=== PATIENT | male | born 1950 | race Two or more races ===

== ENCOUNTER 2020-03-01 08:33 | Outpatient (REF) | payer MEDICARE, BC, SELFPAY ==
--- NOTE | 2020-03-01 08:38 | CT_ITS ---
EXAMINATION: CT SINUS WITHOUT CONTRAST CLINICAL INFORMATION: Sinonasal polyps and deviated septum. COMPARISON: None TECHNIQUE: 2 mm thin axial and reformatted 2 mm thin sagittal and coronal images of sinuses were obtained. This CT examination was performed using dose optimization techniques as appropriate, variously including the following: *Automated exposure control *Adjustment of mA and/or kV according to patient size (this includes techniques or standardized protocols for targeted exams where dose is matched to indication/reason for exam; i.e. extremities or head) *Use of iterative reconstruction technique DLP: 107 mGy-cm FINDINGS: There is normal aeration of bilateral frontal, ethmoid, sphenoid, and maxillary sinuses. The frontoethmoidal and ostiomeatal complex drainage pathways are widely patent. The lamina papyracea, the bony sinus solares and the cribriform plate appear intact. NASAL CAVITY/NASOPHARYNX: The nasal cavity is clear. There is no nasal septal deviation/spurring. The nasopharynx is symmetric. ADDITIONAL RELEVANT FINDINGS: No periapical disease is seen. There is loss of joint space in the right TM joint and irregular mandibular condylar contour consistent with moderate degenerative arthritis. The orbits and skull base soft tissues are unremarkable. The middle ear cavities and mastoid air cells are clear. Limited evaluation demonstrates no acute intracranial findings. CT/CT sinus wo con IMPRESSION: Unremarkable sinus exam.
== END 2020-03-01 08:34 | disposition home or self-care (01) ==
LOC: HO.CT 08:33
PROVIDERS: Visit Provider Otolaryngology
DX: J33.9 Nasal polyp, unspecified (principal); J34.2 Deviated nasal septum
CPT/HCPCS: 70486

== ENCOUNTER 2020-03-05 12:47 | Outpatient (REF) | payer MEDICARE, BC, SELFPAY | END 2020-03-05 12:48 | disposition home or self-care (01) | LOC: HO.LAB 12:47 | PROVIDERS: PCP Internal Medicine; Visit Provider Internal Medicine | DX: Z20.822 Contact with and (suspected) exposure to COVID-19 (principal) | CPT/HCPCS: 36415; C9803; U0003 ==

== ENCOUNTER 2020-03-15 11:43 | Outpatient (REF) | payer MEDICARE, BC, SELFPAY | END 2020-03-15 11:44 | disposition home or self-care (01) | LOC: HO.LAB 11:43 | PROVIDERS: Visit Provider Internal Medicine | DX: Z20.822 Contact with and (suspected) exposure to COVID-19 (principal) | CPT/HCPCS: 36415; C9803; U0003 ==

== ENCOUNTER → 2020-03-17 08:22 | Outpatient (BNVA) | payer MEDICARE, BC, SELFPAY | PROVIDERS: PCP Internal Medicine; Visit Provider Internal Medicine Endocrinology, Diabetes & Metabolism | DX: Z76.89 Persons encountering health services in other specified circumstances (principal) | CPT/HCPCS: 82947; 99212 ==

== ENCOUNTER 2020-03-17 09:03 | Outpatient (REF) | payer MEDICARE, BC, SELFPAY ==
[2020-03-17 10:05] LABS: Hematocrit 38.8 % (42-52); Hemoglobin 13.2 g/dl (14.0-18.0); Mean Corpuscular Hemoglobin 29.8 pg (27.0-33.0); Mean Corpuscular Volume 87.6 fL (80-98); Mean Platelet Volume 9.5 fL (9.4-12.4); Platelet Count 250 X10*3/uL (160-400); Red Blood Count 4.43 X10*6/uL (4.60-5.80); Red Cell Distribution Width 12.4 % (11.0-16.0); White Blood Count 9.2 X10*3/uL (4.8-10.8)
[2020-03-17 10:44] LABS: Creatinine Urine 150.43 mg/dL; Microalbum/Creatinine Ratio Ur 6.6 ug/mg cr
[2020-03-17 10:53] LABS: Alanine Aminotransferase 20 U/L (0-40); Albumin Level 4.3 g/dL (3.5-5.0); Alkaline Phosphatase 68 U/L (39-117); Anion Gap 12 (12-20); Aspartate Amino Transferase 20 U/L (5-37); Bilirubin Total 0.9 mg/dL (0.0-1.0); Blood Urea Nitrogen 19 mg/dL (9-16); Calcium 9.3 mg/dL (8.4-10.2); Carbon Dioxide 23 mmol/L (22-29); Chloride 110 mmol/L (96-108); Cholesterol 156 mg/dL; Estimated Glomerular Filt Rate > 60; Glucose Fasting 103 mg/dL (60-99); HDL Cholesterol 53 mg/dL; LDL Cholesterol Calculated 78 mg/dl; Potassium 4.2 mmol/l (3.3-5.1); Sodium 141 mmol/L (135-145); Total Protein 6.8 g/dL (6.5-8.0); Triglycerides 128 mg/dL
[2020-03-17 11:06] LABS: Free T4 (Free Thyroxine) 0.93 ng/dL (0.71-1.85); Thyroid Stimulating Hormone 2.67 uIU/mL (0.32-4.0)
[2020-03-17 11:34] LABS: Vitamin B12 459 pg/mL (200-900)
[2020-03-18 02:13] LABS: LDL Cholesterol Direct 97 mg/dL (<100)
== END 2020-03-17 09:04 | disposition home or self-care (01) ==
LOC: HO.10HDL 09:03
PROVIDERS: Visit Provider Internal Medicine Endocrinology, Diabetes & Metabolism
DX: E11.9 Type 2 diabetes mellitus without complications (principal)
CPT/HCPCS: 36415; 80053; 80061; 82043; 82607; 82947; 83721; 84439; 84443; 85027; 99212

== ENCOUNTER → 2020-03-30 09:16 | Outpatient (REF) | payer MEDICARE, BC, SELFPAY ==
--- NOTE | ~2020-03-30 | US_ITS ---
EXAMINATION: US THYROID CLINICAL INFORMATION: Nontoxic single thyroid nodule. COMPARISON: Thyroid ultrasound 03/18/2019 and 01/17/2018. TECHNIQUE: Linear transducer miller-scale and color Doppler examination with attention to the region of the thyroid. FINDINGS: SIZE: Measurements of the thyroid lobes and nodules are given in sagittal, anteroposterior and transverse dimensions respectively. The thyroid gland is upper normal in size. Right Thyroid Lobe: 4.6 x 2.1 x 1.9 cm, volume 9.6 mL. Previously 4.5 x 2.0 x 2.1 cm, volume 9.9 mL. Parenchyma: The gland echotexture is heterogeneous. Thyroid vascularity is increased. Left Thyroid Lobe: 4.1 x 1.9 x 2.1 cm, volume 8.6 mL. Previously 4.3 x 1.9 x 1.5 cm, volume 6.5 mL. Parenchyma: The gland echotexture is heterogeneous. Thyroid vascularity is increased. Isthmus: 0.6 cm in maximum AP dimension. Previously 0.5 cm. No focal thyroid nodule is seen. NODES: No lymphadenopathy is seen in the tissue surrounding the thyroid gland. US/US thyroid IMPRESSION: Heterogeneous hypervascular thyroid gland. No focal nodule seen.
== END ==
LOC: HO.SL 09:16
PROVIDERS: PCP Internal Medicine; Visit Provider Internal Medicine Endocrinology, Diabetes & Metabolism
DX: E04.1 Nontoxic single thyroid nodule (principal); G47.33 Obstructive sleep apnea (adult) (pediatric)
CPT/HCPCS: 76536; 95806

== ENCOUNTER → 2020-03-31 09:21 | Outpatient (BNVA) | payer MEDICARE, BC, SELFPAY | PROVIDERS: PCP Internal Medicine; Visit Provider Dietitian, Registered ==

== ENCOUNTER 2020-05-29 02:13 | Emergency (ER) | payer OTHER, MEDICARE, BC, SELFPAY ==
--- NOTE | ~2020-05-29 | XR_ITS ---
EXAMINATION: XR CHEST CLINICAL INFORMATION: Shortness of breath COMPARISON: 08/30/2015 TECHNIQUE: 2 views of the chest were obtained. FINDINGS: Normal symmetric lung volumes. No parenchymal consolidation. No pleural effusion. No pneumothorax. Cardiomediastinal silhouette and pulmonary vascularity are within normal limits. No acute osseous abnormalities. XR/XR chest 2V IMPRESSION: Unremarkable examination.
[2020-05-29 02:23] VITALS: BP 150/77; PULSE 90; RESP 18; TEMP 36.7; O2SAT 94; BMI 28.2
--- NOTE | 2020-05-29 04:51 | ED_ITS ---
HPI - General Adult General Chief complaint: Dyspnea Stated complaint: SOB Time Seen by Provider: 05/29/20 04:51 Source: patient Mode of arrival: ambulatory History of Present Illness HPI narrative: 70-year-old male with chronic nasal congestion, currently being followed by both his primary care provider as well as a sinus specialist and most recently an ENT. He clarifies that his ?difficulty breathing? is entirely isolated to his nasal passages and nothing within his chest. He denies any associated fevers, chills, sore throat, cough, or eye pain associated with this difficulty in breathing through his nose. He was started on ipratropium spray by the ENT specialist approximately 1 week ago which has not helped with his nasal congestion. He has a follow-up appointment on the of this month. Related Data Home Medications Medication Instructions Recorded Confirmed aspirin 81 mg tablet,delayed 81 mg PO DAILY 01/12/20 05/24/20 release atorvastatin 20 mg tablet 20 mg PO DAILY 01/12/20 05/24/20 cinnamon bark 500 mg capsule 1,000 mg PO DAILY 01/12/20 05/24/20 fexofenadine 180 mg tablet 180 mg PO DAILY 01/12/20 05/24/20 losartan 100 mg tablet 100 mg PO DAILY 01/12/20 05/24/20 omega-3 fatty acids 1,000 mg 1,000 mg PO DAILY 01/12/20 05/24/20 capsule omeprazole 20 mg capsule,delayed 20 mg PO DAILY 01/12/20 05/24/20 release polyethylene glycol 3350 17 17 g PO DAILY 01/12/20 05/24/20 gram/dose oral powder ipratropium bromide 21 mcg (0.03 2 spray INTRANASAL BID 05/24/20 05/24/20 %) nasal spray metformin 500 mg tablet See Rx Instructions PO .COMPLEX 05/24/20 tab Previous Rx's Medication Instructions Recorded sennosides 8.6 mg-docusate sodium 1 tab-cap PO BID PRN #60 cap 01/12/20 50 mg capsule gabapentin 300 mg capsule 300 mg PO BID #180 cap 03/17/20 ibuprofen 800 mg tablet 800 mg PO TID #270 tab 03/17/20 levothyroxine 75 mcg tablet 75 mcg PO DAILY 90 Days #90 tab 03/17/20 lidocaine 5 % topical patch 1 patch TOPICAL DAILY #90 patch 03/31/20 AUTO PAP 6-16 mm H20 humidified AIR #1 ea 05/24/20 propranolol 10 mg tablet 10 mg PO BID #60 tab 05/24/20 terazosin 2 mg capsule 2 mg PO BEDTIME #30 cap 05/24/20 Allergies Allergy/AdvReac Type Severity Reaction Status Date / Time No Known Allergies Allergy Verified 01/06/20 13:01 [No Known Allergies*] Review of Systems Review of Systems: Pertinent positives and negatives as stated in the HPI and 10 point review of systems is otherwise negative. [facility] Past Medical History Source: nursing notes reviewed Medical History Anxiety Diabetic neuropathy Erectile dysfunction GERD (gastroesophageal reflux disease) Hypercholesterolemia Hypertension Hypothyroid Obesity (BMI 30-39.9) Obstructive sleep apnea Osteoarthritis Overweight (BMI 25.0-29.9) Pulmonary nodule Thyroid nodule Type 2 diabetes mellitus with hyperglycemia Vertebral fracture Surgical History History of appendectomy History of arthroscopy of right knee History of tonsillectomy Family History Family History Father Medical history unknown Mother Diabetes Past heart attack Brother Prostate cancer Social History Social History Alcohol intake: current Alcohol intake frequency: holidays/special occasions only Smoking Status: Current some day smoker Tobacco Type: Cigarette Packs Per Day: 0.5 Smoked in Last 30 Days: No Advance Directives: No Advance Directives Information Provided: No Physical Exam Vital Signs: Vital Signs: Last Vital Signs Temp 98.1 F 05/29/20 02:23 Pulse 90 05/29/20 02:23 Resp 18 05/29/20 02:23 BP 150/77 H 05/29/20 02:23 Pulse Ox 94 05/29/20 02:23 Body Mass Index 28.2 VITAL SIGNS: Reviewed. GENERAL: Well developed, well nourished, in no acute distress. HEAD: Normocephalic/atraumatic EYES: PERRLA, EOMI EARS: Ext canals without abnormality, TMs non-bulging and non-erythematous NOSE: Nares semi-patent bilateral, no bogginess or erythema noted on direct visualization OROPHARYNX: no oral lesions noted, posterior pharynx clear NECK: Supple, no adenopathy LUNGS: Normal breath sounds. SpO2<94> CARDIOVASCULAR: Regular rate and rhythm without noted murmurs ABDOMEN: Soft, non-tender, non-distended with bowel sounds. NEUROLOGIC: Alert and oriented x 4. Course Course Course Narrative: 70-year-old male with chronic nasal congestion and no evidence of acute infection. There is no evidence of any respiratory compromise and patient's complaint is strictly related to nasal passages. However, review of the x-ray is negative for any acute findings and I discussed with the patient at length about remaining patient and continuing with follow-up with the ENT specialist additional recommendations for symptom relief wore the use of reos-fel-zdemwww intranasal saline spray as well as a cool mist humidifier at the bedside during the night. Patient acknowledged understanding and was discharged home in stable condition. Discharge Plan Discharge Clinical Impression: Chronic nasal congestion Patient Disposition: Home, Self-Care Instructions: Rhinosinusitis (ED) Additional Instructions: 1. Resume all home medications as prescribed. 2. Recommend placing a cool mist humidifier at your bedside while sleeping at night. In addition, recommend purchasing cyqq-exr-tkntarm saline spray for the nose which you can apply to each nostril as recommended on the outside packaging. 3. Continue with follow-up with ENT on 06/02 as scheduled. Do not hesitate to come back to the emergency room should you develop any acute worsening of your symptoms. Prescriptions: No Action ibuprofen 800 mg tablet 800 mg PO TID Qty: 270 RF: 1 gabapentin 300 mg capsule 300 mg PO BID Qty: 180 RF: 1 lidocaine 5 % adhesive patch,medicated 1 patch topical DAILY Qty: 90 RF: 2 omega-3 fatty acids [Fish Oil Concentrate] 1,000 mg capsule 1,000 mg PO DAILY RF: 0 cinnamon bark 500 mg capsule 1,000 mg PO DAILY RF: 0 polyethylene glycol 3350 [Miralax] 17 gram/dose powder 17 g PO DAILY RF: 0 aspirin [Adult Aspirin Regimen] 81 mg tablet,delayed release (DR/EC) 81 mg PO DAILY RF: 0 omeprazole 20 mg capsule,delayed release(DR/EC) 20 mg PO DAILY RF: 0 losartan 100 mg tablet 100 mg PO DAILY RF: 0 atorvastatin 20 mg tablet 20 mg PO DAILY RF: 0 fexofenadine [Allergy Relief (fexofenadine)] 180 mg tablet 180 mg PO DAILY RF: 0 Senna Plus 8.6-50 mg capsule 1 tab-cap PO BID PRN (Reason: constipation) Qty: 60 RF: 2 ipratropium bromide 21 mcg (0.03 %) spray,non-aerosol 2 spray intranasal BID RF: 0 metformin 500 mg tablet See Rx Instructions PO .COMPLEX RF: 0 terazosin 2 mg capsule 2 mg PO BEDTIME Qty: 30 RF: 3 (DME) AUTO PAP 6-16 mm H20 humidified AIR See Rx Instructions .Route .MEDSUPPLY Qty: 1 RF: 0 propranolol 10 mg tablet 10 mg PO BID Qty: 60 RF: 4 levothyroxine [Synthroid] 75 mcg tablet 75 mcg PO DAILY 90 Days Qty: 90 RF: 2 Referrals: Po,Dayana Bolton MD [Primary Care Provider] - 2 days Interventions: ED Discharge Assessment Last Done: 05/29/20 04:58 Discharge Date/Time: 05/29/20 05:41
== END 2020-05-29 05:41 | disposition home or self-care (01) ==
PROVIDERS: Emergency Provider Student in an Organized Health Care Education/Training Program; PCP Internal Medicine
DX: R09.81 Nasal congestion (principal); F17.210 Nicotine dependence, cigarettes, uncomplicated; I10 Essential (primary) hypertension; E11.9 Type 2 diabetes mellitus without complications; K21.9 Gastro-esophageal reflux disease without esophagitis
CPT/HCPCS: 71046; 99283; 99284

== ENCOUNTER 2020-08-19 11:11 | Outpatient (REF) | payer MEDICARE, BC, SELFPAY ==
[2020-08-19 12:18] LABS: MANUAL DIFF FLAG NO
[2020-08-19 12:23] LABS: Basophils Percent Auto 0.4 % (0-2); Eosinophils Absolute Auto 0.3 X10*3/uL (0.0-0.4); Eosinophils Percent Auto 3.3 % (0-4); Hematocrit 40.9 % (42-52); Hemoglobin 13.6 g/dl (14.0-18.0); Imm Gran Abs Auto 0.03 X10*3/uL (0.00-0.03); Imm Gran Pct Auto 0.3 % (0.0-0.4); Immature Retic Fraction 9.8 % (2.3-13.4); Lymphocytes Absolute Auto 1.9 X10*3/uL (1.2-4.9); Lymphocytes Percent Auto 20.8 % (20-40); Mean Corpuscular HGB Conc 33.3 g/dl (31.0-36.0); Mean Corpuscular Hemoglobin 29.4 pg (27.0-33.0); Mean Corpuscular Volume 88.5 fL (80-98); Mean Platelet Volume 9.2 fL (9.4-12.4); Monocytes Absolute Auto 0.8 X10*3/uL (0.1-1.2); Monocytes Percent Auto 8.3 % (2-11); Neutrophils Absolute Auto 6.2 X10*3/uL (2.0-8.3); Neutrophils Percent Auto 66.9 % (45-73); Platelet Count 236 X10*3/uL (160-400); Red Blood Count 4.62 X10*6/uL (4.60-5.80); Red Cell Distribution Width 12.5 % (11.0-16.0); Retic HGB Equivalent 35.2 pg (30.0-35.0); Reticulocyte Percent 1.5 % (0.5-1.8); Reticulocytes Absolute 0.069 X10*6/uL (0.026-0.095); White Blood Count 9.3 X10*3/uL (4.8-10.8)
[2020-08-19 13:19] LABS: Folate 18.6 ng/mL (> or = 4.0); Vitamin B12 457 pg/mL (200-900)
[2020-08-19 13:39] LABS: Iron 94 mcg/dL (45-160); Percent Iron Saturation 30 % (15-50); Total Iron Binding Capacity 318 mcg/dL (228-428); Unsaturated Iron Binding 224 ug/dL
[2020-08-19 14:06] LABS: Ferritin 120 ng/mL (20-250); Free T4 (Free Thyroxine) 0.78 ng/dL (0.71-1.85); Prostate Specific Antigen Scr 0.89 ng/mL (<0.05-4.0); Thyroid Stimulating Hormone 1.93 uIU/mL (0.32-4.0)
== END 2020-08-19 11:12 | disposition home or self-care (01) ==
LOC: HO.LAB 11:11
PROVIDERS: PCP Internal Medicine; Visit Provider Internal Medicine
DX: Z12.5 Encounter for screening for malignant neoplasm of prostate (principal); E03.9 Hypothyroidism, unspecified; R39.9 Unspecified symptoms and signs involving the genitourinary system
CPT/HCPCS: 36415; 82607; 82728; 82746; 83540; 84153; 84439; 84443; 85025; 85045

== ENCOUNTER → 2020-10-18 13:49 | Outpatient (BNVA) | payer MEDICARE, BC, SELFPAY | PROVIDERS: PCP Internal Medicine; Visit Provider Dietitian, Registered | DX: E11.65 Type 2 diabetes mellitus with hyperglycemia (principal); E11.40 Type 2 diabetes mellitus with diabetic neuropathy, unspecified; E78.00 Pure hypercholesterolemia, unspecified; I10 Essential (primary) hypertension; E66.9 Obesity, unspecified; F17.210 Nicotine dependence, cigarettes, uncomplicated; Z79.84 Long term (current) use of oral hypoglycemic drugs | CPT/HCPCS: 97803 ==

== ENCOUNTER 2020-11-03 14:32 | Outpatient (REF) | payer MEDICARE, BC, SELFPAY | END 2020-11-03 14:33 | disposition home or self-care (01) | LOC: HO.LAB 14:32 | PROVIDERS: PCP Internal Medicine; Visit Provider Internal Medicine | DX: Z20.822 Contact with and (suspected) exposure to COVID-19 (principal) | CPT/HCPCS: C9803; U0003; U0005 ==

== ENCOUNTER 2020-11-26 10:48 | Outpatient (REF) | payer MEDICARE, BC, SELFPAY ==
--- NOTE | ~2020-11-26 | XR_ITS ---
EXAMINATION: XR FOOT, LEFT CLINICAL INFORMATION: Pain. COMPARISON: None TECHNIQUE: AP, lateral, and oblique views of the left foot. FINDINGS: There is no visible fracture, dislocation or subluxation. There is a small retrocalcaneal and calcaneal heel enthesophyte. The ankle mortise and subtalar joints are normal. The soft tissues are normal. XR/XR foot LT 2V IMPRESSION: Small retrocalcaneal and calcaneal heel enthesophytes. No visible acute fracture, dislocation or subluxation seen.
== END 2020-11-26 10:49 | disposition home or self-care (01) ==
LOC: HO.XRAY 10:48
PROVIDERS: PCP Internal Medicine; Visit Provider Internal Medicine
DX: M79.672 Pain in left foot (principal)
CPT/HCPCS: 73620

== ENCOUNTER 2021-02-28 13:11 | Outpatient (REF) | payer MEDICARE, BC, SELFPAY ==
[2021-02-28 13:26] LABS: MANUAL DIFF FLAG NO
[2021-02-28 14:04] LABS: Basophils Percent Auto 0.4 % (0-2); Eosinophils Absolute Auto 0.4 X10*3/uL (0.0-0.4); Eosinophils Percent Auto 3.9 % (0-4); Hematocrit 38.4 % (42.0-52.0); Imm Gran Abs Auto 0.02 X10*3/uL (0.00-0.03); Imm Gran Pct Auto 0.2 % (0.0-0.4); Lymphocytes Percent Auto 21.8 % (20-40); Mean Corpuscular HGB Conc 33.9 g/dl (31.0-36.0); Mean Corpuscular Hemoglobin 29.7 pg (27.0-33.0); Mean Corpuscular Volume 87.9 fL (80.0-98.0); Mean Platelet Volume 9.7 fL (9.4-12.4); Monocytes Absolute Auto 0.8 X10*3/uL (0.1-1.2); Monocytes Percent Auto 9.1 % (2-11); Neutrophils Absolute Auto 5.9 x10*3/uL (2.0-8.3); Neutrophils Percent Auto 64.6 % (45-73); Platelet Count 220 X10*3/uL (160-400); Red Blood Count 4.37 X10*6/uL (4.60-5.80); Red Cell Distribution Width 12.7 % (11.0-16.0); White Blood Count 9.1 X10*3/uL (4.8-10.8)
[2021-02-28 14:16] LABS: Estimated Average Glucose 131 mg/dL; Hemoglobin A1c % 6.2 %
[2021-02-28 14:44] LABS: Alanine Aminotransferase 27 U/L (0-40); Alkaline Phosphatase 67 U/L (39-117); Anion Gap 11 (12-20); Aspartate Amino Transferase 20 U/L (5-37); Bilirubin Total 0.5 mg/dL (0.0-1.0); Blood Urea Nitrogen 15 mg/dL (9-16); Calcium 9.6 mg/dL (8.4-10.2); Carbon Dioxide 26 mmol/L (22-29); Chloride 108 mmol/L (96-108); Cholesterol 151 mg/dL; Estimated Glomerular Filt Rate > 60; Glucose Random 85 mg/dL (60-115); HDL Cholesterol 47 mg/dL; LDL Cholesterol Calculated 74 mg/dl; Potassium 4.5 mmol/L (3.3-5.1); Sodium 140 mmol/L (135-145); Total Protein 6.7 g/dL (6.5-8.0); Triglycerides 153 mg/dL
[2021-02-28 14:54] LABS: Free T4 (Free Thyroxine) 0.83 ng/dL (0.71-1.85); Prostate Specific Antigen Scr 0.85 ng/mL (<0.05-4.0); Thyroid Stimulating Hormone 3.85 uIU/mL (0.32-4.0)
[2021-02-28 15:02] LABS: Folate 19.2 ng/mL (> or = 4.0); Vitamin B12 526 pg/mL (200-900)
[2021-02-28 16:45] LABS: Creatinine Urine 127.89 mg/dL; Microalbum/Creatinine Ratio Ur 5.4 ug/mg cr
== END 2021-02-28 13:12 | disposition home or self-care (01) ==
LOC: HO.LAB 13:11
PROVIDERS: PCP Internal Medicine; Visit Provider Internal Medicine
DX: E11.65 Type 2 diabetes mellitus with hyperglycemia (principal); I10 Essential (primary) hypertension; E03.9 Hypothyroidism, unspecified; E78.00 Pure hypercholesterolemia, unspecified; Z12.5 Encounter for screening for malignant neoplasm of prostate
CPT/HCPCS: 36415; 80053; 80061; 82043; 82607; 82746; 83036; 84153; 84439; 84443; 85025

== ENCOUNTER → 2021-04-18 10:35 | Outpatient (BNVA) | payer MEDICARE, BC, SELFPAY | PROVIDERS: PCP Internal Medicine; Visit Provider Dietitian, Registered | DX: E11.65 Type 2 diabetes mellitus with hyperglycemia (principal) | CPT/HCPCS: 97803 ==

== ENCOUNTER 2021-06-13 11:51 | Outpatient (REF) | payer MEDICARE, BC, SELFPAY ==
[2021-06-15 12:07] LABS: Follicle Stimulating Hormone 3.3 mIU/mL (1.6-8.0); Lutenizing Hormone 1.4 mIU/mL (1.6-15.2); Prolactin 3.6 ng/mL (2.0-18.0)
[2021-06-18 11:06] LABS: Testosterone, Total 135 ng/dL (250-1100)
== END 2021-06-13 11:52 | disposition home or self-care (01) ==
LOC: HO.LAB 11:51
PROVIDERS: PCP Internal Medicine; Visit Provider Internal Medicine
DX: N52.9 Male erectile dysfunction, unspecified (principal)
CPT/HCPCS: 36415; 83001; 83002; 84146; 84403

== ENCOUNTER → 2021-06-23 10:57 | Outpatient (BNVA) | payer MEDICARE, BC, SELFPAY | PROVIDERS: PCP Internal Medicine; Visit Provider Internal Medicine Endocrinology, Diabetes & Metabolism | DX: E11.65 Type 2 diabetes mellitus with hyperglycemia (principal); E03.9 Hypothyroidism, unspecified | CPT/HCPCS: 82947; 99212 ==

== ENCOUNTER 2021-08-09 08:59 | Outpatient (REF) | payer MEDICARE, BC, SELFPAY ==
--- NOTE | ~2021-08-09 | XR_ITS ---
EXAMINATION: XR CHEST CLINICAL INFORMATION: Positive TB test COMPARISON: Previous chest x-ray most recent May 2020 TECHNIQUE: 2 views of the chest were obtained. FINDINGS: The cardiac and mediastinal contours are stable. The cardiac silhouette is slightly enlarged. The thoracic aorta is tortuous. The lungs are clear. There is no pleural effusion. There are degenerative changes of the spine. XR/XR chest 2V IMPRESSION: No evidence of TB in the chest.
== END 2021-08-09 09:00 | disposition home or self-care (01) ==
LOC: HO.XRAY 08:59
PROVIDERS: PCP Internal Medicine; Visit Provider Nurse Practitioner
DX: R76.11 Nonspecific reaction to tuberculin skin test without active tuberculosis (principal); K59.00 Constipation, unspecified; Z80.0 Family history of malignant neoplasm of digestive organs
CPT/HCPCS: 71046; 99202

== ENCOUNTER → 2021-10-17 10:21 | Outpatient (BNVA) | payer MEDICARE, BC, SELFPAY | PROVIDERS: PCP Internal Medicine; Visit Provider Dietitian, Registered | DX: E11.65 Type 2 diabetes mellitus with hyperglycemia (principal); Z71.3 Dietary counseling and surveillance | CPT/HCPCS: 97803 ==

== ENCOUNTER 2021-10-20 10:32 | Outpatient (REF) | payer MEDICARE, BC, SELFPAY ==
[2021-10-20 10:48] LABS: MANUAL DIFF FLAG NO
[2021-10-20 11:24] LABS: Basophils Percent Auto 0.3 % (0-2); Eosinophils Absolute Auto 0.3 X10*3/uL (0.0-0.4); Eosinophils Percent Auto 3.2 % (0-4); Hematocrit 37.6 % (42.0-52.0); Hemoglobin 12.5 g/dl (14.0-18.0); Imm Gran Abs Auto 0.03 X10*3/uL (0.00-0.03); Imm Gran Pct Auto 0.3 % (0.0-0.4); Lymphocytes Absolute Auto 1.6 X10*3/uL (1.2-4.9); Lymphocytes Percent Auto 18.6 % (20-40); Mean Corpuscular HGB Conc 33.2 g/dl (31.0-36.0); Mean Corpuscular Volume 87.2 fL (80.0-98.0); Mean Platelet Volume 9.3 fL (9.4-12.4); Monocytes Absolute Auto 0.9 X10*3/uL (0.1-1.2); Monocytes Percent Auto 10.5 % (2-11); Neutrophils Absolute Auto 5.9 x10*3/uL (2.0-8.3); Neutrophils Percent Auto 67.1 % (45-73); Platelet Count 283 X10*3/uL (160-400); Red Blood Count 4.31 X10*6/uL (4.60-5.80); Red Cell Distribution Width 12.8 % (11.0-16.0); White Blood Count 8.8 X10*3/uL (4.8-10.8)
[2021-10-20 11:54] LABS: Estimated Average Glucose 128 mg/dL; Hemoglobin A1c % 6.1 %
[2021-10-20 12:00] LABS: Bacteria Urine None Seen (None Seen); Hyaline Casts Urine 0-2 /LPF (0-2); RBC Urine 0-2 /HPF (0-2); Squamous Epithelial Cell Urine 0-2 /HPF (0-2); WBC Urine 0-5 /HPF (0-5)
[2021-10-20 12:05] LABS: Color Urine Yellow; Glucose Urine UA Negative (Negative); Leukocyte Esterase Urine Trace (Negative); Nitrite Urine Negative (Negative); PH 6.5 (5.0-9.0); Specific Gravity - Urine 1.025 (1.005-1.025); Urine Blood Negative (Negative); Urine Ketones Negative (Negative); Urine Protein Negative (Neg-Trace)
[2021-10-20 12:08] LABS: Appearance Urine Hazy
[2021-10-20 12:28] LABS: Alanine Aminotransferase 20 U/L (0-40); Alkaline Phosphatase 63 U/L (39-117); Anion Gap 15 (12-20); Aspartate Amino Transferase 21 U/L (5-37); Bilirubin Total 0.8 mg/dL (0.0-1.0); Blood Urea Nitrogen 18 mg/dL (9-16); Calcium 8.7 mg/dL (8.4-10.2); Carbon Dioxide 23 mmol/L (22-29); Chloride 110 mmol/L (96-108); Cholesterol 139 mg/dL; Estimated Glomerular Filt Rate > 60; Glucose Random 123 mg/dL (60-115); HDL Cholesterol 52 mg/dL; LDL Cholesterol Calculated 73 mg/dl; Potassium 4.6 mmol/L (3.3-5.1); Sodium 143 mmol/L (135-145); Total Protein 6.6 g/dL (6.5-8.0); Triglycerides 70 mg/dL
[2021-10-20 12:29] LABS: Creatinine Urine 172.78 mg/dL; Microalbumin Urine < 5.0 mg/L
[2021-10-20 12:38] LABS: Free T4 (Free Thyroxine) 0.93 ng/dL (0.71-1.85); Thyroid Stimulating Hormone 3.66 uIU/mL (0.32-4.0)
[2021-10-20 12:43] LABS: Folate 16.5 ng/mL (> or = 4.0); Vitamin B12 508 pg/mL (200-900)
== END 2021-10-20 10:33 | disposition home or self-care (01) ==
LOC: HO.LAB 10:32
PROVIDERS: PCP Internal Medicine; Visit Provider Internal Medicine
DX: E11.65 Type 2 diabetes mellitus with hyperglycemia (principal); E78.00 Pure hypercholesterolemia, unspecified
CPT/HCPCS: 36415; 80053; 80061; 81001; 82043; 82607; 82746; 83036; 84439; 84443; 85025

== ENCOUNTER 2021-10-28 11:50 | Day surgery (SDC) | payer MEDICARE, BC, SELFPAY ==
--- NOTE | 2021-10-27 14:57 | HO.ANESPROP2 ---
Documented by User: Krys Ramos NP 10/27/21 14:58 HPI - Anesthesia Eval Consult details Narrative: 71yo M for Colonoscopy PMFSH Active Problems Active Problems: All Active Problems (Updated 08/26/21 @ 10:28 by Dayana Mccurdy MD) Peripheral vascular disease (Acute) Hypogonadism in male (Acute) Family history of colon cancer (Acute) Adult general medical exam (Acute) Erectile dysfunction (Acute) Generalized anxiety disorder (Acute) Essential tremor (Acute) Mild obstructive sleep apnea (Acute) Vertebral fracture (Acute) Anemia (Acute) Lower urinary tract symptoms (LUTS) (Acute) Insomnia (Acute) Thyroid nodule (Acute) Constipation (Acute) Tobacco abuse (Acute) Type 2 diabetes mellitus with hyperglycemia (Acute) Osteoarthritis (Acute) GERD (gastroesophageal reflux disease) (Acute) Overweight (BMI 25.0-29.9) (Acute) Erectile dysfunction (Acute) Hypothyroid (Acute) Hypertension (Acute) Hypercholesterolemia (Acute) Past Medical History Medical History Diabetic neuropathy Erectile dysfunction Foot pain, left GERD (gastroesophageal reflux disease) Hypercholesterolemia Hypertension Hypothyroid Obesity (BMI 30-39.9) Obstructive sleep apnea Osteoarthritis Overweight (BMI 25.0-29.9) Overweight (BMI 25.0-29.9) Positive PPD Pulmonary nodule Screening for colon cancer Thyroid nodule Type 2 diabetes mellitus with hyperglycemia Vertebral fracture Family History Family History Father Medical history unknown Mother Diabetes Past heart attack Brother Prostate cancer Surgical History Surgical History History of appendectomy History of arthroscopy of right knee History of colonoscopy History of tonsillectomy Social History Social History Housing: House Alcohol intake: current Alcohol intake frequency: holidays/special occasions only Patient Tobacco Use Status: Current everyday Tobacco user Tobacco use type: Cigarette Cigarette Packs Per Day: 15 Cigarettes Per Day: 20 e-Cigarette/Vaping Use: Never Used Second Hand Smoke Exposure: No Use of substances other than those prescribed or required for medical reasons: No Are you DNR?: No Advance Directives: No Advance Directives Information Provided: Yes service: No Current occupational status: disabled Cognitive needs: No Hearing needs: No Vision needs: Yes Meds Allergies Allergy/AdvReac Type Severity Reaction Status Date / Time No Known Allergies Allergy Verified 10/28/21 13:21 [No Known Allergies*] Home Medications Medication Instructions Recorded Confirmed Last Taken Type aspirin 81 mg tablet,delayed 81 mg PO DAILY 01/12/20 10/28/21 Unknown History release (Adult Aspirin Regimen) cinnamon bark 500 mg capsule 1,000 mg PO DAILY 01/12/20 10/28/21 Unknown History omega-3 fatty acids 1,000 mg 1,000 mg PO DAILY 01/12/20 10/28/21 Unknown History capsule (Fish Oil Concentrate) metformin 500 mg tablet 500 mg PO BID 06/23/21 10/28/21 Unknown History alprazolam 0.25 mg tablet 0.25 mg PO DAILY 08/09/21 10/28/21 Unknown History fluticasone propionate 50 2 spray intranasal DAILY PRN Nasal 10/28/21 10/28/21 Unknown History mcg/actuation nasal Congestion spray,suspension (Flonase Allergy Relief) ibuprofen 800 mg tablet 800 mg PO BID 10/28/21 10/28/21 Unknown History auqnlrcmjiii-nvwkrlde-pajrck 1 tab PO DAILY 10/28/21 10/28/21 Unknown History tablet (Multivitamin 50 Plus tablet) Exam Exam Date and Time: October 27, 2021 145 Pertinent Lab Results Pertinent Lab Results: Laboratory Tests 10/20/21 10/20/21 10:46 10:46 WBC 8.8 Hgb 12.5 L Hct 37.6 L Plt Count 283 D Sodium 143 Potassium 4.6 Chloride 110 H Carbon Dioxide 23 BUN 18 H Creatinine 0.90 Assessment and Plan Assessment Anesthesia Assessment: Chart Reviewed Documented by User: Ruthy Hayes MD 10/28/21 14:25 [facility] Past Medical History Medical History Diabetic neuropathy Erectile dysfunction Foot pain, left GERD (gastroesophageal reflux disease) Hypercholesterolemia Hypertension Hypothyroid Obesity (BMI 30-39.9) Obstructive sleep apnea Osteoarthritis Overweight (BMI 25.0-29.9) Overweight (BMI 25.0-29.9) Positive PPD Pulmonary nodule Screening for colon cancer Thyroid nodule Type 2 diabetes mellitus with hyperglycemia Vertebral fracture Functional capacity: independent ambulation Family History Family History Father Medical history unknown Mother Diabetes Past heart attack Brother Prostate cancer Family history of problems with anesthesia: No Surgical History Surgical History History of appendectomy History of arthroscopy of right knee History of colonoscopy History of tonsillectomy History of Problems with Anesthesia: No Social History Social History Housing: House Alcohol intake: current Alcohol intake frequency: holidays/special occasions only Patient Tobacco Use Status: Current everyday Tobacco user Tobacco use type: Cigarette Cigarette Packs Per Day: 15 Cigarettes Per Day: 20 e-Cigarette/Vaping Use: Never Used Second Hand Smoke Exposure: No Use of substances other than those prescribed or required for medical reasons: No Are you DNR?: No Advance Directives: No Advance Directives Information Provided: Yes service: No Current occupational status: disabled Cognitive needs: No Hearing needs: No Vision needs: Yes Meds Allergies Allergy/AdvReac Type Severity Reaction Status Date / Time No Known Allergies Allergy Verified 10/28/21 13:21 [No Known Allergies*] Home Medications Medication Instructions Recorded Confirmed Last Taken Type aspirin 81 mg tablet,delayed 81 mg PO DAILY 01/12/20 10/28/21 Unknown History release (Adult Aspirin Regimen) cinnamon bark 500 mg capsule 1,000 mg PO DAILY 01/12/20 10/28/21 Unknown History omega-3 fatty acids 1,000 mg 1,000 mg PO DAILY 01/12/20 10/28/21 Unknown History capsule (Fish Oil Concentrate) metformin 500 mg tablet 500 mg PO BID 06/23/21 10/28/21 Unknown History alprazolam 0.25 mg tablet 0.25 mg PO DAILY 08/09/21 10/28/21 Unknown History fluticasone propionate 50 2 spray intranasal DAILY PRN Nasal 10/28/21 10/28/21 Unknown History mcg/actuation nasal Congestion spray,suspension (Flonase Allergy Relief) ibuprofen 800 mg tablet 800 mg PO BID 10/28/21 10/28/21 Unknown History uxlumiylcyva-ghnowmhi-abejhf 1 tab PO DAILY 10/28/21 10/28/21 Unknown History tablet (Multivitamin 50 Plus tablet) Exam Airway Mallampati Class: III TM Dist: >3cm Neck ROM: Full Heart: RRR Lungs: CTA Assessment and Plan Final Anesthetic Review Family History of Problems with Anesthesia: No History of Problems with Anesthesia: No ASA Class: III Final Preanesthetic Review: No Changes in Pt Med Stat, Meds/Allgs Chart Reviewed, Consent Obtained/Reviewed and Anes Risks/Benef Reviewed Patient Risk: Low (F) Procedure Risk: Low Anesthetic Plan Anesthetic Plan: MAC: Disposition: Standard PACU
[2021-10-28 12:33] VITALS: BMI 30.7
[2021-10-28 12:48] VITALS: BP 176/91; PULSE 57; RESP 16; TEMP 36.3; O2SAT 98
[2021-10-28] MEDS: Lactated Ringers 1,000 ML 100 ML IVCONT (13:09)
[2021-10-28 13:35] LABS: Glucose, Whole Blood 100 mg/dL (60-115)
--- NOTE | 2021-10-28 14:50 | MHC.SHP ---
Pre-Procedural Eval Section A Date of Service: 10/28/21 The patient is an INPATIENT: No The History & Physical has been completed within 30 days and I have reviewed it.: No Section B Chief Complaint: screening Details of Present Illness: Colon cancer screen, chronic constipation Relevant Family History (Specify if Yes): No Relevant Social History: Tobacco Use Present Medications: see Short Stay Collaborative assessment Medical History: Significant History (LUIS Smoker Diabetes Hypertension High cholesterol Hypothyroid History of vertebral fracture Osteoarthritis Erectile dysfunction Constipation) History of Previous Operations: Relevant previous surgery/procedure and date(s) (History of appendectomy History of arthroscopy of right knee History of colonoscopy History of tonsillectomy) Allergies: Allergies Allergy/AdvReac Type Severity Reaction Status Date / Time No Known Allergies Allergy Verified 10/28/21 13:21 [No Known Allergies*] Review of Systems Sugical H&P ROS: Negative: Constitution, Cardiovascular, Respiratory and Gastrointestinal Exam Surgical H&P Exam: Normal: Heart, Normal: Lungs, Normal: Extremities and Normal: Abdomen Plan Diagnosis/Plan: Unchanged I have reviewed the history and physical and performed a pertinent physical examination on my patient. No changes have occurred unless specified.
--- NOTE | 2021-10-28 14:56 | P.OP_ITS ---
Operative Note Operative Note Date of Service: 10/28/21 Narrative: Pre-op diagnosis: Colon cancer screening, chronic constipation Post-op diagnosis:?other (Colon polyps, diverticulosis, hemorrhoids) Procedure: COLONOSCOPY TILL CECUM WITH BIOPSIES AND SNARE POLYPECTOMY Consent: Indications for the procedure and potential complications of bleeding, perforation, reaction to medications and missed diagnosis were discussed with the patient and informed consent was obtained. Instrument: Olympus PCF H 190 L variable stiffness pediatric colonoscope Monitoring: Vital signs and clinical assessment, intermittent blood pressure monitoring, continuous EKG monitoring, Pulse oximetry and Carbon Dioxide monitoring were done throughout the procedure. Colon withdrawl time was 18 minutes. Procedure: The patient was placed in the left lateral decubitis position and pre-procedure medications were administered. After a digital rectal examination of the ano-rectum, the video colonoscope was inserted into the rectum and advanced through the colon to the cecum. The colonoscope was slowly withdrawn in a retrograde panoramic fashion and the colon mucosa was carefully examined including a retroflexed view of the rectum. Findings and interventions are described below. Procedure Difficulty: Colon was long and tortuous and there was some loop formation. Findings: Terminal Ileum: Not evaluated Cecum:? Normal Ascending Colon:? Normal Transverse Colon:? A 7 to 8 mm sessile (adenomatous appearing) polyp removed with a cold snare Descending Colon:? Moderate diverticulosis Sigmoid Colon:? Moderate diverticulosis Rectum:? A few 4-5 mm diminutive appearing polyps in the rectum - 3 were removed with a cold biopsy. Ano-rectum:? Moderate internal hemorrhoids Colon preparation:? Good after some irrigation Impression and Post Procedure Diagnosis: Colonoscopy Findings: Four small polyps removed Moderate diverticulosis seen in the left colon Moderate hemorrhoids on retroflexed exam. Plan: Await pathology results Patient has an appointment on 11/23/21 in the GI Clinic with? Shyla Elizabeth NP. Repeat Colonoscopy interval based on path results - in 3-5 years if polyps are adenomatous and 10 years if polyps are hyperplastic. (Adult colonoscope for future colonoscopies). Above findings were reviewed with the patient and colon polyps and diverticulosis handouts were given in the discharge area Surgeon: Jad Ricardo MD Anesthesia:?MAC Was an Big Data [employer] Lead used for this Procedure?:?Yes Big Data Analytics Lead:?Magdi Nuno Estimated blood loss (mL):?0 Pathology:?other (A: Transverse colon polyp.? B: Rectal polyp.) Condition:?stable Disposition:?PACU
[2021-10-28 15:48] VITALS: BP 133/70; PULSE 65; RESP 16; TEMP 36.7; O2SAT 96
--- NOTE | 2021-10-28 15:52 | HO.POSTANES ---
Post Anesthesia Evaluation Post Anesthesia Evaluation Vital Signs: Vital Signs Temp Pulse Resp BP Pulse Ox O2 Del Method O2 Flow Rate 10/28/21 15:48 98.1 F 65 16 133/70 96 Nasal Cannula 2 10/28/21 12:48 97.4 F 57 16 176/91 H 98 Room Air Anesthesia: Monitored Mental Status: Awake Pain Control: Satisfactory Nausea/Vomiting: None Hydration: Adequate Anesthesia-Related Issues: No Anes. Related Issues
[2021-10-28 16:02] VITALS: BP 133/70; PULSE 62; RESP 18; O2SAT 98
[2021-10-28 16:17] VITALS: BP 155/80; PULSE 56; RESP 18; TEMP 36.4; O2SAT 98
== END 2021-10-28 16:47 | disposition home or self-care (01) ==
PROVIDERS: PCP Internal Medicine; Visit Provider Internal Medicine Gastroenterology
PROC: 0DJD8ZZ Inspection of Lower Intestinal Tract, Via Natural or Artificial Opening Endoscopic (ICD-10-PCS; CPT 45378; principal; 2021-10-28 13:20)
DX: Z12.11 Encounter for screening for malignant neoplasm of colon (principal); Z80.0 Family history of malignant neoplasm of digestive organs; D12.3 Benign neoplasm of transverse colon; K62.1 Rectal polyp; K57.30 Diverticulosis of large intestine without perforation or abscess without bleeding; K64.8 Other hemorrhoids; K59.09 Other constipation; G47.33 Obstructive sleep apnea (adult) (pediatric); I10 Essential (primary) hypertension; E78.00 Pure hypercholesterolemia, unspecified; E03.9 Hypothyroidism, unspecified; R76.11 Nonspecific reaction to tuberculin skin test without active tuberculosis; R91.1 Solitary pulmonary nodule; N52.9 Male erectile dysfunction, unspecified; F17.210 Nicotine dependence, cigarettes, uncomplicated
CPT/HCPCS: 45385; 45380; 82947; 88305; J2250

== ENCOUNTER → 2021-11-23 07:52 | Outpatient (BNVA) | payer MEDICARE, BC, SELFPAY | PROVIDERS: PCP Internal Medicine; Referring Provider Internal Medicine; Visit Provider Nurse Practitioner | DX: D12.6 Benign neoplasm of colon, unspecified (principal); K59.00 Constipation, unspecified | CPT/HCPCS: 99212 ==

== ENCOUNTER → 2022-01-04 07:48 | Outpatient (BNVA) | payer MEDICARE, BC, SELFPAY | PROVIDERS: PCP Internal Medicine; Referring Provider Internal Medicine; Visit Provider Nurse Practitioner | DX: K59.00 Constipation, unspecified (principal); D12.6 Benign neoplasm of colon, unspecified | CPT/HCPCS: 99212 ==

== ENCOUNTER → 2022-01-06 10:38 | Outpatient (BNVA) | payer MEDICARE, BC, SELFPAY | PROVIDERS: PCP Internal Medicine; Visit Provider Urology | DX: E11.69 Type 2 diabetes mellitus with other specified complication (principal); N52.1 Erectile dysfunction due to diseases classified elsewhere | CPT/HCPCS: 99202 ==

== ENCOUNTER 2022-03-02 10:31 | Outpatient (REF) | payer MEDICARE, BC, SELFPAY ==
[2022-03-02 10:51] LABS: MANUAL DIFF FLAG NO
[2022-03-02 11:33] LABS: INTERNATIONAL NORM RATIO 0.9 (0.9-1.1); Prothrombin Time 10.3 SEC (10.0-13.1)
[2022-03-02 11:45] LABS: Basophils Absolute Auto 0.1 X10*3/uL (0.0-0.2); Basophils Percent Auto 0.8 % (0-2); Eosinophils Absolute Auto 0.3 X10*3/uL (0.0-0.4); Hematocrit 37.9 % (42.0-52.0); Imm Gran Abs Auto 0.02 X10*3/uL (0.00-0.03); Imm Gran Pct Auto 0.2 % (0.0-0.4); Lymphocytes Absolute Auto 2.2 X10*3/uL (1.2-4.9); Lymphocytes Percent Auto 25.9 % (20-40); Mean Corpuscular HGB Conc 34.3 g/dl (31.0-36.0); Mean Corpuscular Hemoglobin 29.8 pg (27.0-33.0); Mean Corpuscular Volume 86.9 fL (80.0-98.0); Mean Platelet Volume 9.7 fL (9.4-12.4); Monocytes Absolute Auto 0.8 X10*3/uL (0.1-1.2); Monocytes Percent Auto 9.7 % (2-11); Neutrophils Absolute Auto 5.1 x10*3/uL (2.0-8.3); Neutrophils Percent Auto 59.4 % (45-73); Platelet Count 204 X10*3/uL (160-400); Red Blood Count 4.36 X10*6/uL (4.60-5.80); Red Cell Distribution Width 12.7 % (11.0-16.0); White Blood Count 8.6 X10*3/uL (4.8-10.8)
[2022-03-02 12:41] LABS: Folate 16.4 ng/mL (> or = 4.0); Vitamin B12 505 pg/mL (200-900)
[2022-03-02 13:17] LABS: Creatinine Urine 146.97 mg/dL; Microalbum/Creatinine Ratio Ur 7.4 ug/mg cr
[2022-03-02 13:23] LABS: Alanine Aminotransferase 27 U/L (0-40); Alkaline Phosphatase 69 U/L (39-117); Anion Gap 9 (12-20); Aspartate Amino Transferase 18 U/L (5-37); Bilirubin Total 0.4 mg/dL (0.0-1.0); Blood Urea Nitrogen 17 mg/dL (9-16); Carbon Dioxide 24 mmol/L (22-29); Chloride 109 mmol/L (96-108); Cholesterol 154 mg/dL; Estimated Glomerular Filt Rate > 60; Glucose Random 134 mg/dL (60-115); HDL Cholesterol 52 mg/dL; Iron 75 mcg/dL (45-160); LDL Cholesterol Calculated 77 mg/dl; Percent Iron Saturation 26 % (15-50); Potassium 4.1 mmol/L (3.3-5.1); Sodium 138 mmol/L (135-145); Total Iron Binding Capacity 284 mcg/dL (228-428); Total Protein 6.4 g/dL (6.5-8.0); Triglycerides 126 mg/dL; Unsaturated Iron Binding 209 ug/dL
[2022-03-02 13:24] LABS: Ferritin 26 ng/mL (20-250); Free T4 (Free Thyroxine) 0.78 ng/dL (0.71-1.85); Prostate Specific Antigen Scr 0.98 ng/mL (<0.05-4.0); Thyroid Stimulating Hormone 5.97 uIU/mL (0.32-4.0)
== END 2022-03-02 10:32 | disposition home or self-care (01) ==
LOC: HO.LAB 10:31
PROVIDERS: PCP Internal Medicine; Visit Provider Internal Medicine
DX: E11.65 Type 2 diabetes mellitus with hyperglycemia (principal); E78.00 Pure hypercholesterolemia, unspecified; Z12.5 Encounter for screening for malignant neoplasm of prostate
CPT/HCPCS: 36415; 80053; 80061; 82043; 82607; 82728; 82746; 83540; 84153; 84439; 84443; 85025; 85610

== ENCOUNTER → 2022-03-14 09:39 | Outpatient (BNVA) | payer BC, MEDICARE, SELFPAY | PROVIDERS: PCP Internal Medicine; Referring Provider Internal Medicine; Visit Provider Nurse Practitioner | DX: Z13.89 Encounter for screening for other disorder (principal) ==

== ENCOUNTER → 2022-04-17 10:29 | Outpatient (BNVA) | payer MEDICARE, BC, SELFPAY | PROVIDERS: PCP Internal Medicine; Visit Provider Dietitian, Registered | DX: E11.65 Type 2 diabetes mellitus with hyperglycemia (principal); E11.40 Type 2 diabetes mellitus with diabetic neuropathy, unspecified; E03.9 Hypothyroidism, unspecified; Z83.3 Family history of diabetes mellitus; Z71.3 Dietary counseling and surveillance | CPT/HCPCS: 97803 ==

== ENCOUNTER 2022-05-08 15:38 | Outpatient (REF) | payer MEDICARE, BC, SELFPAY ==
[2022-05-08 15:56] LABS: MANUAL DIFF FLAG NO
--- NOTE | 2022-05-08 16:00 | ECG_ITS ---
Test Reason : preop Blood Pressure : / mmHG Vent. Rate : 059 BPM Atrial Rate : 059 BPM P-R Int : 150 ms QRS Dur : 088 ms QT Int : 416 ms P-R-T Axes : 024 -22 -33 degrees QTc Int : 411 ms Sinus bradycardia Otherwise normal ECG When compared with ECG of 19-FEB-2016 00:21, No significant change was found Referred By: Dayana Mccurdy Electronically Signed By:CORAL HYLTON MD
[2022-05-08 17:04] LABS: Basophils Percent Auto 0.3 % (0-2); Eosinophils Absolute Auto 0.2 X10*3/uL (0.0-0.4); Eosinophils Percent Auto 2.6 % (0-4); Hematocrit 39.1 % (42.0-52.0); Hemoglobin 13.1 g/dl (14.0-18.0); Imm Gran Abs Auto 0.03 X10*3/uL (0.00-0.03); Imm Gran Pct Auto 0.3 % (0.0-0.4); Lymphocytes Percent Auto 22.8 % (20-40); Mean Corpuscular HGB Conc 33.5 g/dl (31.0-36.0); Mean Corpuscular Volume 89.7 fL (80.0-98.0); Mean Platelet Volume 9.5 fL (9.4-12.4); Monocytes Absolute Auto 0.8 X10*3/uL (0.1-1.2); Monocytes Percent Auto 8.8 % (2-11); Neutrophils Absolute Auto 5.7 x10*3/uL (2.0-8.3); Neutrophils Percent Auto 65.2 % (45-73); Platelet Count 217 X10*3/uL (160-400); Red Blood Count 4.36 X10*6/uL (4.60-5.80); Red Cell Distribution Width 13.2 % (11.0-16.0); White Blood Count 8.7 X10*3/uL (4.8-10.8)
[2022-05-08 17:39] LABS: Alanine Aminotransferase 20 U/L (0-40); Alkaline Phosphatase 64 U/L (39-117); Anion Gap 15 (12-20); Aspartate Amino Transferase 19 U/L (5-37); Bilirubin Total 0.8 mg/dL (0.0-1.0); Blood Urea Nitrogen 13 mg/dL (9-16); Calcium 9.2 mg/dL (8.4-10.2); Carbon Dioxide 25 mmol/L (22-29); Chloride 108 mmol/L (96-108); Estimated Glomerular Filt Rate > 60; Glucose Random 82 mg/dL (60-115); Potassium 4.6 mmol/L (3.3-5.1); Sodium 143 mmol/L (135-145); Total Protein 6.4 g/dL (6.5-8.0)
[2022-05-08 17:56] LABS: Thyroid Stimulating Hormone 3.96 uIU/mL (0.32-4.0)
== END 2022-05-08 15:39 | disposition home or self-care (01) ==
LOC: HO.LAB 15:38
PROVIDERS: PCP Internal Medicine; Visit Provider Internal Medicine
DX: Z01.818 Encounter for other preprocedural examination (principal); E03.9 Hypothyroidism, unspecified
CPT/HCPCS: 36415; 80053; 84443; 85025; 93005

== ENCOUNTER → 2022-05-11 08:36 | Outpatient (BNVA) | payer MEDICARE, BC, SELFPAY | PROVIDERS: PCP Internal Medicine; Visit Provider Urology | DX: E29.1 Testicular hypofunction (principal); N40.1 Benign prostatic hyperplasia with lower urinary tract symptoms; N13.8 Other obstructive and reflux uropathy; E11.69 Type 2 diabetes mellitus with other specified complication; E11.65 Type 2 diabetes mellitus with hyperglycemia; N52.1 Erectile dysfunction due to diseases classified elsewhere; R39.9 Unspecified symptoms and signs involving the genitourinary system; Z79.899 Other long term (current) drug therapy | CPT/HCPCS: 51798; 99212 ==

== ENCOUNTER 2022-08-29 09:40 | Outpatient (REF) | payer OTHER, BC, SELFPAY ==
--- NOTE | ~2022-08-29 | XR_ITS ---
EXAMINATION: XR THORACOLUMBAR SPINE CLINICAL INFORMATION: Pain COMPARISON: 11/23/2017 TECHNIQUE: Frontal and 2 lateral views of the thoracic spine obtained FINDINGS: Bones are normal anatomic alignment with no acute fracture or spondylolisthesis. Vertebral body heights are preserved. Multilevel degenerative changes are seen with small anterior osteophyte formation at several levels. Paravertebral soft tissues and adjacent ribs grossly unremarkable XR/XR thoracic spine 2V IMPRESSION: Mild multilevel degenerative changes but no acute fracture or spondylolisthesis.
== END 2022-08-29 09:41 | disposition home or self-care (01) ==
LOC: HO.XRAY 09:40
PROVIDERS: PCP Internal Medicine; Visit Provider Nurse Practitioner
DX: M54.6 Pain in thoracic spine (principal); K21.9 Gastro-esophageal reflux disease without esophagitis; K59.00 Constipation, unspecified
CPT/HCPCS: 72070

== ENCOUNTER 2022-08-29 09:40 | Outpatient (AMB) | payer OTHER, BC, SELFPAY ==
--- NOTE | 2022-08-29 09:47 | MHC.OFFVIS ---
Intake Vital Signs 08/29/22 09:48 Height 5 ft 9 in Weight 200 lb 9.93 oz BMI 29.6 BP 151/81 H Blood Pressure Location Lt brachial Position Sitting Pulse 79 Intake Visit Reasons: 6 month follow up Intake Note: Noman presents in the office as a 6 month follow up. CC: He states that he is not having any GI concerns today. Every now and again he feels like he has a shock like feeling in his stomach. Asthma Educator Required: No Allergies No Known Allergies [No Known Allergies*] Allergy (Verified 06/30/22 09:23) HPI 6 month follow up HPI Details Assessment & Plan (1) Constipation: ?Code(s): K59.00 - Constipation, unspecified ?Plan: He is doing very well taking 2 bisacodyl qhs and 1 qam and is moving his bowels well.? With this he is satisfied with his GI regimen and has no further complaints..? He continues on omeprazole 20 mg once a day with good control of his heartburn. He is trying to exercise using a pedal bike at home for increased fitness. ROV 6 mos. (2) GERD (gastroesophageal reflux disease): ?Code(s): K21.9 - Gastro-esophageal reflux disease without esophagitis ?Qualifiers: ?Esophagitis presence:?without esophagitis? Qualified Code(s):?K21.9 - Gastro-esophageal reflux disease without esophagitis TODAY'S VISIT HE just had back surgery 2mos ago, it took him 6 days after the surgery to have his first BM. But now his stooling has normalized. He has been having a feeling of electric shocks that last 2-3 seconds over the past 2 weeks. This does not sound GI in nature, but rather neuropathic or delayed healing of back surgery. HE wondered about US, but this would not likely be fruitful. Will get XR thoracic spine to see if L-1/T-12 involvement He continues on his bisacodyl and is moving his bowels well along with his omeprazole with good control of his GERD. ROV 4 weeks. [facility] Medical History Diabetic neuropathy Erectile dysfunction Foot pain, left GERD (gastroesophageal reflux disease) Hypercholesterolemia Hypertension Hypothyroid Obesity (BMI 30-39.9) Obstructive sleep apnea Osteoarthritis Overweight (BMI 25.0-29.9) Positive PPD Pulmonary nodule Screening for colon cancer Thyroid nodule Type 2 diabetes mellitus with hyperglycemia Vertebral fracture Surgical History History of appendectomy History of arthroscopy of right knee History of back surgery History of colonoscopy History of tonsillectomy Family History Father Medical history unknown Mother Diabetes Past heart attack Brother Prostate cancer Social History Housing: House Alcohol intake: current Alcohol intake frequency: holidays/special occasions only Patient Tobacco Use Status: Current everyday Tobacco user Tobacco use type: Cigarette Cigarette Packs Per Day: 15 Cigarettes Per Day: 20 e-Cigarette/Vaping Use: Never Used Second Hand Smoke Exposure: No service: No Current occupational status: disabled Cognitive needs: No Hearing needs: No Vision needs: Yes Review of Systems Const Denies fatigue, Denies fever(s), Denies night sweats, Denies poor appetite and Denies weight loss ENT Reports Normal hearing present, Denies dental pain, Denies dysphagia, Denies hearing loss, Denies mouth pain, Denies odynophagia, Denies throat swelling, Denies tongue swelling and Reports other (Dentition adequate) Card Reports no additional complaints Resp Reports no additional complaints GI Reports abdominal pain, Denies melena, Denies bloating, Denies hematochezia, Reports constipation, Denies GI cramping, Denies dysphagia, Denies excessive flatus, Denies early satiety, Reports heartburn, Denies diarrhea, Denies nausea, Denies odynophagia, Denies vomiting and Denies hematemesis Musc Reports back pain and Reports radiating pain into limb Skin/Breast Denies pruritus, Denies lesions, Denies rash and Denies jaundice Neuro Reports Normal hearing present and Denies Abnormal speech present Endo Denies fatigue Aller/Immun Denies throat swelling and Denies tongue swelling Physical Exam Vital Signs: Last Vital Signs Pulse 79 08/29/22 09:48 BP 151/81 H 08/29/22 09:48 BMI result Body Mass Index 29.6 Const General: cooperative, no acute distress, well developed and well groomed Nutritional Appearance: well nourished and overweight Orientation/consciousness: oriented to person, oriented to place and oriented to time Limitations: No language barrier HEENT Head: Yes normocephalic and Yes atraumatic Eyes General: appearance normal, both eyes and all related structures Pupils: Equal, round and reactive pupils present Neck Neck: Yes normal visual inspection and Yes no lymphadenopathy Thyroid: Thyroid normal Resp Effort & Inspection: normal respiratory effort and able to speak in complete sentences Auscultation: clear to auscultation bilaterally Cardio Rate: regular rate Rhythm: regular rhythm Heart sounds: Normal, physiologic split S2 sound present Peripheral pulses: radial pulses present and posterior tibial pulses present GI Inspection: No distended and No Abdominal panniculus present Palpation (GI): Soft to palpation, nontender, no guarding, not rigid and No hepatosplenomegaly present Percussion: Yes normal to percussion Auscultation: normal bowel sounds Rectal Exam - Male: Yes deferred Back/Spine/Pelvis Back/spine/pelvis image: 1. well healing surgical scar Skin General skin exam: no rashes or lesions noted, turgor normal, skin not dry, no jaundice, No spider nevi and no striae Rashes: no rashes Nails: normal Neuro General: oriented to person, oriented to place and oriented to time Cranial nerves: Yes Equal, round and reactive pupils present and Yes Normal hearing present Speech: No Abnormal speech present Extrem General: Yes normal to inspection, No clubbing, No cyanosis and No edema Psych Appearance: grossly normal and well kempt Mental Status: mental status grossly normal Speech and movement: Normal speech and movement present Affect: normal affect Attitude: cooperative Thought process: Normal thought process present and not confabulating Thought content: Normal thought content present Insight: Limited insight present (Psych) Judgement: Limited judgement present (Psych) Assessment & Plan Assessment & Plan (1) GERD (gastroesophageal reflux disease): Code(s): K21.9 - Gastro-esophageal reflux disease without esophagitis Qualifiers: Esophagitis presence: without esophagitis Qualified Code(s): K21.9 - Gastro-esophageal reflux disease without esophagitis Plan: HE just had back surgery 2mos ago, it took him 6 days after the surgery to have his first BM. But now his stooling has normalized. He has been having a feeling of electric shocks that last 2-3 seconds over the past 2 weeks. This does not sound GI in nature, but rather neuropathic or delayed healing of back surgery. HE wondered about US, but this would not likely be fruitful. Will get XR thoracic spine to see if L-1/T-12 involvement He continues on his bisacodyl and is moving his bowels well along with his omeprazole with good control of his GERD. ROV 4 weeks. (2) Constipation: Code(s): K59.00 - Constipation, unspecified (3) Thoracic back pain: Code(s): M54.6 - Pain in thoracic spine Orders: Orders XR thoracic spine 2V 08/29/22 M54.6 - Pain in thoracic spine Medications: Refilled bisacodyl 15 mg (3 x 5 mg) PO BEDTIME 90 tabs 6RF 30 days K59.00 - Constipation, unspecified Coding Level of Care Code Est Pt Level 3 (29018) Diagnoses GERD (gastroesophageal reflux disease) K21.9 Esophagitis presence: without esophagitis Constipation K59.00 Thoracic back pain M54.6
[2022-08-29 09:48] VITALS: BP 151/81; PULSE 79; BMI 29.6
== END 2022-08-29 10:19 | disposition home or self-care (01) ==
PROVIDERS: PCP Internal Medicine; Visit Provider Nurse Practitioner
DX: K21.9 Gastro-esophageal reflux disease without esophagitis (principal); K59.00 Constipation, unspecified; M54.6 Pain in thoracic spine
CPT/HCPCS: 99213

== ENCOUNTER 2022-09-25 07:31 | Outpatient (REF) | payer MEDICARE, BC, SELFPAY ==
[2022-09-25 07:58] LABS: MANUAL DIFF FLAG NO
[2022-09-25 08:08] LABS: Basophils Absolute Auto 0.1 X10*3/uL (0.0-0.2); Basophils Percent Auto 0.6 % (0-2); Eosinophils Absolute Auto 0.6 X10*3/uL (0.0-0.4); Eosinophils Percent Auto 6.2 % (0-4); Hematocrit 38.2 % (42.0-52.0); Hemoglobin 12.7 g/dl (14.0-18.0); Imm Gran Abs Auto 0.04 X10*3/uL (0.00-0.03); Imm Gran Pct Auto 0.4 % (0.0-0.4); Lymphocytes Percent Auto 22.9 % (20-40); Mean Corpuscular HGB Conc 33.2 g/dl (31.0-36.0); Mean Corpuscular Hemoglobin 28.7 pg (27.0-33.0); Mean Corpuscular Volume 86.2 fL (80.0-98.0); Mean Platelet Volume 9.2 fL (9.4-12.4); Monocytes Absolute Auto 0.8 X10*3/uL (0.1-1.2); Monocytes Percent Auto 9.1 % (2-11); Neutrophils Absolute Auto 5.4 x10*3/uL (2.0-8.3); Neutrophils Percent Auto 60.8 % (45-73); Platelet Count 223 X10*3/uL (160-400); Red Blood Count 4.43 X10*6/uL (4.60-5.80); Red Cell Distribution Width 13.4 % (11.0-16.0); White Blood Count 8.9 X10*3/uL (4.8-10.8)
[2022-09-25 08:16] LABS: Estimated Average Glucose 123 mg/dL; Hemoglobin A1c % 5.9 %
[2022-09-25 08:35] LABS: Alanine Aminotransferase 24 U/L (0-40); Albumin Level 3.9 g/dL (3.5-5.0); Alkaline Phosphatase 79 U/L (39-117); Anion Gap 14 (12-20); Aspartate Amino Transferase 20 U/L (5-37); Bilirubin Total 0.6 mg/dL (0.0-1.0); Blood Urea Nitrogen 15 mg/dL (9-16); Calcium 8.7 mg/dL (8.4-10.2); Carbon Dioxide 20 mmol/L (22-29); Chloride 113 mmol/L (96-108); Cholesterol 135 mg/dL; Estimated Glomerular Filt Rate > 60; Glucose Random 117 mg/dL (60-115); HDL Cholesterol 51 mg/dL; LDL Cholesterol Calculated 69 mg/dl; Potassium 4.2 mmol/L (3.3-5.1); Sodium 143 mmol/L (135-145); Total Protein 6.7 g/dL (6.5-8.0); Triglycerides 75 mg/dL
[2022-09-25 09:07] LABS: Folate 14.4 ng/mL (> or = 4.0); Vitamin B12 610 pg/mL (200-900)
[2022-09-25 09:38] LABS: Creatinine Urine 271.83 mg/dL
== END 2022-09-25 07:32 | disposition home or self-care (01) ==
LOC: HO.LAB 07:31
PROVIDERS: PCP Internal Medicine; Visit Provider Internal Medicine
DX: E03.8 Other specified hypothyroidism (principal); E11.9 Type 2 diabetes mellitus without complications; E78.00 Pure hypercholesterolemia, unspecified; G25.0 Essential tremor; G47.33 Obstructive sleep apnea (adult) (pediatric); I10 Essential (primary) hypertension; N40.1 Benign prostatic hyperplasia with lower urinary tract symptoms; Z72.0 Tobacco use
CPT/HCPCS: 36415; 80053; 80061; 82043; 82607; 82746; 83036; 85025

== ENCOUNTER 2022-09-26 09:56 | Outpatient (AMB) | payer MEDICARE, BC, SELFPAY ==
[2022-09-26 10:00] VITALS: BP 163/78; PULSE 61
--- NOTE | 2022-09-26 10:00 | A.OFFVIS_ITS ---
Intake Vital Signs 09/26/22 10:00 Height 5 ft 9 in Weight 203 lb 4.259 oz BMI 30.0 BP 163/78 H Blood Pressure Location Lt brachial Position Sitting Pulse 61 Intake Visit Reasons: 4 week follow up Intake Note: Noman presents in the office today in 4 weeks follow up. CC: Patient reports doing well, denies having any GI symptoms today. Of note patient reports back pain s/p back surgery but he is taking PT. Fabrication Specialist Required: No Accompanied by: Self / Same As Patient Allergies No Known Allergies [No Known Allergies*] Allergy (Verified 06/30/22 09:23) HPI 4 week follow up HPI Details Assessment & Plan (1) GERD (gastroesophageal reflux disease): ?Code(s): K21.9 - Gastro-esophageal reflux disease without esophagitis ?Qualifiers: ?Esophagitis presence:?without esophagitis? Qualified Code(s):?K21.9 - Gastro-esophageal reflux disease without esophagitis ?Plan: HE just had back surgery 2mos ago, it took him 6 days after the surgery to have his first BM. But now his stooling has normalized. He has been having a feeling of electric shocks that last 2-3 seconds over the past 2 weeks. This does not sound GI in nature, but rather neuropathic or delayed healing of back surgery. HE wondered about US, but this would not likely be fruitful. Will get XR thoracic spine to see if L-1/T-12 involvement He continues on his bisacodyl and is moving his bowels well along with his omeprazole with good control of his GERD. ROV 4 weeks. (2) Constipation: ?Code(s): K59.00 - Constipation, unspecified (3) Thoracic back pain: ?Code(s): M54.6 - Pain in thoracic spine ? ? ? Orders: Orders XR thoracic spine 2V 08/29/22 M54.6 - Pain in th oracic spine ? Medications: Refilled bisacodyl 15 mg (3 x 5 mg) P O BEDTIME 90 tabs 6RF 30 days K59.00 - Constipat ion, unspecified X-RAY OF THORACIC SPINE 09/04/22 FINDINGS: Bones are normal anatomic alignment with no acute fracture or spondylolisthesis. Vertebral body heights are preserved. Multilevel degenerative changes are seen with small anterior osteophyte formation at several levels. Paravertebral soft tissues and adjacent ribs grossly unremarkable? XR/XR thoracic spine 2V IMPRESSION: Mild multilevel degenerative changes but no acute fracture or spondylolisthesis. ? TODAY'S VISIT He has not been feeling the shocks anymore, he has started PT for his back surgery. He will be having elective surgery for bunyons right side soon. We review his thoracic x-ray and it is possible that this could return because he may have intermittent pinched nerves and he is aware that he has significant arthritis in the mid spine as well as his lumbar spine. He continues to do well wit his GERD and his CIC. He continues on his omeprazole and his bisacodyl. He is not due for scope until 2026. ROV 6 mos. His works at [employer] in [employer] in [employer]! [facility] Medical History Diabetic neuropathy Erectile dysfunction Foot pain, left GERD (gastroesophageal reflux disease) Hypercholesterolemia Hypertension Hypothyroid Obesity (BMI 30-39.9) Obstructive sleep apnea Osteoarthritis Overweight (BMI 25.0-29.9) Positive PPD Pulmonary nodule Screening for colon cancer Thyroid nodule Type 2 diabetes mellitus with hyperglycemia Vertebral fracture Surgical History (Updated 09/26/22 @ 10:31 by JAMA Lopez) History of appendectomy History of arthroscopy of right knee History of back surgery History of colonoscopy History of tonsillectomy Family History Father Medical history unknown Mother Diabetes Past heart attack Brother Prostate cancer Social History Housing: House Alcohol intake: current Alcohol intake frequency: holidays/special occasions only Patient Tobacco Use Status: Current everyday Tobacco user Tobacco use type: Cigarette Cigarette Packs Per Day: 15 Cigarettes Per Day: 20 e-Cigarette/Vaping Use: Never Used Second Hand Smoke Exposure: No service: No Current occupational status: disabled Cognitive needs: No Hearing needs: No Vision needs: Yes Review of Systems Const Denies fatigue, Denies fever(s), Denies night sweats, Denies poor appetite and Denies weight loss Eyes Details: glasses Reports requires corrective lenses ENT Reports Normal hearing present, Denies dental pain, Denies dysphagia, Denies hearing loss, Denies mouth pain, Denies odynophagia, Denies throat swelling, Denies tongue swelling and Reports other (Dentition adequate) Card Reports no additional complaints Resp Reports no additional complaints GI Denies abdominal pain, Denies melena, Denies bloating, Denies hematochezia, Reports constipation, Denies GI cramping, Denies dysphagia, Denies excessive flatus, Denies early satiety, Reports heartburn, Denies diarrhea, Denies nausea, Denies odynophagia, Denies vomiting and Denies hematemesis Musc Reports back pain and Reports other (Foot pain from bunions) Skin/Breast Denies pruritus, Denies lesions, Denies rash and Denies jaundice Neuro Reports Normal hearing present and Denies Abnormal speech present Endo Denies fatigue Aller/Immun Denies throat swelling and Denies tongue swelling Physical Exam Vital Signs: Last Vital Signs Pulse 61 09/26/22 10:00 BP 163/78 H 09/26/22 10:00 BMI result Body Mass Index 30.0 Const General: cooperative, no acute distress, well developed and well groomed Nutritional Appearance: well nourished and obese Orientation/consciousness: oriented to person, oriented to place and oriented to time Limitations: No language barrier and ambulation with cane HEENT Head: Yes normocephalic and Yes atraumatic Eyes General: appearance normal, both eyes and all related structures Pupils: Equal, round and reactive pupils present Neck Neck: Yes normal visual inspection and Yes no lymphadenopathy Thyroid: Thyroid normal Resp Effort & Inspection: normal respiratory effort and able to speak in complete sentences Auscultation: clear to auscultation bilaterally Cardio Rate: regular rate Rhythm: regular rhythm Heart sounds: Normal, physiologic split S2 sound present Peripheral pulses: radial pulses present and posterior tibial pulses present GI Inspection: No distended, No Abdominal panniculus present and Yes obesity Palpation (GI): Soft to palpation, nontender, no guarding, not rigid and No hepatosplenomegaly present Percussion: Yes normal to percussion Auscultation: normal bowel sounds Rectal Exam - Male: Yes deferred Skin General skin exam: no rashes or lesions noted, turgor normal, skin not dry, no jaundice, No spider nevi and no striae Rashes: no rashes Nails: normal Neuro General: oriented to person, oriented to place and oriented to time Cranial nerves: Yes Equal, round and reactive pupils present and Yes Normal hearing present Speech: No Abnormal speech present Extrem General: Yes normal to inspection, No clubbing, No cyanosis and No edema Psych Appearance: grossly normal and well kempt Mental Status: mental status grossly normal Speech and movement: Normal speech and movement present Affect: normal affect Attitude: cooperative Thought process: Normal thought process present and not confabulating Thought content: Normal thought content present Insight: Fair insight present (Psych) Judgement: Fair judgement present (Psych) Assessment & Plan Assessment & Plan (1) Thoracic back pain: Code(s): M54.6 - Pain in thoracic spine Plan: He has not been feeling the shocks anymore, he has started PT for his back surgery. He will be having elective surgery for bunyons right side soon. We review his thoracic x-ray and it is possible that this could return because he may have intermittent pinched nerves and he is aware that he has significant arthritis in the mid spine as well as his lumbar spine. He continues to do well wit his GERD and his CIC. He continues on his omeprazole and his bisacodyl. He is not due for scope until 2026. ROV 6 mos. His works at [employer] in [employer] in [employer] (2) Constipation: Code(s): K59.00 - Constipation, unspecified (3) GERD (gastroesophageal reflux disease): Code(s): K21.9 - Gastro-esophageal reflux disease without esophagitis Qualifiers: Esophagitis presence: without esophagitis Qualified Code(s): K21.9 - Gastro-esophageal reflux disease without esophagitis Medications: Refilled sennosides-docusate sodium 8.6-50 mg (Senna Plus) 1 tab-cap PO BID 90 days PRN 180 caps 3RF constipation K59.00 - Constipation, unspecified omeprazole 20 mg PO DAILY 90 caps 3RF bisacodyl 15 mg (3 x 5 mg) PO BEDTIME 30 days 90 tabs 6RF K59.00 - Constipation, unspecified sennosides-docusate sodium 8.6-50 mg (Senna Plus) 1 tab-cap PO BID 90 days PRN 180 caps 3RF constipation K59.00 - Constipation, unspecified omeprazole 20 mg PO DAILY 90 caps 3RF bisacodyl 15 mg (3 x 5 mg) PO BEDTIME 30 days 90 tabs 6RF K59.00 - Constipation, unspecified Coding Level of Care Code Est Pt Level 3 (40523) Diagnoses Thoracic back pain M54.6 Constipation K59.00 GERD (gastroesophageal reflux disease) K21.9 Esophagitis presence: without esophagitis
== END 2022-09-26 10:36 | disposition home or self-care (01) ==
PROVIDERS: PCP Internal Medicine; Visit Provider Nurse Practitioner
DX: M54.6 Pain in thoracic spine (principal); K59.00 Constipation, unspecified; K21.9 Gastro-esophageal reflux disease without esophagitis
CPT/HCPCS: 99213

== ENCOUNTER → 2022-09-26 09:56 | Outpatient (BNVA) | payer BC, SELFPAY | PROVIDERS: PCP Internal Medicine; Visit Provider Nurse Practitioner ==

== ENCOUNTER 2022-10-16 08:22 | Outpatient (AMB) | payer OTHER, BC, SELFPAY ==
[2022-10-16 08:32] VITALS: BMI 30.2
--- NOTE | 2022-10-16 08:32 | A.OFFVIS_ITS ---
Intake VS Expanded 10/16/22 08:32 Height 5 ft 9 in Weight 204 lb 5.896 oz BMI 30.2 Intake Visit Reasons: DM Allergies No Known Allergies [No Known Allergies*] Allergy (Verified 06/30/22 09:23) HPI Nutrition Presentation Details Pt presents for MNT 6 month f/u for T2DM, Pt reports feeling well, continues on metformin 500 mg twice/day. Report eating 3 meals/day , following healthy plate method the majority of the t fabiana, choosing low sugar beverages Reports monitoring wt at home :wt at home 192.7 lbs typical food intake B: egg/ham/cheese sand on wheat bread or bagel with p.b, coffee with diet sugar, milk low fat L: fish sandwich and parfait (alternates between fries/diet beverages) or tuna sand if at home with lettuce/tomate D: healthy plate: mashed potato/chicken/corn/green beans or rice/beans/tilapia or root veg and fish, salad with olive oil vinegar snack:p.b crackers, milk, yogurt , fruit, cheese, sometimes chips using air fryer, reducing on deep fried foods physical activity: as able, daily life activities ETOH: 2-3 serving/weekends smoking --- Most Recent Diabetes Results: Microalb/Creat Ratio 4.0 ug/mg cr 09/25/22 Cholesterol 135 mg/dL 09/25/22 HDL Cholesterol 51 mg/dL 09/25/22 Triglycerides 75 mg/dL 09/25/22 Creatinine 0.87 mg/dL (0.5-1.4) 09/25/22 Blood Urea Nitrogen 15 mg/dL (9-16) 09/25/22 Sodium 143 mmol/L (135-145) 09/25/22 Potassium 4.2 mmol/L (3.3-5.1) 09/25/22 Chloride 113 mmol/L (96-108) H 09/25/22 Carbon Dioxide 20 mmol/L (22-29) L 09/25/22 Calcium 8.7 mg/dL (8.4-10.2) 09/25/22 AST 20 U/L (5-37) 09/25/22 ALT 24 U/L (0-40) 09/25/22 Total Protein 6.7 g/dL (6.5-8.0) 09/25/22 Albumin 3.9 g/dL (3.5-5.0) 09/25/22 [facility] Medical History Positive PPD Screening for colon cancer Obstructive sleep apnea Foot pain, left Overweight (BMI 25.0-29.9) Obesity (BMI 30-39.9) Thyroid nodule Vertebral fracture Pulmonary nodule Diabetic neuropathy Type 2 diabetes mellitus with hyperglycemia Osteoarthritis GERD (gastroesophageal reflux disease) Erectile dysfunction Hypothyroid Hypertension Hypercholesterolemia Surgical History (Updated 09/26/22 @ 10:31 by JAMA Lopez) History of back surgery History of colonoscopy History of arthroscopy of right knee History of appendectomy History of tonsillectomy Family History Father Medical history unknown Mother Diabetes Past heart attack Brother Prostate cancer Social History Housing: House Alcohol intake: current Alcohol intake frequency: holidays/special occasions only Patient Tobacco Use Status: Current everyday Tobacco user Tobacco use type: Cigarette Cigarette Packs Per Day: 15 Cigarettes Per Day: 20 e-Cigarette/Vaping Use: Never Used Second Hand Smoke Exposure: No service: No Current occupational status: disabled Cognitive needs: No Hearing needs: No Vision needs: Yes Assessment & Plan Assessment & Plan (1) Type 2 diabetes mellitus with hyperglycemia: Code(s): E11.65 - Type 2 diabetes mellitus with hyperglycemia Qualifiers: Diabetes mellitus penitentiary insulin use: without predatory animal exterminator use Qualified Code(s): E11.65 - Type 2 diabetes mellitus with hyperglycemia Plan: Discuss Fe rich foods and lean protein sources of foods smoking cessation est kcal as per MSJ: 3729 - 500 = 1858 (40% carb, 30% fat/prot) est fluid needs 25 ml/kg BW : 2375 ml/d fiber rec: 25-30 g as tolerated Na < 1500 mg/dl Recommend fiber intake : 8-10 g per day and gradually increase to 25-28 g per day for women and 35-38 g for men or as tolerated Educated patient on: ( R = reviewed V = verbalizes understanding N/R = needs review N/A = not applicable * Food sources of carbohydrate, adequate serving sizes and its role in various health conditions: V * Differences between complex carbohydrates a simple carbohydrates, role of fiber in diet: V * Differences between types of fats and role in diet (mono on saturated fat fatty acids, saturated fatty acids, trans fats): R V * Food sources of sodium in salt and healthy modifications for heart health in kidney health: R * Vitamins and minerals: R * Healthy plate method concept: R V * Physical activity: Benefits a precaution: R V * Hypoglycemia protocol (rule of 15): V * Dietary prevention of Hyperglycemia: V Patient Instructions: Include iron rich foods in your diet along with with vitamin C sources of foods ex egg and spinach in AM Add 2 serving of vegetable at lunch time see list of iron rich foods and vitamin c source of foods for combination Coding Level of Care Code Nutr Indiv Subseq (02245) Diagnoses Type 2 diabetes mellitus with hyperglycemia, without long-term current use of insulin E11.65 Diabetes mellitus predatory animal exterminator insulin use: without predatory animal exterminator use Time Spent (min) 30
== END 2022-10-16 09:07 | disposition home or self-care (01) ==
PROVIDERS: PCP Internal Medicine; Referring Provider Internal Medicine; Visit Provider Dietitian, Registered
DX: E11.65 Type 2 diabetes mellitus with hyperglycemia (principal)

== ENCOUNTER → 2022-10-16 08:22 | Outpatient (BNVA) | payer MEDICARE, BC, SELFPAY | PROVIDERS: Visit Provider Dietitian, Registered | DX: E11.65 Type 2 diabetes mellitus with hyperglycemia (principal); E11.40 Type 2 diabetes mellitus with diabetic neuropathy, unspecified; E11.69 Type 2 diabetes mellitus with other specified complication; E29.1 Testicular hypofunction; N52.1 Erectile dysfunction due to diseases classified elsewhere; Z79.84 Long term (current) use of oral hypoglycemic drugs; Z71.3 Dietary counseling and surveillance | CPT/HCPCS: 97803 ==

== ENCOUNTER 2022-11-01 10:30 | Outpatient (REF) | payer MEDICARE, BC, SELFPAY ==
[2022-11-01 11:53] LABS: Prostate Specific Antigen 0.96 ng/mL (<0.05-4.0)
[2022-11-03 04:33] LABS: Follicle Stimulating Hormone 4.3 mIU/mL (1.6-8.0); Lutenizing Hormone 4.8 mIU/mL (1.6-15.2)
[2022-11-06 16:04] LABS: Testosterone, Free 30.6 pg/mL (30.0-135.0); Testosterone, Total 196 ng/dL (250-1100)
== END 2022-11-01 10:31 | disposition home or self-care (01) ==
LOC: HO.LAB 10:30
PROVIDERS: PCP Internal Medicine; Visit Provider Urology
DX: E11.69 Type 2 diabetes mellitus with other specified complication (principal); E29.1 Testicular hypofunction; N52.1 Erectile dysfunction due to diseases classified elsewhere; Z12.5 Encounter for screening for malignant neoplasm of prostate
CPT/HCPCS: 36415; 83001; 83002; 84153; 84402; 84403

== ENCOUNTER 2022-11-14 08:36 | Outpatient (AMB) | payer MEDICARE, BC, SELFPAY ==
--- NOTE | 2022-11-14 08:40 | MHC.OFFVIS ---
Intake Intake Visit Reasons: 6m/labs(set) Intake Note: Patient is Present for Follow Up LABS/PVR Urology Medication: Tadalafil, Terazosin Antibiotic Allergies: None Blood Thinners: None Pharmacy: [facility] PVR: 0 Compliants: No complaints at this time Allergies No Known Allergies [No Known Allergies*] Allergy (Verified 11/14/22 08:41) Medication List - Last Reconciled 11/14/22 by Jaydon Smart MD atorvastatin 20 mg PO DAILY 90 days [AUTO PAP 6-16 mm H20 humidified AIR As directed] bisacodyl 15 mg (3 x 5 mg) PO BEDTIME 30 days blood sugar diagnostic (CareSens N Test Strips) As directed blood sugar diagnostic (FreeStyle Lite Strips) USE TO CHECK BLOOD SUGAR FOUR TIMES DAILY blood-glucose meter (FreeStyle Lite Meter kit) As directed tests 4 X/day cinnamon bark 1,000 mg PO DAILY fexofenadine 180 mg PO DAILY fluticasone propionate 50 mcg/actuation (Flonase Allergy Relief) 2 sprays intranasal DAILY PRN gabapentin 300 mg PO BID ibuprofen 800 mg PO BID lancets (FreeStyle Lancets) As directed tests 4X/day levothyroxine (Synthroid) 75 mcg PO DAILY 90 days lidocaine 5% 1 patch topical DAILY lidocaine HCl 4% (Aspercreme (lidocaine HCl)) 1 appl topical TID PRN losartan 50 mg PO DAILY metformin 500 mg PO BID 90 days folsncxlnmsa-uryuscng-vzcgya (Multivitamin 50 Plus tablet) 1 tab PO DAILY omega-3 fatty acids (Fish Oil Concentrate) 1,000 mg PO DAILY omeprazole 20 mg PO DAILY propranolol 10 mg PO BID sennosides-docusate sodium 8.6-50 mg (Senna Plus) 1 tab-cap PO BID PRN 90 days tadalafil 5 mg PO DAILY 90 days terazosin 2 mg PO BEDTIME 90 days varenicline 0.5 mg PO BID HPI HPI Comments History of Present Illness Details oNman a pleasant male. He is a patient of Dr. Mccurdy. Seen for the following urologic conditions - erectile dysfunction associated with diabetes - hypogonadism associated with diabetes Continue good response to daily tadalafil Lab work shows increase in testosterone from 135-200 Free testosterone now in normal range Lutenizing hormone elevated General Will being improved Increase tadalafil to 10 mg daily repeat labs in 6 month Erectile Dysfunction He presents today for - initial evaluation of erectile dysfunction associated hypo gonad hypogonadism Symptoms have been present for/since - progressive since 2019 Current treatment includes - none At initial presentation he experiences - are partial and insufficient for vaginal penetration . Nocturnal erections do not occur Associated Medical Conditions include hypertension, type 2 diabetes, tobacco use, Atherosclerosis Cardiovascular Disease Risk not completed Medications include(s) statin, benzodiazepine, beta-mansi, Recent labs include 05/10 T 135 low FSH/LH, 03/13 P 1.0, 11/11 T 196 F 31 L 4.8 HbA1c down 0.3 Therapeutic plan includes - maximum tolerated on medication daily tadalafil with repeat labs [facility] Medical History Positive PPD Screening for colon cancer Obstructive sleep apnea Foot pain, left Overweight (BMI 25.0-29.9) Obesity (BMI 30-39.9) Thyroid nodule Vertebral fracture Pulmonary nodule Diabetic neuropathy Type 2 diabetes mellitus with hyperglycemia Osteoarthritis GERD (gastroesophageal reflux disease) Erectile dysfunction Hypothyroid Hypertension Hypercholesterolemia Surgical History History of back surgery History of colonoscopy History of arthroscopy of right knee History of appendectomy History of tonsillectomy Family History Father Medical history unknown Mother Diabetes Past heart attack Brother Prostate cancer Social History Housing: House Alcohol intake: current Alcohol intake frequency: holidays/special occasions only Patient Tobacco Use Status: Current everyday Tobacco user Tobacco use type: Cigarette Cigarette Packs Per Day: 15 Cigarettes Per Day: 20 e-Cigarette/Vaping Use: Never Used Second Hand Smoke Exposure: No service: No Current occupational status: disabled Cognitive needs: No Hearing needs: No Vision needs: Yes Review of Systems Const Denies chills and Denies fever(s) Card Reports no additional complaints and Denies syncope Resp Denies cough GI Denies abdominal pain and Denies heartburn Reports as per HPI and Denies change in libido Neuro Denies syncope Psych Denies change in libido Endo Denies change in libido Physical Exam Const General: cooperative, healthy appearing, comfortable and no acute distress Orientation/consciousness: patient oriented x3 HEENT Face and sinus: Yes normal facial exam Mouth: moist mucous membranes Neck Neck: Yes normal visual inspection, Yes full ROM and Yes trachea midline Chest Chest palpation & inspection: normal inspection of the chest Resp Effort & Inspection: normal respiratory effort, able to speak in complete sentences and no respiratory distress GI Inspection: Yes normal to inspection Back/Spine/Pelvis Cervical Spine: normal cervical lordosis Thoracic/Lumbar Spine: thoracic and lumbar spine normal to inspection Skin General skin exam: no rashes or lesions noted Neuro General: patient oriented x3, gait normal, tone normal and moves all extremities Extrem General: Yes normal to inspection and Yes capillary refill normal Office Procedures Post Void Residual Post Residual Void Post Void Residual (PVR): 0 [id number] Void Residual by ultrasound Results AMB Urinalysis, Automated UA Leukoctes 0 Leann/uL Last Edit by Mila Pillai [facility] on 11/14/22 08:50 UA Nitrite Negative Last Edit by Mila Pillai [facility] on 11/14/22 08:50 UA Urobilinogen 0.2 mg/dL Last Edit by Mila Pillai [facility] on 11/14/22 08:50 UA Protein 30 mg/dL Last Edit by Mila Pillai [facility] on 11/14/22 08:50 UA pH 5.0 Last Edit by Mila Pillai [facility] on 11/14/22 08:50 UA Blood 0 Kan/uL Last Edit by Mila Pillai [facility] on 11/14/22 08:50 UA Specific Sayre 1.030 Last Edit by Mila Pillai [facility] on 11/14/22 08:50 UA Ketone Positive Last Edit by Mila Pillai [facility] on 11/14/22 08:50 UA Bilirubin 1 mg/dL Last Edit by Mila Pillai [facility] on 11/14/22 08:50 UA Glucose 0 mg/dL Last Edit by Mila Pillai [facility] on 11/14/22 08:50 Results Reviewed Results Reviewed: Laboratory Last Values Urine pH (Auto) 5.0 11/14/22 08:50 Specific Sayre (Auto) 1.030 11/14/22 08:50 Urine Protein (Auto) 30 mg/dL 11/14/22 08:50 Glucose (UA)(Auto) 0 mg/dL 11/14/22 08:50 Urine Ketones (Auto) Positive 11/14/22 08:50 Urine Blood (Auto) 0 Kan/uL 11/14/22 08:50 Urine Nitrite (Auto) Negative 11/14/22 08:50 Urine Bilirubin (Auto) 1 mg/dL 11/14/22 08:50 Urine Urobilinogen (Auto) 0.2 mg/dL 11/14/22 08:50 Leukocyte Esterase (Auto) 0 Leann/uL 11/14/22 08:50 Assessment & Plan Assessment & Plan (1) Erectile dysfunction associated with type 2 diabetes mellitus: Code(s): E11.69 - Type 2 diabetes mellitus with other specified complication; N52.1 - Erectile dysfunction due to diseases classified elsewhere (2) Hypogonadism in male: Code(s): E29.1 - Testicular hypofunction Plan Six month Orders: Orders AMB Post Void Residual by ultrasound Today R39.9 - Unspecified symptoms and signs involving the genitourinary system AMB Urinalysis Automated Today Z13.9 - Encounter for screening, unspecified Testosterone, Total 6 Months E11.69 - Type 2 diabetes mellitus with other specified complication, N52.1 - Erectile dysfunction due to diseases classified elsewhere Lutenizing Hormone 6 Months E11.69 - Type 2 diabetes mellitus with other specified complication, N52.1 - Erectile dysfunction due to diseases classified elsewhere Medications: Changed From tadalafil Daily medication 5 mg PO DAILY 90 days 90 tabs 1RF sexual activity E11.69 - Type 2 diabetes mellitus with other specified complication, N52.1 - Erectile dysfunction due to diseases classified elsewhere To tadalafil Daily medication 10 mg PO DAILY 90 days 90 tabs 1RF sexual activity E11.69 - Type 2 diabetes mellitus with other specified complication, N52.1 - Erectile dysfunction due to diseases classified elsewhere Refilled terazosin 2 mg PO BEDTIME 90 days 90 caps 2RF R39.9 - Unspecified symptoms and signs involving the genitourinary system Patient Instructions: Imaging studies, laboratory and physical exam results were discussed and reviewed in detail. No major barriers to patient understanding were identified. An opportunity to ask questions regarding the treatment plan was provided. All questions were answered. The patient expressed understanding and agreement with the above treatment plan. The patient is aware they should contact our office by phone for worsening of their current condition or the appearance of new urologic symptoms. Compliance is encouraged with any medications and followup testing that is ordered. It is a privilege to participate in the urologic care of your patient. If you have any questions or concerns regarding treatment for the above conditions, or other urologic issues, please do not hesitate to contact me. The office telephone contact is [phone]. This note is constructed using voice recognition software. While every effort has been made to ensure accuracy leasing manager errors may have been included. Yours sincerely, Dr Jaydon Smart MD, [facility] - Urology Providers of Expert, Compassionate Care for the Genitourinary System Coding Level of Care Code Est Pt Level 4 (90540) Diagnoses Erectile dysfunction associated with type 2 diabetes mellitus E11.69; N52.1 Hypogonadism in male E29.1 CPT Codes Post Residual Void - PVR CPT Code: 66055-Weyu Void Residual by ultrasound ([id number])
== END 2022-11-14 09:06 | disposition home or self-care (01) ==
PROVIDERS: PCP Internal Medicine; Visit Provider Urology
DX: E11.69 Type 2 diabetes mellitus with other specified complication (principal); N52.1 Erectile dysfunction due to diseases classified elsewhere; E29.1 Testicular hypofunction; Z13.9 Encounter for screening, unspecified
CPT/HCPCS: 99214

== ENCOUNTER → 2022-11-14 08:36 | Outpatient (BNVA) | payer MEDICARE, BC, SELFPAY | PROVIDERS: Visit Provider Urology | DX: R39.9 Unspecified symptoms and signs involving the genitourinary system (principal); E11.69 Type 2 diabetes mellitus with other specified complication; N52.1 Erectile dysfunction due to diseases classified elsewhere; E29.1 Testicular hypofunction | CPT/HCPCS: 51798; 81003 ==

== ENCOUNTER 2023-03-05 09:01 | Outpatient (REF) | payer MEDICARE, BC, SELFPAY ==
[2023-03-05 10:00] LABS: Estimated Average Glucose 126 mg/dL
[2023-03-05 10:35] LABS: Alanine Aminotransferase 27 U/L (0-40); Albumin Level 4.2 g/dL (3.5-5.0); Alkaline Phosphatase 66 U/L (39-117); Anion Gap 13 (12-20); Aspartate Amino Transferase 22 U/L (5-37); Bilirubin Total 0.7 mg/dL (0.0-1.0); Blood Urea Nitrogen 16 mg/dL (9-16); Calcium 9.3 mg/dL (8.4-10.2); Carbon Dioxide 23 mmol/L (22-29); Chloride 109 mmol/L (96-108); Estimated Glomerular Filt Rate > 60; Glucose Random 133 mg/dL (60-115); Potassium 4.4 mmol/L (3.3-5.1); Sodium 141 mmol/L (135-145); Total Protein 7.3 g/dL (6.5-8.0)
== END 2023-03-05 09:02 | disposition home or self-care (01) ==
LOC: HO.LAB 09:01
PROVIDERS: PCP Internal Medicine; Visit Provider Urology
DX: E11.9 Type 2 diabetes mellitus without complications (principal); E78.00 Pure hypercholesterolemia, unspecified; I10 Essential (primary) hypertension; Z72.0 Tobacco use; Z86.010 Personal history of colon polyps
CPT/HCPCS: 36415; 80053; 83036

== ENCOUNTER 2023-03-13 12:34 | Outpatient (REF) | payer MEDICARE, BC, SELFPAY ==
[2023-03-13 14:21] LABS: Estimated Average Glucose 126 mg/dL; Hemoglobin A1C 149.9958 umol/L
== END 2023-03-13 12:35 | disposition home or self-care (01) ==
LOC: HO.LAB 12:34
PROVIDERS: PCP Internal Medicine; Visit Provider Internal Medicine
DX: E11.9 Type 2 diabetes mellitus without complications (principal); E78.00 Pure hypercholesterolemia, unspecified; I10 Essential (primary) hypertension; N40.1 Benign prostatic hyperplasia with lower urinary tract symptoms; N13.8 Other obstructive and reflux uropathy; Z72.0 Tobacco use; Z12.5 Encounter for screening for malignant neoplasm of prostate
CPT/HCPCS: 36415; 83036; 84153

== ENCOUNTER 2023-03-20 08:57 | Outpatient (REF) | payer MEDICARE, BC, SELFPAY ==
[2023-03-20 10:05] LABS: Cholesterol 168 mg/dL (<200); HDL Cholesterol 56 mg/dL (>40); LDL Cholesterol Calculated 91 mg/dL (<100); Triglycerides 107 mg/dL (<150)
== END 2023-03-20 08:58 | disposition home or self-care (01) ==
LOC: HO.LAB 08:57
PROVIDERS: PCP Internal Medicine; Visit Provider Internal Medicine
DX: E11.9 Type 2 diabetes mellitus without complications (principal); E78.00 Pure hypercholesterolemia, unspecified; I10 Essential (primary) hypertension; N40.1 Benign prostatic hyperplasia with lower urinary tract symptoms; Z72.0 Tobacco use
CPT/HCPCS: 36415; 80061

== ENCOUNTER 2023-04-03 09:37 | Outpatient (AMB) | payer OTHER, BC, SELFPAY ==
--- NOTE | 2023-04-03 09:38 | A.OFFVIS_ITS ---
Intake Vital Signs 04/03/23 09:53 Height 5 ft 9 in Weight 212 lb 8.41 oz BMI 31.4 BP 161/77 H Blood Pressure Location Lt brachial Position Sitting Pulse 64 Intake Visit Reasons: 6 month follow up Intake Note: Noman presents in the office today in 6 months follow up. CC: Patient reports that the medication is helping him to have BMs but the stool is too hard and he has to strain. Heating Technician Required: No Accompanied by: Self / Same As Patient Allergies No Known Allergies [No Known Allergies*] Allergy (Verified 04/03/23 09:57) HPI 6 month follow up HPI Details Assessment & Plan (1) Thoracic back pain: Code(s): M54.6 - Pain in thoracic spine Plan: He has not been feeling the shocks anymore, he has started PT for his back surgery. He will be having elective surgery for bunyons right side soon. We review his thoracic x-ray and it is possible that this could return because he may have intermittent pinched nerves and he is aware that he has significant arthritis in the mid spine as well as his lumbar spine. He continues to do well wit his GERD and his CIC. He continues on his omeprazole and his bisacodyl. He is not due for scope until 2026. ROV 6 mos. His works at [email or web address] in [employer] in [employer]! (2) Constipation: Code(s): K59.00 - Constipation, unspecified (3) GERD (gastroesophageal reflux diseas e): Code(s): K21.9 - Gastro-esophageal reflux disease without esophagitis Qualifiers: Esophagitis presence: without esophagitis Qualified Code(s): K21.9 - Gastro-esophageal reflux disease without esophagitis Medications: Refilled sennosides-docusat e sodium 8.6-50 mg (Senna Plus) 1 tab-cap PO BID 90 days PRN 180 ca ps 3RF constipatio n K59.00 - Constipat ion, unspecified omeprazole 20 mg PO DAILY 90 caps 3RF bisacodyl 15 mg (3 x 5 mg) P O BEDTIME 30 days 90 tabs 6RF K59.00 - Constipat ion, unspecified sennosides-docusat e sodium 8.6-50 mg (Senna Plus) 1 tab-cap PO BID 90 days PRN 180 ca ps 3RF constipatio n K59.00 - Constipat ion, unspecified omeprazole 20 mg PO DAILY 90 caps 3RF bisacodyl 15 mg (3 x 5 mg) P O BEDTIME 30 days 90 tabs 6RF K59.00 - TODAY'S VISIT He has been having increasing trouble with constipation and straining with his stooling despite being at his hearing to mostly the bisacodyl regimen. At this point he has not had good luck with senna, bisacodyl, fiber therapy, MiraLax, and Colace. I am going to move along to Dmitriy and he prefers to start a 72 micro g dose. We will titrate to affect her side effect. We discussed diet and fluids and it does barrel turner that the only fluids he drinks her coffee and 3-4 Parker lytes today. I discussed how these drinks dehydrate you more than add fluid so he needs to either cut back on the beer or add some other kind of non caffeinated fluid to help with the constipation. He sometimes drinks repair which is certainly better than Colace any likes fruit juices but of course he would have to watch the sugar. We discussed various options that he is going to have to experiment to find a fluid he enjoys drinking. He continues to do well on his omeprazole with good control of his GERD. Return office visit in 3 weeks to evaluate and titrate his medications. [facility] Medical History Positive PPD Screening for colon cancer Obstructive sleep apnea Foot pain, left Overweight (BMI 25.0-29.9) Obesity (BMI 30-39.9) Thyroid nodule Vertebral fracture Pulmonary nodule Diabetic neuropathy Type 2 diabetes mellitus with hyperglycemia Osteoarthritis GERD (gastroesophageal reflux disease) Erectile dysfunction Hypothyroid Hypertension Hypercholesterolemia Surgical History History of back surgery History of colonoscopy History of arthroscopy of right knee History of appendectomy History of tonsillectomy Family History Father Medical history unknown Mother Diabetes Past heart attack Brother Prostate cancer Social History Housing: House Alcohol intake: current Alcohol intake frequency: holidays/special occasions only Patient Tobacco Use Status: Current everyday Tobacco user Tobacco use type: Cigarette Cigarette Packs Per Day: 15 Cigarettes Per Day: 20 e-Cigarette/Vaping Use: Never Used Second Hand Smoke Exposure: No service: No Current occupational status: disabled Cognitive needs: No Hearing needs: No Vision needs: Yes Review of Systems Const Denies fatigue, Denies fever(s), Denies night sweats, Denies poor appetite and Denies weight loss Eyes Details: glasses Reports requires corrective lenses ENT Reports Normal hearing present, Denies dental pain, Denies dysphagia, Denies h earing loss, Denies mouth pain, Denies odynophagia, Denies throat swelling, Denies tongue swelling and Reports other (Dentition adequate) GI Details: Denies abdominal pain, Denies melena, Denies bloating, Denies hematochezia, Denies constipation, Denies GI cramping, Denies dysphagia, Denies excessive flatus, Denies early satiety, Denies heartburn, Denies diarrhea, Denies nausea, Denies odynophagia, Denies vomiting and Denies hematemesis Skin/Breast Denies pruritus, Denies lesions, Denies rash and Denies jaundice Neuro Reports Normal hearing present and Denies Abnormal speech present Endo Denies fatigue Aller/Immun Denies throat swelling and Denies tongue swelling Physical Exam Vital Signs: Last Vital Signs Pulse 64 04/03/23 09:53 BP 161/77 H 04/03/23 09:53 BMI result Body Mass Index 31.4 Const General: cooperative, no acute distress, well developed and well groomed Nutritional Appearance: well nourished and obese Orientation/consciousness: oriented to person, oriented to place and oriented to time Limitations: No language barrier and ambulation with cane HEENT Head: Yes normocephalic and Yes atraumatic Eyes General: appearance normal, both eyes and all related structures Pupils: Equal, round and reactive pupils present Neck Neck: Yes normal visual inspection and Yes no lymphadenopathy Thyroid: Thyroid normal Resp Effort & Inspection: normal respiratory effort and able to speak in complete sentences Auscultation: clear to auscultation bilaterally Cardio Rate: regular rate Rhythm: regular rhythm Heart sounds: Normal, physiologic split S2 sound present Peripheral pulses: radial pulses present and posterior tibial pulses present GI Inspection: No distended, No Abdominal panniculus present and Yes obesity Palpation (GI): Soft to palpation, nontender, no guarding, not rigid and No hepatosplenomegaly present Percussion: Yes normal to percussion Auscultation: normal bowel sounds Rectal Exam - Male: Yes deferred Skin General skin exam: no rashes or lesions noted, turgor normal, skin not dry, no jaundice, No spider nevi and no striae Rashes: no rashes Nails: normal Neuro General: oriented to person, oriented to place and oriented to time Cranial nerves: Yes Equal, round and reactive pupils present and Yes Normal hearing present Speech: No Abnormal speech present Extrem General: Yes normal to inspection, No clubbing, No cyanosis and No edema Psych Appearance: grossly normal and well kempt Mental Status: mental status grossly normal Speech and movement: Normal speech and movement present Affect: normal affect Attitude: cooperative Thought process: Normal thought process present and not confabulating Thought content: Normal thought content present Insight: Limited insight present (Psych) Judgement: Limited judgement present (Psych) Assessment & Plan Assessment & Plan (1) Constipation: Code(s): K59.00 - Constipation, unspecified (2) GERD (gastroesophageal reflux disease): Code(s): K21.9 - Gastro-esophageal reflux disease without esophagitis Qualifiers: Esophagitis presence: without esophagitis Qualified Code(s): K21.9 - Gastro-esophageal reflux disease without esophagitis Plan He has been having increasing trouble with constipation and straining with his stooling despite being at his hearing to mostly the bisacodyl regimen. At this point he has not had good luck with senna, bisacodyl, fiber therapy, MiraLax, and Colace. I am going to move along to Dmitriy and he prefers to start a 72 micro g dose. We will titrate to affect her side effect. We discussed diet and fluids and it does barrel turner that the only fluids he drinks her coffee and 3-4 Parker lytes today. I discussed how these drinks dehydrate you more than add fluid so he needs to either cut back on the beer or add some other kind of non caffeinated fluid to help with the constipation. He sometimes drinks repair which is certainly better than Colace any likes fruit juices but of course he would have to watch the sugar. We discussed various options that he is going to have to experiment to find a fluid he enjoys drinking. He continues to do well on his omeprazole with good control of his GERD. Return office visit in 3 weeks to evaluate and titrate his medications. Medications: New linaclotide (Linzess) 72 mcg PO QAM 30 caps 3RF K59.00 - Constipation, unspecified Refilled omeprazole 20 mg PO DAILY 90 caps 3RF On Hold sennosides-docusate sodium 8.6-50 mg (Senna Plus) Hold Comment: Doctor's Order 1 tab-cap PO BID 90 days PRN 180 caps 3RF constipation K59.00 - Constipation, unspecified bisacodyl Hold Comment: Doctor's Order 15 mg (3 x 5 mg) PO BEDTIME 30 days 90 tabs 6RF K59.00 - Constipation, unspecified Coding Level of Care Code Est Pt Level 3 (36672) Diagnoses Constipation K59.00 Gastroesophageal reflux disease without esophagitis K21.9 Esophagitis presence: without esophagitis
[2023-04-03 09:53] VITALS: BP 161/77; PULSE 64; BMI 31.4
== END 2023-04-03 10:26 | disposition home or self-care (01) ==
PROVIDERS: PCP Internal Medicine; Visit Provider Nurse Practitioner
DX: K59.00 Constipation, unspecified (principal); K21.9 Gastro-esophageal reflux disease without esophagitis
CPT/HCPCS: 99213

== ENCOUNTER → 2023-04-03 09:37 | Outpatient (BNVA) | payer OTHER, BC, SELFPAY | PROVIDERS: PCP Internal Medicine; Visit Provider Nurse Practitioner | DX: K59.00 Constipation, unspecified (principal); K21.9 Gastro-esophageal reflux disease without esophagitis | CPT/HCPCS: 99212 ==

== ENCOUNTER 2023-04-18 08:18 | Outpatient (AMB) | payer OTHER, BC, SELFPAY ==
--- NOTE | 2023-04-18 08:31 | A.OFFVIS_ITS ---
Intake VS Expanded 04/18/23 08:34 Height 5 ft 9 in Weight 211 lb 10.3 oz BMI 31.3 Intake Visit Reasons: T2DM/CONFIRMED Allergies No Known Allergies [No Known Allergies*] Allergy (Verified 04/24/23 11:26) HPI Nutrition Presentation Details Pt presents for MNT 6 months follow-up for T2DM Ptr brought blood glucose record and blood glucose is ranging from 100-136 mg/dl in the fasting state and at random Patient reports feeling well reports having 3 meals a day following healthy plate method, typically has a bedtime snack and consist of Glucerna or half a sandwich sometimes cereal choosing high-fiber foods Physical activity: Reports walking as able related to chronic back pain Alcohol: Occasional 1-2 servings a month Most Recent Diabetes Results: Cholesterol 168 mg/dL (<200) 03/20/23 HDL Cholesterol 56 mg/dL (>40) 03/20/23 Triglycerides 107 mg/dL (<150) 03/20/23 Creatinine 0.95 mg/dL (0.5-1.4) 03/05/23 Blood Urea Nitrogen 16 mg/dL (9-16) 03/05/23 Sodium 141 mmol/L (135-145) 03/05/23 Potassium 4.4 mmol/L (3.3-5.1) 03/05/23 Chloride 109 mmol/L (96-108) H 03/05/23 Carbon Dioxide 23 mmol/L (22-29) 03/05/23 Calcium 9.3 mg/dL (8.4-10.2) 03/05/23 AST 22 U/L (5-37) 03/05/23 ALT 27 U/L (0-40) 03/05/23 Total Protein 7.3 g/dL (6.5-8.0) 03/05/23 Albumin 4.2 g/dL (3.5-5.0) 03/05/23 [facility] Medical History Positive PPD Screening for colon cancer Obstructive sleep apnea Foot pain, left Overweight (BMI 25.0-29.9) Obesity (BMI 30-39.9) Thyroid nodule Vertebral fracture Pulmonary nodule Diabetic neuropathy Type 2 diabetes mellitus with hyperglycemia Osteoarthritis GERD (gastroesophageal reflux disease) Erectile dysfunction Hypothyroid Hypertension Hypercholesterolemia Surgical History History of back surgery History of colonoscopy History of arthroscopy of right knee History of appendectomy History of tonsillectomy Family History Father Medical history unknown Mother Diabetes Past heart attack Brother Prostate cancer Social History Housing: House Alcohol intake: current Alcohol intake frequency: holidays/special occasions only Patient Tobacco Use Status: Current everyday Tobacco user Tobacco use type: Cigarette Cigarette Packs Per Day: 15 Cigarettes Per Day: 20 e-Cigarette/Vaping Use: Never Used Second Hand Smoke Exposure: No service: No Current occupational status: disabled Cognitive needs: No Hearing needs: No Vision needs: Yes Assessment & Plan Assessment & Plan (1) Type 2 diabetes mellitus with hyperglycemia: Code(s): E11.65 - Type 2 diabetes mellitus with hyperglycemia Qualifiers: Diabetes mellitus ad terminal makeup operator insulin use: without ad terminal makeup operator use Quali fied Code(s): E11.65 - Type 2 diabetes mellitus with hyperglycemia Plan: est kcal as per MSJ: 2358 - 500 = 1858 (40% carb, 30% fat/prot) est fluid needs 25 ml/kg BW : 2375 ml/d fiber rec: 25-30 g as tolerated Na < 1500 mg/dl Recommend fiber intake : 8-10 g per day and gradually increase to 25-28 g per day for women and 35-38 g for men or as tolerated Educated patient on: ( R = reviewed V = verbalizes understanding N/R = needs review N/A = not applicable * Food sources of carbohydrate, adequate serving sizes and its role in various health conditions: V * Differences between complex carbohydrates a simple carbohydrates, role of fiber in diet: V * Differences between types of fats and role in diet (mono on saturated fat fatty acids, saturated fatty acids, trans fats): R V * Food sources of sodium in salt and healthy modifications for heart health in kidney health: R v, * Vitamins and minerals: R , v * Healthy plate method concept: R V * Physical activity: Benefits a precaution: R V * Hypoglycemia protocol (rule of 15): V * Dietary prevention of Hyperglycemia: V Patient Instructions: Continue working on following healthy plate method and choosing lean protein sources of foods Have yogurt at least 3 times a week and choose foods with probiotics and prebiotics throughout the day Keep hydrated by drinking water with meals and increasing food intake as you increase fiber intake to prevent constipation Coding Level of Care Code Nutr Indiv Subseq (02721) Diagnoses Type 2 diabetes mellitus with hyperglycemia, without long-term current use of insulin E11.65 Diabetes mellitus jail insulin use: without jail use Time Spent (min) 30
[2023-04-18 08:34] VITALS: BMI 31.3
== END 2023-04-18 08:57 | disposition home or self-care (01) ==
PROVIDERS: PCP Internal Medicine; Visit Provider Dietitian, Registered
DX: E11.65 Type 2 diabetes mellitus with hyperglycemia (principal)

== ENCOUNTER → 2023-04-18 08:18 | Outpatient (BNVA) | payer OTHER, BC, SELFPAY | PROVIDERS: PCP Internal Medicine; Visit Provider Dietitian, Registered | DX: E11.65 Type 2 diabetes mellitus with hyperglycemia (principal) | CPT/HCPCS: 97803 ==

== ENCOUNTER 2023-04-24 11:03 | Outpatient (AMB) | payer OTHER, BC, SELFPAY ==
[2023-04-24 11:19] VITALS: BP 124/60; PULSE 67; BMI 30.9
--- NOTE | 2023-04-24 11:19 | A.OFFVIS_ITS ---
Intake Vital Signs 04/24/23 11:19 Height 5 ft 9 in Weight 209 lb 7.026 oz BMI 30.9 BP 124/60 Blood Pressure Location Rt brachial Position Sitting Pulse 67 Intake Visit Reasons: 3 week follow up Intake Note: Patient returns in follow up of constipation. CC: Patient states that he did not get the Linzess because the copay was $100. Per patient he has been eating an apple daily and it has been helping him to have a BM. Accompanied by: Self / Same As Patient Allergies No Known Allergies [No Known Allergies*] Allergy (Verified 04/24/23 11:26) HPI 3 week follow up HPI Details Assessment & Plan (1) Constipation: Code(s): K59.00 - Constipation, unspecified (2) GERD (gastroesophageal reflux diseas e): Code(s): K21.9 - Gastro-esophageal reflux disease without esophagitis Qualifiers: Esophagitis presence: without esophagitis Qualified Code(s): K21.9 - Gastro-esophageal reflux disease without esophagitis Plan He has been having increasing trouble with constipation and straining with his stooling despite being at his hearing to mostly the bisacodyl regimen. At this point he has not had good luck with senna, bisacodyl, fiber therapy, MiraLax, and Colace. I am going to move along to Linzess and he prefers to start a 72 micro g dose. We will titrate to affect her side effect. We discussed diet and fluids and it does air turning machine feeder that the only fluids he drinks her coffee and 3-4 Parker lytes today. I discussed how these drinks dehydrate you more than add fluid so he needs to either cut back on the beer or add some other kind of non caffeinated fluid to help with the constipation. He sometimes drinks repair which is certainly better than Colace any likes fruit juices but of course he would have to watch the sugar. We discussed various options that he is going to have to experiment to find a fluid he enjoys drinking. He continues to do well on his omeprazole with good control of his GERD. Return office visit in 3 weeks to evaluate and titrate his medications. Medications: New linaclotide (Linze ss) 72 mcg PO QAM 30 caps 3RF K59.00 - Constipat ion, unspecified Refilled omeprazole 20 mg PO DAILY 90 caps 3RF On Hold sennosides-docusat e sodium 8.6-50 mg (Senna Plus) H old Comment: Doct or's Order 1 tab-cap PO BID 90 days PRN 180 ca ps 3RF constipatio n K59.00 - Constipat ion, unspecified bisacodyl Hold Comment: Doctor's Order 15 mg (3 x 5 mg) P O BEDTIME 30 days 90 tabs 6RF K59.00 - Constipat ion, unspecified TODAY'S VISIT He could not afford the LInzess and requests a generic but I explain that there is no mfg for a generic yet r/t patent requirements. BUT he has changed his diet to include more fiber via oatmeal, apples and Sd Ervin meals with fiber and now he is not straining. This is a good/better solution, so we will continue with this. He is also using plums/peaches. He is seeing a public address system mechanic who helped him. He continues on omeprazole with good control of his GERD. ROV 6 mos. PFS Medical History Positive PPD Screening for colon cancer Obstructive sleep apnea Foot pain, left Overweight (BMI 25.0-29.9) Obesity (BMI 30-39.9) Thyroid nodule Vertebral fracture Pulmonary nodule Diabetic neuropathy Type 2 diabetes mellitus with hyperglycemia Osteoarthritis GERD (gastroesophageal reflux disease) Erectile dysfunction Hypothyroid Hypertension Hypercholesterolemia Surgical History History of back surgery History of colonoscopy History of arthroscopy of right knee History of appendectomy History of tonsillectomy Family History Father Medical history unknown Mother Diabetes Past heart attack Brother Prostate cancer Social History Housing: House Alcohol intake: current Alcohol intake frequency: holidays/special occasions only Patient Tobacco Use Status: Current everyday Tobacco user Tobacco use type: Cigarette Cigarette Packs Per Day: 15 Cigarettes Per Day: 20 e-Cigarette/Vaping Use: Never Used Second Hand Smoke Exposure: No service: No Current occupational status: disabled Cognitive needs: No Hearing needs: No Vision needs: Yes Review of Systems Const Denies fatigue, Denies fever(s), Denies night sweats, Denies poor appetite and Denies weight loss Eyes Details: glasses Reports requires corrective lenses ENT Reports Normal hearing present, Denies dental pain, Denies dysphagia, Denies hearing loss, Denies mouth pain, Denies odynophagia, Denies throat swelling, Denies tongue swelling and Reports other (Dentition adequate) Card Reports no additional complaints Resp Reports no additional complaints GI Details: Denies abdominal pain, Denies melena, Denies bloating, Denies hematochezia, Reports constipation, Denies GI cramping, Denies dysphagia, Denies excessive flatus, Denies early satiety, Reports heartburn, Denies diarrhea, Denies nausea, Denies odynophagia, Denies vomiting and Denies hematemesis Musc Reports abnormal gait Skin/Breast Denies pruritus, Denies lesions, Denies rash and Denies jaundice Neuro Reports Normal hearing present, Denies Abnormal speech present and Reports abnormal gait Endo Denies fatigue Aller/Immun Denies throat swelling and Denies tongue swelling Physical Exam Vital Signs: Last Vital Signs Pulse 67 04/24/23 11:19 BP 124/60 04/24/23 11:19 BMI result Body Mass Index 30.9 Const General: cooperative, no acute distress, well developed and well groomed Nutritional Appearance: well nourished and overweight Orientation/consciousness: oriented to person, oriented to place and oriented to time Limitations: No language barrier and ambulation with cane HEENT Head: Yes normocephalic and Yes atraumatic Eyes General: appearance normal, both eyes and all related structures Pupils: Equal, round and reactive pupils present Neck Neck: Yes normal visual inspection and Yes no lymphadenopathy Thyroid: Thyroid normal Resp Effort & Inspection: normal respiratory effort and able to speak in complete sentences Auscultation: clear to auscultation bilaterally Cardio Rate: regular rate Rhythm: regular rhythm Heart sounds: Normal, physiologic split S2 sound present Peripheral pulses: radial pulses present and posterior tibial pulses present GI Inspection: No distended, No Abdominal panniculus present and Yes obesity Palpation (GI): Soft to palpation, nontender, no guarding, not rigid and No hepatosplenomegaly present Percussion: Yes normal to percussion Auscultation: normal bowel sounds Rectal Exam - Male: Yes deferred Skin General skin exam: no rashes or lesions noted, turgor normal, skin not dry, no jaundice, No spider nevi and no striae Rashes: no rashes Nails: normal Neuro General: oriented to person, oriented to place and oriented to time Cranial nerves: Yes Equal, round and reactive pupils present and Yes Normal hearing present Speech: No Abnormal speech present Extrem General: Yes normal to inspection, No clubbing, No cyanosis and No edema Psych Appearance: grossly normal and well kempt Mental Status: mental status grossly normal Speech and movement: Normal speech and movement present Affect: normal affect Attitude: cooperative Thought process: Normal thought process present and not confabulating Thought content: Normal thought content present Insight: Limited insight present (Psych) Judgement: Limited judgement present (Psych) Assessment & Plan Assessment & Plan (1) Constipation: Code(s): K59.00 - Constipation, unspecified (2) GERD (gastroesophageal reflux disease): Code(s): K21.9 - Gastro-esophageal reflux disease without esophagitis Qualifiers: Esophagitis presence: without esophagitis Qualified Code(s): K21.9 - Gastro-esophageal reflux disease without esophagitis Plan He could not afford the LInzess and requests a generic but I explain that there is no g for a generic yet r/t patent requirements. BUT he has changed his diet to include more fiber via oatmeal, apples and Sd Ervin meals with fiber and now he is not straining. This is a good/better solution, so we will continue with this. He is also using plums/peaches. He is seeing a public address system mechanic who helped him. He continues on omeprazole with good control of his GERD. ROV 6 mos. Coding Level of Care Code Est Pt Level 3 (14275) Diagnoses Constipation K59.00 Gastroesophageal reflux disease without esophagitis K21.9 Esophagitis presence: without esophagitis
== END 2023-04-24 11:48 | disposition home or self-care (01) ==
PROVIDERS: PCP Internal Medicine; Visit Provider Nurse Practitioner
DX: K59.00 Constipation, unspecified (principal); K21.9 Gastro-esophageal reflux disease without esophagitis
CPT/HCPCS: 99213

== ENCOUNTER → 2023-04-24 11:03 | Outpatient (BNVA) | payer OTHER, BC, SELFPAY | PROVIDERS: PCP Internal Medicine; Visit Provider Nurse Practitioner | DX: K59.00 Constipation, unspecified (principal); K21.9 Gastro-esophageal reflux disease without esophagitis | CPT/HCPCS: 99212 ==

== ENCOUNTER 2023-05-09 08:54 | Outpatient (REF) | payer OTHER, BC, SELFPAY ==
[2023-05-15 02:43] LABS: Testosterone, Total 320 ng/dL (250-1100)
== END 2023-05-09 08:55 | disposition home or self-care (01) ==
LOC: HO.LAB 08:54
PROVIDERS: PCP Internal Medicine; Visit Provider Urology
DX: E11.69 Type 2 diabetes mellitus with other specified complication (principal); N52.1 Erectile dysfunction due to diseases classified elsewhere
CPT/HCPCS: 36415; 83002; 84403

== ENCOUNTER 2023-05-15 08:37 | Outpatient (AMB) | payer OTHER, BC, SELFPAY ==
--- NOTE | 2023-05-15 08:39 | A.OFFVIS_ITS ---
Intake Intake Visit Reasons: 6M Labs(Pending)Portal confirm Intake Note: Patient is Present for Follow Up labs Urology Medication: Tadalafil, Terazosin, Antibiotic Allergies: None Blood Thinners:None PVR: 0 Allergies No Known Allergies [No Known Allergies*] Allergy (Verified 05/15/23 08:40) HPI HPI Comments History of Present Illness Details Noman sarabia male. He is a patient of Dr. Mccurdy. Seen for the following urologic conditions - erectile dysfunction associated with d iabetes - hypogonadism associated with diabetes Tadalafil continues to increase to testosterone Lab work shows increase in testosterone from 135-200 to T320 Lutenizing hormone elevated General Will being improved Continue with tadalafil 10 mg Add tadalafil 20 mg on demand for ED Erectile Dysfunction He presents today for - further evaluation of erectile dysfunc tion associated hypo gonad hypogonadism Symptoms have been present for/since - progressive since 2019 Current treatment includes - none At initial presentation he experiences - are partial and insufficient for vaginal penetration Nocturnal erections do not occur Associated Medical Conditions include hypertension, type 2 diabetes, tobacco use, Atherosclerosis Cardiovascular Disease Risk not completed Medications include(s) statin, benzodiazepine, beta-mansi, Recent labs include 05/10 T 135 low FSH/LH, 03/13 P 1.0, 11/11 T 196 F 31 L 4.8, 05/12 T 320 PSA 1.1 HbA1c down 0.3 Therapeutic plan includes - maximum tolerated on medication daily tadalafil with repeat labs [facility] Medical History Positive PPD Screening for colon cancer Obstructive sleep apnea Foot pain, left Overweight (BMI 25.0-29.9) Obesity (BMI 30-39.9) Thyroid nodule Vertebral fracture Pulmonary nodule Diabetic neuropathy Type 2 diabetes mellitus with hyperglycemia Osteoarthritis GERD (gastroesophageal reflux disease) Erectile dysfunction Hypothyroid Hypertension Hypercholesterolemia Surgical History History of back surgery History of colonoscopy History of arthroscopy of right knee History of appendectomy History of tonsillectomy Family History Father Medical history unknown Mother Diabetes Past heart attack Brother Prostate cancer Social History (Reviewed 04/24/23 @ 11:22 by OBIE Loza Housing: House Alcohol intake: current Alcohol intake frequency: holidays/special occasions only Patient Tobacco Use Status: Current everyday Tobacco user Tobacco use type: Cigarette Cigarette Packs Per Day: 15 Cigarettes Per Day: 20 e-Cigarette/Vaping Use: Never Used Second Hand Smoke Exposure: No service: No Current occupational status: disabled Cognitive needs: No Hearing needs: No Vision needs: Yes Review of Systems Const Denies chills and Denies fever(s) Card Reports no additional complaints and Denies syncope Resp Denies cough GI Denies abdominal pain and Denies heartburn Reports as per HPI and Denies change in libido Neuro Denies syncope Psych Denies change in libido Endo Denies change in libido Physical Exam Const General: cooperative, healthy appearing, comfortable and no acute distress Orientation/consciousness: patient oriented x3 HEENT Face and sinus: Yes normal facial exam Mouth: moist mucous membranes Neck Neck: Yes normal visual inspection, Yes full ROM and Yes trachea midline Chest Chest palpation & inspection: normal inspection of the chest Resp Effort & Inspection: normal respiratory effort, able to speak in complete sentences and no respiratory distress GI Inspection: Yes normal to inspection Back/Spine/Pelvis Cervical Spine: normal cervical lordosis Thoracic/Lumbar Spine: thoracic and lumbar spine normal to inspection Skin General skin exam: no rashes or lesions noted Neuro General: patient oriented x3, gait normal, tone normal and moves all extremities Extrem General: Yes normal to inspection and Yes capillary refill normal Office Procedures Post Void Residual Post Residual Void Post Void Residual (PVR): 0 [id number]-[id number] Void Residual by ultrasound Assessment & Plan Assessment & Plan (1) Erectile dysfunction associated with type 2 diabetes mellitus: Code(s): E11.69 - Type 2 diabetes mellitus with other specified complication; N52.1 - Erectile dysfunction due to diseases classified elsewhere (2) Hypogonadism in male: Code(s): E29.1 - Testicular hypofunction Plan daily 10mg on demand 20mg Orders: Orders AMB Post Void Residual by ultrasound Today R39.9 - Unspecified symptoms and signs involving the genitourinary system Testosterone, Free/Total 6 Months E29.1 - Testicular hypofunction, R68.82 - Decreased libido Medications: New tadalafil On demand medication take 60 minutes before intended activity 20 mg PO ONCE PRN 30 tabs 0RF sexual activity 30 days N52.9 - Male erectile dysfunction, unspecified Refilled tadalafil Daily medication 10 mg PO DAILY 90 tabs 1RF sexual activity 90 days E11.69 - Type 2 diabetes mellitus with other specified complication, N52.1 - Erectile dysfunction due to diseases classified elsewhere Patient Instructions: Imaging studies, laboratory and physical exam results were discussed and reviewed in detail. No major barriers to patient understanding were identified. An opportunity to ask questions regarding the treatment plan was provided. All questions were answered. The patient expressed understanding and agreement with the above treatment plan. The patient is aware they should contact our office by phone for worsening of their current condition or the appearance of new urologic symptoms. Compliance is encouraged with any medications and followup testing that is ordered. It is a privilege to participate in the urologic care of your patient. If you have any questions or concerns regarding treatment for the above conditions, or other urologic issues, please do not hesitate to contact me. The office telephone contact is [phone]. This note is constructed using voice recognition software. While every effort has been made to ensure accuracy cancer genetics assistant errors may have been included. Yours sincerely, Dr Jaydon Smart MD, [facility] - Urology Providers of Expert, Compassionate Care for the Genitourinary System Coding Level of Care Code Est Pt Level 4 (74059) Diagnoses Erectile dysfunction associated with type 2 diabetes mellitus E11.69; N52.1 Hypogonadism in male E29.1 CPT Codes Post Residual Void - PVR CPT Code: 89577-Qcfv Void Residual by ultrasound ([id number])
== END 2023-05-15 09:00 | disposition home or self-care (01) ==
LOC: HO.HUSH 08:37
PROVIDERS: PCP Internal Medicine; Visit Provider Urology
DX: E11.69 Type 2 diabetes mellitus with other specified complication (principal); N52.1 Erectile dysfunction due to diseases classified elsewhere; E29.1 Testicular hypofunction
CPT/HCPCS: 99214

== ENCOUNTER → 2023-05-15 08:37 | Outpatient (BNVA) | payer OTHER, BC, SELFPAY | PROVIDERS: PCP Internal Medicine; Visit Provider Urology | DX: E11.69 Type 2 diabetes mellitus with other specified complication (principal); N52.1 Erectile dysfunction due to diseases classified elsewhere; E29.1 Testicular hypofunction; R39.9 Unspecified symptoms and signs involving the genitourinary system; R68.82 Decreased libido | CPT/HCPCS: 51798; 99212 ==

== ENCOUNTER 2023-07-05 08:46 | Outpatient (AMB) | payer MEDICARE, BC, SELFPAY ==
[2023-07-05 09:11] VITALS: BP 138/76; PULSE 72; O2SAT 98; BMI 30.9
--- NOTE | 2023-07-05 09:11 | A.OFFVIS_ITS ---
Intake Vital Signs 07/05/23 09:11 Height 5 ft 9 in Weight 209 lb BMI 30.9 BP 138/76 Blood Pressure Location Lt brachial Position Sitting Pulse 72 Pulse Source Pulse Oximeter Pulse Oximetry (%) 98 Oxygen Delivery Method Room Air Intake Visit Reasons: [facility] G0439 Allergies No Known Allergies [No Known Allergies*] Allergy (Verified 07/05/23 09:11) Medication List - Last Reconciled 07/05/23 by Dayana Mccurdy MD atorvastatin 20 mg PO DAILY 90 days [AUTO PAP 6-16 mm H20 humidified AIR As directed] blood sugar diagnostic (CareSens N Test Strips) As directed blood sugar diagnostic (FreeStyle Lite Strips) USE TO CHECK BLOOD SUGAR FOUR TIMES DAILY blood-glucose meter (FreeStyle Lite Meter kit) As directed tests 4 X/day cinnamon bark 1,000 mg PO DAILY fexofenadine 180 mg PO DAILY fluticasone propionate 50 mcg/actuation (Flonase Allergy Relief) 2 sprays intranasal DAILY PRN gabapentin 300 mg PO BID ibuprofen 800 mg PO BID lancets (FreeStyle Lancets) As directed tests 4X/day levothyroxine (Synthroid) 75 mcg PO DAILY 90 days lidocaine 5% 1 patch topical DAILY losartan 100 mg PO DAILY metformin 500 mg PO BID 90 days akfckecifsxc-bopsnraz-csqejy (Multivitamin 50 Plus tablet) 1 tab PO DAILY omega-3 acid ethyl esters PO DAILY omega-3 fatty acids 1,000 mg PO DAILY omeprazole 20 mg PO DAILY propranolol 10 mg PO BID sennosides-docusate sodium 8.6-50 mg (Senna Plus) 1 tab-cap PO BID PRN 90 days tadalafil 10 mg PO DAILY 90 days tadalafil 20 mg PO ONCE PRN 30 days terazosin 2 mg PO BEDTIME 90 days HPI [facility] G0439 HPI Details 73-year-old obese male smoker with hyper tension diabetes mellitus controlled with a history of vertebral fracture last seen in May 2022 for preoperative evaluation for procedure review of the notes . Patient had posterior decompression instrumented fusion L4-S1 under . in 06/02/2022 was seen by Urology in April 2023 for hypogonadism and erectile dysfunction on tadalafil. Patient also has followed up with Gastroenterology in April 2023 placed on Linzess but the co-pay was high continues on omeprazole for GERD patient is here for an annual well visit. Low back pain better but has sciatic problem and taking aspercream and gabapentin 2x a day still smoking 3/4 of a pcak a day [facility] Medical History (Updated 07/05/23 @ 18:47 by Dayana Mccurdy MD) Positive PPD Screening for colon cancer Obstructive sleep apnea Foot pain, left Overweight (BMI 25.0-29.9) Obesity (BMI 30-39.9) Thyroid nodule Vertebral fracture Pulmonary nodule Diabetic neuropathy Type 2 diabetes mellitus with hyperglycemia Osteoarthritis GERD (gastroesophageal reflux disease) Erectile dysfunction Hypothyroid Hypertension Hypercholesterolemia Surgical History History of back surgery History of colonoscopy History of arthroscopy of right knee History of appendectomy History of tonsillectomy Family History Father Medical history unknown Mother Diabetes Past heart attack Brother Prostate cancer Social History (Updated 07/05/23 @ 09:50 by Dayana Mccurdy MD) Housing: House Alcohol intake: current Alcohol intake frequency: holidays/special occasions only Comment: QD 2 drinks Patient Tobacco Use Status: Current everyday Tobacco user Tobacco use type: Cigarette Cigarette Packs Per Day: 15 Cigarettes Per Day: 20 e-Cigarette/Vaping Use: Never Used Second Hand Smoke Exposure: No service: No Current occupational status: disabled Cognitive needs: No Hearing needs: No Vision needs: Yes Questionnaire Medicare Wellness Checkup [age] What gender do you identify with?: male During the past 4 weeks, how much have you been bothered by emotional problems such as feeling anxious, depressed, irritable, sad or downhearted, and blue?: not at all During the past 4 weeks, has your physical & emotional health limited your social activities with family, friends, neighbors, or groups?: not at all During the past 4 weeks, how much bodily pain have you generally had?: mild pain During the past 4 weeks, was someone available to help you if you needed & want ed help?: no, not at all During the past 4 weeks, what was the hardest physical activity you could do for at least 2 minutes?: very light Can you get to places out of walking distance without help? (For eg., can you travel alone on buses, taxis or drive your car?): Yes Can you go shopping for groceries or clothes without someone's help?: Yes Can you prepare your own meals?: Yes Can you do your housework without help?: Yes Because of any health problems, do you need the help of another person with your personal care needs such as eating, bathing, dressing or getting around the house?: No Can you handle your own money without help?: Yes During the past 4 weeks, how would you rate your health in general?: excellent During the past 4 weeks how have things been going for you?: pretty well Are you having difficulties driving your car?: no Do you always fasten your seat belt when you are in a car?: yes, usually During past 4 weeks, have you been bothered by the following: never: Falling or dizzy when standing up, Sexual problems?, Trouble eating well?, Teeth or denture problems?, Problems using the telephone? and Tiredness or fatigue? Have you fallen 2 or more times in the past year?: No Are you afraid of falling?: No Are you a smoker?: yes, and I might quit During the past 4 weeks, how many drinks of wine, beer, or other alcoholic beverages did you have?: 2-5 drinks per week Do you exercise for about 20 minutes 3 or more times a week?: yes, some of the time Have you been given information to help with the following?: no: Hazards in your house that might hurt you? and no: Keeping track of your medications? How often do you have trouble taking medicines the way you have been told to take them?: I always take medicine as prescribed How confident are you that you can control & manage most of your health problems?: very confident What is your race?: or origin or descent PHQ-9 Over the last 2 weeks, how often have you been bothered by any of the following problems? 1. Little interest or pleasure in doing things: not at all 2. Feeling down, depressed, or hopeless: not at all 3. Trouble falling or staying asleep, or sleeping too much: not at all 4. Feeling tired or having little energy: not at all 5. Poor appetite or overeating: not at all 6. Feeling bad about yourself - or that you are a failure or have let yourself or your family down: not at all 7. Trouble concentrating on things, such as reading the newspaper or watching television: not at all 8. Moving or speaking so slowly that other people could have noticed. Or the opposite - being so fidgety or restless that you have been moving around a lot more than usual: not at all 9. Thoughts that you would be better off or of hurting yourself in some way: not at all Total score: 0 Depression Screening Interpretation: Negative Depression Screening Done: Yes Source: Developed by Drs. Remy Jacobsen, Lucita Morrissey, Jaskaran Mitchell and colleagues, with an educational maurilio from [employer]. Thrive Questionnaire Date Thrive assessed: 07/05/23 I am a: Patient What is your living situation today?: I have a steady place to live Within the past 12 months, did the food you bought not last and you didn't have the money to get more?: Never true Within the past 12 months, did you worry whether your food would run out before you got money to buy more?: Never true Do you have trouble paying for medicines?: No Do you have trouble getting transportation to medical appointments?: No Do you have trouble paying your heating and electricity bill?: No Do you have trouble taking care of your child, family member or friend?: No Do you have trouble with day-to-day activities such as bathing, preparing meals, shopping, managing finances, etc.?: No Are you currently unemployed and looking for a job?: No Are you interested in more education?: No Currently or been in a relationship where the following occur: no concerns reported THRIVE Score: 0 JI-7 AMB Questionnaire JI-7 Date JI - 7 assessed: 07/05/23 Feeling nervous, anxious, or on edge: 0 = Not at all Not being able to stop or control worryin = Not at all Worrying too much about different things: 0 = Not at all Trouble relaxin = Not at all Being so restless that it is hard to sit still: 0 = Not at all Becoming easily annoyed or irritable: 0 = Not at all Feeling afraid as if something awful might happen: 0 = Not at all Total JI-7 score (0-4 normal; 5-9 mild; 10-14 moderate; 15-21 severe): 0 Source: Developed by Drs. Remy Jacobsen, Lucita Morrissey, Jaskaran Mitchell and colleagues, with an educational maurilio from [employer]. Review of Systems Const Denies poor appetite and Denies weakness Eyes Denies no additional complaints ENT Reports Normal hearing present, Denies dizziness, Denies nasal congestion, Denies tinnitus and Denies sore throat Card Denies chest pain, Denies syncope, Denies rapid heart rate and Denies dyspnea Resp Denies cough and Denies dyspnea GI Denies change in stool character, Reports constipation, Denies diarrhea, Denies nausea and Denies vomiting Denies dysuria and Denies urinary frequency Neuro Reports Normal hearing present, Denies confusion, Denies dizziness, Denies syncope and Denies weakness Psych Denies confusion Physical Exam Vital Signs: Last Vital Signs Pulse 72 07/05/23 09:11 BP 138/76 07/05/23 09:11 Pulse Ox 98 07/05/23 09:11 Oxygen Delivery Method Room Air 07/05/23 09:11 BMI result Body Mass Index 30.9 Const General: No confusion Orientation/consciousness: No confusion HEENT Head: Yes normocephalic Ears: external ears normal and TM's normal bilaterally Face and sinus: Yes normal facial exam Mouth: moist mucous membranes Throat: Yes tonsils normal Eyes Conjunctivae: conjunctivae normal Pupils: Equal, round and reactive pupils present and Pupil accommodation reflex normal Direct Ophthalmoscopy: normal light reflex Neck Neck: No lymphadenopathy Thyroid: Thyroid normal Chest Chest palpation & inspection: normal inspection of the chest Resp Effort & Inspection: normal respiratory effort and no audible wheezes Auscultation: clear to auscultation bilaterally, no crackles, no wheezes and lung sounds not diminished Cardio Rate: regular rate Rhythm: regular rhythm Peripheral pulses: radial pulses present and dorsalis pedis present GI Other: guaiac negative, prostate N Palpation (GI): no masses Auscultation: normal bowel sounds and normoactive bowel sounds Other: pedal pulses weak but normal, pin prick normal Male General Exam: Yes normal external exam Skin General skin exam: no rashes or lesions noted Rashes: no rashes Neuro General: No confusion Cranial nerves: Yes Equal, round and reactive pupils present and Yes Normal hearing present Cognition (Neuro): normal cognition Gait exam (Neuro): Normal gait present Motor exam (neuro): 5/5 motor strength present throughout Deep tendon reflexes (DTR's): Right brachioradialis reflex intensity grade: 2+, Left brachioradialis reflex intensity grade: 2+, Right patellar reflex intensity grade: 2+ and Left patellar reflex intensity grade: 2+ Extrem General: No edema Results AMB Hemoglobin A1c AMB Hemoglobin A1c 6.3 % Last Edit by Shraddha Jenkins CMA on 07/05/23 09 :44 Results Reviewed Results Reviewed: Laboratory Last Values Hgb A1c (Clinic) 6.3 % (4.0-6.0) H 07/05/23 09:13 Assessment & Plan Assessment & Plan (1) Medicare annual wellness visit, subsequent: Code(s): Z00.00 - Encounter for general adult medical examination without abnormal findings Plan: Patient is advised to eat healthy, keep well hydrated, keep active and have adequate sleep. (2) Type 2 diabetes mellitus with hyperglycemia: Code(s): E11.65 - Type 2 diabetes mellitus with hyperglycemia Qualifiers: Diabetes mellitus alf insulin use: without joint terminal attack controller use Qualified Code(s): E11.65 - Type 2 diabetes mellitus with hyperglycemia Plan: Decrease the amount of carbohydrate intake, pasta, bread, rice and potatoes are all sugar and that is aside from all the sweet stuff, remember that fruits are good but they are Sweet also. Hemoglobin A1c goal of less than 7.0 presently on metformin 500 mg twice a day (3) Hypercholesterolemia: Code(s): E78.00 - Pure hypercholesterolemia, unspecified Plan: Avoid fried foods, chicken skin, eggs, butter margarine, pastries and meat. Be it pork or beef they have a lot of cholesterol February 2023 last blood work LDL goal of less than 100 and triglyceride of less than 150 on atorvastatin 20 mg once a day (4) Hypertension: Code(s): I10 - Essential (primary) hypertension Qualifiers: Hypertension type: essential hypertension Qualified Code(s): I10 - Essential (primary) hypertension Plan: Continue with blood pressure medication. Decrease salt intake and exercise losartan 100 mg once a day propranolol 10 mg twice a day (5) Hypothyroid: Code(s): E03.9 - Hypothyroidism, unspecified Qualifiers: Hypothyroidism type: acquired Qualified Code(s): E03.9 - Hypothyroidism, unspecified Plan: Seen continue with levothyroxine blood work will be requested (6) Erectile dysfunction: Code(s): N52.9 - Male erectile dysfunction, unspecified Qualifiers: Erectile dysfunction type: due to other secondary cause Qualified Code(s): N52.1 - Erectile dysfunction due to diseases classified elsewhere Plan: Patient follows up with urology placed on tadalafil and terazosin (7) Vertebral fracture: Comment: February 2019 L5 pars fracture anterolisthesis, L2-3 disc protrusion with effacing L3 nerve root neural foraminal narrowing Status post posterior decompression May 2022 Qualifiers: Encounter type: subsequent encounter Fracture healing: with routine healing Fracture morphology: burst- stable Fracture of vertebra location: lumbar Fracture type: closed Lumbar vertebra fracture level: L5 Qualified Code(s): S32.051D - Stable burst fracture of fifth lumbar vertebra, subsequent encounter for fracture with routine healing Plan: Status post surgery 2022 (8) Hypogonadism in male: Code(s): E29.1 - Testicular hypofunction Plan: Patient follows up with urology (9) Generalized anxiety disorder: Comment: Declined any referral for counseling 08/2021 Code(s): F41.1 - Generalized anxiety disorder Plan: Stable (10) Anemia: Code(s): D64.9 - Anemia, unspecified Qualifiers: Anemia type: other cause Other causes of anemia: chronic disease, other Qualified Code(s): D63.8 - Anemia in other chronic diseases classified elsewhere Plan: Continue to monitor (11) Tobacco abuse: Code(s): Z72.0 - Tobacco use Plan: Patient is strongly advised to stop smoking! (12) Mild obstructive sleep apnea: Code(s): G47.33 - Obstructive sleep apnea (adult) (pediatric) Plan: Patient uses the CPAP more than 4 hours a night and benefits from this (13) Hearing difficulty: Code(s): H91.90 - Unspecified hearing loss, unspecified ear Qualifiers: Laterality: bilateral Qualified Code(s): H91.93 - Unspecified hearing loss, bilateral Plan: Advised to get hearing test Orders: Orders AMB Hemoglobin A1c Today Z13.9 - Encounter for screening, unspecified Comprehensive Met. Panel Today E11.65 - Type 2 diabetes mellitus with hyperglycemia Ferritin Today E11.65 - Type 2 diabetes mellitus with hyperglycemia IRON PROFILE Today E11.65 - Type 2 diabetes mellitus with hyperglycemia Lipid Panel Today E11.65 - Type 2 diabetes mellitus with hyperglycemia, E78.00 - Pure hypercholesterolemia, unspecified Vitamin B12 and Folate Today E11.65 - Type 2 diabetes mellitus with hyperglycemia Creatinine Urine Today E11.65 - Type 2 diabetes mellitus with hyperglycemia US abdomen complete Today R79.89 - Other specified abnormal findings of blood chemistry, Z72.0 - Tobacco use XR chest 2V Today Z72.0 - Tobacco use Complete Blood Count Auto Diff Today E11.65 - Type 2 diabetes mellitus with hyperglycemia Reticulocyte Count Today E11.65 - Type 2 diabetes mellitus with hyperglycemia Free T4 (Free Thyroxine) Today E11.65 - Type 2 diabetes mellitus with hyperglycemia Microalbumin, Random (w Creat) Today E11.65 - Type 2 diabetes mellitus with hyperglycemia XR DEXA axial skeleton Today E29.1 - Testicular hypofunction, M81.0 - Age- related osteoporosis without current pathological fracture Referrals Thoracic/General Surgery Referral Z72.0 - Tobacco use Speech and Hearing Referral H91.90 - Unspecified hearing loss, unspecified ear Medications: Changed From fluticasone propionate 50 mcg/actuation (Flonase Allergy Relief) administer into each nostril 2 sprays intranasal DAILY PRN 16 grams 0RF Nasal Congestion E11.65 - Type 2 diabetes mellitus with hyperglycemia To fluticasone propionate 50 mcg/actuation (Flonase Allergy Relief) administer into each nostril 2 sprays intranasal DAILY PRN 3 ea 3RF Nasal Congestion 90 days E11.65 - Type 2 diabetes mellitus with hyperglycemia Quality Reporting (2019) Depression/Bipolar (159/160/161/177) PHQ-9: Total score: 0 Coding Level of Care Code Medicare Subsequent (G0439) Diagnoses Medicare annual wellness visit, subsequent Z00.00 Type 2 diabetes mellitus with hyperglycemia, without long-term current use of insulin E11.65 Diabetes mellitus joint terminal attack controller insulin use: without joint terminal attack controller use Hypercholesterolemia E78.00 Essential hypertension I10 Hypertension type: essential hypertension Acquired hypothyroidism E03.9 Hypothyroidism type: acquired Erectile dysfunction due to diseases classified elsewhere N52.1 Erectile dysfunction type: due to other secondary cause Closed stable burst fracture of fifth lumbar vertebra with routine healing, subsequent encounter S32.571Q Encounter type: subsequent encounter Fracture healing: with routine healing Fracture morphology: burst- stable Fracture of vertebra location: lumbar Fracture type: closed Lumbar vertebra fracture level: L5 Hypogonadism in male E29.1 Generalized anxiety disorder F41.1 Anemia in other chronic diseases classified elsewhere D63.8 Anemia type: other cause Other causes of anemia: chronic disease, other Tobacco abuse Z72.0 Mild obstructive sleep apnea G47.33 Hearing difficulty of both ears H91.93 Laterality: bilateral Additional Codes PHQ-9 - 08061 - PHQ-9 Billing: ([id number])
== END 2023-07-05 10:17 | disposition home or self-care (01) ==
PROVIDERS: Visit Provider Internal Medicine
DX: E11.65 Type 2 diabetes mellitus with hyperglycemia (principal)
CPT/HCPCS: 83036; 99214

== ENCOUNTER 2023-07-05 10:34 | Outpatient (REF) | payer MEDICARE, BC, SELFPAY ==
--- NOTE | ~2023-07-05 | XR_ITS ---
EXAMINATION: XR CHEST CLINICAL INFORMATION: Tobacco use COMPARISON: Chest 08/09/2021 TECHNIQUE: 2 views of the chest were obtained. FINDINGS: The lungs are well expanded and clear. No focal consolidation, interstitial pulmonary edema or pneumothorax. The cardiomediastinal silhouette is within normal limits. The thoracic aorta is tortuous. No pleural effusion. There are degenerative changes of the thoracic spine. All XR/XR chest 2V IMPRESSION: No acute abnormality.
== END 2023-07-05 10:35 | disposition home or self-care (01) ==
LOC: HO.XRAY 10:34
PROVIDERS: PCP Internal Medicine; Visit Provider Internal Medicine
DX: Z72.0 Tobacco use (principal)
CPT/HCPCS: 71046

== ENCOUNTER 2023-07-18 08:17 | Outpatient (REF) | payer MEDICARE, BC, SELFPAY ==
--- NOTE | ~2023-07-18 | US_ITS ---
EXAMINATION: US ABDOMEN COMPLETE CLINICAL INFORMATION: Elevated liver function tests, tobacco use. COMPARISON: 05/14/2015 limited ultrasound abdomen. TECHNIQUE: Real-time imaging of the abdominal viscera. Limited visualization due to bowel gas. FINDINGS: PANCREAS: Limited visualization of pancreatic tail and head. Imaged portion of pancreatic body is unremarkable. ABDOMINAL AORTA: Limited visualization. Imaged portion of the abdominal aorta is unremarkable. INFERIOR VENA CAVA: Visualized portions are normal. LIVER: Increased hepatic parenchymal heterogeneity and echogenicity could be associated with hepatocellular disease/hepatic steatosis and substantially limits visualization. Correlation with liver function tests and clinical exam recommended to determine further management. GALLBLADDER: No gallstones. COMMON BILE DUCT: Normal in caliber measuring 0.3 cm in diameter. RIGHT KIDNEY: No hydronephrosis. No renal calculi. Limited visualization. 3.1 cm midpole cyst with benign features. There is no indication for follow up imaging. 0.7 cm upper pole cyst. The kidney measures 11.8 cm in maximum dimension. LEFT KIDNEY: No hydronephrosis. No renal calculi. Limited visualization. 0.9 cm upper pole cyst with benign features. There is no indication for follow up imaging. The kidney measures 11.2 cm in maximum dimension. SPLEEN: Limited visualization. The spleen measures 8.8 cm in maximum dimension. FREE FLUID: None. US/US abdomen complete IMPRESSION: Increased hepatic parenchymal heterogeneity and echogenicity could be associated with hepatocellular disease/hepatic steatosis and substantially limits visualization. Correlation with liver function tests and clinical exam recommended to determine further management.
[2023-07-18 09:33] LABS: MANUAL DIFF FLAG NO
[2023-07-18 10:49] LABS: Basophils Percent Auto 0.5 % (0-2); Eosinophils Absolute Auto 0.3 X10*3/uL (0.0-0.4); Eosinophils Percent Auto 3.2 % (0-4); Hematocrit 38.5 % (42.0-52.0); Hemoglobin 13.2 g/dl (14.0-18.0); Imm Gran Abs Auto 0.02 X10*3/uL (0.00-0.03); Imm Gran Pct Auto 0.2 % (0.0-0.4); Lymphocytes Absolute Auto 2.3 X10*3/uL (1.2-4.9); Lymphocytes Percent Auto 26.8 % (20-40); Mean Corpuscular HGB Conc 34.3 g/dl (31.0-36.0); Mean Corpuscular Hemoglobin 30.6 pg (27.0-33.0); Mean Corpuscular Volume 89.1 fL (80.0-98.0); Mean Platelet Volume 9.5 fL (9.4-12.4); Monocytes Absolute Auto 0.8 X10*3/uL (0.1-1.2); Monocytes Percent Auto 9.8 % (2-11); Neutrophils Percent Auto 59.5 % (45-73); Platelet Count 186 X10*3/uL (160-400); Red Blood Count 4.32 X10*6/uL (4.60-5.80); Red Cell Distribution Width 12.8 % (11.0-16.0); Retic HGB Equivalent 35.2 pg (30.0-35.0); Reticulocyte Percent 1.5 % (0.5-1.8); Reticulocytes Absolute 0.063 X10*6/uL (0.026-0.095); White Blood Count 8.4 X10*3/uL (4.8-10.8)
[2023-07-18 11:25] LABS: Microalbum/Creatinine Ratio Ur 6.7 ug/mg cr (<30)
[2023-07-18 11:45] LABS: Alanine Aminotransferase 21 U/L (0-40); Alkaline Phosphatase 72 U/L (39-117); Anion Gap 14 (12-20); Aspartate Amino Transferase 19 U/L (5-37); Bilirubin Total 0.4 mg/dL (0.0-1.0); Blood Urea Nitrogen 14 mg/dL (9-16); Calcium 9.1 mg/dL (8.4-10.2); Carbon Dioxide 22 mmol/L (22-29); Chloride 111 mmol/L (96-108); Cholesterol 157 mg/dL (<200); Estimated Glomerular Filt Rate > 60; Glucose Random 109 mg/dL (60-115); HDL Cholesterol 60 mg/dL (>40); Iron 78 mcg/dL (45-160); LDL Cholesterol Calculated 83 mg/dL (<100); Percent Iron Saturation 28 % (15-50); Potassium 4.6 mmol/L (3.3-5.1); Sodium 142 mmol/L (135-145); Total Iron Binding Capacity 281 mcg/dL (228-428); Total Protein 6.7 g/dL (6.5-8.0); Triglycerides 71 mg/dL (<150); Unsaturated Iron Binding 203 ug/dL
[2023-07-18 11:52] LABS: Ferritin 28 ng/mL (20-250); Free T4 (Free Thyroxine) 0.75 ng/dL (0.71-1.85)
[2023-07-18 12:01] LABS: Folate 12.4 ng/mL (> or = 4.0); Vitamin B12 645 pg/mL (200-900)
== END 2023-07-18 08:18 | disposition home or self-care (01) ==
LOC: HO.US 08:17
PROVIDERS: PCP Internal Medicine; Visit Provider Internal Medicine
DX: E11.65 Type 2 diabetes mellitus with hyperglycemia (principal); E78.00 Pure hypercholesterolemia, unspecified; R79.89 Other specified abnormal findings of blood chemistry; Z72.0 Tobacco use
CPT/HCPCS: 36415; 76700; 80053; 80061; 82043; 82570; 82607; 82728; 82746; 83540; 84439; 85025; 85045

== ENCOUNTER 2023-08-07 08:28 | Outpatient (REF) | payer MEDICARE, BC, SELFPAY ==
--- NOTE | ~2023-08-07 | MM_ITS ---
EXAMINATION: BONE DENSITOMETRY CLINICAL INDICATION: Age-related osteoporosis without current pathological fracture. COMPARISON: This is the patient's baseline examination. TECHNIQUE: Using a [employer] DXA System (software version: 13.1) manufactured by [employer], dual-energy x-ray absorptiometry was performed of the lumbar spine and left hip. The images are of good technical quality. Summary results are attached. FINDINGS: LEFT FEMUR, NECK: BMD 1.318 g/cm2, Z-score 2.9, T-score 1.9, normal. LEFT FEMUR, TOTAL: BMD 1.464 g/cm2, Z-score 3.0, T-score 2.5, normal. AP SPINE L1-L2 (excluding L3 and L4): The data of L1-L4 has been changed to exclude the L3 and L4 vertebral bodies, because metallic hardware at these levels may cause overestimation of lumbar spine density. BMD 1.561 g/cm2, Z-score 3.2, T-score 3.0, normal. IDENTIFIED RISK FACTORS: Low calcium intake, current smoker, history of fracture (adult), alcohol use, anticonvulsant. HISTORY OF FRACTURE: Other. MEDICATIONS: Calcium supplements or multivitamin, vitamin D. MM/XR DEXA axial skeleton IMPRESSION: 1. DIAGNOSIS: Normal bone density based on the lowest T-score value of 1.9 in the femoral neck applying World Health Organization criteria. 2. 10-YEAR FRACTURE RISK PREDICTION, FRAX: According to the guidelines, FRAX calculation should only be performed on patients in the osteopenia bone density category. Therefore, FRAX was not performed on this patient. 3. Treatment Recommendations: NOF guidelines recommend consideration for treatment in postmenopausal women and men age 50 and older presenting with the following: -A hip or vertebral (clinical or morphometric) fracture. -T-score less than or equal to -2.5 at the femoral neck or spine after appropriate evaluation to exclude secondary causes. -Low bone mass at the hip or spine and a 10-year fracture probability by FRAX of greater than or equal to 3% for hip fracture or greater than or equal to 20% for major osteoporotic fracture based on the [place] adapted WHO algorithm. 4. Other Recommendations: All treatment decisions require clinical judgment and consideration of individual patient factors, including patient preferences, comorbidities, previous drug use, risk factors not captured in the FRAX model (e.g. frailty, falls, vitamin D deficiency, increased bone turnover, interval significant decline in bone density) and possible under or overestimation of fracture risk by FRAX. FUTURE SCAN RECOMMENDATION: People with diagnosed cases of osteoporosis or at high risk for fracture should have regular bone mineral density tests. For patients eligible for Medicare, routine testing is allowed once every 2 years. The testing frequency can be increased to one year for patients who have rapidly progressing disease, those who are receiving or discontinuing medical therapy to restore bone mass, or have additional risk factors.
== END 2023-08-07 08:29 | disposition home or self-care (01) ==
LOC: HO.MAMMO 08:28
PROVIDERS: PCP Internal Medicine; Visit Provider Internal Medicine
DX: Z13.820 Encounter for screening for osteoporosis (principal); M81.0 Age-related osteoporosis without current pathological fracture; E29.1 Testicular hypofunction
CPT/HCPCS: 77080

== ENCOUNTER 2023-08-10 10:00 | Outpatient (AMB) | payer MEDICARE, BC, SELFPAY ==
--- NOTE | 2023-08-10 07:45 | A.OFFVIS_ITS ---
Intake Visit Reasons: Current Smoker Allergies No Known Allergies [No Known Allergies*] Allergy (Verified 07/05/23 09:11) HPI HPI Current Smoker: Details: Initial visit for this 73yo smoker with a 40PYH. Patient has been smoking since age 17 for 56 years at 3/4ppd. . Denies marijuana use. Denies second hand smoke exposure. Denies exposure to chemicals or substances like asbestos. . Denies known family history of lung cancer. Denies personal history of cancers. . Denies chest CT in last year. Had a LDCT 11/23/2017 - was a lung RADS 2. . Denies recent travel outside the [place]. Denies recent respiratory illness or recent hospitalization for respiratory issues. Reports testing positive for COVID. Admits receiving COVID Vaccine. x 4. . Denies fever, chills, new/worsening cough, hemoptysis, hoarseness or dysphagia. Denies significant chest pain, significant dyspnea or unintentional weight loss. Patient Lung Cancer Screening Questionnaire reviewed with patient by provider. . Shared Decision Making Completed. Patient meets criteria. Discussed in detail with patient, the risk vs benefit of LDCT screening. Patient consents to proceed with scan. Discussed smoking cessation. [facility] Medical History (Updated 08/10/23 @ 10:15 by Rose Mary Smith PA-C) Type 2 diabetes mellitus with hyperglycemia Diabetic neuropathy Tubular adenoma of colon Nicotine dependence, cigarettes, uncomplicated Positive PPD Obstructive sleep apnea Foot pain, left Overweight (BMI 25.0-29.9) Obesity (BMI 30-39.9) Thyroid nodule Vertebral fracture Pulmonary nodule Osteoarthritis GERD (gastroesophageal reflux disease) Erectile dysfunction Hypothyroid Hypertension Hypercholesterolemia Surgical History History of back surgery History of colonoscopy History of arthroscopy of right knee History of appendectomy History of tonsillectomy Family History Father Medical history unknown Mother Diabetes Past heart attack Brother Prostate cancer Social History (Updated 08/10/23 @ 10:16 by Rose Mary Smith PA-C) Housing: House Alcohol intake: current Alcohol intake frequency: holidays/special occasions only Comment: QD 2 drinks Patient Tobacco Use Status: Current everyday Tobacco user Tobacco use type: Cigarette Cigarettes Per Day: 15 Years Smoked: (onset 17yo, 3/4ppd x 56yrs, 40pyh) e-Cigarette/Vaping Use: Never Used Second Hand Smoke Exposure: No service: No Current occupational status: disabled Cognitive needs: No Hearing needs: No Vision needs: Yes Assessment & Plan Assessment & Plan (1) Nicotine dependence, cigarettes, uncomplicated: Comment: (current smoker - onset 17yo, 3/4ppd x 56yrs, 40pyh) Code(s): F17.210 - Nicotine dependence, cigarettes, uncomplicated Category: Medical Plan: - SDM visit completed today in office. - Patient meets criteria for LDCT for lung cancer screening purposes and is asymptomatic. - Smoking cessation counseling offered. Patients can always call [phone]. - Will arrange for a LDCT scan of the chest for screening purposes at [facility]. - Risks, benefits, and alternatives were discussed in detail and the patient agr ees to proceed. - Risks discussed include but are not limited to: radiation exposure, anxiety during testing and while awaiting results, false negatives, false positives and possibility of additional intervention such as further imaging or surgical procedures for benign disease. - Benefits are obviously detection of lung cancer at an early stage which can lead to improved outcomes. - Discussed the importance of screening program compliance with adherence to yearly LDCT scan as scheduled - or sooner interval scans for personalized screening regimen. - Discussed follow up plan. Our office will send a letter discussing results and if needed set up phone call and office visit based on CT findings. - Patient educated on results categorization and the management decisions for suspicious findings potentially found on the screening LDCT scan. Any patient with a Lung RADS score of 3 or 4 will be reviewed by a multidisciplinary team at [facility] to form a plan of action in regards to scan findings. - If further work up is warranted for a suspicious lung finding this will be followed by the Lung Cancer Screening program in conjunction with the Thoracic Surgery Department at [facility]. - A copy of the office note and LDCT will be sent to the patient's PCP - as well as documentation on any associated further plans of care. - Incidental findings on LDCT are the PCP's responsibility. These findings are indicated with an S finding on the LDCT Assessment. A note discussing the findings will be sent to the PCP who is then responsible for further management. - All questions answered.? Coding Level of Care Code Lung Cancer Screening G0296 Diagnoses Nicotine dependence, cigarettes, uncomplicated F17.210
== END 2023-08-10 10:39 | disposition home or self-care (01) ==
PROVIDERS: PCP Internal Medicine; Referring Provider Internal Medicine; Visit Provider Physician Assistant Medical
DX: F17.210 Nicotine dependence, cigarettes, uncomplicated (principal)
CPT/HCPCS: G0296

== ENCOUNTER 2023-08-10 10:19 | Outpatient (REF) | payer MEDICARE, BC, SELFPAY ==
--- NOTE | ~2023-08-10 | CT_ITS ---
EXAMINATION: CT LOW-DOSE SCREENING CHEST WITHOUT CONTRAST CLINICAL INFORMATION: Nicotine dependence, cigarettes, uncomplicated. The patient is a current smoker with a 58 pack-year history of smoking. COMPARISON: Chest x-ray 07/05/2023. CT chest 11/23/2017. TECHNIQUE: Multidetector volumetric CT imaging of the chest is performed on a Siemens SOMATOM Definition scanner without contrast using low dose technique. Additional 2D coronal and sagittal reformatted images and axial 3D maximum intensity projection (MIP) images are generated on the CT workstation. This CT examination was performed using dose optimization techniques as appropriate, variously including the following: *Automated exposure control *Adjustment of mA and/or kV according to patient size (this includes techniques or standardized protocols for targeted exams where dose is matched to indication/reason for exam; i.e. extremities or head) *Use of iterative reconstruction technique TOTAL EXAM DLP: 59 mGy-cm. CTDIvol: 1.69 mGy. FINDINGS: PULMONARY NODULES: Again seen are scattered punctate densities the largest only 2 mm. Some are calcified. No suspicious or new pulmonary nodule is seen. See saved plata images. LUNGS: Lungs bilaterally symmetrically expanded. There is mild emphysema. No effusion or pneumothorax. Central airways patent. MEDIASTINUM: No mediastinal, hilar or axillary adenopathy or free fluid collection. CORONARY ARTERY CALCIFICATION: Minimal. THYROID GLAND: Unremarkable to the extent seen. CARDIOVASCULAR STRUCTURES: Aortic and heart size normal. No pericardial effusion. CHEST WALL/AXILLA: Unremarkable. UPPER ABDOMEN: Included portions of the solid organs in the upper abdomen unremarkable on noncontrast imaging with the exception of mild hepatic steatosis. OSSEOUS STRUCTURES: No suspicious focal findings. CT/CT lung screening IMPRESSION: 1. No evidence of pulmonary malignancy. 2. Mild emphysema. 3. Mild hepatic steatosis. 4. Incidental findings (s category): No significant new incidental findings. ASSESSMENT: Lung-RADS Category 2: Benign appearance or behavior of nodules. N/A RECOMMENDATION: Continued routine annual low-dose CT lung screening in 1 year is recommended. An order for CT CHEST LOW DOSE CANCER SCREENING ([id number]) can be placed.
== END 2023-08-10 10:20 | disposition home or self-care (01) ==
LOC: HO.CT 10:19
PROVIDERS: PCP Internal Medicine; Visit Provider Physician Assistant Medical
DX: Z12.2 Encounter for screening for malignant neoplasm of respiratory organs (principal); F17.210 Nicotine dependence, cigarettes, uncomplicated
CPT/HCPCS: 71271; G0296

== ENCOUNTER 2023-10-17 08:19 | Outpatient (AMB) | payer OTHER, BC, SELFPAY ==
--- NOTE | 2023-10-17 08:34 | A.OFFVIS_ITS ---
VS Expanded 10/17/23 08:37 Height 5 ft 9 in Weight 199 lb 2.1 oz BMI 29.4 Intake Visit Reasons: T2DM/CONFIRMED Allergies No Known Allergies [No Known Allergies*] Allergy (Verified 07/05/23 09:11) Nutrition Presentation Details: Pt presents for 6 m MNT f/u for T2DM Pt brings BG record , for the past 7 days 80% in range ,with highest bg at 142 and lowest bg at 101 mg/dl Pt report having 3 meals/day B: Breakfast sand with eggs/sausage or breakfast biscuit, coffee no sugar L: fish sand or steak with vegetables , strawberry smoothie D: rice/beans chicken broccoli, water snack : yogurt and fruit or nuts physical activity: as able ,uses cane for support fish: 1-2 x/wk veg: daily 1-2 servings dairy: at least 3 serving/d fruits: 2-3 serving/d caffeine: 1-2 c/day (coffee mainly or tea) fried foods 1-2 x/wk BS Monitoring Most Recent Diabetes Results: Microalb/Creat Ratio 6.7 ug/mg cr (<30) 07/18/23 Cholesterol 157 mg/dL (<200) 07/18/23 HDL Cholesterol 60 mg/dL (>40) 07/18/23 Triglycerides 71 mg/dL (<150) 07/18/23 Creatinine 0.92 mg/dL (0.5-1.4) 07/18/23 Blood Urea Nitrogen 14 mg/dL (9-16) 07/18/23 Sodium 142 mmol/L (135-145) 07/18/23 Potassium 4.6 mmol/L (3.3-5.1) 07/18/23 Chloride 111 mmol/L (96-108) H 07/18/23 Carbon Dioxide 22 mmol/L (22-29) 07/18/23 Calcium 9.1 mg/dL (8.4-10.2) 07/18/23 AST 19 U/L (5-37) 07/18/23 ALT 21 U/L (0-40) 07/18/23 Total Protein 6.7 g/dL (6.5-8.0) 07/18/23 Albumin 4.0 g/dL (3.5-5.0) 07/18/23 PFSH Medical History (Updated 08/10/23 @ 10:15 by Rose Mary Smith PA-C) Type 2 diabetes mellitus with hyperglycemia Diabetic neuropathy Tubular adenoma of colon Nicotine dependence, cigarettes, uncomplicated Positive PPD Obstructive sleep apnea Foot pain, left Overweight (BMI 25.0-29.9) Obesity (BMI 30-39.9) Thyroid nodule Vertebral fracture Pulmonary nodule Osteoarthritis GERD (gastroesophageal reflux disease) Erectile dysfunction Hypothyroid Hypertension Hypercholesterolemia Surgical History History of back surgery History of colonoscopy History of arthroscopy of right knee History of appendectomy History of tonsillectomy Family History Father Medical history unknown Mother Diabetes Past heart attack Brother Prostate cancer Social History (Updated 08/10/23 @ 10:16 by Rose Mary Smith PA-C) Housing: House Alcohol intake: current Alcohol intake frequency: holidays/special occasions only Comment: QD 2 drinks Patient Tobacco Use Status: Current everyday Tobacco user Tobacco use type: Cigarette Cigarettes Per Day: 15 Years Smoked: (onset 17yo, 3/4ppd x 56yrs, 40pyh) e-Cigarette/Vaping Use: Never Used Second Hand Smoke Exposure: No service: No Current occupational status: disabled Cognitive needs: No Hearing needs: No Vision needs: Yes Assessment & Plan Assessment & Plan (1) Type 2 diabetes mellitus with hyperglycemia: Code(s): E11.65 - Type 2 diabetes mellitus with hyperglycemia Category: Medical Qualifiers: Diabetes mellitus fci insulin use: without fci use Qualified Code(s): E11.65 - Type 2 diabetes mellitus with hyperglycemia Plan: est kcal as per MSJ: 9093 - 500 = 1858 (40% carb, 30% fat/prot) est fluid needs 25 ml/kg BW : 2375 ml/d fiber rec: 25-30 g as tolerated Na < 1500 mg/dl Recommend fiber intake : 8-10 g per day and gradually increase to 25-28 g per day for women and 35-38 g for men or as tolerated Educated patient on: ( R = reviewed V = verbalizes understanding N/R = needs review N/A = not applicable * Food sources of carbohydrate, adequate serving sizes and its role in various health conditions: V * Differences between complex carbohydrates a simple carbohydrates, role of fiber in diet: V * Differences between types of fats and role in diet (mono on saturated fat fatty acids, saturated fatty acids, trans fats): R V * Food sources of sodium in salt and healthy modifications for heart health in kidney health: R v, * Vitamins and minerals: R , v * Healthy plate method concept: R V * Physical activity: Benefits a precaution: R V * Hypoglycemia protocol (rule of 15): V * Dietary prevention of Hyperglycemia: V Patient Instructions: Continue working on following healthy plate method Keep hydrated by having water with meals/snacks Include at least one serving of omega 3 fatty food sources in your diet (nuts, seeds, fish as ex) Coding Level of Care Code Nutr Indiv Subseq (30217) Diagnoses Type 2 diabetes mellitus with hyperglycemia, without long-term current use of insulin E11.65 Diabetes mellitus fci insulin use: without fci use Time Spent (min) 20
[2023-10-17 08:37] VITALS: BMI 29.4
== END 2023-10-17 08:55 | disposition home or self-care (01) ==
PROVIDERS: PCP Internal Medicine; Visit Provider Dietitian, Registered
DX: E11.65 Type 2 diabetes mellitus with hyperglycemia (principal)

== ENCOUNTER → 2023-10-17 08:19 | Outpatient (BNVA) | payer OTHER, BC, SELFPAY | PROVIDERS: PCP Internal Medicine; Visit Provider Dietitian, Registered | DX: E11.65 Type 2 diabetes mellitus with hyperglycemia (principal); Z71.3 Dietary counseling and surveillance | CPT/HCPCS: 97803 ==

== ENCOUNTER 2023-10-26 09:03 | Outpatient (AMB) | payer MEDICARE, BC, SELFPAY ==
[2023-10-26 09:06] VITALS: BP 144/76; PULSE 60; BMI 29.4
--- NOTE | 2023-10-26 09:06 | A.OFFVIS_ITS ---
Vital Signs 10/26/23 09:06 Height 5 ft 9 in Weight 199 lb BMI 29.4 BP 144/76 H Blood Pressure Location Rt brachial Position Sitting Pulse 60 Intake Visit Reasons: 6 months follow up CIC GERD Intake Note: Patient in office today in follow up of CIC GERD. CC: Patient reports doing well and denies having any GI concerns or symptoms today. 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: No Accompanied by: Self / Same As Patient Allergies No Known Allergies [No Known Allergies*] Allergy (Verified 10/26/23 09:27) HPI HPI 6 months follow up CIC GERD: Details: Assessment & Plan (1) Constipation: Code(s): K59.00 - Constipation, unspecified (2) GERD (gastroesophageal reflux disease): Code(s): K21.9 - Gastro-esophageal reflux disease without esophagitis Qualifiers: Esophagitis presence: without esophagitis Qualified Code(s): K21.9 - Gastro-esophageal reflux disease without esophagitis Plan He could not afford the LInzess and requests a generic but I explain that there is no g for a generic yet r/t patent requirements. BUT he has changed his diet to include more fiber via oatmeal, apples and [place]vin meals with fiber and now he is not straining. This is a good/better solution, so we will continue with this. He is also using plums/peaches. He is seeing a electric motor assembler who helped him. He continues on omeprazole with good control of his GERD. ROV 6 mos. TODAY'S VISIT He continues to do well on him omeprazole. He also continues to control his constipation with dietary interventions. Return office visit in 6 months [facility] Medical History (Reviewed 10/26/23 @ :27 by Dora Garcia [facility]) Type 2 diabetes mellitus with hyperglycemia Diabetic neuropathy Tubular adenoma of colon Nicotine dependence, cigarettes, uncomplicated Positive PPD Obstructive sleep apnea Foot pain, left Overweight (BMI 25.0-29.9) Obesity (BMI 30-39.9) Thyroid nodule Vertebral fracture Pulmonary nodule Osteoarthritis GERD (gastroesophageal reflux disease) Erectile dysfunction Hypothyroid Hypertension Hypercholesterolemia Surgical History History of back surgery History of colonoscopy History of arthroscopy of right knee History of appendectomy History of tonsillectomy Family History Father Medical history unknown Mother Diabetes Past heart attack Brother Prostate cancer Social History Housing: House Alcohol intake: current Alcohol intake frequency: holidays/special occasions only Comment: QD 2 drinks Patient Tobacco Use Status: Current everyday Tobacco user Tobacco use type: Cigarette Cigarettes Per Day: 15 Years Smoked: (onset 17yo, 3/4ppd x 56yrs, 40pyh) e-Cigarette/Vaping Use: Never Used Second Hand Smoke Exposure: No service: No Current occupational status: disabled Cognitive needs: No Hearing needs: No Vision needs: Yes Review of Systems Const Denies fatigue, Denies fever(s), Denies night sweats, Denies poor appetite and Denies weight loss Eyes Details: Glasses Reports requires corrective lenses ENT Reports Normal hearing present, Denies dental pain, Denies dysphagia, Denies hearing loss, Denies mouth pain, Denies odynophagia, Denies throat swelling, Denies tongue swelling and Reports other (Dentition adequate) Card Reports no additional complaints Resp Reports no additional complaints GI Details: Denies abdominal pain, Denies melena, Denies bloating, Denies hematochezia, Reports constipation, Denies GI cramping, Denies dysphagia, Denies excessive flatus, Denies early satiety, Reports heartburn, Denies diarrhea, Denies nausea, Denies odynophagia, Denies vomiting and Denies hematemesis Musc Reports myalgias and Reports arthralgias Skin/Breast Denies pruritus, Denies lesions, Denies rash and Denies jaundice Neuro Reports Normal hearing present and Denies Abnormal speech present Endo Denies fatigue Aller/Immun Denies throat swelling and Denies tongue swelling Physical Exam Vital Signs: Last Vital Signs Pulse 60 10/26/23 09:06 BP 144/76 H 10/26/23 09:06 BMI result Body Mass Index 29.4 Const General: cooperative, no acute distress, well developed and well groomed Nutritional Appearance: well nourished and overweight Orientation/consciousness: oriented to person, oriented to place and oriented to time Limitations: No language barrier and ambulation with cane HEENT Head: Yes normocephalic and Yes atraumatic Eyes General: appearance normal, both eyes and all related structures Pupils: Equal, round and reactive pupils present Neck Neck: Yes normal visual inspection and Yes no lymphadenopathy Thyroid: Thyroid normal Resp Effort & Inspection: normal respiratory effort and able to speak in complete sentences Auscultation: clear to auscultation bilaterally Cardio Rate: regular rate Rhythm: regular rhythm Heart sounds: Normal, physiologic split S2 sound present Peripheral pulses: radial pulses present and posterior tibial pulses present GI Inspection: No distended and No Abdominal panniculus present Palpation (GI): Soft to palpation, nontender, no guarding, not rigid and No hepatosplenomegaly present Percussion: Yes normal to percussion Auscultation: normal bowel sounds Rectal Exam - Male: Yes deferred Skin General skin exam: no rashes or lesions noted, turgor normal, skin not dry, no jaundice, No spider nevi and no striae Rashes: no rashes Nails: normal Neuro General: oriented to person, oriented to place and oriented to time Cranial nerves: Yes Equal, round and reactive pupils present and Yes Normal h earing present Speech: No Abnormal speech present Extrem General: Yes normal to inspection, No clubbing, No cyanosis and No edema Psych Appearance: grossly normal and well kempt Mental Status: mental status grossly normal Speech and movement: Normal speech and movement present Affect: normal affect Attitude: cooperative Thought process: Normal thought process present and not confabulating Thought content: Normal thought content present Insight: Fair insight present (Psych) Judgement: Fair judgement present (Psych) Assessment & Plan Assessment & Plan (1) GERD (gastroesophageal reflux disease): Code(s): K21.9 - Gastro-esophageal reflux disease without esophagitis Category: Medical Qualifiers: Esophagitis presence: without esophagitis Qualified Code(s): K21.9 - Gastro-esophageal reflux disease without esophagitis Plan He continues to do well on him omeprazole. He also continues to control his constipation with dietary interventions. Return office visit in 6 months Coding Level of Care Code Est Pt Level 3 (31666) Diagnoses Gastroesophageal reflux disease without esophagitis K21.9 Esophagitis presence: without esophagitis
== END 2023-10-26 09:52 | disposition home or self-care (01) ==
PROVIDERS: PCP Internal Medicine; Visit Provider Nurse Practitioner
DX: K21.9 Gastro-esophageal reflux disease without esophagitis (principal)
CPT/HCPCS: 99213

== ENCOUNTER → 2023-10-26 09:03 | Outpatient (BNVA) | payer MEDICARE, BC, SELFPAY | PROVIDERS: PCP Internal Medicine; Visit Provider Nurse Practitioner | DX: K21.9 Gastro-esophageal reflux disease without esophagitis (principal); K59.04 Chronic idiopathic constipation | CPT/HCPCS: 99212 ==

== ENCOUNTER 2023-11-06 13:42 | Outpatient (REF) | payer MEDICARE, BC, SELFPAY ==
[2023-11-12 12:48] LABS: Testosterone, Free 58.8 pg/mL (30.0-135.0); Testosterone, Total 372 ng/dL (250-1100)
== END 2023-11-06 13:43 | disposition home or self-care (01) ==
LOC: HO.LAB 13:42
PROVIDERS: PCP Internal Medicine; Visit Provider Urology
DX: R68.82 Decreased libido (principal); E29.1 Testicular hypofunction
CPT/HCPCS: 36415; 84402; 84403

== ENCOUNTER 2023-11-14 08:33 | Outpatient (AMB) | payer OTHER, SELFPAY ==
--- NOTE | 2023-11-14 08:38 | A.OFFVIS_ITS ---
Intake Visit Reasons: 6M Follow Up- Testosterone(set) Intake Note: Patient is Present for Follow Up Testosterone Results Urology Medication:Tadalafil,Terazosin Antibiotic Allergies: None Blood Thinners:None Recent PSA:02/2023- 1.10 Testosterone: 11/06/23-372 Free Testo: 58.8 Recent Hemoglobin A1C: 06/2023- 6.3 Automatic Equipment Technician Required: No Accompanied by: Self / Same As Patient Allergies No Known Allergies [No Known Allergies*] Allergy (Verified 11/14/23 08:48) HPI Comments Details: Noman a pleasant male. He is a patient of Dr. Mccurdy. Seen for the following urologic conditions - erectile dysfunction associated with diabetes - hypogonadism associated with diabetes Tadalafil continues to increase to testosterone Testosterone up to close to 400 Would continue with current dosing Continue with tadalafil 10 mg Add tadalafil 20 mg on demand for ED Erectile Dysfunction He presents today for - further evaluation of erectile dysfunction associated hypo gonad hypogonadism Symptoms have been present for/since - progressive since 2019 Current treatment includes - none At initial presentation he experiences - are partial and insufficient for vaginal penetration Nocturnal erections do not occur Associated Medical Conditions include hypertension, type 2 diabetes, tobacco use, Atherosclerosis Cardiovascular Disease Risk not completed Medications include(s) statin, benzodiazepine, beta-mansi, Recent labs include 05/10 T 135 low FSH/LH, 03/13 P 1.0, 11/11 T 196 F 31 L 4.8, 05/12 T 320 PSA 1.1, 11/12 T 372 HbA1c down 0.3 Therapeutic plan includes - maximum tolerated on medication daily tadalafil with repeat labs [facility] Medical History Type 2 diabetes mellitus with hyperglycemia Diabetic neuropathy Tubular adenoma of colon Nicotine dependence, cigarettes, uncomplicated Positive PPD Obstructive sleep apnea Foot pain, left Overweight (BMI 25.0-29.9) Obesity (BMI 30-39.9) Thyroid nodule Vertebral fracture Pulmonary nodule Osteoarthritis GERD (gastroesophageal reflux disease) Erectile dysfunction Hypothyroid Hypertension Hypercholesterolemia Surgical History History of back surgery History of colonoscopy History of arthroscopy of right knee History of appendectomy History of tonsillectomy Family History Father Medical history unknown Mother Diabetes Past heart attack Brother Prostate cancer Social History Housing: House Alcohol intake: current Alcohol intake frequency: holidays/special occasions only Comment: QD 2 drinks Patient Tobacco Use Status: Current everyday Tobacco user Tobacco use type: Cigarette Cigarettes Per Day: 15 Years Smoked: (onset 17yo, 3/4ppd x 56yrs, 40pyh) e-Cigarette/Vaping Use: Never Used Second Hand Smoke Exposure: No service: No Current occupational status: disabled Cognitive needs: No Hearing needs: No Vision needs: Yes Review of Systems Const Denies chills and Denies fever(s) Card Reports no additional complaints and Denies syncope Resp Denies cough GI Denies abdominal pain and Denies heartburn Reports as per HPI and Denies change in libido Neuro Denies syncope Psych Denies change in libido Endo Denies change in libido Physical Exam Const General: cooperative, healthy appearing, comfortable and no acute distress Orientation/consciousness: patient oriented x3 HEENT Face and sinus: Yes normal facial exam Mouth: moist mucous membranes Neck Neck: Yes normal visual inspection, Yes full ROM and Yes trachea midline Chest Chest palpation & inspection: normal inspection of the chest Resp Effort & Inspection: normal respiratory effort, able to speak in complete sentences and no respiratory distress GI Inspection: Yes normal to inspection Back/Spine/Pelvis Cervical Spine: normal cervical lordosis Thoracic/Lumbar Spine: thoracic and lumbar spine normal to inspection Skin General skin exam: no rashes or lesions noted Neuro General: patient oriented x3, gait normal, tone normal and moves all extremities Extrem General: Yes normal to inspection and Yes capillary refill normal Assessment & Plan Assessment & Plan (1) Erectile dysfunction associated with type 2 diabetes mellitus: Code(s): E11.69 - Type 2 diabetes mellitus with other specified complication; N52.1 - Erectile dysfunction due to diseases classified elsewhere Category: Medical Plan Twelve month follow-up Patient Instructions: Imaging studies, laboratory and physical exam results were discussed and reviewed in detail. No major barriers to patient understanding were identified. An opportunity to ask questions regarding the treatment plan was provided. All questions were answered. The patient expressed understanding and agreement with the above treatment plan. The patient is aware they should contact our office by phone for worsening of their current condition or the appearance of new urologic symptoms. Compliance is encouraged with any medications and followup testing that is ordered. It is a privilege to participate in the urologic care of your patient. If you have any questions or concerns regarding treatment for the above conditions, or other urologic issues, please do not hesitate to contact me. The office telephone contact is [phone]. This note is constructed using voice recognition software. While every effort has been made to ensure accuracy agricultural produce packer errors may have been included. Yours sincerely, Dr Jaydon Smart MD, [facility] - Urology Providers of Expert, Compassionate Care for the Genitourinary System Coding Level of Care Code Est Pt Level 3 (88317) Diagnoses Erectile dysfunction associated with type 2 diabetes mellitus E11.69; N52.1
== END 2023-11-14 09:09 | disposition home or self-care (01) ==
PROVIDERS: PCP Internal Medicine; Visit Provider Urology
DX: E11.69 Type 2 diabetes mellitus with other specified complication (principal); N52.1 Erectile dysfunction due to diseases classified elsewhere
CPT/HCPCS: 99213

== ENCOUNTER → 2023-11-14 08:33 | Outpatient (BNVA) | payer OTHER, BC, SELFPAY | PROVIDERS: PCP Internal Medicine; Visit Provider Urology | DX: E11.69 Type 2 diabetes mellitus with other specified complication (principal); N52.1 Erectile dysfunction due to diseases classified elsewhere | CPT/HCPCS: 99212 ==

== ENCOUNTER 2023-11-20 08:30 | Outpatient (AMB) | payer MEDICARE, BC, SELFPAY ==
[2023-11-20 08:31] VITALS: BP 134/72; PULSE 70; O2SAT 95; BMI 29.7
--- NOTE | 2023-11-20 08:31 | MHC.PC.OV ---
Vital Signs 11/20/23 08:31 Height 5 ft 9 in Weight 201 lb BMI 29.7 BP 134/72 Blood Pressure Location Rt brachial Position Sitting Pulse 70 Pulse Source Pulse Oximeter Pulse Oximetry (%) 95 Oxygen Delivery Method Room Air Intake Visit Reasons: DM Freelance Makeup Artist Required: No Allergies No Known Allergies [No Known Allergies*] Allergy (Verified 11/20/23 08:31) Tobacco use date assessed: 11/20/23 Fall risk assessment: No Falls in past year Last assessed Fall Risk: 11/20/23 Dental Screening Dental Screen Date: 11/20/23 HPI DM HPI Details 73-year-old overweight male smoker with diabetes mellitus hypercholesterolemia hypothyroid hypertension hypogonadism and generalized anxiety disorder coming in for follow-up. Last seen in 07/05/2023 for annual wellness. Patient is up-to-date with colonoscopy 11/08/2021. Review of the notes has been follow-up with urology for the hypogonadism on tadalafil and terazosin. Patient has followed up with Gastroenterology also in October 25 for the chronic idiopathic constipation and GERD with the change diet better control. With the smoking patient is enrolled in the lung cancer screening program and CT scan done in 08/10/2023 shows mild emphysema mild hepatic steatosis benign appearance of nodules no new once. With hypogonadism a bone density was done in [id number] showing normal bone density. Patient also had an ultrasound of the abdomen due to the elevated liver function test showing hepatocellular disease/hepatic steatosis. PAtient is going to see a psychologist Benjie Marmolejo PhD for smoking cessation [address] [place] [phone] dep of vet affairs. [facility] Medical History (Updated 11/20/23 @ 08:44 by Dayana Mccurdy MD) Type 2 diabetes mellitus with hyperglycemia Diabetic neuropathy Tubular adenoma of colon Nicotine dependence, cigarettes, uncomplicated Positive PPD Obstructive sleep apnea Foot pain, left Overweight (BMI 25.0-29.9) Obesity (BMI 30-39.9) Thyroid nodule Vertebral fracture Pulmonary nodule Osteoarthritis GERD (gastroesophageal reflux disease) Erectile dysfunction Hypothyroid Hypertension Hypercholesterolemia Surgical History History of back surgery History of colonoscopy History of arthroscopy of right knee History of appendectomy History of tonsillectomy Family History Father Medical history unknown Mother Diabetes Past heart attack Brother Prostate cancer Social History Housing: House Alcohol intake: current Alcohol intake frequency: holidays/special occasions only Comment: QD 2 drinks Patient Tobacco Use Status: Current everyday Tobacco user Tobacco use type: Cigarette Cigarettes Per Day: 15 Years Smoked: (onset 17yo, 3/4ppd x 56yrs, 40pyh) e-Cigarette/Vaping Use: Never Used Second Hand Smoke Exposure: No service: No Current occupational status: disabled Cognitive needs: No Hearing needs: No Vision needs: Yes Questionnaire Thrive Questionnaire Date Thrive assessed: 07/05/23 I am a: Patient What is your living situation today?: I have a steady place to live Within the past 12 months, did the food you bought not last and you didn't have the money to get more?: Never true Within the past 12 months, did you worry whether your food would run out before you got money to buy more?: Never true Do you have trouble paying for medicines?: No Do you have trouble getting transportation to medical appointments?: No Do you have trouble paying your heating and electricity bill?: No Do you have trouble taking care of your child, family member or friend?: No Do you have trouble with day-to-day activities such as bathing, preparing meals, shopping, managing finances, etc.?: No Are you currently unemployed and looking for a job?: No Are you interested in more education?: No THRIVE Score: 0 AUDIT C Alcohol Use Questionnaire (AUDIT-C) 2. How many drinks containing alcohol do you have on a typical day when you are drinking?: 1 or 2 3. How often do you have six or more drinks on one occasion?: Daily or almost daily Total Score: 4 JI-7 AMB Questionnaire JI-7 Date JI - 7 assessed: 07/05/23 Source: Developed by Drs. Remy Jacobsen, Lucita Morrissey, Jaskaran Mitchell and colleagues, with an educational maurilio from [employer]. Physical exam (Primary Care) Vital Signs: Last Vital Signs Pulse 70 11/20/23 08:31 BP 134/72 11/20/23 08:31 Pulse Ox 95 11/20/23 08:31 Oxygen Delivery Method Room Air 11/20/23 08:31 BMI result Body Mass Index 29.7 Tobacco/Smoking Status: Tobacco use Status Tobacco use date assessed 11/20/23 11/20/23 08:37 Patient Tobacco Use Status Current everyday Tobacco 11/20/23 08:37 Tobacco use type Cigarette 11/20/23 08:37 e-Cigarette/Vaping Use Never Used 11/20/23 08:37 Thrive Assessment: Date of Thrive Assessment Date Thrive assessed 07/05/23 11/20/23 08:37 Const General: alert; No acute distress Eyes Conjunctivae: conjunctivae normal Resp Auscultation: clear to auscultation bilaterally Cardio Rate: regular rate Rhythm: regular rhythm GI Inspection: Yes normal to inspection Extrem General: Yes normal to inspection and No edema Results AMB Hemoglobin A1c AMB Hemoglobin A1c 6.5 % Last Edit by RICKY Miller on 11/20/23 08:42 Results Reviewed Results Reviewed: Laboratory Last Values Hgb A1c (Clinic) 6.5 % (4.0-6.0) H 11/20/23 08:28 Assessment and Plan Assessment & Plan (1) Type 2 diabetes mellitus with hyperglycemia: Code(s): E11.65 - Type 2 diabetes mellitus with hyperglycemia Qualifiers: Diabetes mellitus mcfp insulin use: without rodent exterminator use Qualified Code(s): E11.65 - Type 2 diabetes mellitus with hyperglycemia Plan: Decrease the amount of carbohydrate intake, pasta, bread, rice and potatoes are all sugar and that is aside from all the sweet stuff, remember that fruits are good but they are Sweet also. Hemoglobin A1c goal of less than 7.0 patient on metformin 500 mg twice a day (2) Hypercholesterolemia: Code(s): E78.00 - Pure hypercholesterolemia, unspecified Plan: Avoid fried foods, chicken skin, eggs, butter margarine, pastries and meat. Be it pork or beef they have a lot of cholesterol LDL goal of less than 100 and triglyceride of less than 150 on atorvastatin 20 mg once a day (3) Hypertension: Code(s): I10 - Essential (primary) hypertension Qualifiers: Hypertension type: essential hypertension Qualified Code(s): I10 - Essential (primary) hypertension Plan: Continue with blood pressure medication. Decrease salt intake and exercise losartan 100 mg once a day (4) Hypothyroid: Code(s): E03.9 - Hypothyroidism, unspecified Qualifiers: Hypothyroidism type: acquired Qualified Code(s): E03.9 - Hypothyroidism, unspecified Plan: Continue with thyroid medication (5) GERD (gastroesophageal reflux disease): Code(s): K21.9 - Gastro-esophageal reflux disease without esophagitis Qualifiers: Esophagitis presence: without esophagitis Qualified Code(s): K21.9 - Gastro-esophageal reflux disease without esophagitis Plan: Avoid the foods that causes that usually spicy foods, tomato products, juices, coffee, soda and foods that your sensitive to. After eating do not lie down, allow 3-4 hours before in lie down. And keep the head of bed above 30 degrees to avoid the acid from going up. (6) Nicotine dependence, cigarettes, uncomplicated: Comment: (current smoker - onset 17yo, 3/4ppd x 56yrs, 40pyh) CT scan July 2023 Code(s): F17.210 - Nicotine dependence, cigarettes, uncomplicated Plan: Patient is strongly advised to stop smoking. Enrolled in the lung cancer screening program 08/09/2023 (7) Hepatic steatosis: Code(s): K76.0 - Fatty (change of) liver, not elsewhere classified Plan: Low-fat diet and exercise (8) Constipation: Code(s): K59.00 - Constipation, unspecified Plan: Three rules for constipation 1. Diet need to have a high fiber diet less of meat 2. Increase oral fluids 3. Exercise patient follows up with Gastroenterology (9) Hypogonadism in male: Code(s): E29.1 - Testicular hypofunction Plan: Patient is being followed up by Urology and the last test for testosterone level is good with normal bone density Orders: Orders Comprehensive Met. Panel 3 Months E11.65 - Type 2 diabetes mellitus with hyperglycemia Vitamin B12 and Folate 3 Months E11.65 - Type 2 diabetes mellitus with hyperglycemia Ferritin 3 Months E11.65 - Type 2 diabetes mellitus with hyperglycemia IRON PROFILE 3 Months E11.65 - Type 2 diabetes mellitus with hyperglycemia AMB Hemoglobin A1c Today E11.65 - Type 2 diabetes mellitus with hyperglycemia Complete Blood Count Auto Diff 3 Months E11.65 - Type 2 diabetes mellitus with hyperglycemia Free T4 (Free Thyroxine) 3 Months E11.65 - Type 2 diabetes mellitus with hyperglycemia Lipid Panel 3 Months E11.65 - Type 2 diabetes mellitus with hyperglycemia, E78.00 - Pure hypercholesterolemia, unspecified Thyroid Stimulating Hormone 3 Months E11.65 - Type 2 diabetes mellitus with hyperglycemia Reticulocyte Count 3 Months E11.65 - Type 2 diabetes mellitus with hyperglycemia Hemoglobin A1c 3 Months E11.65 - Type 2 diabetes mellitus with hyperglycemia Medications: Refilled terazosin 2 mg PO BEDTIME 90 days 90 caps 2RF R39.9 - Unspecified symptoms and signs involving the genitourinary system fexofenadine 180 mg PO DAILY 90 tabs 3RF Coding Level of Care Code Est Pt Level 4 (26053) Complex EM visit Add On G2211 Diagnoses Type 2 diabetes mellitus with hyperglycemia, without long-term current use of insulin E11.65 Diabetes mellitus rodent exterminator insulin use: without mcfp use Hypercholesterolemia E78.00 Essential hypertension I10 Hypertension type: essential hypertension Acquired hypothyroidism E03.9 Hypothyroidism type: acquired Gastroesophageal reflux disease without esophagitis K21.9 Esophagitis presence: without esophagitis Nicotine dependence, cigarettes, uncomplicated F17.210 Hepatic steatosis K76.0 Constipation K59.00 Hypogonadism in male E29.1
== END 2023-11-20 09:03 | disposition home or self-care (01) ==
PROVIDERS: PCP Internal Medicine; Visit Provider Internal Medicine
DX: E11.65 Type 2 diabetes mellitus with hyperglycemia (principal); E78.00 Pure hypercholesterolemia, unspecified; I10 Essential (primary) hypertension; E03.9 Hypothyroidism, unspecified; K21.9 Gastro-esophageal reflux disease without esophagitis; F17.210 Nicotine dependence, cigarettes, uncomplicated; K76.0 Fatty (change of) liver, not elsewhere classified; K59.00 Constipation, unspecified; E29.1 Testicular hypofunction

== ENCOUNTER → 2023-11-20 08:30 | Outpatient (BNVA) | payer MEDICARE, BC, SELFPAY | PROVIDERS: PCP Internal Medicine; Visit Provider Internal Medicine | DX: E11.65 Type 2 diabetes mellitus with hyperglycemia (principal); E78.00 Pure hypercholesterolemia, unspecified; I10 Essential (primary) hypertension; E03.9 Hypothyroidism, unspecified; K21.9 Gastro-esophageal reflux disease without esophagitis; K76.0 Fatty (change of) liver, not elsewhere classified; K59.00 Constipation, unspecified; F17.210 Nicotine dependence, cigarettes, uncomplicated; Z71.6 Tobacco abuse counseling | CPT/HCPCS: 83036; 99212 ==

== ENCOUNTER 2024-02-05 15:23 | Emergency (ER) | payer MEDICARE, BC, SELFPAY | END 2024-02-05 16:04 | disposition left against medical advice (07) | PROVIDERS: Emergency Provider Emergency Medicine Emergency Medical Services; PCP Internal Medicine | DX: R06.02 Shortness of breath (principal) ==

== ENCOUNTER 2024-02-06 14:11 | Outpatient (REF) | payer MEDICARE, BC, SELFPAY ==
--- NOTE | ~2024-02-06 | XR_ITS ---
EXAMINATION: XR RIBS, RIGHT CLINICAL INFORMATION: Pleurodynia. COMPARISON: CT chest dated 08/10/2023. TECHNIQUE: PA view the chest as well as 4 views of the right ribs. FINDINGS: Lungs are clear. No consolidation, pneumothorax, or pleural effusion. The cardiomediastinal silhouette and pulmonary vasculature are normal. Osseous structures are unremarkable. Ribs are intact. No fractures are identified. XR/XR ribs RT min 3V w CXR1V IMPRESSION: No displaced fracture. Electronically signed by: Augustine Paz MD 02/08/2024 10:44 PM [facility]
== END 2024-02-06 14:12 | disposition home or self-care (01) ==
LOC: HO.XRAY 14:11
PROVIDERS: PCP Internal Medicine; Visit Provider Internal Medicine
DX: R07.81 Pleurodynia (principal); J01.00 Acute maxillary sinusitis, unspecified
CPT/HCPCS: 71101; 99212

== ENCOUNTER 2024-02-06 14:11 | Outpatient (AMB) | payer MEDICARE, BC, SELFPAY ==
--- NOTE | 2024-02-06 14:34 | A.OFFPC_ITS ---
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: No Accompanied by: Self / Same As Patient Allergies No Known Allergies [No Known Allergies*] Allergy (Verified 02/06/24 14:41) Tobacco use date assessed: 11/20/23 Fall risk assessment: No Falls in past year Last assessed Fall Risk: 02/06/24 Dental Screening Dental Screen Date: 02/06/24 Did you have a dental visit in the last 12 months?: Yes Did you have a dental problem in the last 6 months where you did not have access to dental care?: No Was dental information given to patient?: Patient has dentist HPI right rib pain level 8 out of 10 HPI Details The patient is a 74-year-old male presenting with nasal congestion and rib pain. The nasal congestion has persisted for approximately three weeks wi thout fever. Recently, the patient has experienced a sharp pain underneath the ribs, associated with sneezing and blowing his nose. The pain commenced this past Sunday and feels specifically underneath the ribs rather than within them. Previous treatments include the use of Flonase, an antibiotic, and a steroid as recently prescribed by Dr. Aguirre. The medication seems to aggravate congestion at night, and the patient has been advised to perform sinus rinses. The rib pain is notably sharp and occurs during sneezing and straining, such as when using the restroom. The concern for a rib fracture was discussed, emphasizing the importance of deep breathing to prevent secondary complications such as pneumonia. In addition, the patient reported a history of an essential tremor affecting handwriting. He describes a prior prescription that he cannot recall but mentions improvement in tremors. The patient's past medical history includes tobacco use, and he is currently enrolled in smoking cessation classes utilizing patches. He is also managing a tremor, and recent prescriptions for his symptoms include a nasal spray and steroids. [facility] Medical History (Updated 02/06/24 @ 15:18 by Dayana Mccurdy MD) Type 2 diabetes mellitus with hyperglycemia Diabetic neuropathy Tubular adenoma of colon Nicotine dependence, cigarettes, uncomplicated Positive PPD Obstructive sleep apnea Foot pain, left Overweight (BMI 25.0-29.9) Obesity (BMI 30-39.9) Thyroid nodule Vertebral fracture Pulmonary nodule Osteoarthritis GERD (gastroesophageal reflux disease) Erectile dysfunction Hypothyroid Hypertension Hypercholesterolemia Surgical History History of back surgery History of colonoscopy History of arthroscopy of right knee History of appendectomy History of tonsillectomy Family History Father Medical history unknown Mother Diabetes Past heart attack Brother Prostate cancer Social History Housing: House Alcohol intake: current Alcohol intake frequency: holidays/special occasions only Comment: QD 2 drinks Patient Tobacco Use Status: Current everyday Tobacco user Tobacco use type: Cigarette Cigarettes Per Day: 15 Years Smoked: (onset 17yo, 3/4ppd x 56yrs, 40pyh) e-Cigarette/Vaping Use: Never Used Second Hand Smoke Exposure: No service: No Current occupational status: disabled Cognitive needs: No Hearing needs: No Vision needs: Yes Questionnaire Thrive Questionnaire Date Thrive assessed: 07/05/23 Are you currently unemployed and looking for a job?: No JI-7 AMB Questionnaire JI-7 Date JI - 7 assessed: 07/05/23 Source: Developed by Drs. Remy Jacobsen, Lucita Morrissey, Jaskaran Mitchell and colleagues, with an educational maurilio from [employer] (Former[employer]). Physical exam (Primary Care) Vital Signs: Last Vital Signs Pulse 65 02/06/24 14:36 BP 140/80 H 02/06/24 14:36 Pulse Ox 99 02/06/24 14:36 Oxygen Delivery Method Room Air 02/06/24 14:36 BMI result Body Mass Index 30.9 Tobacco/Smoking Status: Tobacco use Status Tobacco use date assessed 11/20/23 02/06/24 14:49 Patient Tobacco Use Status Current everyday Tobacco 02/06/24 14:49 Tobacco use type Cigarette 02/06/24 14:49 e-Cigarette/Vaping Use Never Used 02/06/24 14:49 Thrive Assessment: Date of Thrive Assessment Date Thrive assessed 07/05/23 02/06/24 14:49 Const General: alert; No acute distress Eyes Conjunctivae: conjunctivae normal Chest Other: R subcostal margin pain, tender , no redness, no swelling, no murphys sign Resp Auscultation: clear to auscultation bilaterally Cardio Rate: regular rate Rhythm: regular rhythm GI Inspection: Yes normal to inspection Extrem General: Yes normal to inspection and No edema Coding Level of Care Code Est Pt Level 4 (14854) Diagnoses Rib pain on right side R07.81 Acute non-recurrent maxillary sinusitis J01.00 Sinusitis location: maxillary Chronicity: acute Recurrence: non-recurrent Coarse tremors G25.2 Assessment & Plan Assessment & Plan (1) Rib pain on right side: Code(s): R07.81 - Pleurodynia Category: Medical (2) Sinusitis: Code(s): J32.9 - Chronic sinusitis, unspecified Category: Medical Qualifiers: Sinusitis location: maxillary Chronicity: acute Recurrence: non- recurrent Qualified Code(s): J01.00 - Acute maxillary sinusitis, unspecified Plan: patient is given sinus rinses to help together with the steroid and z aureliano prescibed by ENT (3) Coarse tremors: Code(s): G25.2 - Other specified forms of tremor Category: Medical Plan - For nasal congestion: Continue with prescribed nasal spray and steroids. Use saline sinus rinses as instructed to alleviate symptoms. Monitor response over 24 hours before adjustments, and discontinue the problematic nasal spray if necessary. - For rib pain: An X-ray of the right rib area is planned to rule out fracture. Advise the patient to continue deep breathing exercises to avoid pneumonia. Croy-ajc-mqqhslf analgesics or topical medications such as aspirin cream may be used for pain relief. - For essential tremor: Review prior prescription efficacy; confirm usage of prescribed propranolol for tremor management. Further evaluation will follow if needed. - For tobacco cessation: Continue participation in [place] smoking cessation classes and utilize nicotine patches as discussed. - General wellness: Encourage maintaining appointments for scheduled interventions, monitor for any symptom progression, and ensure appropriate follow-up for ongoing issues. Orders: Orders XR ribs RT min 3V w CXR1V Today R07.81 - Pleurodynia
[2024-02-06 14:36] VITALS: BP 140/80; PULSE 65; O2SAT 99; BMI 30.9
== END 2024-02-06 15:20 | disposition home or self-care (01) ==
PROVIDERS: PCP Internal Medicine; Visit Provider Internal Medicine
DX: R07.81 Pleurodynia (principal); J01.00 Acute maxillary sinusitis, unspecified; G25.2 Other specified forms of tremor

== ENCOUNTER 2024-03-25 08:18 | Outpatient (AMB) | payer MEDICARE, BC, SELFPAY ==
[2024-03-25 08:23] VITALS: BP 122/70; PULSE 78; O2SAT 98; BMI 29.2
--- NOTE | 2024-03-25 08:23 | A.OFFPC_ITS ---
Vital Signs 03/25/24 08:23 Height 5 ft 9 in Weight 198 lb BMI 29.2 BP 122/70 Blood Pressure Location Lt brachial Position Sitting Pulse 78 Pulse Source Pulse Oximeter Pulse Oximetry (%) 98 Oxygen Delivery Method Room Air Intake Visit Reasons: PREop appointment Allergies No Known Allergies [No Known Allergies*] Allergy (Verified 03/25/24 08:24) Medication List - Last Reconciled 03/25/24 by Dayana Mccurdy MD atorvastatin 20 mg PO DAILY 90 days [AUTO PAP 6-16 mm H20 humidified AIR As directed] blood sugar diagnostic (CareSens N Test Strips) As directed blood sugar diagnostic (FreeStyle Lite Strips) USE TO CHECK BLOOD SUGAR FOUR TIMES DAILY blood-glucose meter (FreeStyle Lite Meter kit) As directed tests 4 X/day cinnamon bark 1,000 mg PO DAILY fexofenadine 180 mg PO DAILY fluticasone propionate 50 mcg/actuation (Flonase Allergy Relief) 2 sprays intranasal DAILY PRN 90 days gabapentin 300 mg PO BID ibuprofen 800 mg PO BID lancets (FreeStyle Lancets) As directed tests 4X/day levothyroxine (Synthroid) 75 mcg PO DAILY 90 days losartan 100 mg PO DAILY lubiprostone (Amitiza) 8 mcg PO BID metformin 500 mg PO BID 90 days uozplgordeln-xqnqhmml-xnoucx (Multivitamin 50 Plus tablet) 1 tab PO DAILY omega-3 acid ethyl esters PO DAILY omeprazole 20 mg PO DAILY oxymetazoline 0.05% (Afrin (oxymetazoline)) 2 sprays intranasal Q12H PRN propranolol 10 mg PO BID sennosides-docusate sodium 8.6-50 mg (Senna Plus) 1 tab-cap PO BID PRN 90 days tadalafil 10 mg PO DAILY 90 days tadalafil 20 mg PO ONCE PRN 30 days terazosin 2 mg PO BEDTIME 90 days trolamine salicylate 10% (Aspercreme) 1 appl topical BEDTIME PRN Tobacco use date assessed: 03/25/24 Fall risk assessment: No Falls in past year Last assessed Fall Risk: 03/25/24 Dental Screening Dental Screen Date: 03/25/24 Did you have a dental visit in the last 12 months?: Yes Did you have a dental problem in the last 6 months where you did not have access to dental care?: No Was dental information given to patient?: Patient has dentist HPI PREop appointment HPI Details Cataract Surgery Dr. Jane Leiva eye 04/11/2024 and the Left April 25, 2024, walks treadmill Q days. The patient is a 74-year-old male presenting for a preoperative evaluation for cataract surgery. He has a history of several chronic conditions, including Type 2 Diabetes Mellitus, which is currently managed with medication. The patient's blood glucose levels have been slightly elevated, with the most recent HbA1c at 7.2, higher than the previous reading of 6.5 in November, but it has been deemed stable enough not to impede surgery. He also has a history of vertebral fracture and generalized anxiety disorder, both of which are stable with current treatment. The patient reports a notable weight loss of approximately 11 pounds and attributes it to his diabetes management efforts. He suffers from hypogonadism, GERD, hypothyroidism, and essential hypertension, all managed with various m edications. His essential hypertension and hypercholesterolemia are controlled; he takes losartan and atorvastatin, respectively. The patient reports chronic nasal congestion, exacerbated since December. He has been using Afrin nasal spray daily, contributing to his congestion per persistence; recommendations were made to discontinue its use and switch to fluticasone nasal spray. He attends CPAP therapy nightly for sleep apnea. The patient is scheduled for cataract surgery with Dr. Larose and acknowledges understanding potential preoperative requirements, including EKG and blood work, contingent upon whether requested by the operating surgeon. - Smoking cessation: Scheduled for an ap pointment regarding smoking cessation, has received smoking cessation patches. - Exercise: Currently walks one to two m jenelle daily on a treadmill. - Weight management: Attempting to maint ain healthy weight; recent weight reduction noted. - Dietary management: Follows a diabetes -appropriate diet. - Allergy management: Advised on the dis continuation of Afrin nasal spray and continued use of fluticasone. - Current smoker, planning to quit; has smoking cessation aids. - Exercises regularly using a treadmill at home. - Lives in a multilevel house; handles s tairs without difficulty. - Recently consumed alcohol after a hiat us; four beers the previous night. - Engaged in weight management efforts. - Constitutional: Reports weight loss. - Respiratory: Denies chest pain, shortn ess of breath. - Gastrointestinal: Reports issues with bowel movements. - Neurological: Denies tremors indicativ e of Parkinson's disease. - Labs: HbA1c 7.2% (latest measurement, November previous was 6.5%). [facility] Medical History (Updated 03/25/24 @ 09:01 by Dayana Mccurdy MD) Type 2 diabetes mellitus with hyperglycemia Diabetic neuropathy Tubular adenoma of colon Nicotine dependence, cigarettes, uncomplicated Positive PPD Obstructive sleep apnea Foot pain, left Overweight (BMI 25.0-29.9) Obesity (BMI 30-39.9) Thyroid nodule Vertebral fracture Pulmonary nodule Osteoarthritis GERD (gastroesophageal reflux disease) Erectile dysfunction Hypothyroid Hypertension Hypercholesterolemia Surgical History History of back surgery History of colonoscopy History of arthroscopy of right knee History of appendectomy History of tonsillectomy Family History Father Medical history unknown Mother Diabetes Past heart attack Brother Prostate cancer Social History (Updated 03/25/24 @ 09:02 by Dayana Mccurdy MD) Housing: House Alcohol intake: current Alcohol intake frequency: holidays/special occasions only Comment: QD 2 drinksstopped 12/2023 but last night ( 03/2024) 4 beers, Patient Tobacco Use Status: Current everyday Tobacco user Tobacco use type: Cigarette Cigarettes Per Day: 15 Years Smoked: (onset 17yo, 3/4ppd x 56yrs, 40pyh) Packs per year/per ci.00 e-Cigarette/Vaping Use: Never Used Second Hand Smoke Exposure: No service: No Current occupational status: disabled Cognitive needs: No Hearing needs: No Vision needs: Yes Questionnaire PHQ-9 Over the last 2 weeks, how often have you been bothered by any of the following problems? 1. Little interest or pleasure in doing things: not at all 2. Feeling down, depressed, or hopeless: not at all 3. Trouble falling or staying asleep, or sleeping too much: not at all 4. Feeling tired or having little energy: not at all 5. Poor appetite or overeating: not at all 6. Feeling bad about yourself - or that you are a failure or have let yourself or your family down: not at all 7. Trouble concentrating on things, such as reading the newspaper or watching television: not at all 8. Moving or speaking so slowly that other people could have noticed. Or the opposite - being so fidgety or restless that you have been moving around a lot more than usual: not at all 9. Thoughts that you would be better off or of hurting yourself in some way: not at all Total score: 0 Depression Screening Interpretation: Negative Depression Screening Done: Yes Source: Developed by Drs. Remy Jacobsen, Lucita Morrissey, Jaskaran Mitchell and colleagues, with an educational maurilio from [employer]. Thrive Questionnaire Date Thrive assessed: 03/25/24 I am a: Patient What is your living situation today?: I have a steady place to live Within the past 12 months, did the food you bought not last and you didn't have the money to get more?: Never true Within the past 12 months, did you worry whether your food would run out before you got money to buy more?: Never true Do you have trouble paying for medicines?: No Do you have trouble getting transportation to medical appointments?: No Do you have trouble paying your heating and electricity bill?: No Do you have trouble taking care of your child, family member or friend?: No Do you have trouble with day-to-day activities such as bathing, preparing meals, shopping, managing finances, etc.?: No Are you currently unemployed and looking for a job?: No Are you interested in more education?: No Currently or been in a relationship where the following occur: No concerns reported THRIVE Score: 0 AUDIT C Alcohol Use Questionnaire (AUDIT-C) 3. How often do you have six or more drinks on one occasion?: Never Total Score: 0 JI-7 AMB Questionnaire JI-7 Date JI - 7 assessed: 03/25/24 Feeling nervous, anxious, or on edge: 0 = Not at all Not being able to stop or control worryin = Not at all Worrying too much about different things: 0 = Not at all Trouble relaxin = Not at all Being so restless that it is hard to sit still: 0 = Not at all Becoming easily annoyed or irritable: 0 = Not at all Feeling afraid as if something awful might happen: 0 = Not at all Total JI-7 score (0-4 normal; 5-9 mild; 10-14 moderate; 15-21 severe): 0 Source: Developed by Drs. Remy Jacobsen, Lucita Morrissey, Jaskaran Mitchell and colleagues, with an educational maurilio from [employer]. Review of Systems Const Denies poor appetite and Denies weakness Eyes Denies no additional complaints ENT Reports Normal hearing present, Denies dizziness, Denies nasal congestion, Denies tinnitus and Denies sore throat Card Denies chest pain, Denies syncope, Denies rapid heart rate and Denies dyspnea Resp Denies cough and Denies dyspnea GI Denies change in stool character, Reports constipation, Denies diarrhea, Denies nausea and Denies vomiting Denies dysuria and Denies urinary frequency Neuro Reports Normal hearing present, Denies confusion, Denies dizziness, Denies syncope and Denies weakness Psych Denies confusion Physical exam (Primary Care) Vital Signs: Last Vital Signs Pulse 78 03/25/24 08:23 BP 122/70 03/25/24 08:23 Pulse Ox 98 03/25/24 08:23 Oxygen Delivery Method Room Air 03/25/24 08:23 BMI result Body Mass Index 29.2 Tobacco/Smoking Status: Tobacco use Status Tobacco use date assessed 03/25/24 03/25/24 08:29 Patient Tobacco Use Status Current everyday Tobacco 03/25/24 09:02 Tobacco use type Cigarette 03/25/24 09:02 e-Cigarette/Vaping Use Never Used 03/25/24 09:02 PHQ-9: PHQ-9 Score PHQ-9: Total score 0 03/25/24 09:06 Depression Screening Interpretation: Negative Thrive Assessment: Date of Thrive Assessment Date Thrive assessed 03/25/24 03/25/24 08:29 Currently or been in a relationship where the following occur: No concerns reported Const General: No confusion Orientation/consciousness: No confusion Eyes Conjunctivae: conjunctivae normal Resp Auscultation: clear to auscultation bilaterally Cardio Rate: regular rate Rhythm: regular rhythm GI Inspection: Yes normal to inspection Neuro General: No confusion Cranial nerves: Yes Normal hearing present Extrem General: Yes normal to inspection and No edema Results AMB Hemoglobin A1c AMB Hemoglobin A1c 7.2 % Last Edit by Shraddha Jenkins CMA on 03/25/24 08 :48 Results Reviewed Results Reviewed: Laboratory Last Values Hgb A1c (Clinic) 7.2 % (4.0-6.0) H 03/25/24 08:29 Coding Level of Care Code Est Pt Level 4 (82078) Diagnoses Preop exam for internal medicine Z01.818 Type 2 diabetes mellitus with hyperglycemia, without long-term current use of insulin E11.65 Diabetes mellitus longterm insulin use: without longterm use Essential hypertension I10 Hypertension type: essential hypertension Hypercholesterolemia E78.00 Nicotine dependence, cigarettes, uncomplicated F17.210 Generalized anxiety disorder F41.1 Acquired hypothyroidism E03.9 Hypothyroidism type: acquired Cataract H26.9 Mild obstructive sleep apnea G47.33 Assessment & Plan Assessment & Plan (1) Preop exam for internal medicine: Code(s): Z01.818 - Encounter for other preprocedural examination Category: Medical Plan: EKG and blood work requested. But discussed with the patient that presently diabetes as the under control no other workup needed. With the surgical procedure of low risk. May proceed with the contemplated procedure. Thank you very much for letting me participate in the care of this patient. Discussed with the patient that the more important medications take prior to surgery is the blood pressure medication losartan and the omeprazole for the stomach. 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 Hemoglobin A1c goal of less than 7. Patient on metformin 500 mg twice a day (3) Hypertension: Code(s): I10 - Essential (primary) hypertension Category: Medical Qualifiers: Hypertension type: essential hypertension Qualified Code(s): I10 - Essential (primary) hypertension Plan: Continue with blood pressure medication. Decrease salt intake and exercise on losartan 100 mg once a day (4) Hypercholesterolemia: Code(s): E78.00 - Pure hypercholesterolemia, unspecified Category: Medical Plan: Avoid fried foods, chicken skin, eggs, butter margarine, pastries and meat. Be it pork or beef they have a lot of cholesterol LDL goal of less than 100 and triglyceride of less than 150 on atorvastatin 20 mg once a day (5) Nicotine dependence, cigarettes, uncomplicated: Comment: (current smoker - onset 17yo, 3/4ppd x 56yrs, 40pyh) CT scan July 2023 Code(s): F17.210 - Nicotine dependence, cigarettes, uncomplicated Category: Medical Plan: Discussed about stopping and patient has enrolled for stopping smoking. (6) Generalized anxiety disorder: Comment: Declined any referral for counseling 08/2021 Code(s): F41.1 - Generalized anxiety disorder Category: Medical Plan: Stable (7) Hypothyroid: Code(s): E03.9 - Hypothyroidism, unspecified Category: Medical Qualifiers: Hypothyroidism type: acquired Qualified Code(s): E03.9 - Hypothyroidism, unspecified Plan: Continue with thyroid medication. (8) Cataract: Code(s): H26.9 - Unspecified cataract Category: Medical (9) Mild obstructive sleep apnea: Code(s): G47.33 - Obstructive sleep apnea (adult) (pediatric) Category: Medical Plan - Schedule EKG and blood work before cataract surgery, if required. - Continue current diabetes management with emphasis on lowering HbA1c below 7%. - Review and possibly adjust medications for hypertension and hy percholesterolemia. - Discontinue Afrin nasal spray and switch to fluticasone to manage nasal congestion. - Encourage continuation of CPAP therapy. - Explore additional support for essential tremor if symptoms persist or worsen. During the visit, we discussed the patient's upcoming cataract surgery, including the likelihood of requiring preoperative tests such as EKG and blood work. The potential impact of his current list of medications, particularly ibuprofen, on the surgical procedure was reviewed. I have instructed him to verify ibuprofen use restrictions with Dr. Larose?s office. We reviewed his HbA1c; while slightly elevated, it does not necessitate postponement of surgery. The potential need to adjust his diabetes medications if glucose control does not improve was highlighted. We discussed the risks associated with Afrin nasal spray, and alternative management with fluticasone was advised. The importance of smoking cessation was iterated, with a scheduled appointment for smoking c essation support. Follow-up plans for postoperative evaluation and routine diabetes monitoring were outlined. - Confirm preoperative requirements with Dr. Larose's office. - Discontinue use of Afrin nasal spray, commence using fluticasone as directed. - Utilize CPAP nightly to manage sleep apnea. - Continue treadmill exercises and monitor weight. - Attend scheduled smoking cessation appointment and use provided smoking cessation patches. - Monitor blood glucose levels and follow dietary recommendations closely. Orders: Orders AMB Hemoglobin A1c Today Z13.9 - Encounter for screening, unspecified Basic Metabolic Panel Today H26.9 - Unspecified cataract ECG 12 lead EKG Today H26.9 - Unspecified cataract Patient Instructions: Continue to use the CPAP more than 4 hours a night and benefits from this.
--- OUTSIDE RECORDS SUMMARY | 2024-03-25 08:23 | XMS_ITS | Clinical Summary ---
Author Organization [email or web address] Address [address] [place] [address] Care Team Providers Care Clerical Methods Analyst Name Role Phone Unavailable Primary Care Provider Unavailabl e Allergies No known active allergies Medications atorvastatin (Lipitor) 20 MG tablet Take 20 mg by mouth in the morning. 3 Active Bisacodyl EC 5 MG EC tablet Take 10 mg by mouth at bedtime. 3 Active gabapentin (Neurontin) 300 MG capsule Take 300 mg by mouth 2 times daily. 3 Active ibuprofen 800 MG tablet Take 800 mg by mouth 2 times daily. 3 Active levothyroxine (Synthroid, Levoxyl) 75 MCG tablet Take 75 mcg by mouth in the morning. 3 Active lidocaine (Lidoderm) 5 % patch APPLY 1 PATCH TOPICALLY TO THE SKIN DAILY 3 Active losartan (Cozaar) 50 MG tablet Take 50 mg by mouth in the morning. 3 Active metFORMIN (Glucophage) 500 MG tablet Take 500 mg by mouth 2 times daily. 3 Active omeprazole (PriLOSEC) [address] capsule Take 20 mg by mouth in the morning. 3 Active oxyCODONE (Roxicodone) 5 MG immediate release tablet TAKE 1 TABLET BY MOUTH TWICE DAILY NEEDED. DO NOT DRIVE WHILE TAKING THIS MEDICATION 3 Active propranolol (Inderal) 10 MG tablet Take 10 mg by mouth 2 times daily. 3 Active predniSONE (Deltasone) 5 MG tablet TAKE 2 TABLETS BY MOUTH TWICE DAILY FOR 7 DAYS THEN 1 TABLET TWICE DAILY FOR 2 DAYS THEN 1 TABLET EVERY DAY FOR 2 DAYS 3 Active tadalafil (Cialis) 20 MG tablet TAKE ONE TABLET BY MOUTH ONCE NEEDED FOR SEXUAL ACTIVITY. TAKE 60 MINUTES BEFORE INTENDED ACTIVITY 3 Active tadalafil (Cialis) 5 MG tablet TAKE ONE TABLET BY MOUTH DAILY FOR SEXUAL ACTIVITY 3 Active terazosin (Hytrin) 2 MG capsule Take 2 mg by mouth at bedtime. 3 Active amoxicillin (Amoxil) 500 MG capsule Please take four CAPS of 500 MG, one hour before your Root canal appointment with Dr. Rivero. 4 capsule 3 Active Social History Tobacco Use Types Packs/Day Years Used Date Smoking Tobacco: Every Day Cigarettes Tobacco Cessation:Ready to Q uit: No; Counseling Given: Not Answered Alcohol Use Standard Drinks/Week Comments Defer 0 (1 standard drink = 0.6 oz pur e alcohol) Sex and Gender Information Value Date Recorded Sex Assigned at Male 07/20/2022 2:06 PM EDT Legal Sex Male 2:03 PM EDT Gender Identity Male 07/20/2022 2:06 PM EDT Sexual Orientation Choose not to disclose 2022 2:06 PM EDT Last Filed Vital Signs Vital Sign Reading Time Taken Comments Blood Pressure 140/90 08/03/2022 9:05 AM EDT Pulse 90 08/03/2022 9:05 AM EDT Temperature - - Respiratory Rate - - Oxygen Saturation - - Inhaled Oxygen Concentration - - Weight - - Height - - Body Mass Index - - Plan of Treatment Health Maintenance Due Date Last Done Comments CT Colonography 1952 Colonoscopy 1952 Colorectal Cancer Screening 1952 Dental Prophylaxis 1952 Dental X-Ray: Bitewings 1952 Depression Screening 1952 FIT DNA/Cologuard 1952 FIT 1952 FOBT 1952 Lipid Panel 1952 SDOH Screening 1952 Sigmoidoscopy 1952 Alcohol/Substance Use Screening 1964 Hepatitis C Screening 01/10/1970 DTaP/Tdap/Td Vaccines (1 - Tdap) 01/10/1971 Pneumococcal Vaccine: 50+ Ye ars (1 of 2 - PCV) 01/10/1971 Zoster Vaccines (1 of 2) 01/10/2002 Dental Oral Exam 02/03/2023 08/03/2022 Tobacco Screening 09/29/2023 09/28/2022 COVID-19 Vaccine (1 - 2023-2 5 season) 2023 Influenza Vaccine (#1) 2023 Dental X-Ray: Full Mouth 08/04/2025 08/03/2022 RSV Patients and Pa tients Aged 60 years or older (1 - 1-dose 75+ series) 01/10/2027 HIB Vaccines Aged Out No longer eligi ble based on patient's age to complete this topic HPV Vaccines Aged Out No longer eligi ble based on patient's age to complete this topic Hepatitis A Vaccines Aged Out No long er eligible based on patient's age to complete this topic Hepatitis B Vaccines Aged Out No long er eligible based on patient's age to complete this topic IPV Vaccines Aged Out No longer eligi ble based on patient's age to complete this topic Meningococcal Vaccine Aged Out No thomas hever eligible based on patient's age to complete this topic RSV under 20 months Aged Out No longe r eligible based on patient's age to complete this topic Rotavirus Vaccines Aged Out No longer eligible based on patient's age to complete this topic Procedures Procedure Name Priority Date/Time Associated Diagnosis Comments PANORAMIC RADIOGRAPHIC IMAGE Routine 08/03/2022 8:00 AM EDT COMPREHENSIVE ORAL EVALUATION - NEW OR ESTABLISHED PATIENT Routine 08/03/2022 8:00 AM EDT from Last 3 Months or Most Recently Relevant to Health Maintenance Insurance DENTAL - [facility] D[facility] DENTAL - [facility]
--- OUTSIDE RECORDS SUMMARY | 2024-03-25 08:23 | XMS_ITS | Clinical Summary ---
Author Organization [facility] Address [address] [place] [address] Care Team Providers Care Piping Drafter Name Role Phone Unavailable Primary Care Provider Unavailabl e Allergies No known active allergies Medications * This document contains information received from the source organization and may not represent a complete record from that organization. No known medications Social History Tobacco Use Types Packs/Day Years Used Date Smoking Tobacco: Former Cigarettes Alcohol Use Standard Drinks/Week Comments Not Asked 0 (1 standard drink = 0.6 oz pur e alcohol) Sex and Gender Information Value Date Recorded Sex Assigned at Not on file Legal Sex Male 11:05 PM EDT Gender Identity Not on file Sexual Orientation Not on file Last Filed Vital Signs Vital Sign Reading Time Taken Comments Blood Pressure 130/82 08/18/2015 2:15 PM EDT Pulse 80 08/18/2015 2:15 PM EDT Temperature - - Respiratory Rate - - Oxygen Saturation - - Inhaled Oxygen Concentration - - Weight 99.3 kg (219 lb) 08/18/2015 2:15 PM EDT Height 172.7 cm (5' 8 ) 08/18/2015 2:15 PM EDT Body Mass Index 33.3 08/18/2015 2:15 PM EDT Plan of Treatment Health Maintenance Due Date Last Done Comments Hepatitis C Screening 1952 DTaP/Tdap/Td (1 - Tdap) 01/10/1970 Pneumococcal 50+ years (1 of 1 - PCV) 01/10/2002 Zoster (Shingrix) (1 of 2) 01/10/2002 Abdominal Aorta Imaging 01/10/2017 COVID-19 Vaccine ( - 2023-2 5 season) 2023 Influenza (#1) 2023 RSV (1 - 1-dose 75+ series) 01/10/2027 HPV Vaccine Aged Out No longer eligi ble based on patient's age to complete this topic Hep A Aged Out No longer eligi ble based on patient's age to complete this topic Hep B Aged Out No longer eligi ble based on patient's age to complete this topic Hib Aged Out No longer eligi ble based on patient's age to complete this topic Meningococcal ACWY Aged Out No longer eligible based on patient's age to complete this topic Zoster (Zostavax) Discontinued
== END 2024-03-25 09:23 | disposition home or self-care (01) ==
PROVIDERS: PCP Internal Medicine; Visit Provider Internal Medicine
DX: Z01.818 Encounter for other preprocedural examination (principal); E11.65 Type 2 diabetes mellitus with hyperglycemia; I10 Essential (primary) hypertension; E78.00 Pure hypercholesterolemia, unspecified; F17.210 Nicotine dependence, cigarettes, uncomplicated; F41.1 Generalized anxiety disorder; E03.9 Hypothyroidism, unspecified; H26.9 Unspecified cataract; G47.33 Obstructive sleep apnea (adult) (pediatric); Z13.9 Encounter for screening, unspecified

== ENCOUNTER 2024-03-25 08:18 | Outpatient (REF) | payer MEDICARE, BC, SELFPAY ==
--- OUTSIDE RECORDS SUMMARY | 2024-03-25 10:10 | XMS_ITS | Clinical Summary ---
Author Organization [facility] Address [address] [place] [address] Care Team Providers Care Croze Machine Operator Name Role Phone Unavailable Primary Care Provider [...]
--- OUTSIDE RECORDS SUMMARY | 2024-03-25 10:10 | XMS_ITS | Clinical Summary ---
Author Organization [facility] Address [address] [facility] [address] [place] [address] Care Team Providers Care Textbook Associate Name Role Phone Unavailable Primary Care Provider [...] Relevant to Health Maintenance Insurance DENTAL - [facility] DENTAL - [facility]
[2024-03-25 10:34] LABS: Anion Gap 14 (12-20); Blood Urea Nitrogen 18 mg/dL (9-16); Calcium 9.8 mg/dL (8.4-10.2); Carbon Dioxide 22 mmol/L (22-29); Chloride 110 mmol/L (96-108); Estimated Glomerular Filt Rate > 60; Glucose Random 97 mg/dL (60-115); Potassium 4.4 mmol/L (3.3-5.1); Sodium 142 mmol/L (135-145)
== END 2024-03-25 08:19 | disposition home or self-care (01) ==
LOC: HO.LAB 08:18
PROVIDERS: PCP Internal Medicine; Visit Provider Internal Medicine
DX: Z01.818 Encounter for other preprocedural examination (principal); H26.9 Unspecified cataract; E11.65 Type 2 diabetes mellitus with hyperglycemia; I10 Essential (primary) hypertension; E78.00 Pure hypercholesterolemia, unspecified; F41.1 Generalized anxiety disorder; E03.9 Hypothyroidism, unspecified; G47.33 Obstructive sleep apnea (adult) (pediatric); F17.210 Nicotine dependence, cigarettes, uncomplicated; Z79.84 Long term (current) use of oral hypoglycemic drugs; Z79.899 Other long term (current) drug therapy; Z99.89 Dependence on other enabling machines and devices
CPT/HCPCS: 36415; 80048; 83036; 99212

== ENCOUNTER → 2024-03-28 09:51 | Outpatient (REF) | LOC: HO.CARD 09:51 | DX: Z01.818 Encounter for other preprocedural examination (principal); H26.9 Unspecified cataract ==

== ENCOUNTER → 2024-03-28 09:55 | Outpatient (BNV) | payer MEDICARE, BC, SELFPAY | PROVIDERS: PCP Internal Medicine; Visit Provider Internal Medicine Cardiovascular Disease | DX: R00.1 Bradycardia, unspecified (principal) | CPT/HCPCS: 93010 ==

== ENCOUNTER 2024-04-15 05:01 | Emergency (ER) | payer MEDICARE, BC, SELFPAY ==
[2024-04-15 05:06] VITALS: BP 149/87; PULSE 70; RESP 20; TEMP 36.1; O2SAT 98; BMI 29.5
--- OUTSIDE RECORDS SUMMARY | 2024-04-15 05:25 | XMS_ITS ---
Author Organization [facility] Address [address] [place] [id number] Care Team Providers Care Poultry Processor Name Role Phone Dayana Mccurdy Primary Care Provider Unavailabl e Shanelle Garcia Unavailable [phone] REASON FOR VISIT rs appt 11/25 Encounters Encounter Location Date Provider Diagnosis [address] [id number] 11/22/2023 Shanelle Garcia Plan Of Treatment Next Appt Details Provider Name:Shanelle Garcia , 06/12/2024 11:30:00 AM, [address] [place], [address], Progress Notes * Nancy LAZOoDOB:[birth year] (73 yo M)Acc No.[id number]:11/22/2023 Patient:?Noman Lazo :1950???Age:73 Y???Sex:Male Address: [place], [address] * true * Date:? Generated for Cristopheri ivonne/Safia/eTransmitting on:?04/15/2024 05:25 AM EST
--- OUTSIDE RECORDS SUMMARY | 2024-04-15 05:26 | XMS_ITS ---
Author Organization [facility] Address [address] [facility] [place] [address] Care Team Providers Care Quality Process Engineer Name Role Phone Dayana Mccurdy Primary Care Provider Unavailabl e Black, Shanelle Unavailable [phone] Allergies No Known Allergies REASON FOR VISIT Painful thick toenails which are aggrevated by shoes and causes difficulty standing/walking, At Risk Footcare Medications Medication SIG (Take, Route, Frequency, Duration) Notes Start Date End Date Status Ipratropium [place] 0.03 % 2 sprays in each nostril Nasally Twice a day for 30 day(s) Active Ibuprofen 800 MG 1 tablet with food o r milk as needed Orally every 8 hrs Active Levothyroxine Sodium 75 MCG 1 tablet in the morning on an empty stomach Orally Once a day for 30 day(s) Active Gabapentin 300 MG 1 capsule Orally Onc e a day for 30 day(s) Active Fexofenadine HCl 180 MG 1 tablet Swallow whole with water; do not take with fruit juices. Orally Once a day for 30 day(s) Active Extra Depth Orthopedic Shoes (1 Pair) with Customized Heat Molded Multidensity Innersoles (3 Pair) as directed Dx: NIDDM/Polyneuropathy (E11.42), Hammertoe Foot Deformity (M20.41,M20.42), Preulcerative Skin Lesion(s) (L85.1 03/02/2022 Active Aspirin 81 MG 1 tablet Orally Once a day for 30 day(s) Not-Taking Ciclopirox Olamine 0.77 % 1 application Externally Once a day for 30 days Active Cinnamon 500 MG as directed Orally Active Atorvastatin Calcium 20 MG 1 tablet Orally Once a day for 30 day(s) Active Terazosin HCl 2 MG 1 capsule at bedtime Orally Once a day for 30 day(s) Active zzzCompression Stockings 20-30mm Hg . . . for . Active Polyethylene Glycol 3350 17 GM/SCOOP as directed Orally Active Sennosides 8.6 MG 2 tablets at bedtime as needed Orally Once a day for 30 day(s) Active Propranolol HCl 10 MG 1 tablet Orally On ce a day for 30 day(s) Active Losartan Potassium 100 MG 1 tablet Orall y Once a day for 30 day(s) Active Lidocaine 5 % as directed Externally Active [place]-3 Fatty Acids 1000 MG 1 capsule Orally Once a day for 30 day(s) Active metFORMIN HCl 500 MG 1 tablet with a vanessa l Orally Once a day for 30 day(s) Active Omeprazole 20 MG 1 capsule 30 minutes before morning meal Orally Once a day for 30 day(s) Active Social History Tobacco Use: Social History Observation Description Date Details (start date - stop date) Current Smoker NA - NA Tobacco Use/Smoking Question Answer Notes Are you a: current smoker How often do you smoke cigarettes? every day How many cigarettes a day do you smoke? 11-20 How soon after you wake up d o you smoke your first cigarette? 31-60 minutes Are you interested in quitting? Thinking about q uitting Tobacco use other than smoking: Question Answer Notes Are you an other tobacco user? No Vital Signs Height 5ft9in in 12/13/2023 Weight 198 lbs 12/13/2023 BMI 29.24 kg/m2 12/13/2023 Procedures Procedure Date Ordered Date Performed Result Body Sit e 15262-BCEQTLW NAIL, 1-5 12/13/2023 N/A 75061-DSOJ SKIN LESIONS, 2 TO 4 12/13/2023 N/A E5133-ARQRQMIZ DYSTROPHIC NAILS ANY # 12/13/2023 N/A Encounters Encounter Location Date Provider Diagnosis [facility] [address] [place] [address] 12/13/2023 Shanelle Black Tinea unguium B35.1 ; Type 2 diabetes mellitus with diabetic polyneuropathy E11.42 and Smoker F17.200 Assessments Encounter Date Diagnosis (ICD Code) Assessment Notes Treatment Notes Treatment Clinical Notes Section Notes 12/13/2023 Tinea unguium (ICD-10 - B35.1) 12/13/2023 Type 2 diabetes mellitus with diabetic polyneuropathy (ICD-10 - E11.42) 12/13/2023 Smoker (ICD-10 - F17.200) Plan Of Treatment Pending Test Test Name Order Date 93868-NQJNHPD NAIL, 1-5 12/13/2023 79245-CBSF SKIN LESIONS, 2 TO 4 12/13/19 X8804-TSJIZKXZ DYSTROPHIC NAILS ANY # Next Appt Details Follow Up: 4 Months, Reason: Provider Name:Shanelle Garcia , 06/12/2024 11:30:00 AM, [address] [place] [address], [id number], Procedure Notes * Category Sub-Category Detail Notes Keratoma Treatment Parring or Cutting o f Benign Hyperkeratotic Lesion(s) 80575 (2-4 Lesions) - The Benign hyperkeratotic lesions, as described above were pared, and/or cut utilizing a sterile #15 blade, tissue nippers, and/or dremel Debride Nails 1-5 Procedure: Performance of this nail treatment by a nonprofessional would put this patients foot and overall health at risk. Therefore, nail debridement was performed extensively to reduce/remove overall nail length, girth, thickness, subungual debris, and necrotic tissue, by manual and/or electrical means through the use of a nail nipper and/or dremel-type grinder needle tip, to a more viable healthy nail plate or bed tissue 1-5. Silver nitrate used for any petechial bleeding as necessary. Definitive antifungal treatment options have been reviewed and discussed with the patient. The patient chooses, no pharmaceutical tx - [address] Nail Reduction Nail Reduction Trimming of dyst rophic nails performed to reduce/remove overall nail length and girth, by manual and electrical means with use of a nail nipper and/or dremel, to more viable healthy nail plate or bed tissue 6-10 (G0127) Progress Notes * Aurora LAZOOB:01[birth year]10 (73 yo M)Acc No.[id number]:12/13/2023 Progress Note Patient:?Noman Lazo Provider:?Shanelle Garcia DPM :1950???Age:73 Y???Sex:Male Lakhwinder e:12/13/2023 Address:[address] [facility] Pcp:Dayana Mccurdy Subjective: * Chief Complaints: * ???Painful thick toenails wh ich are aggrevated by shoes and causes difficulty standing/walkingAt Risk Footcare * HPI: ???Painful Nails:?Pt States Last PCP Visit:?Date:?10/17/2023 ???At Risk footcare:?Pt States Last PCP Visit:?Date?10/17/2023 * Medical History:? * Surgical History:?knee surge ry, right- scoped it knee surgery, left - torn meniscus tonsillectomy appendectomy back surgery 06/01/22 * Hospitalization/Major Diagno stic Procedure:?Denies Past Hospitalization * Family History:?Mother: dece ased, heart attack, diagnosed with Diabetic - NIDDM.?Father: .?Siblings: prostate cancer.? * Social History:?Tobacco Use:?Tobacco Use/Smoking?Are you a:?current smoker ?How often do you smoke cigarettes??every day ?How many cigarettes a day do you smoke??11-20 ?How soon after you wake up do you smoke your first cigarette??31-60 minutes ?Are you interested in quitting??Thinking about quitting ?Tobacco use other than smoking?Are you an other tobacco user??No ???Miscellaneous:?Caffeine: yes, frequency: , 1-2 cups per day. ?Children: yes. ?Exercise: yes, walking. ?Living with: Fiance. ?Occupation: Retired from [employer]. * Medications:?TakingAtorvasta tin Calcium 20 MG Tablet 1 tablet Orally Once a dayCinnamon 500 MG Capsule as directed Orally Fexofenadine HCl 180 MG Tablet 1 tablet Swallow whole with water; do not take with fruit juices. Orally Once a dayGabapentin 300 MG Capsule 1 capsule Orally Once a dayIbuprofen 800 MG Tablet 1 tablet with food or milk as needed Orally every 8 hrsIpratropium [place] 0.03 % Solution 2 sprays in each nostril Nasally Twice a dayLevothyroxine Sodium 75 MCG Tablet 1 tablet in the morning on an empty stomach Orally Once a dayLidocaine 5 % Patch as directed Externally Losartan Potassium 100 MG Tablet 1 tablet Orally Once a daymetFORMIN HCl 500 MG Tablet 1 tablet with a meal Orally Once a dayOmega-3 Fatty Acids 1000 MG Capsule 1 capsule Orally Once a dayOmeprazole 20 MG Capsule Delayed Release 1 capsule 30 minutes before morning meal Orally Once a dayPolyethylene Glycol 3350 17 GM/SCOOP Powder as directed Orally Propranolol HCl 10 MG Tablet 1 tablet Orally Once a daySennosides 8.6 MG Tablet 2 tablets at bedtime as needed Orally Once a dayTerazosin HCl 2 MG Capsule 1 capsule at bedtime Orally Once a dayzzzCompression Stockings 20-30mm Hg 1 pair closed toe- knee high . . .Extra Depth Orthopedic Shoes (1 Pair) with Customized Heat Molded Multidensity Innersoles (3 Pair) as directed Dx: NIDDM/Polyneuropathy (E11.42), Hammertoe Foot Deformity (M20.41,M20.42), Preulcerative Skin Lesion(s) (L85.1Ciclopirox Olamine 0.77 % Cream 1 application Externally Once a dayTaking Atorvastatin Calcium 20 MG Tablet 1 tablet Orally Once a dayTaking Cinnamon 500 MG Capsule as directed Orally Taking Fexofenadine HCl 180 MG Tablet 1 tablet Swallow whole with water; do not take with fruit juices. Orally Once a dayTaking Gabapentin 300 MG Capsule 1 capsule Orally Once a dayTaking Ibuprofen 800 MG Tablet 1 tablet with food or milk as needed Orally every 8 hrsTaking Ipratropium [place] 0.03 % Solution 2 sprays in each nostril Nasally Twice a dayTaking Levothyroxine Sodium 75 MCG Tablet 1 tablet in the morning on an empty stomach Orally Once a dayTaking Lidocaine 5 % Patch as directed Externally Taking Losartan Potassium 100 MG Tablet 1 tablet Orally Once a dayTaking metFORMIN HCl 500 MG Tablet 1 tablet with a meal Orally Once a dayTaking [place]-3 Fatty Acids 1000 MG Capsule 1 capsule Orally Once a dayTaking Omeprazole 20 MG Capsule Delayed Release 1 capsule 30 minutes before morning meal Orally Once a dayTaking Polyethylene Glycol 3350 17 GM/SCOOP Powder as directed Orally Taking Propranolol HCl 10 MG Tablet 1 tablet Orally Once a dayTaking Sennosides 8.6 MG Tablet 2 tablets at bedtime as needed Orally Once a dayTaking Terazosin HCl 2 MG Capsule 1 capsule at bedtime Orally Once a dayTaking zzzCompression Stockings 20-30mm Hg 1 pair closed toe- knee high . . .Taking Extra Depth Orthopedic Shoes (1 Pair) with Customized Heat Molded Multidensity Innersoles (3 Pair) as directed Dx: NIDDM/Polyneuropathy (E11.42), Hammertoe Foot Deformity (M20.41,M20.42), Preulcerative Skin Lesion(s) (L85.1Taking Ciclopirox Olamine 0.77 % Cream 1 application Externally Once a dayNot-Taking/PRNAspirin 81 MG Tablet Chewable 1 tablet Orally Once a dayNot-Taking/PRN Aspirin 81 MG Tablet Chewable 1 tablet Orally Once a day * Allergies:?N.K.D.A.yes[Aller gies Verified] Objective: * Vitals:?Ht: 5ft9in, Wt:198, BMI:29.24, Shoe size: 10, BS: not taken, Ht-cm: 175.26 cm, Wt-k.81 kg. * ???Past Orders: ???Lab:HEMOGLOBIN A1C (GLYCO HEMOGLOBIN) (Order Date - 11/05/2023) (Collection Date - 11/05/2023) ? Value Reference Range ?TOTAL HEMOGLOBIN (HGBA1C) 6.3 * Examination: ???Ophthalmology Referral: ?DIABETES EYE EXAM?Nails: ?NAILS are:?Elongated, overgrown, dystrophic, lytic, greater than 3mm thick, discolored and friable with crumbly malodorous subungual debris, with dull to no pain on palpation due to neuropathy, TA, T5 green discoloration to TA remaining nails are elongated, overgrown, dystrophic.?Vascular: ?DP PULSES(B):?2/4, B/L.?PT PULSES(B):?1/4, B/L.?CAPILLARY FILL TIME:?immediate, all digits, B/L.?TROPHIC CONDITION-TEXTURE/ELASTICITY/TURGOR/HAIR GROWTH(B):?normal, B/L.?TEMPERTURE GRADIENT(C):?normal, warm to cool, proximal to distal, B/L, B/L.?PIGMENTATION:?normal, B/L.?EDEMA(C):? 1/, Leg(s), Ankle(s).?JENNIFER'S SIGN:?absent, B/L.?PALPABLE CORDS:?absent, B/L.?Neurological: ?SENSORY:?Neurological exam demonstrates reduced light touch sensation reduced sharp/dull pin prick discrimination reduced vibration sensation reduced proprioception sensation 5.07 monofilament test performed at plantar aspects of 5 varied sites per foot shows sensation reduced at Forefoot B/L Pt relates pins and needles sensation tingling especially in the evening.?Dermatologic: ?SKIN FINDINGS:?Skin exam reveals keratotic lesion(s) located at, Medial plantar, IPJ, TA, T5, Heel(s), B/L.? Assessment: * Assessment: 1.?Tinea unguium - B35.1?2.? Type 2 diabetes mellitus with diabetic polyneuropathy - E11.42 (Primary)?3.?Smoker - F17.200? Plan: * Treatment: 2.?Tinea unguium?Procedure: 47719-EMHLJMA NAIL, 1-5 * Procedures:?Debride Nails 1-5:?Procedure:?Performance of this nail treatment by a nonprofessional would put this patients foot and overall health at risk. Therefore, nail debridement was performed extensively to reduce/remove overall nail length, girth, thickness, subungual debris, and necrotic tissue, by manual and/or electrical means through the use of a nail nipper and/or dremel-type grinder needle tip, to a more viable healthy nail plate or bed tissue 1-5. Silver nitrate used for any petechial bleeding as necessary. Definitive antifungal treatment options have been reviewed and discussed with the patient. The patient chooses, no pharmaceutical tx - 45823.?Keratoma Treatment:?Parring or Cutting of Benign Hyperkeratotic Lesion(s)?09126 (2-4 Lesions) - The Benign hyperkeratotic lesions, as described above were pared, and/or cut utilizing a sterile #15 blade, tissue nippers, and/or dremel.?Nail Reduction:?Nail Reduction?Trimming of dystrophic nails performed to reduce/remove overall nail length and girth, by manual and electrical means with use of a nail nipper and/or dremel, to more viable healthy nail plate or bed tissue 6-10 (G0127).? * Procedure Codes:?49148 DEBRI DE NAIL, 1-5, Modifiers: XS G0127 TRIMMING DYSTROPHIC NAILS ANY #, Modifiers: XS 84811 TRIM SKIN LESIONS, 2 TO 4, Modifiers: XS * Preventive Medicine:? ??Counseling:?Tobacco use:?Type of Tobacco Use Cessation Counseling provided?Smoking cessation education ?Patient counseled on the dangers of smoking and urged to quit:?12/13/2023 * Follow Up:?4 Months * Images: * Sign off status: Completed true * Provider:?Shanelle Garcia DPM Date:?2023 Generated for Jesusita coronado/Safia/Mimi on:?04/15/2024 05:25 AM EST History and Physical Notes * HPI (History of Present Illness) Category Sub-Category Detail Notes Category Not es Painful Nails Pt States Last PCP Visit: Date:: 10/17/2023 At Risk footcare Pt States Last PCP Visit: Date: 4 Examination Category Sub-Category Detail Notes Category Not es Neurological SENSORY: Neurological exa m demonstrates reduced light touch sensation reduced sharp/dull pin prick discrimination reduced vibration sensation reduced proprioception sensation 5.07 monofilament test performed at plantar aspects of 5 varied sites per foot shows sensation reduced at Forefoot B/L Pt relates pins and needles sensation tingling especially in the evening Dermatologic SKIN FINDINGS: Skin exam reveal s keratotic lesion(s) located at, Medial plantar, IPJ, TA, T5, Heel(s), B/L Ophthalmology Referral DIABETES EYE EXAM Procedu re Performed:: Yes Diabetic Retinopathy Screening:: No Findings of Diabetic Eye Exam:: no retin opathy Vascular DP PULSES (B): 2/4, B/L PT PULSES (B): 1/4, B/L CAPILLARY FILL TIME: immediate, all digi ts, B/L TEMPERTURE GRADIENT (C): normal, warm to cool, proximal to distal, B/L, B/L TROPHIC CONDITION-TEXTURE/ELASTICITY/TURGOR/HAIR GROWTH (B): normal, B/L EDEMA (C): 1/4, Leg(s), Ankle(s ) JENNIFER'S SIGN: absent, B/L PALPABLE CORDS: absent, B/L PIGMENTATION: normal, B/L Nails NAILS are: Elongated, overg rown, dystrophic, lytic, greater than 3mm thick, discolored and friable with crumbly malodorous subungual debris, with dull to no pain on palpation due to neuropathy, TA, T5 green discoloration to TA remaining nails are elongated, overgrown, dystrophic
--- OUTSIDE RECORDS SUMMARY | 2024-04-15 05:26 | XMS_ITS | Patient Health Record ---
Author Organization [facility] [place] Address [address] [facility] [place] [address] Care Team Providers Care Hoop Machine Operator Name Role Phone Dayana Mccurdy Primary Care Provider Unavailabl e Black, Shanelle Unavailable [phone] Allergies No Known Allergies Results Component Value Reference Range Notes HEMOGLOBIN A1C (GLYCOHEMOGLO BIN) Reviewed date:12/13/2023 11:28:27 AM Interpretation: Performing Lab: Notes/Report: TOTAL HEMOGLOBIN (HGBA1C) 6.3 Reason For Referral No Information Medications Medication SIG (Take, Route, Frequency, Duration) Notes Start Date End Date Status Ipratropium [place] 0.03 % 2 sprays in each nostril Nasally Twice a day for 30 day(s) Active Ibuprofen 800 MG 1 tablet with food o r milk as needed Orally every 8 hrs Active Terazosin HCl 2 MG 1 capsule at bedtime Orally Once a day for 30 day(s) Active Levothyroxine Sodium 75 MCG 1 tablet in the morning on an empty stomach Orally Once a day for 30 day(s) Active Extra Depth Orthopedic Shoes (1 Pair) with Customized Heat Molded Multidensity Innersoles (3 Pair) as directed Dx: NIDDM/Polyneuropathy (E11.42), Hammertoe Foot Deformity (M20.41,M20.42), Preulcerative Skin Lesion(s) (L85.1 03/02/2022 Active zzzCompression Stockings 20-30mm Hg . . . for . Active Losartan Potassium 100 MG 1 tablet Orall y Once a day for 30 day(s) Active Aspirin 81 MG 1 tablet Orally Once a day for 30 day(s) Not-Taking Lidocaine 5 % as directed Externally Active Ciclopirox Olamine 0.77 % 1 application Externally Once a day for 30 days Active [place]-3 Fatty Acids 1000 MG 1 capsule Orally Once a day for 30 day(s) Active metFORMIN HCl 500 MG 1 tablet with a vanessa l Orally Once a day for 30 day(s) Active Cinnamon 500 MG as directed Orally Active Polyethylene Glycol 3350 17 GM/SCOOP as directed Orally Active Atorvastatin Calcium 20 MG 1 tablet Orally Once a day for 30 day(s) Active Omeprazole 20 MG 1 capsule 30 minutes before morning meal Orally Once a day for 30 day(s) Active Gabapentin 300 MG 1 capsule Orally Onc e a day for 30 day(s) Active Sennosides 8.6 MG 2 tablets at bedtime as needed Orally Once a day for 30 day(s) Active Fexofenadine HCl 180 MG 1 tablet Swallow whole with water; do not take with fruit juices. Orally Once a day for 30 day(s) Active Propranolol HCl 10 MG 1 tablet Orally On ce a day for 30 day(s) Active Immunizations Vaccine Route Administration Date Status Comme nts Influenza Unknown 05/10/2023 Refused Social History Tobacco Use: Social History Observation [...] interested in quitting? Thinking about q uitting Alcohol Screen Question Answer Notes Did you have a drink contain ing alcohol in the past year? Yes How often did you have a dri nk containing alcohol in the past year? 4 or more times a week (4 points) How often did you have 6 or more drinks on one occasion in the past year? Daily or almost daily (4 points) Points 8 Interpretation Positive Tobacco use other than smoking: Question Answer Notes Are you an other tobacco user? No Problems Problem Type SNOMED Code ICD Code Onset Dates Problem Status W/U Status Risk Notes Problem Localized, primary osteoarthritis of the ankle and/or foot (626383305) Primary osteoarthritis, left ankle and foot (M19.072) Active confirmed Problem Acquired hallux valgus (53452198) Hallux valgus (acquired), right foot (M20.11) Active confirmed Problem Acquired hammer toe of right foot (3793187883111440 ) Other hammer toe(s) (acquired), right foot (M20.41) Active confirmed Problem Acquired hammer toe of left foot (5388400409912651 ) Other hammer toe(s) (acquired), left foot (M20.42) Active confirmed Problem Polyneuropathy due to type 2 diabetes mellitus (283825444) Type 2 diabetes mellitus with diabetic polyneuropathy (E11.42) Active confirmed Problem 06249460 Smoker (F17.200) Active confirmed Problem Neuropathic ulce r of right foot with fat layer exposed (L97.512) Active confirmed Problem Neuropathic ulcer of right foot (disorder) (9115065271198357 2) Neuropathic ulcer of right foot, limited to breakdown of skin (L97.511) Active confirmed Vital Signs Height 5ft9in in 12/13/2023 Weight 198 lbs 12/13/2023 BMI 29.24 kg/m2 12/13/2023 Procedures Procedure Date Ordered Date Performed Result Body Sit e 03681-WARSUQS NAIL, 1-5 05/10/2023 N/A 08518-SFRI SKIN LESIONS, 2 TO 4 05/10/2023 N/A W3778-RQIXKERD DYSTROPHIC NAILS ANY # 05/10/2023 N/A 87434-LNJAPUD NAIL, 1-5 12/13/2023 N/A 52118-XECH SKIN LESIONS, 2 TO 4 12/13/2023 N/A H6126-XUKHSPMJ DYSTROPHIC NAILS ANY # 12/13/2023 N/A Encounters Encounter Location Date Provider Diagnosis [facility] [address] [address] 05/10/2023 Shanelle Black Type 2 diabetes mellitus with diabetic polyneuropathy E11.42 ; Hallux valgus (acquired), right foot M20.11 ; Tinea unguium B35.1 ; Bursitis of right foot M77.51 and [facility] F17.[facility] [address] [address] 12/13/2023 Shanelle Black Tinea unguium B35.1 ; Type 2 diabetes mellitus with diabetic polyneuropathy E11.42 and Smoker F17.[address] [facility] [address] 05/02/2023 Shanelleifrah Garcia [facility] [address] 05/10/2023 Shanelleifrah Garcia [facility] [address] 09/04/2023 Shanelleifrah Garcia [facility] [address] [address] 11/22/2023 Shanelle Garcia [facility] Encounter Date Diagnosis (ICD Code) Assessment Notes Treatment Notes Treatment Clinical Notes Section Notes 05/10/2023 Hallux valgus (acquired), right foot (ICD-10 - M20.11) 05/10/2023 Type 2 diabetes mellitus with diabetic polyneuropathy (ICD-10 - E11.42) 12/13/2023 Tinea unguium (ICD-10 - B35.1) 12/13/2023 Type 2 diabetes mellitus with diabetic polyneuropathy (ICD-10 - E11.42) 05/10/2023 Tinea unguium (ICD-10 - B35.1) 05/10/2023 Bursitis of right foot (ICD-10 - M77.51) 12/13/2023 Smoker (ICD-10 - F17.200) 05/10/2023 Smoker (ICD-10 - F17.200) 05/10/2023 Other Patient Educated with: WOUND CARE INSTRUCTIONS. pdf (WOUND CARE INSTRUCTIONS. pdf) Plan Of Treatment Pending Test Test Name Order Date X ray : Foot, left 3V 03/02/2022 15528-PTCUCCI NAIL, 1-5 11/14/2021 65623-VHLBJKR NAIL, 1-5 03/02/2022 10791-JNRXYQT NAIL, 1-5 09/25/2022 88319-EGNWCTT NAIL, 1-5 05/10/2023 30876-TYGCWLC NAIL, 1-5 12/13/2023 97661- Debride <25 sq cm 09/25/2022 15406-KKKP SKIN LESIONS, 2 TO 4 09/26/19 35524-KGAJ SKIN LESIONS, 2 TO 4 03/02/19 23 58435-RMIC SKIN LESIONS, 2 TO 4 12/13/19 66713-ZPWR SKIN LESIONS, 2 TO 4 05/10/19 50817-FSCQ SKIN LESIONS, 2 TO 4 11/15/19 T0886-RSALQONX DYSTROPHIC NAILS ANY # F5808-HSFUAXVP DYSTROPHIC NAILS ANY # Next Appt Details Provider Name:Shanelle Garcia , 06/12/2024 11:30:00 AM, [address] [place], [address], Insurance Providers Payer Name Payer Address Payer Phone Subscriber Number Group Number Insured Name Patient Relationship to Insured Coverage Start Date Coverage End Date [facility] Claims [address] [place] [id number] Noman Pope ra Self - patient is the insured [facility] [address] [place] [address] [id number] Noman Pope ra Self - patient is the insured [employer] [address] [place] [address] [id number] Noman Pope ra Self - patient is the insured Medical (General) History Medical History History ICD Code Back,Hip,and Knee pain High blood pressure Tuberculosis Reflux ( GERD) Obesity osteoarthritis Pulmonary Nodules thyroid nodule Diabetic nephropathy type II diabetes vertebral fracture Erectile dysfunction Hypothyroidism Hypercholesterolemia CPAT Machine - Every Night Surgical History Surgery Date(Month/Year) knee surgery, right- scoped it knee surgery, left - torn meniscus tonsillectomy appendectomy back surgery 06/01/22
--- OUTSIDE RECORDS SUMMARY | 2024-04-15 05:26 | XMS_ITS ---
Author Organization [facility] Address [address] [place] [address] Care Team Providers Care Electro Optics Engineer Name Role Phone Dayana Mccurdy Primary Care Provider Shanelle Camp [phone] Encounters Encounter Location Date Provider Diagnosis [address] [address] 11/26/2023 Shanelle Garcia Plan Of Treatment Next Appt Details Provider Name:Shanelle Garcia , 06/12/2024 11:30:00 AM, [address] [place] [address], [address], Progress Notes * Nancy LAZOoDOB:[birth year] (74 yo M)Acc No.[id number]:11/26/2023 Progress Note Patient:?Noman LAZO Provider:?Shanelle Garcia DPM :1950???Age:73 Y???Sex:Male Lakhwinder e:11/26/2023 Address:[address] [place] Pcp:Dayana Mccurdy Subjective: * Chief Complaints: * ??? * Medical History:? Objective: * Vitals:? Assessment: Plan: * Treatment: * Images: * The named appointment provid er may or may not be the originator of this progress note, and it is not deemed complete until electronically signed by the appointment provider. Sign off status: Pending * Provider:Pam Garcia DPM Date:?2023 Generated for Jesusita coronado/Safia/Mimi on:?04/15/2024 05:26 AM EST
--- OUTSIDE RECORDS SUMMARY | 2024-04-15 05:26 | XMS_ITS | Clinical Summary ---
Author Organization [facility] Address [address] [place] [address] Care Team Providers Care Mill Laborer Name Role Phone Unavailable Primary Care Provider [...]
[2024-04-15 05:35] VITALS: BP 137/78; PULSE 63; RESP 22; TEMP 36; O2SAT 95
[2024-04-15 05:35] LABS: IDNOW Serial# 55D5AD1C
[2024-04-15 05:36] LABS: COVID-19 Test Negative (Negative); IDNOW Serial# 58CA691E; Influenza A Negative (Negative); Influenza B2 Negative (Negative)
--- NOTE | 2024-04-15 06:54 | ED_ITS ---
HPI - URI/Sore Throat General Chief Complaint: Upper Respiratory Symptoms Stated Complaint: flu like? stuffy nose x3 months Time Seen by Provider: 04/15/24 06:34 Source: patient, RN notes reviewed and old records reviewed Mode of arrival: ambulatory History of Present Illness ED Provider: Tammy Du PA-C HPI Narrative: 74-year-old male with a past medical history of diabetes, LUIS, obesity, GERD, hypothyroid, HTN, HLD, presenting to the ED complaining of chronic nasal congestion x3 months. States congestion is causing difficulty sleeping and breathing. Has been using Afrin daily without affect. [facility] saw PCP who switched him to Flonase which has also not been working. Denies fever, chills, sore throat, ear pain, cough. [facility] has follow up with ENT in May Related Data Home Medications ?Medication ?Instructions ?Recorded ?Confirmed cinnamon bark 500 mg capsule 1,000 mg PO DAILY 09/26/22 03/25/24 omega-3 acid ethyl esters 1 gram PO DAILY 05/15/23 03/25/24 capsule oxymetazoline 0.05 % nasal mist 2 spray intranasal Q12H PRN 03/25/24 03/25/24 (Afrin (oxymetazoline)) trolamine salicylate 10 % topical 1 appl topical BEDTIME PRN 03/25/24 03/25/24 cream (Aspercreme) Previous Rx's ?Medication ?Instructions ?Recorded AUTO PAP 6-16 mm H20 humidified AIR #1 ea 05/24/20 blood sugar diagnostic (CareSens N #50 ea 05/24/21 Test Strips) blood-glucose meter (FreeStyle #1 ea 06/02/21 Lite Meter kit) lancets 28 gauge (FreeStyle #100 ea 06/02/21 Lancets) blood sugar diagnostic (FreeStyle #100 strips 08/09/21 Lite Strips) sennosides 8.6 mg-docusate sodium 1 tab-cap PO BID PRN constipation 09/26/22 50 mg capsule (Senna Plus) 90 days #180 caps tchbmkswybqa-bfgmduas-bkmrrb 1 tab PO DAILY #90 tabs 04/12/23 tablet (Multivitamin 50 Plus tablet) gabapentin 300 mg capsule 300 mg PO BID #180 caps 04/18/23 levothyroxine 75 mcg tablet 75 mcg PO DAILY 90 days #90 tabs 04/18/23 (Synthroid) losartan 100 mg tablet 100 mg PO DAILY #90 tabs 04/18/23 metformin 500 mg tablet 500 mg PO BID 90 days #180 tabs 04/18/23 omeprazole 20 mg capsule,delayed 20 mg PO DAILY #90 caps 04/18/23 release ibuprofen 800 mg tablet 800 mg PO BID #270 tabs 10/23/23 tadalafil 10 mg tablet 10 mg PO DAILY sexual activity 90 11/14/23 days #90 tabs tadalafil 20 mg tablet 20 mg PO ONCE PRN sexual activity 11/14/23 30 days #30 tabs fexofenadine 180 mg tablet 180 mg PO DAILY #90 tabs 11/20/23 propranolol 10 mg tablet 10 mg PO BID #180 tabs 02/06/24 lubiprostone 8 mcg capsule 8 mcg PO BID #60 caps 02/21/24 (Amitiza) atorvastatin 20 mg tablet 20 mg PO DAILY 90 days #90 tabs 02/29/24 fluticasone propionate 50 2 spray intranasal DAILY PRN Nasal 03/04/24 mcg/actuation nasal Congestion 90 days #3 ea spray,suspension (Flonase Allergy Relief) terazosin 2 mg capsule 2 mg PO BEDTIME 90 days #90 caps 03/04/24 amoxicillin 875 mg tablet 875 mg PO BID 5 days #10 tabs 04/15/24 Allergies Allergy/AdvReac Type Severity Reaction Status Date / Time No Known Allergies Allergy Verified 04/15/24 05:10 [No Known Allergies*] Review of Systems Review of Systems: Yes all other systems are reviewed and are negative Constitutional: Constitutional: Reports as per [facility] Past Medical History Attestation statement: The following information was validated with the patient. Source: old records reviewed Medical History Type 2 diabetes mellitus with hyperglycemia Diabetic neuropathy Tubular adenoma of colon Nicotine dependence, cigarettes, uncomplicated Positive PPD Obstructive sleep apnea Foot pain, left Overweight (BMI 25.0-29.9) Obesity (BMI 30-39.9) Thyroid nodule Vertebral fracture Pulmonary nodule Osteoarthritis GERD (gastroesophageal reflux disease) Erectile dysfunction Hypothyroid Hypertension Hypercholesterolemia Surgical History History of back surgery History of colonoscopy History of arthroscopy of right knee History of appendectomy History of tonsillectomy Family History Family History Father Medical history unknown Mother Diabetes Past heart attack Brother Prostate cancer Social History Social History Housing: House Alcohol intake: current Alcohol intake frequency: holidays/special occasions only Comment: QD 2 drinksstopped 12/2023 but last night ( 03/2024) 4 beers, Patient Tobacco Use Status: Current everyday Tobacco user Tobacco use type: Cigarette Cigarettes Per Day: 15 Years Smoked: (onset 17yo, 3/4ppd x 56yrs, 40pyh) Smoked in Last 30 Days: Yes e-Cigarette/Vaping Use: Never Used Second Hand Smoke Exposure: No Use of substances other than those prescribed or required for medical reasons: No Advance Directives: No Advance Directives Information Provided: Yes Do you have a plan to hurt others: No Plan service: No Current occupational status: disabled Cognitive needs: No Hearing needs: No Vision needs: Yes Physical Exam Vital Signs: Vital Signs: Last Vital Signs Temp 96.8 F 04/15/24 07:45 Pulse 63 04/15/24 07:45 Resp 22 H 04/15/24 07:45 BP 137/78 04/15/24 07:45 Pulse Ox 95 04/15/24 07:45 O2 Del Method Room Air 04/15/24 07:45 BMI result Body Mass Index 29.5 Const: General: cooperative, healthy appearing and no acute distress Orientation/consciousness: patient oriented x3 Limitations: no limitations HEENT: Head: Yes normal to inspection and Yes atraumatic Ears: hearing grossly normal bilaterally, external ears normal, TM's normal bilaterally and mastoids normal General nose exam: Normal external nose present, no epistaxis and Other nasal findings present (+ congestion) Face and sinus: Yes normal facial exam Mouth: Normal oral and palatal mucosa present and no drooling Throat: Yes posterior oropharynx normal, Yes tonsils normal, Yes uvula midline, No peritonsillar mass, No uvula laterally displaced and No uvular edema Eyes: General: appearance normal, both eyes and all related structures EOM: EOMs intact bilaterally Neck: Neck: Yes normal visual inspection and Yes no meningeal signs Resp: Effort & Inspection: normal respiratory effort, no respiratory distress and no stridor Auscultation: clear to auscultation bilaterally, no crackles and no wheezes Cardio: Rate: regular rate Heart sounds: S1 normal heart sound present and S2 normal heart sound present Skin: Rashes: no rashes Wounds: no wounds Neuro: General: patient oriented x3, tone normal and no meningeal signs Cranial nerves: Yes CN's II-XII intact bilaterally Gait exam (Neuro): Normal gait present Extrem: General: Yes normal to inspection Course Course Course Narrative: --COVID and flu negative Results discussed with patient including worrisome signs and symptoms and strict return precautions, and when to return to the emergency department. They verbalized understanding and feel safe for discharge at this time. Medical Decision Making Medical Decision Making MDM Narrative: 74-year-old male with a past medical history of diabetes, LUIS, obesity, GERD, hypothyroid, HTN, HLD, presenting to the ED complaining of chronic nasal congestion x3 months. On exam mildly tachypneic, NAD, nontoxic appearing, + congestion appreciated, lungs CTA. Concern for rebound rhinorrhea secondary to Afrin use and chronic rhinitis. Discussed with patient at length recommendation of cessation of Afrin. Also discussed stopping Flonase and only using saline nasal rinses. Will prescribe patient course of amoxicillin and ENT referral Plan: Viral testing Please refer to course for remaining clinical decision making, interpretation of labs/imaging results, and discussions with consultants and/or family members. Differential Diagnosis Differential Diagnoses: The differential diagnosis associated with the presentation includes As above Lab Data [facility] Lab Attestation statement: I reviewed the patient's lab results. Labs: Lab Results 04/15/24 Range/Units 05:15 COVID-19 (SELAM) Negative (Negative) COVID-19 Clin Com See Note Influenza Type A (ADILSON) Negative (Negative) Influenza Type B (ADILSON) Negative (Negative) Influenza A & B Note See Note External Record Review External record reviewed: Inpatient record, Office record, Outpatient record, Prior outpatient labs, Prior outpatient radiology, Primary care record and Outside ED record Tests considered The following testing was considered but not selected: As above Prescription Management I considered prescription management with: Pain Medication and Antibiotic Chronic Conditions Patient?s care impacted by: Other Social Determinants Patient?s care significantly limited by Social Determinants of Health including: Other Social Determinant of Health Discharge Plan Discharge Clinical Impression: Chronic rhinitis Patient Disposition: Home, Self-Care Instructions: Nasal Rinse (ED) Additional Instructions: STOP USING AFRIN AND FLONASE. Please only use saline nasal rinses at home In addition take amoxicillin as prescribed for the next 5 days You need to follow-up with an ENT specialist If her symptoms persist or worsen or you have difficulty or inability to breathe return to the emergency department Prescriptions: New amoxicillin 875 mg tablet 875 mg PO BID 5 Days Qty: 10 0RF No Action (DME) CareSens N Test Strips Strip See Rx Instructions .Route Qty: 50 6RF Rx Instructions: As directed (DME) blood-glucose meter [FreeStyle Lite Meter] Kit See Rx Instructions .Route Qty: 1 0RF Rx Instructions: As directed tests 4 X/day (DME) lancets [FreeStyle Lancets] 28 gauge misc See Rx Instructions .Route Qty: 100 5RF Rx Instructions: As directed tests 4X/day (DME) FreeStyle Lite Strips Strip See Rx Instructions .ROUTE .COMPLEX Qty: 100 0RF Dose Instruction: USE TO CHECK BLOOD SUGAR FOUR TIMES DAILY Rx Instructions: USE TO CHECK BLOOD SUGAR FOUR TIMES DAILY Multivitamin 50 Plus Tablet 1 tab PO DAILY Qty: 90 3RF gabapentin 300 mg capsule 300 mg PO BID Qty: 180 3RF levothyroxine [Synthroid] 75 mcg tablet 75 mcg PO DAILY 90 Days Qty: 90 2RF losartan 100 mg tablet 100 mg PO DAILY Qty: 90 0RF metformin 500 mg tablet 500 mg PO BID 90 Days Qty: 180 2RF omeprazole 20 mg capsule,delayed release(DR/EC) 20 mg PO DAILY Qty: 90 3RF ibuprofen 800 mg tablet 800 mg PO BID Qty: 270 1RF tadalafil 10 mg tablet 10 mg PO DAILY 90 Days Qty: 90 3RF Rx Instructions: Daily medication tadalafil 20 mg tablet 20 mg PO ONCE PRN (Reason: sexual activity) 30 Days Qty: 30 3RF Rx Instructions: On demand medication take 60 minutes before intended activity propranolol 10 mg tablet 10 mg PO BID Qty: 180 2RF lubiprostone [Amitiza] 8 mcg capsule 8 mcg PO BID Qty: 60 3RF atorvastatin 20 mg tablet 20 mg PO DAILY 90 Days Qty: 90 2RF fluticasone propionate [Flonase Allergy Relief] 50 mcg/actuation spray,suspension 2 spray intranasal DAILY PRN (Reason: Nasal Congestion) 90 Days Qty: 3 3RF Rx Instructions: administer into each nostril terazosin 2 mg capsule 2 mg PO BEDTIME 90 Days Qty: 90 2RF cinnamon bark 500 mg capsule 1,000 mg PO DAILY (DME) AUTO PAP 6-16 mm H20 humidified AIR See Rx Instructions .Route .MEDSUPPLY Qty: 1 0RF Rx Instructions: As directed omega-3 acid ethyl esters 1 gram capsule PO DAILY fexofenadine 180 mg tablet 180 mg PO DAILY Qty: 90 3RF Senna Plus 8.6-50 mg capsule 1 tab-cap PO BID PRN (Reason: constipation) 90 Days Qty: 180 3RF Afrin (oxymetazoline) 0.05 % mist 2 spray intranasal Q12H PRN trolamine salicylate [Aspercreme] 10 % cream 1 appl topical BEDTIME PRN Referrals: Po,Dayana Bolton MD [Primary Care Provider] - 5 days Interventions: ED Discharge Assessment Last Done: 04/15/24 07:45 Discharge Date/Time: 04/15/24 07:46 Print Language: Georgian
[2024-04-15 07:45] VITALS: BP 137/78; PULSE 63; RESP 22; TEMP 36; O2SAT 95
== END 2024-04-15 07:46 | disposition home or self-care (01) ==
PROVIDERS: Emergency Provider Emergency Medicine; PCP Internal Medicine
DX: R09.81 Nasal congestion (principal); J31.0 Chronic rhinitis; I10 Essential (primary) hypertension; Z11.52 Encounter for screening for COVID-19; Z79.899 Other long term (current) drug therapy
CPT/HCPCS: 87502; 87635; 99283; 99284

== ENCOUNTER 2024-04-16 08:22 | Outpatient (AMB) | payer OTHER, BC, SELFPAY ==
--- NOTE | 2024-04-16 08:30 | A.OFFVIS_ITS ---
VS Expanded 04/16/24 08:33 Height 5 ft 9 in Weight 199 lb 2.1 oz BMI 29.4 Intake Visit Reasons: T2DM Allergies No Known Allergies [No Known Allergies*] Allergy (Verified 04/15/24 05:10) Nutrition Presentation Details: Pt presents for MNt f/u for T2DM Pt reports he has nasal rhinitis and is currently on amoxicillin Not monitoring BG - Reports eating 3 meals/day , choosing soft foods and increasing fluids (water, low sugar juices, jello) yogurt- not consuming fish: 2x/wk dairy: almond milk once /d and cheese in chen ve servving/d fruits: 0-1/d starches: reports choosing whole grain BS Monitoring Most Recent Diabetes Results: Creatinine 0.92 mg/dL (0.5-1.4) 03/25/24 Blood Urea Nitrogen 18 mg/dL (9-16) H 03/25/24 Sodium 142 mmol/L (135-145) 03/25/24 Potassium 4.4 mmol/L (3.3-5.1) 03/25/24 Chloride 110 mmol/L (96-108) H 03/25/24 Carbon Dioxide 22 mmol/L (22-29) 03/25/24 Calcium 9.8 mg/dL (8.4-10.2) 03/25/24 OTW-Ggjejql-Gs.Jeor Equation Height: 5 ft 9 in Weight: 199 lb Resting Metabolic Rate: 1647.88 Calculated Activity Level: Mild Activity Calories Needed to Maintain Weight: 2265.84 [facility] Medical History Type 2 diabetes mellitus with hyperglycemia Diabetic neuropathy Tubular adenoma of colon Nicotine dependence, cigarettes, uncomplicated Positive PPD Obstructive sleep apnea Foot pain, left Overweight (BMI 25.0-29.9) Obesity (BMI 30-39.9) Thyroid nodule Vertebral fracture Pulmonary nodule Osteoarthritis GERD (gastroesophageal reflux disease) Erectile dysfunction Hypothyroid Hypertension Hypercholesterolemia Surgical History History of back surgery History of colonoscopy History of arthroscopy of right knee History of appendectomy History of tonsillectomy Family History Father Medical history unknown Mother Diabetes Past heart attack Brother Prostate cancer Social History Housing: House Alcohol intake: current Alcohol intake frequency: holidays/special occasions only Comment: QD 2 drinksstopped 12/2023 but last night ( 03/2024) 4 beers, Patient Tobacco Use Status: Current everyday Tobacco user Tobacco use type: Cigarette Cigarettes Per Day: 15 Years Smoked: (onset 17yo, 3/4ppd x 56yrs, 40pyh) e-Cigarette/Vaping Use: Never Used Second Hand Smoke Exposure: No service: No Current occupational status: disabled Cognitive needs: No Hearing needs: No Vision needs: Yes Assessment & Plan Assessment & Plan (1) Type 2 diabetes mellitus with hyperglycemia: Code(s): E11.65 - Type 2 diabetes mellitus with hyperglycemia Category: Medical Qualifiers: Diabetes mellitus long-term insulin use: without 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 Qualified Code(s): E11.65 - Type 2 diabetes mellitus with hyperglycemia Plan: wt: 90 kg est kcal as per MSJ: 2300 (40% carb, 30% fat/prot) est fluid needs 30 ml/kg BW : 2700 ml/d fiber rec: > 18 g /day up to 25-30 g as tolerated Na < 1500 mg/dl Recommend fiber intake : 8-10 g per day and gradually increase to 25-28 g per day for women and 35-38 g for men or as tolerated Educated patient on: ( R = reviewed V = verbalizes understanding N/R = needs review N/A = not applicable * Food sources of carbohydrate, adequate serving sizes and its role in various health conditions: V * Differences between complex carbohydrates a simple carbohydrates, role of fiber in diet: V * Differences between types of fats and role in diet (mono on saturated fat fatty acids, saturated fatty acids, trans fats): R V * Food sources of sodium in salt and healthy modifications for heart health in kidney health: R v, * Vitamins and minerals: R , v * Healthy plate method concept: R V * Physical activity: Benefits a precaution: R V * Hypoglycemia protocol (rule of 15): V * Dietary prevention of Hyperglycemia: V Patient Instructions: Keep hydrated by drinking water, lemon n water, tea, broth include yogurt in your diet at least once a day Continue working on following healthy plate method monitor blood sugar - communicate with your doctor if having consistent elevated blood sugar (higher than 130 fasting and higher than 180 when monitoring 2 hours after a meal) Coding Level of Care Code Nutr Indiv Subseq (86072) Diagnoses Type 2 diabetes mellitus with hyperglycemia, without long-term current use of insulin E11.65 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
[2024-04-16 08:33] VITALS: BMI 29.4
--- OUTSIDE RECORDS SUMMARY | 2024-04-16 08:52 | XMS_ITS ---
Author Organization [facility] Address [address] [place] [phone] Care Team Providers Care Fans Clerk Name Role Phone Dayana Mccurdy Primary Care Provider Unavailabl e Shanelle Garcia Unavailable [phone] REASON FOR VISIT rs appt 11/25 Encounters Encounter Location Date Provider Diagnosis [address] [address] 11/22/2023 Shanelle Garcia Plan Of Treatment Next Appt Details Provider Name:Shanelle Garcia , 06/12/2024 11:30:00 AM, [address] [place], [address], Progress Notes * Nancy LAZOoDOB:[birth year] (73 yo M)Acc No.[id number]:11/22/2023 Patient:?Noman Lazo :1950???Age:73 Y???Sex:Male Address: [place], [address] * true * Date:? Generated for Cristopheri ivonne/Safia/eTransmitting on:?04/16/2024 08:52 AM EST
--- OUTSIDE RECORDS SUMMARY | 2024-04-16 08:52 | XMS_ITS | Patient Health Record ---
Author Organization [facility] [place] Address [address] [facility] [place] [address] Care Team Providers Care Pony Worker Name Role Phone Dayana Mccurdy Primary Care Provider Unavailabl e Black, Shanelle Unavailable [phone] Allergies No Known Allergies Results Component Value Reference Range Notes HEMOGLOBIN A1C (GLYCOHEMOGLO BIN) Reviewed date:12/13/2023 11:28:27 AM Interpretation: Performing Lab: Notes/Report: TOTAL HEMOGLOBIN (HGBA1C) 6.3 Reason For Referral No Information Medications Medication SIG (Take, Route, Frequency, Duration) Notes Start Date End Date Status Ipratropium [place] 0.03 % 2 sprays in each nostril [...] Once a day for 30 days Active [place]-3 Fatty Acids 1000 MG 1 capsule Orally [...] primary osteoarthritis of the ankle and/or foot (558414714) Primary osteoarthritis, left ankle and foot (M19.072) Active confirmed Problem Acquired hallux valgus (02844947) Hallux valgus (acquired), right foot (M20.11) Active confirmed Problem Acquired hammer toe of right foot (3921294642636999 ) Other hammer toe(s) (acquired), right foot (M20.41) Active confirmed Problem Acquired hammer toe of left foot (5752580707858478 ) Other hammer toe(s) (acquired), left foot (M20.42) Active confirmed Problem Polyneuropathy due to type 2 diabetes mellitus (558527391) Type 2 diabetes mellitus with diabetic polyneuropathy (E11.42) Active confirmed Problem 62380228 Smoker (F17.200) Active confirmed Problem Neuropathic ulce r of right foot with fat layer exposed (L97.512) Active confirmed Problem Neuropathic ulcer of right foot (disorder) (3215264029238043 2) Neuropathic ulcer of right foot, limited to breakdown of skin (L97.511) Active confirmed Vital Signs Height 5ft9in in 12/13/2023 Weight 198 lbs 12/13/2023 BMI 29.24 kg/m2 12/13/2023 Procedures Procedure Date Ordered Date Performed Result Body Sit e 60555-MXXAUJK NAIL, 1-5 05/10/2023 N/A 40551-UAWO SKIN LESIONS, 2 TO 4 05/10/2023 N/A Q3247-LBTPZPWN DYSTROPHIC NAILS ANY # 05/10/2023 N/A 05499-VEMLQYA NAIL, 1-5 12/13/2023 N/A 01359-LZDC SKIN LESIONS, 2 TO 4 12/13/2023 N/A P0427-YYFCZMWG DYSTROPHIC NAILS ANY # 12/13/2023 N/A Encounters Encounter Location Date Provider Diagnosis [facility] [address] [address] 05/10/2023 Shanelle Black Type 2 diabetes mellitus with diabetic polyneuropathy E11.42 ; Hallux valgus (acquired), right foot M20.11 ; Tinea unguium B35.1 ; Bursitis of right foot M77.51 and Smoker F17.[address] [facility] [address] [address] 12/13/2023 Shanelle Black Tinea unguium B35.1 ; Type 2 diabetes mellitus with diabetic polyneuropathy E11.42 and Smoker F17.[address] [facility] [address] 05/02/2023 Shanelleifrah Garcia [facility] [address] 05/10/2023 Shanelleifrah Garcia [facility] [address] 09/04/2023 Shanelleifrah Garcia [facility] [address] [address] 11/22/2023 Shanelle Garcia [facility] Encounter Date Diagnosis (ICD Code) Assessment Notes [...] X ray : Foot, left 3V 03/02/2022 50779-KNEYVPK NAIL, 1-5 11/14/2021 00077-CFSMUEQ NAIL, 1-5 03/02/2022 28822-CPNNJOQ NAIL, 1-5 09/25/2022 89899-IMTMQEZ NAIL, 1-5 05/10/2023 23118-HRUPFSW NAIL, 1-5 12/13/2023 76828- Debride <25 sq cm 09/25/2022 84176-DPSR SKIN LESIONS, 2 TO 4 09/26/19 06749-MQUR SKIN LESIONS, 2 TO 4 03/02/19 23 28011-MEUE SKIN LESIONS, 2 TO 4 12/13/19 30215-BQMP SKIN LESIONS, 2 TO 4 05/10/19 57351-OBHV SKIN LESIONS, 2 TO 4 11/15/19 T1569-RRSJYFER DYSTROPHIC NAILS ANY # G3383-UWGTAXNX DYSTROPHIC NAILS ANY # Next Appt Details Provider Name:Shanelle Garcia , 06/12/2024 11:30:00 AM, [address] [place], [address], Insurance Providers Payer Name Payer Address Payer Phone Subscriber Number Group Number Insured Name Patient Relationship to Insured Coverage Start Date Coverage End Date [facility] [employer] Claims [address] [place] [id number] Noman Pope ra Self - patient is the insured [facility] [address] [place] [address] [id number] Noman Pope ra Self - patient is the insured [employer] [address] [place] [address] [id number] Noman Pope ra Self - patient [...]
--- OUTSIDE RECORDS SUMMARY | 2024-04-16 08:52 | XMS_ITS | Clinical Summary ---
Author Organization [employer] Address [address] [facility] [address] [place] [address] Care Team Providers Care Patient Accounts Clerk Name Role Phone Unavailable Primary Care Provider [...] Relevant to Health Maintenance Insurance DENTAL - [facility] DENTAL DENTAL - [facility]
--- OUTSIDE RECORDS SUMMARY | 2024-04-16 08:53 | XMS_ITS ---
Author Organization [facility] Address [address] [place] [address] Care Team Providers Care Marketing Operations Consultant Name Role Phone Dayana Mccurdy Primary Care Provider Unavailabl e Black, Shanelle Unavailable [phone] Allergies No Known Allergies REASON FOR VISIT Painful thick toenails which are aggrevated by shoes and causes difficulty standing/walking, At Risk Footcare Medications Medication SIG (Take, Route, Frequency, Duration) Notes Start Date End Date Status Ipratropium [place] 0.03 % 2 sprays in each nostril [...] Lidocaine 5 % as directed Externally Active [place]-3 Fatty Acids 1000 MG 1 capsule Orally [...] Ordered Date Performed Result Body Sit e 24720-UGHNAJC NAIL, 1-5 12/13/2023 N/A 20460-KYBO SKIN LESIONS, 2 TO 4 12/13/2023 N/A [id number]-[id number] DYSTROPHIC NAILS ANY # 12/13/2023 N/A Encounters Encounter Location Date Provider Diagnosis [facility] [address] [place] [address] 12/13/2023 Shanelle Black Tinea unguium B35.1 ; [...] Treatment Pending Test Test Name Order Date 29654-VHZTTLY NAIL, 1-5 12/13/2023 62674-OZTC SKIN LESIONS, 2 TO 4 12/13/19 Z8072-SXLMGXCS DYSTROPHIC NAILS ANY # Next Appt Details Follow Up: 4 Months, Reason: Provider Name:Shanelle Garcia , 06/12/2024 11:30:00 AM, [address] [place] [address], [phone], Procedure Notes * Category Sub-Category Detail Notes Keratoma Treatment Parring or Cutting o f Benign Hyperkeratotic Lesion(s) 01814 (2-4 Lesions) - The Benign hyperkeratotic lesions, [...] use of a nail nipper and/or dremel-type rail grinder, to a more viable healthy nail plate or bed tissue 1-5. Silver nitrate used for any petechial bleeding as necessary. Definitive antifungal treatment options have been reviewed and discussed with the patient. The patient chooses, no pharmaceutical tx - 54597 Nail Reduction Nail Reduction Trimming of dyst rophic nails performed to reduce/remove overall nail length and girth, by manual and electrical means with use of a nail nipper and/or dremel, to more viable healthy nail plate or bed tissue 6-10 (G0127) Progress Notes * Aurora LAZOOB:[birth year] (73 yo M)Acc No.[id number]:12/13/2023 Progress Note Patient:?Noman Lazo Provider:?Shanelle Garcia DPM :1950???Age:73 Y???Sex:Male Lakhwinder e:12/13/2023 [address] [facility] Pcp:Dayana Mccurdy Subjective: * Chief Complaints: * [...] walking. ?Living with: Fiance. ?Occupation: Retired from [employer]. * Medications:?TakingAtorvasta tin Calcium 20 MG Tablet [...] milk as needed Orally every 8 hrsIpratropium [place] 0.03 % Solution 2 sprays in each [...] as needed Orally every 8 hrsTaking Ipratropium [place] 0.03 % Solution 2 sprays in each nostril Nasally Twice a dayTaking Levothyroxine Sodium 75 MCG Tablet 1 tablet in the morning on an empty stomach Orally Once a dayTaking Lidocaine 5 % Patch as directed Externally Taking Losartan Potassium 100 MG Tablet 1 tablet Orally Once a dayTaking metFORMIN HCl 500 MG Tablet 1 tablet with a meal Orally Once a dayTaking [place]-3 Fatty Acids 1000 MG Capsule 1 capsule [...] 6.3 * Examination: ???Ophthalmology Referral: ?DIABETES EYE EXAM?Procedure Performed:?Yes ?Diabetic Retinopathy Screening:?No ?Findings of Diabetic Eye Exam:?no retinopathy?Nails: ?NAILS are:?Elongated, overgrown, dystrophic, lytic, greater than 3mm thick, discolored and friable with crumbly malodorous subungual debris, with dull to no pain on palpation due to neuropathy, TA, T5 green discoloration to TA remaining nails are elongated, overgrown, dystrophic.?Vascular: ?DP PULSES(B):?2/4, B/L.?PT PULSES(B):?02/22, B/L.?CAPILLARY FILL TIME:?immediate, all digits, B/L.?TROPHIC CONDITION-TEXTURE/ELASTICITY/TURGOR/HAIR [...] - F17.200? Plan: * Treatment: 2.?Tinea unguium?Procedure: 99295-OEBHHNZ NAIL, 1-5 * Procedures:?Debride Nails 1-5:?Procedure:?Performance of this nail treatment by a nonprofessional would put this patients foot and overall health at risk. Therefore, nail debridement was performed extensively to reduce/remove overall nail length, girth, thickness, subungual debris, and necrotic tissue, by manual and/or electrical means through the use of a nail nipper and/or dremel-type rail grinder, to a more viable healthy nail plate or bed tissue 1-5. Silver nitrate used for any petechial bleeding as necessary. Definitive antifungal treatment options have been reviewed and discussed with the patient. The patient chooses, no pharmaceutical tx - 42194.?Keratoma Treatment:?Parring or Cutting of Benign Hyperkeratotic Lesion(s)?88045 (2-4 Lesions) - The Benign hyperkeratotic lesions, as described above were pared, and/or cut utilizing a sterile #15 blade, tissue nippers, and/or dremel.?Nail Reduction:?Nail Reduction?Trimming of dystrophic nails performed to reduce/remove overall nail length and girth, by manual and electrical means with use of a nail nipper and/or dremel, to more viable healthy nail plate or bed tissue 6-10 (G0127).? * Procedure Codes:?00277 DEBRI DE NAIL, 1-5, Modifiers: XS G0127 TRIMMING DYSTROPHIC NAILS ANY #, Modifiers: XS 54935 TRIM SKIN LESIONS, 2 TO 4, Modifiers: XS * Preventive Medicine:? ??Counseling:?Tobacco use:?Type of Tobacco Use Cessation Counseling provided?Smoking cessation education ?Patient counseled on the dangers of smoking and urged to quit:?12/13/2023 * Follow Up:?4 Months * Images: * Sign off status: Completed true * Provider:?ACE MorenoM Date:?2023 Generated for Jesusita coronado/Safia/eTransmitting on:?04/16/2024 08:52 AM EST History and Physical Notes * [...]
--- OUTSIDE RECORDS SUMMARY | 2024-04-16 08:53 | XMS_ITS | Clinical Summary ---
Author Organization [facility] Address [address] [place] [address] Care Team Providers Care Ultrasound Tech Name Role Phone Unavailable Primary Care Provider [...]
--- OUTSIDE RECORDS SUMMARY | 2024-04-16 08:53 | XMS_ITS ---
Author Organization [facility] Address [address] [place] [phone] Care Team Providers Care Online Advertising Manager Name Role Phone Dayana Mccurdy Primary Care Provider Shanelle Camp [phone] Encounters Encounter Location Date Provider Diagnosis [address] [address] 11/26/2023 Shanelle Garcia Plan Of Treatment Next Appt Details Provider Name:Shanelle Garcia , 06/12/2024 11:30:00 AM, [address] [place] [address], [phone], Progress Notes * Nancy LAZOoDOB:[birth year] (74 yo M)Acc No.[id number]:11/26/2023 Progress Note Patient:?Noman LAZO Provider:?Shanelle Garcia DPM :1950???Age:73 Y???Sex:Male Lakhwinder e:11/26/2023 Address[address] [id number] Pcp:Dayana Mccurdy Subjective: * Chief Complaints: * ??? * Medical History:? Objective: * Vitals:? Assessment: Plan: * Treatment: * Images: * The named appointment provid er may or may not be the originator of this progress note, and it is not deemed complete until electronically signed by the appointment provider. Sign off status: Pending * Provider:?Shanelle Garcia DPM Date:?2023 Generated for Jesusita coronado/Safia/Mimi on:?04/16/2024 08:52 AM EST
[2024-04-16 13:17] VITALS: BMI 29.4
== END 2024-04-16 08:50 | disposition home or self-care (01) ==
PROVIDERS: PCP Internal Medicine; Visit Provider Dietitian, Registered
DX: E11.65 Type 2 diabetes mellitus with hyperglycemia (principal)

== ENCOUNTER → 2024-04-16 08:22 | Outpatient (BNVA) | payer BC, SELFPAY | PROVIDERS: PCP Internal Medicine; Visit Provider Dietitian, Registered | DX: E11.65 Type 2 diabetes mellitus with hyperglycemia (principal); Z71.3 Dietary counseling and surveillance | CPT/HCPCS: 97803 ==

== ENCOUNTER 2024-04-24 10:20 | Outpatient (AMB) | payer BC, SELFPAY ==
[2024-04-24 10:26] VITALS: BP 122/70; PULSE 62; TEMP 36.2; O2SAT 95; BMI 29.2
--- NOTE | 2024-04-24 10:26 | A.OFFPC_ITS ---
Vital Signs 04/24/24 10:26 Height 5 ft 9 in Weight 198 lb BMI 29.2 BP 122/70 Pulse 62 Pulse Source Pulse Oximeter Temp 97.1 F Pulse Oximetry (%) 95 Oxygen Delivery Method Room Air Intake Visit Reasons: 04/15 [facility] Chronic rh[facility] Procurement Professional Logistics Required: No Accompanied by: Self / Same As Patient Allergies No Known Allergies [No Known Allergies*] Allergy (Verified 04/24/24 10:52) Medication List - Last Reconciled 04/24/24 by Silvia Tai PA-C atorvastatin 20 mg PO DAILY 90 days [AUTO PAP 6-16 mm H20 humidified AIR As directed] blood sugar diagnostic (CareSens N Test Strips) As directed blood sugar diagnostic (FreeStyle Lite Strips) USE TO CHECK BLOOD SUGAR FOUR TIMES DAILY blood-glucose meter (FreeStyle Lite Meter kit) As directed tests 4 X/day cinnamon bark 1,000 mg PO DAILY fexofenadine 180 mg PO DAILY fluticasone propionate 50 mcg/actuation (Flonase Allergy Relief) 2 sprays intranasal DAILY PRN 90 days gabapentin 300 mg PO BID ibuprofen 800 mg PO BID lancets (FreeStyle Lancets) As directed tests 4X/day levothyroxine (Synthroid) 75 mcg PO DAILY 90 days losartan 100 mg PO DAILY lubiprostone (Amitiza) 8 mcg PO BID metformin 500 mg PO BID 90 days ltnbfzrsethu-ynewyhil-zfhbtm (Multivitamin 50 Plus tablet) 1 tab PO DAILY omega-3 acid ethyl esters PO DAILY omeprazole 20 mg PO DAILY oxymetazoline 0.05% (Afrin (oxymetazoline)) 2 sprays intranasal Q12H PRN propranolol 10 mg PO BID sennosides-docusate sodium 8.6-50 mg (Senna Plus) 1 tab-cap PO BID PRN 90 days tadalafil 10 mg PO DAILY 90 days tadalafil 20 mg PO ONCE PRN 30 days terazosin 2 mg PO BEDTIME 90 days trolamine salicylate 10% (Aspercreme) 1 appl topical BEDTIME PRN Tobacco use date assessed: 04/24/24 Fall risk assessment: No Falls in past year Dental Screening Dental Screen Date: 04/24/24 Did you have a dental visit in the last 12 months?: Yes Did you have a dental problem in the last 6 months where you did not have access to dental care?: No HPI 04/15 [facility] Chronic rhinitis HPI Details 74-year-old male with past medical histo ry of diabetes mellitus, hypercholesterolemia, hypothyroid, hypertension, hypogonadism and generalized anxiety disorder last seen 03/[address] Mccurdy coming in for hospital discharge follow up.? In review of the notes, patient was seen in [facility] ED 04/15/2024 for nasal congestion x3 months patient was given amoxicillin and advised to follow up with PCP to consider possible ENT referral. Presenting with ongoing sinus issues. A CT scan in February identified a deviated nasal septum and sinus mucosal thickening. Initial amoxicillin treatment ameliorated symptoms but congestion persists, which is sometimes manageable with saline spray and Flonase. Using Afrin led to rebound congestion, hence limited to short-term use. Denies fever, cough, or chest pain, confirming some difficulty with CPAP usage due to persistent nasal congestion. [facility] Medical History Type 2 diabetes mellitus with hyperglycemia Diabetic neuropathy Tubular adenoma of colon Nicotine dependence, cigarettes, uncomplicated Positive PPD Obstructive sleep apnea Foot pain, left Overweight (BMI 25.0-29.9) Obesity (BMI 30-39.9) Thyroid nodule Vertebral fracture Pulmonary nodule Osteoarthritis GERD (gastroesophageal reflux disease) Erectile dysfunction Hypothyroid Hypertension Hypercholesterolemia Surgical History History of back surgery History of colonoscopy History of arthroscopy of right knee History of appendectomy History of tonsillectomy Family History Father Medical history unknown Mother Diabetes Past heart attack Brother Prostate cancer Social History Housing: House Alcohol intake: current Alcohol intake frequency: holidays/special occasions only Comment: QD 2 drinksstopped 12/2023 but last night ( 03/2024) 4 beers, Patient Tobacco Use Status: Current everyday Tobacco user Tobacco use type: Cigarette Cigarettes Per Day: 15 Years Smoked: (onset 17yo, 3/4ppd x 56yrs, 40pyh) Packs per year/per ci.00 e-Cigarette/Vaping Use: Never Used Second Hand Smoke Exposure: No service: No Current occupational status: disabled Cognitive needs: No Hearing needs: No Vision needs: Yes Questionnaire PHQ-9 Over the last 2 weeks, how often have you been bothered by any of the following problems? 1. Little interest or pleasure in doing things: not at all 2. Feeling down, depressed, or hopeless: not at all 3. Trouble falling or staying asleep, or sleeping too much: not at all 4. Feeling tired or having little energy: not at all 5. Poor appetite or overeating: not at all 6. Feeling bad about yourself - or that you are a failure or have let yourself or your family down: not at all 7. Trouble concentrating on things, such as reading the newspaper or watching television: not at all 8. Moving or speaking so slowly that other people could have noticed. Or the opposite - being so fidgety or restless that you have been moving around a lot more than usual: not at all 9. Thoughts that you would be better off or of hurting yourself in some way: not at all Total score: 0 Source: Developed by Drs. Remy Jacobsen, Lucita Morrissey, Jaskaran Mitchell and colleagues, with an educational maurilio from [employer]. Thrive Questionnaire Date Thrive assessed: 04/24/24 I am a: Patient What is your living situation today?: I have a steady place to live Within the past 12 months, did the food you bought not last and you didn't have the money to get more?: Never true Within the past 12 months, did you worry whether your food would run out before you got money to buy more?: Never true Do you have trouble paying for medicines?: No Do you have trouble getting transportation to medical appointments?: No Do you have trouble paying your heating and electricity bill?: No Do you have trouble taking care of your child, family member or friend?: No Do you have trouble with day-to-day activities such as bathing, preparing meals, shopping, managing finances, etc.?: No Are you currently unemployed and looking for a job?: No Are you interested in more education?: No THRIVE Score: 0 AUDIT C Alcohol Use Questionnaire (AUDIT-C) 1. How often do you have a drink containing alcohol?: 4 or more times a week 2. How many drinks containing alcohol do you have on a typical day when you are drinking?: 1 or 2 3. How often do you have six or more drinks on one occasion?: Daily or almost daily Total Score: 8 JI-7 AMB Questionnaire JI-7 Date JI - 7 assessed: 04/24/24 Feeling nervous, anxious, or on edge: 0 = Not at all Not being able to stop or control worryin = Not at all Worrying too much about different things: 0 = Not at all Trouble relaxin = Not at all Being so restless that it is hard to sit still: 0 = Not at all Becoming easily annoyed or irritable: 0 = Not at all Feeling afraid as if something awful might happen: 0 = Not at all Total JI-7 score (0-4 normal; 5-9 mild; 10-14 moderate; 15-21 severe): 0 Source: Developed by Drs. Remy Jacobsen, Lucita Morrissey, Jaskaran Mitchell and colleagues, with an educational maurilio from [employer]. Review of Systems Const Denies body aches, Denies chills, Denies fever(s), Denies headache(s) and Denies poor appetite Eyes Reports no additional complaints ENT Denies dysphagia, Denies dizziness, Denies headache(s) and Denies odynophagia Card Denies chest pain, Denies syncope, Denies edema, Denies irregular heart rhythm, Denies lightheadedness and Denies dyspnea Resp Denies cough and Denies dyspnea GI Denies abdominal pain, Denies constipation, Denies dysphagia, Denies diarrhea, Denies nausea, Denies odynophagia and Denies vomiting Reports no additional complaints Musc Reports no additional complaints and Denies abnormal gait Skin/Breast Reports system reviewed and no additional complaints, except as documented Neuro Denies abnormal gait, Denies dizziness, Denies syncope and Denies headache(s) Psych Reports no additional complaints Physical exam (Primary Care) Vital Signs: Last Vital Signs Temp 97.1 F 04/24/24 10:26 Pulse 62 04/24/24 10:26 BP 122/70 04/24/24 10:26 Pulse Ox 95 04/24/24 10:26 Oxygen Delivery Method Room Air 04/24/24 10:26 BMI result Body Mass Index 29.2 Tobacco/Smoking Status: Tobacco use Status Tobacco use date assessed 04/24/24 04/24/24 10:36 Patient Tobacco Use Status Current everyday Tobacco 04/24/24 10:36 Tobacco use type Cigarette 04/24/24 10:36 e-Cigarette/Vaping Use Never Used 04/24/24 10:36 PHQ-9: PHQ-9 Score PHQ-9: Total score 0 04/24/24 10:50 Thrive Assessment: Date of Thrive Assessment Date Thrive assessed 04/24/24 04/24/24 10:36 Const General: cooperative, healthy appearing, comfortable and no acute distress Orientation/consciousness: patient oriented x3 HENMT Head: Yes normocephalic Ears: hearing grossly normal bilaterally General nose exam: Normal external nose present Eyes General: appearance normal, both eyes and all related structures Conjunctivae: conjunctivae normal Neck Neck: Yes full ROM and Yes no lymphadenopathy Resp Effort & Inspection: normal respiratory effort Auscultation: clear to auscultation bilaterally, no crackles, no rales, no rhonchi and no wheezes Cardio Rate: regular rate Rhythm: regular rhythm Skin General skin exam: no rashes or lesions noted Neuro General: patient oriented x3 Gait exam (Neuro): Normal gait present Extrem General: Yes normal to inspection, Yes full ROM and No edema Psych Affect: normal affect Attitude: cooperative Insight: Good insight present (Psych) Judgement: Good judgement present (Psych) Coding Level of Care Code Est Pt Level 3 (50886) Diagnoses Acute non-recurrent maxillary sinusitis J01.00 Chronicity: acute Recurrence: non-recurrent Sinusitis location: maxillary Essential hypertension I10 Hypertension type: essential hypertension Type 2 diabetes mellitus with hyperglycemia, without long-term current use of insulin E11.65 Diabetes mellitus rat exterminator insulin use: without rat exterminator use Gastroesophageal reflux disease without esophagitis K21.9 Esophagitis presence: without esophagitis Assessment & Plan Assessment & Plan (1) Sinusitis: Code(s): J32.9 - Chronic sinusitis, unspecified Category: Medical Qualifiers: Chronicity: acute Recurrence: non-recurrent Sinusitis location: maxillary Qualified Code(s): J01.00 - Acute maxillary sinusitis, unspecified Plan: For the patient?s ongoing management of sinusitis and nasal congestion, I recommend continued use of Flonase nasal spray and reduced reliance on Afrin. Plan to facilitate coordination with an ENT specialist to evaluate potential surgical correction of the deviated septum. I plan to initiate an antihistamine such as Zyrtec to alleviate possible allergic symptoms contributing to sinus issues. (2) Hypertension: Code(s): I10 - Essential (primary) hypertension Category: Medical Qualifiers: Hypertension type: essential hypertension Qualified Code(s): I10 - Essential (primary) hypertension Plan: Continue on current blood pressure medication. Avoid salt intake and encourage healthy diet and regular exercise. (3) Type 2 diabetes mellitus with hyperglycemia: Code(s): E11.65 - Type 2 diabetes mellitus with hyperglycemia Category: Medical Qualifiers: Diabetes mellitus shelter insulin use: without shelter use Qualified Code(s): E11.65 - Type 2 diabetes mellitus with hyperglycemia Plan: Decrease the amount of carbohydrates such as pasta, bread, rice, and potatoes and limit the amount of sweets. Although fruits are generally healthy they should be eaten in moderation as they are still high in sugar. Hemoglobin A1c goal of less than 7% (4) GERD (gastroesophageal reflux disease): Code(s): K21.9 - Gastro-esophageal reflux disease without esophagitis Category: Medical Qualifiers: Esophagitis presence: without esophagitis Qualified Code(s): K21.9 - Gastro-esophageal reflux disease without esophagitis Plan: Avoid trigger foods such as citrus, tomato products, soda, caffeine, spicy foods and other foods that may be irritating to your stomach. Avoid laying flat 3-4 hours after eating and elevate the head of the bed 30 degrees to prevent acid from moving into the esophagus. Plan This note was constructed using voice recognition software. While every effort has been made to ensure accuracy and flight follower, still areas may have been included sometimes these areas may affect the content or meeting of the given symptoms. Total time spent caring for the patient today was 20 minutes. This includes time spent before the visit reviewing the chart, time spent during the visit, and time spent after the visit and documentation. Patient was informed and verbally consented to the use of an ambient scribe for clinic note documentation during this visit. Medications: New cetirizine (Allergy Relief (cetirizine)) 10 mg PO DAILY 90 tabs 1RF Discontinued fexofenadine Discontinued Reason: Patient no longer taking 180 mg PO DAILY 90 tabs 3RF
--- OUTSIDE RECORDS SUMMARY | 2024-04-24 12:12 | XMS_ITS ---
Author Organization [facility] Address [address] [facility] [place] [address] Care Team Providers Care Customer Service Consultant Name Role Phone Dayana Mccurdy Primary Care Provider Unavailabl e Black, Shanelle Unavailable [phone] Allergies No Known Allergies REASON FOR VISIT Painful thick toenails which are aggrevated by shoes and causes difficulty standing/walking, At Risk Footcare Medications Medication SIG (Take, Route, Frequency, Duration) Notes Start Date End Date Status Ipratropium [place] 0.03 % 2 sprays in each nostril [...] Lidocaine 5 % as directed Externally Active [place]-3 Fatty Acids 1000 MG 1 capsule Orally [...] Ordered Date Performed Result Body Sit e 21543-UVZCOFV NAIL, 1-5 12/13/2023 N/A 98352-TKQS SKIN LESIONS, 2 TO 4 12/13/2023 N/A M0384-YZCBGJEG DYSTROPHIC NAILS ANY # 12/13/2023 N/A Encounters Encounter Location Date Provider Diagnosis [facility] [place] [address] [place] [address] 12/13/2023 Shanelle Black Tinea unguium B35.1 ; [...] Treatment Pending Test Test Name Order Date 48377-PGRWBYA NAIL, 1-5 12/13/2023 26529-UFHO SKIN LESIONS, 2 TO 4 12/13/19 Q0439-DFBGTYYD DYSTROPHIC NAILS ANY # Next Appt Details Follow Up: 4 Months, Reason: Provider Name:Shanelle Garcia , 06/12/2024 11:30:00 AM, [address] [place] [address], [phone], Procedure Notes * Category Sub-Category Detail Notes Keratoma Treatment Parring or Cutting o f Benign Hyperkeratotic Lesion(s) 56091 (2-4 Lesions) - The Benign hyperkeratotic lesions, [...] use of a nail nipper and/or dremel-type sapphire stylus grinder, to a more viable healthy nail plate or bed tissue 1-5. Silver nitrate used for any petechial bleeding as necessary. Definitive antifungal treatment options have been reviewed and discussed with the patient. The patient chooses, no pharmaceutical tx - 8[address]56 Nail Reduction Nail Reduction Trimming of dyst rophic nails performed to reduce/remove overall nail length and girth, by manual and electrical means with use of a nail nipper and/or dremel, to more viable healthy nail plate or bed tissue 6-10 (G0127) Progress Notes * Aurora LAZOOB:[birth year] (73 yo M)Acc No.[id number]:12/13/2023 Progress Note Patient:?Noman Lazo Provider:?Shanelle Garcia DPM :1950???Age:73 Y???Sex:Male Lakhwinder e:12/13/2023 Address:[address] [facility] Pcp:Dayana Mccurdy Subjective: * Chief Complaints: * [...] walking. ?Living with: Fiance. ?Occupation: Retired from [employer]. * Medications:?TakingAtorvasta tin Calcium 20 MG Tablet [...] milk as needed Orally every 8 hrsIpratropium [place] 0.03 % Solution 2 sprays in each [...] as needed Orally every 8 hrsTaking Ipratropium [place] 0.03 % Solution 2 sprays in each nostril Nasally Twice a dayTaking Levothyroxine Sodium 75 MCG Tablet 1 tablet in the morning on an empty stomach Orally Once a dayTaking Lidocaine 5 % Patch as directed Externally Taking Losartan Potassium 100 MG Tablet 1 tablet Orally Once a dayTaking metFORMIN HCl 500 MG Tablet 1 tablet with a meal Orally Once a dayTaking [place]-3 Fatty Acids 1000 MG Capsule 1 capsule [...] - F17.200? Plan: * Treatment: 2.?Tinea unguium?Procedure: 74425-XRFOBYH NAIL, 1-5 * Procedures:?Debride Nails 1-5:?Procedure:?Performance of this nail treatment by a nonprofessional would put this patients foot and overall health at risk. Therefore, nail debridement was performed extensively to reduce/remove overall nail length, girth, thickness, subungual debris, and necrotic tissue, by manual and/or electrical means through the use of a nail nipper and/or dremel-type sapphire stylus grinder, to a more viable healthy nail plate or bed tissue 1-5. Silver nitrate used for any petechial bleeding as necessary. Definitive antifungal treatment options have been reviewed and discussed with the patient. The patient chooses, no pharmaceutical tx - 86351.?Keratoma Treatment:?Parring or Cutting of Benign Hyperkeratotic Lesion(s)?39221 (2-4 Lesions) - The Benign hyperkeratotic lesions, as described above were pared, and/or cut utilizing a sterile #15 blade, tissue nippers, and/or dremel.?Nail Reduction:?Nail Reduction?Trimming of dystrophic nails performed to reduce/remove overall nail length and girth, by manual and electrical means with use of a nail nipper and/or dremel, to more viable healthy nail plate or bed tissue 6-10 (G0127).? * Procedure Codes:?36062 DEBRI DE NAIL, 1-5, Modifiers: XS G0127 TRIMMING DYSTROPHIC NAILS ANY #, Modifiers: XS 94709 TRIM SKIN LESIONS, 2 TO 4, Modifiers: XS * Preventive Medicine:? ??Counseling:?Tobacco use:?Type of Tobacco Use Cessation Counseling provided?Smoking cessation education ?Patient counseled on the dangers of smoking and urged to quit:?12/13/2023 * Follow Up:?4 Months * Images: * Sign off status: Completed true * Provider:?ACE MorenoM Date:?2023 Generated for Jesusita coronado/Safia/eTransmitting on:?04/24/2024 12:12 PM EST History and Physical Notes * HPI [...]
--- OUTSIDE RECORDS SUMMARY | 2024-04-24 12:12 | XMS_ITS | Patient Health Record ---
Author Organization [facility] [place] Address [address] [facility] [place] [address] Care Team Providers Care Rehab Director Occupational Therapist Name Role Phone Dayana Mccurdy Primary Care Provider Unavailabl e Black, Shanelle Unavailable [phone] Allergies No Known Allergies Results Component Value Reference Range Notes HEMOGLOBIN A1C (GLYCOHEMOGLO BIN) Reviewed date:12/13/2023 11:28:27 AM Interpretation: Performing Lab: Notes/Report: TOTAL HEMOGLOBIN (HGBA1C) 6.3 Reason For Referral No Information Medications Medication SIG (Take, Route, Frequency, Duration) Notes Start Date End Date Status Ipratropium [place] 0.03 % 2 sprays in each nostril [...] Once a day for 30 days Active [place]-3 Fatty Acids 1000 MG 1 capsule Orally [...] primary osteoarthritis of the ankle and/or foot (308695753) Primary osteoarthritis, left ankle and foot (M19.072) Active confirmed Problem Acquired hallux valgus (03310049) Hallux valgus (acquired), right foot (M20.11) Active confirmed Problem Acquired hammer toe of right foot (0449121196184771 ) Other hammer toe(s) (acquired), right foot (M20.41) Active confirmed Problem Acquired hammer toe of left foot (5060170791976173 ) Other hammer toe(s) (acquired), left foot (M20.42) Active confirmed Problem Polyneuropathy due to type 2 diabetes mellitus (311932648) Type 2 diabetes mellitus with diabetic polyneuropathy (E11.42) Active confirmed Problem 23546296 Smoker (F17.200) Active confirmed Problem Neuropathic ulce r of right foot with fat layer exposed (L97.512) Active confirmed Problem Neuropathic ulcer of right foot (disorder) (9113343644066940 2) Neuropathic ulcer of right foot, limited to breakdown of skin (L97.511) Active confirmed Vital Signs Height 5ft9in in 12/13/2023 Weight 198 lbs 12/13/2023 BMI 29.24 kg/m2 12/13/2023 Procedures Procedure Date Ordered Date Performed Result Body Sit e 66792-RRZANOO NAIL, 1-5 05/10/2023 N/A 93757-WUMT SKIN LESIONS, 2 TO 4 05/10/2023 N/A P1268-OIXDEKKP DYSTROPHIC NAILS ANY # 05/10/2023 N/A 59133-RTGQIJY NAIL, 1-5 12/13/2023 N/A 84262-TOJO SKIN LESIONS, 2 TO 4 12/13/2023 N/A H9607-ANJAJIEW DYSTROPHIC NAILS ANY # 12/13/2023 N/A Encounters Encounter Location Date Provider Diagnosis [facility] [address] [address] 05/10/2023 Shanelle Black Type 2 diabetes mellitus with diabetic polyneuropathy E11.42 ; Hallux valgus (acquired), right foot M20.11 ; Tinea unguium B35.1 ; Bursitis of right foot M77.51 and [facility] F17.200 [facility] [address] [address] 12/13/2023 Shanelle Black Tinea unguium B35.1 ; Type 2 diabetes mellitus with diabetic polyneuropathy E11.42 and Smoker F17.[address] [facility] [address] 05/02/2023 Shanelleifrah Garcia [facility] [address] 05/10/2023 Shanelleifrah Garcia [facility] [address] 09/04/2023 Shanelleifrah Garcia [facility] [address] [address] 11/22/2023 Shanelle Garcia [facility] Encounter Date Diagnosis (ICD Code) [...] X ray : Foot, left 3V 03/02/2022 82624-XMPLZMV NAIL, 1-5 11/14/2021 02340-UESIVLM NAIL, 1-5 03/02/2022 13506-MCPVDMS NAIL, 1-5 09/25/2022 56616-MCZPVWY NAIL, 1-5 05/10/2023 95240-ULEYDSS NAIL, 1-5 12/13/2023 04869- Debride <25 sq cm 09/25/2022 46918-JNVX SKIN LESIONS, 2 TO 4 09/26/19 13329-IVQR SKIN LESIONS, 2 TO 4 03/02/19 23 47187-PVWE SKIN LESIONS, 2 TO 4 12/13/19 37073-ISJM SKIN LESIONS, 2 TO 4 05/10/19 25178-JDYQ SKIN LESIONS, 2 TO 4 11/15/19 X0913-ICZFCUDP DYSTROPHIC NAILS ANY # M5891-AYNDCIFA DYSTROPHIC NAILS ANY # Next Appt Details Provider Name:Shanelle Garcia , 06/12/2024 11:30:00 AM, [address] [place], [address], Insurance Providers Payer Name Payer Address Payer Phone Subscriber Number Group Number Insured Name Patient Relationship to Insured Coverage Start Date Coverage End Date [facility] [employer] Claims [address] [place] [id number] Noman Pope ra Self - patient is the insured [facility] [address] [place] [address] [id number] Noman Pope ra Self - patient is the insured Aet [address] [place] [address] [id number] Noman Pope ra Self - patient [...]
--- OUTSIDE RECORDS SUMMARY | 2024-04-24 12:12 | XMS_ITS | Clinical Summary ---
Author Organization [employer] Address [address] [facility] [address] [place] [address] Care Team Providers Care Metal Bonder Name Role Phone Unavailable Primary Care Provider [...] Relevant to Health Maintenance Insurance DENTAL - [facility] D[facility] DENTAL - [facility] [place]
--- OUTSIDE RECORDS SUMMARY | 2024-04-24 12:12 | XMS_ITS ---
Author Organization [facility] Address [address] [place] [address] Care Team Providers Care Poultry Trimmer Name Role Phone Dayana Mccurdy Primary Care Provider Unavailabl e Shanelle Garcia Unavailable [phone] REASON FOR VISIT rs appt 11/25 Encounters Encounter Location Date Provider Diagnosis [address] [address] 11/22/2023 Shanelle Garcia Plan Of Treatment Next Appt Details Provider Name:Shanelle Garcia , 06/12/2024 11:30:00 AM, [address] [place], [address], Progress Notes * Nancy LAZOoDOB:[birth year] (73 yo M)Acc No.[id number]:11/22/2023 Patient:?Noman Lazo :1950???Age:73 Y???Sex:Male Address: [place], [address] * true * Date:? Generated for Cristopheri ivonne/Safia/eTransmitting on:?04/24/2024 12:12 PM EST
--- OUTSIDE RECORDS SUMMARY | 2024-04-24 12:12 | XMS_ITS | Clinical Summary ---
Author Organization [facility] Address [address] [place] [address] Care Team Providers Care Manufacturing Production Manager Name Role Phone Unavailable Primary Care Provider [...]
--- OUTSIDE RECORDS SUMMARY | 2024-04-24 12:13 | XMS_ITS ---
[facility] Address [address] [place] [address] Care Team Providers Care Blowing Weasand Name Role Phone Dayana Mccurdy Primary Care Provider Shanelle Camp [phone] Encounters Encounter Location Date Provider Diagnosis [address] [address] 11/26/2023 Shanelle Garcia Plan Of Treatment Next Appt Details Provider Name:Shanelle Garcia , 06/12/2024 11:30:00 AM, [address] [place] [address], [address], Progress Notes * Nancy LAZOoDOB:[birth year] (74 yo M)Acc No.[id number]:11/26/2023 Progress Note Patient:?Noman LAZO Provider:?Shanelle Garcia DPM :1950???Age:73 Y???Sex:Male Lakhwinder e:11/26/2023 Address:[address] [place] Pcp:Dayana Mccurdy Subjective: * Chief Complaints: * ??? * Medical History:? Objective: * Vitals:? Assessment: Plan: * Treatment: * Images: * The named appointment provid er may or may not be the originator of this progress note, and it is not deemed complete until electronically signed by the appointment provider. Sign off status: Pending * Provider:Pam Garcia DPM Date:?2023 Generated for Jesusita coronado/Safia/Mimi on:?04/24/2024 12:12 PM EST
== END 2024-04-24 11:09 | disposition home or self-care (01) ==
PROVIDERS: PCP Internal Medicine
DX: J01.00 Acute maxillary sinusitis, unspecified (principal); I10 Essential (primary) hypertension; E11.65 Type 2 diabetes mellitus with hyperglycemia; K21.9 Gastro-esophageal reflux disease without esophagitis

== ENCOUNTER 2024-05-07 08:10 | Emergency (ER) | payer MEDICARE, BC, SELFPAY ==
--- NOTE | ~2024-05-07 | CT_ITS ---
EXAMINATION: CT ABDOMEN AND PELVIS WITH CONTRAST CLINICAL INFORMATION: Abdominal pain. COMPARISON: None available. TECHNIQUE: Multidetector volumetric images were obtained from the superior aspect of the liver through the pubic symphysis following administration 85 mL of Omnipaque 350 intravenous contrast. Sagittal and coronal reformatted images were obtained on the technologist's workstation. Oral contrast: No This CT examination was performed using dose optimization techniques as appropriate, variously including the following: *Automated exposure control *Adjustment of mA and/or kV according to patient size (this includes techniques or standardized protocols for targeted exams where dose is matched to indication/reason for exam; i.e. extremities or head) *Use of iterative reconstruction technique. DLP: 619 mGy centimeter. FINDINGS: Limited by patient's motion and breathing artifact. LUNG BASES: No acute airspace disease. LIVER, GALLBLADDER, AND BILIARY TREE: Liver measures 16 cm. No focal mass. Decreased enhancement pattern. Portal veins, hepatic veins and intrahepatic portion of the IVC are patent. No intrahepatic biliary ductal dilatation. No pericholecystic fluid collection or gallbladder wall thickening. The common bile duct measures 3 mm. PANCREAS: No focal lesion. No peripancreatic fluid collection. No main pancreatic ductal dilatation. SPLEEN: 7 cm. No focal lesion. ADRENAL GLANDS: No nodular lesions. KIDNEYS AND URETERS: Cystic lesions bilaterally the largest in the right kidney measures 3 cm at the corticomedullary junction. No gross renal mass. No hydronephrosis. BLADDER: Fluid-filled. GASTROINTESTINAL TRACT: Abundant stool throughout the large intestine. Scattered diverticula left hemicolon. Gas and fluid-filled mildly prominent small bowel loops. No intestinal obstruction pattern. No pneumatosis intestinalis. Terminal ileum appears normal. I do not see the appendix, no masses a: Edema pattern. ABDOMINAL WALL: Fat-containing umbilical hernia, small to moderate size. LYMPH NODES: There is a 4 cm in maximum dimension soft tissue attenuation beneath the right diaphragmatic crura and abutting the gastroesophageal junction and extending in the right anterior prevertebral compartment L1-2 levels. VASCULAR: Mixed plaques throughout the abdominal aorta wall and iliac arteries without aneurysm or dissection. PELVIC VISCERA: Punctate calcifications in the a normal-sized prostate gland. There is moderate amount of fluid in the left scrotal sac. OSSEOUS STRUCTURES: Status post posterior fusion L4 S1 with the transpedicular screws demonstrated lucency at the S1 level. 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 Multilevel marginal osteophyte formation and endplate sclerosis decreased intervertebral disc height and vacuum phenomenon, L1-L2 3 and L5-S1 levels. 1 cm blastic lesion right hemisacrum. Degenerative changes in the sacroiliac joints, symphysis pubis and both hips. CT/CT abdomen pelvis w IV con IMPRESSION: Fat-containing umbilical hernia. Diverticular disease, left hemicolon. Bilateral renal cysts Small hiatal hernia. 4 cm lymphadenopathy versus soft tissue mass in the right diaphragmatic retrocrural region. Loosening at the S1 screws related to the posterior L4 S1 lumbar fusion. Probable left hydrocele.. Fleischner guidelines were followed. Electronically signed by: Joseph Gamez MD 05/07/2024 11:58 AM EDT
--- NOTE | ~2024-05-07 | XR_ITS ---
EXAMINATION: XR CHEST 2 VIEWS HISTORY: cough COMPARISON: Comparison is made with the prior examination dated 02/06/2024. FINDINGS: PA and lateral views of the chest are submitted. The lungs are expanded and clear. There is no pleural effusion, pneumothorax, or pulmonary vascular congestion. The heart is normal in size. The aorta is tortuous and calcified. There is degenerative disc disease of the spine. XR/XR chest 2V IMPRESSION: No acute cardiopulmonary abnormality. Electronically signed by: Remy Lanza MD 05/07/2024 09:40 AM EDT
[2024-05-07 08:18] VITALS: BP 127/79; PULSE 66; RESP 18; TEMP 36.4; O2SAT 97; BMI 30.5
--- NOTE | 2024-05-07 09:01 | ED.URI ---
HPI - URI/Sore Throat General Chief Complaint: Upper Respiratory Symptoms Stated Complaint: Cough, wheezing, abd pain Time Seen by Provider: 05/07/24 09:01 Source: patient and RN notes reviewed Mode of arrival: ambulatory Limitations: no limitations History of Present Illness ED Provider: Anu Barrientos PA-C HPI Narrative: This is a 74-year-old male, with a past medical history of diabetes, LUIS, obesity, GERD, hypothyroidism, hypertension, hyperlipidemia, who presents emergency department with concerns for productive cough with yellow phlegm since Sunday. He also endorses abdominal pain with cough. Wheezing at night. He denies any known sick contacts. He has had ongoing sinus issues that of which she was seen on April 15, 2024 for, and has follow-up with ENT in May. Patient reports that he has also had abdominal pain, states that this pain is constant however worsens with coughing. He denies any chest pain or shortness of breath. Denies known history of asthma or COPD however states that he was a pack year smoker times 50 years, states that he quit 4 days ago. No known fevers, chills, nausea, vomiting or diarrhea. No urinary symptoms. He was seen by Dr. Munoz several days ago and was started on Augmentin on May 01 which he has been taking twice a day. No known sick contacts. MD elicited complaint: cough and nasal congestion Onset (ago): day(s) Consistency: constant Severity: moderate Able to tolerate fluids by mouth: No Exacerbating factors: nothing Relieving factors: nothing Associated symptoms: denies other symptoms Treatments prior to arrival: none Related Data Home Medications ?Medication ?Instructions ?Recorded ?Confirmed cinnamon bark 500 mg capsule 1,000 mg PO DAILY 09/26/22 04/24/24 omega-3 acid ethyl esters 1 gram PO DAILY 05/15/23 04/24/24 capsule oxymetazoline 0.05 % nasal mist 2 spray intranasal Q12H PRN 03/25/24 04/24/24 (Afrin (oxymetazoline)) trolamine salicylate 10 % topical 1 appl topical BEDTIME PRN 03/25/24 04/24/24 cream (Aspercreme) Previous Rx's ?Medication ?Instructions ?Recorded AUTO PAP 6-16 mm H20 humidified AIR #1 ea 05/24/20 blood sugar diagnostic (CareSens N #50 ea 05/24/21 Test Strips) blood-glucose meter (FreeStyle #1 ea 06/02/21 Lite Meter kit) lancets 28 gauge (FreeStyle #100 ea 06/02/21 Lancets) blood sugar diagnostic (FreeStyle #100 strips 08/09/21 Lite Strips) sennosides 8.6 mg-docusate sodium 1 tab-cap PO BID PRN constipation 09/26/22 50 mg capsule (Senna Plus) 90 days #180 caps aupucxrzaajv-qxptvpjw-zsthjx 1 tab PO DAILY #90 tabs 04/12/23 tablet (Multivitamin 50 Plus tablet) gabapentin 300 mg capsule 300 mg PO BID #180 caps 04/18/23 levothyroxine 75 mcg tablet 75 mcg PO DAILY 90 days #90 tabs 04/18/23 (Synthroid) losartan 100 mg tablet 100 mg PO DAILY #90 tabs 04/18/23 metformin 500 mg tablet 500 mg PO BID 90 days #180 tabs 04/18/23 omeprazole 20 mg capsule,delayed 20 mg PO DAILY #90 caps 04/18/23 release tadalafil 10 mg tablet 10 mg PO DAILY sexual activity 90 11/14/23 days #90 tabs tadalafil 20 mg tablet 20 mg PO ONCE PRN sexual activity 11/14/23 30 days #30 tabs propranolol 10 mg tablet 10 mg PO BID #180 tabs 02/06/24 lubiprostone 8 mcg capsule 8 mcg PO BID #60 caps 02/21/24 (Amitiza) atorvastatin 20 mg tablet 20 mg PO DAILY 90 days #90 tabs 02/29/24 fluticasone propionate 50 2 spray intranasal DAILY PRN Nasal 03/04/24 mcg/actuation nasal Congestion 90 days #3 ea spray,suspension (Flonase Allergy Relief) terazosin 2 mg capsule 2 mg PO BEDTIME 90 days #90 caps 03/04/24 ibuprofen 800 mg tablet 800 mg PO BID #270 tabs 04/23/24 cetirizine 10 mg tablet (Allergy 10 mg PO DAILY #90 tabs 04/24/24 Relief (cetirizine)) albuterol sulfate 90 mcg/actuation 2 inh inhalation Q6H #6.7 grams 05/07/24 aerosol inhaler benzonatate 100 mg capsule 100 mg PO TID PRN cough 7 days #21 05/07/24 caps doxycycline hyclate 100 mg capsule 100 mg PO BID 5 days #10 caps 05/07/24 Allergies Allergy/AdvReac Type Severity Reaction Status Date / Time No Known Allergies Allergy Verified 05/07/24 08:21 [No Known Allergies*] Review of Systems Review of Systems: Yes all other systems are reviewed and are negative Constitutional: Constitutional: Reports as per [facility] Past Medical History Medical History Type 2 diabetes mellitus with hyperglycemia Diabetic neuropathy Tubular adenoma of colon Nicotine dependence, cigarettes, uncomplicated Positive PPD Obstructive sleep apnea Foot pain, left Overweight (BMI 25.0-29.9) Obesity (BMI 30-39.9) Thyroid nodule Vertebral fracture Pulmonary nodule Osteoarthritis GERD (gastroesophageal reflux disease) Erectile dysfunction Hypothyroid Hypertension Hypercholesterolemia Surgical History History of back surgery History of colonoscopy History of arthroscopy of right knee History of appendectomy History of tonsillectomy Family History Family History Father Medical history unknown Mother Diabetes Past heart attack Brother Prostate cancer Social History Social History Housing: House Unable to assess alcohol history related to: Unknown Alcohol intake: current Alcohol intake frequency: 0-2 drinks per day Comment: QD 2 drinksstopped 12/2023 but last night ( 03/2024) 4 beers, Patient Tobacco Use Status: Current everyday Tobacco user Tobacco use type: Cigarette Cigarettes Per Day: 15 Years Smoked: (onset 17yo, 3/4ppd x 56yrs, 40pyh) Smoked in Last 30 Days: Yes e-Cigarette/Vaping Use: Never Used Second Hand Smoke Exposure: No Use of substances other than those prescribed or required for medical reasons: No Advance Directives: No Advance Directives Information Provided: Yes service: No Current occupational status: disabled Cognitive needs: No Hearing needs: No Vision needs: Yes Physical Exam Vital Signs: Vital Signs: Last Vital Signs Temp 97.6 F 05/07/24 08:18 Pulse 66 05/07/24 09:35 Resp 16 03/19/25 09:35 BP 127/79 05/07/24 08:18 Pulse Ox 97 05/07/24 08:18 O2 Del Method Room Air 05/07/24 08:18 BMI result Body Mass Index 30.5 Const: General: cooperative, comfortable and no acute distress Orientation/consciousness: patient oriented x3 Limitations: no limitations HEENT: Head: Yes normal to inspection, Yes normocephalic and Yes atraumatic Ears: hearing grossly normal bilaterally General nose exam: Normal external nose present Face and sinus: Yes normal facial exam Mouth: Normal oral and palatal mucosa present, oropharynx normal and moist mucous membranes Throat: Yes posterior oropharynx normal Eyes: General: appearance normal, both eyes and all related structures Eyelids: Yes eyelids normal Conjunctivae: conjunctivae normal Sclerae: sclerae normal Pupils: Equal, round and reactive pupils present EOM: EOMs intact bilaterally Neck: Neck: Yes normal visual inspection, Yes full ROM and Yes no lymphadenopathy Lymphatic: no lymphadenopathy noted Chest: Chest palpation & inspection: normal inspection of the chest Resp: Other: Diminished in the lower lung wilkes Effort & Inspection: normal respiratory effort and able to speak in complete sentences Auscultation: clear to auscultation bilaterally, no crackles, no rales, no rhonchi and no wheezes Cardio: Rate: regular rate Rhythm: regular rhythm Heart sounds: S1 normal heart sound present and S2 normal heart sound present GI: Other: Abdomen is soft with tenderness palpation in the epigastrium and right upper quadrant. No rebound or guarding Inspection: Yes normal to inspection Skin: General skin exam: no rashes or lesions noted Trauma: no lacerations or abrasions Wounds: no wounds Neuro: General: patient oriented x3 and moves all extremities Cranial nerves: Yes Equal, round and reactive pupils present Extrem: General: Yes normal to inspection Right upper extremity: normal to inspection Left upper extremity: normal to inspection Right lower extremity: normal to inspection Left lower extremity: normal to inspection Course Reevaluation(s) Reevaluation #1: CT abdomen and pelvis revealing fat containing umbilical hernia, diverticular disease, bilateral renal cyst, small hiatal hernia, and a 4 cm lymphadenopathy versus soft tissue mass in the right diaphragmatic retrocrural region, there is also loosening of the S1 screws related to the posterior L4-S1 lumbar fusion. Probable left hydrocele. I discussed all these findings with patient. No acute findings. Abdominal pain is likely secondary to muscle aches due to excessive coughing. Patient is already on Augmentin. Will add doxycycline to treat for acute bronchitis. He was out of the window for Tamiflu as symptoms have been ongoing since Sunday. Discussed strict return precautions. He understands and agrees with plan. Patient stable for discharge. Time: 12:07 Reevaluation #2: Patient does report that his symptoms improved after receiving the updraft. Will provide him with an inhaler and spacer. His lungs have been clear however slightly diminished. He has a history of diabetes therefore hold off on prednisone dosing. Time: 12:19 Medications Administered Discontinued Medications Generic Name Dose Route Start Last Admin Trade Name Freq PRN Reason Stop Dose Admin Albuterol Sulfate 2.5 mg/ 0 mg 05/07/24 09:30 05/07/24 09:35 Albuterol/Ipratropium 3 ml INHALE 05/07/24 09:31 5 dose ONCE ONE Administration Iohexol 100 ml 05/07/24 11:29 05/07/24 11:29 Iohexol 350 Mg/Ml 100 Ml Infus..Btl IV 05/07/24 11:30 85 ml ONCE ONE Administration Medical Decision Making Medical Decision Making [facility] Narrative: This is a 74-year-old male, with a past medical history of diabetes, LUIS, obesity, GERD, hypothyroidism, hypertension, hyperlipidemia, who presents emergency department with complaints of productive cough with yellow-colored sputum since Sunday with associated abdominal pain. On arrival, vital signs within normal limits. He is speaking in full sentences under no acute distress. Abdomen is soft with tenderness palpation in the epigastrium and right upper quadrant as well as in the periumbilical region. Differential diagnoses include viral URI, COVID, flu, pneumonia, COPD exacerbation, acute bronchitis, SBO, gastritis, gastroenteritis, cholecystitis, cholelithiasis. Plan: Labs, EKG, chest x-ray, abdominal imaging Differential Diagnosis Differential Diagnoses: The differential diagnosis associated with the presentation includes See above Admission/Observation Consideration of admission/observation: Escalation of care including admission/observation considered Lab Data [facility] Lab Attestation statement: I reviewed the patient's lab results. No leukocytosis, H&H revealing a microcytic anemia 13.2/37.4, chemistry with no significant electrolyte derangement. AST slightly elevated at 45. Troponin 3.3, no need for repeat. Patient tested positive for influenza A. 03/19/25 09:39 05/07/24 09:39 Labs: Lab Results 05/07/24 05/07/24 05/07/24 Range/Units 08:30 09:39 11:47 WBC 7.1 (4.8-10.8) X10*3/uL RBC 4.41 L (4.60-5.80) X10*6/uL Hgb 13.2 L (14.0-18.0) g/dl Hct 37.4 L (42.0-52.0) % MCV 84.8 (80.0-98.0) fL MCH 29.9 (27.0-33.0) pg MCHC 35.3 (31.0-36.0) g/dl RDW 12.8 (11.0-16.0) % Plt Count 149 L (160-400) X10*3/uL MPV 8.6 L (9.4-12.4) fL Immature Gran % (Auto) 0.1 (0.0-0.4) % Neut % (Auto) 66.7 (45-73) % Lymph % (Auto) 15.0 L (20-40) % Tift % (Auto) 15.0 H (2-11) % Eos % (Auto) 2.8 (0-4) % Baso % (Auto) 0.4 (0-2) % Lymph # (Auto) 1.1 L (1.2-4.9) X10*3/uL Tift # (Auto) 1.1 (0.1-1.2) X10*3/uL Eos # (Auto) 0.2 (0.0-0.4) X10*3/uL Baso # (Auto) 0.0 (0.0-0.2) X10*3/uL Abs Immat Gran (auto) 0.01 (0.00-0.03) X10*3/uL Absolute Neuts (auto) 4.7 (2.0-8.3) x10*3/uL Absolute Nucleated RBC 0.000 (0.0-0.012) X10*3/uL Nucleated RBC % (auto) 0.0 (0.0-0.2) /100WBC Sodium 138 (135-145) mmol/L Potassium 4.4 (3.3-5.1) mmol/L Chloride 112 H (96-108) mmol/L Carbon Dioxide 18 L (22-29) mmol/L Anion Gap 12 (12-20) BUN 16 (9-16) mg/dL Creatinine 0.80 (0.5-1.4) mg/dL Estim Creat Clear Calc 94.3 Estimated GFR > 60 Random Glucose 97 (60-115) mg/dL Calcium 9.0 D (8.4-10.2) mg/dL Magnesium 2.1 (1.6-2.6) mg/dL Total Bilirubin 0.3 (0.0-1.0) mg/dL Direct Bilirubin 0.1 (0.0-0.5) mg/dL AST 45 H (5-37) U/L ALT 31 (0-40) U/L Alkaline Phosphatase 64 (39-117) U/L Troponin I High Sens 3.3 (<3.5-35.0) ng/L Total Protein 7.3 (6.5-8.0) g/dL Albumin 4.0 (3.5-5.0) g/dL Lipase 40 (8-78) U/L Urine Color Yellow Urine Appearance Clear Urine pH 5.5 (5.0-9.0) Ur Specific [place] >= 1.030 H (1.005-1.025) Urine Protein Negative (Neg-Trace) mg/dL Urine Glucose (UA) Negative (Negative) mg/dL Urine Ketones Negative (Negative) mg/dL Urine Blood Negative (Negative) Urine Nitrite Negative (Negative) Ur Leukocyte Esterase Negative (Negative) Influenza Type A (PCR) POSITIVE A (Negative) Influenza Type B (PCR) NEGATIVE (Negative) RSV RNA Qual (PCR) NEGATIVE (Negative) SARS-CoV-2 RNA (RT-PCR) NEGATIVE (Negative) Independent Interpretation I performed an independent interpretation of an: EKG Interpretation: EKG normal sinus rhythm at a ventricular rate of 61 beats per minute, [place] interval 156, no ST elevation or depression. Radiology Impression Discussion of test interpretation with radiology: I have reviewed the radiologist's reading. Radiologist Impression: EXAMINATION: XR CHEST 2 VIEWS HISTORY: cough COMPARISON: Comparison is made with the prior examination dated 02/06/2024. FINDINGS: PA and lateral views of the chest are submitted. The lungs are expanded and clear. There is no pleural effusion, pneumothorax, or pulmonary vascular congestion. The heart is normal in size. The aorta is tortuous and calcified. There is degenerative disc disease of the spine. XR/XR chest 2V IMPRESSION: No acute cardiopulmonary abnormality. Electronically signed by: Remy Lanza MD 05/07/2024 09:40 AM EDT RP Dictated By: Remy Lanza MD Report Number: [id number]: Total DLP = 619.00 mGy-cm EXAMINATION: CT ABDOMEN AND PELVIS WITH CONTRAST CLINICAL INFORMATION: Abdominal pain. COMPARISON: None available. TECHNIQUE: Multidetector volumetric images were obtained from the superior aspect of the liver through the pubic symphysis following administration 85 mL of Omnipaque 350 intravenous contrast. Sagittal and coronal reformatted images were obtained on the technologist's workstation. Oral contrast: No This CT examination was performed using dose optimization techniques as appropriate, variously including the following: *Automated exposure control *Adjustment of mA and/or kV according to patient size (this includes techniques or standardized protocols for targeted exams where dose is matched to indication/reason for exam; i.e. extremities or head) *Use of iterative reconstruction technique. DLP: 619 mGy centimeter. FINDINGS: Limited by patient's motion and breathing artifact. LUNG BASES: No acute airspace disease. LIVER, GALLBLADDER, AND BILIARY TREE: Liver measures 16 cm. No focal mass. Decreased enhancement pattern. Portal veins, hepatic veins and intrahepatic portion of the IVC are patent. No intrahepatic biliary ductal dilatation. No pericholecystic fluid collection or gallbladder wall thickening. The common bile duct measures 3 mm. PANCREAS: No focal lesion. No peripancreatic fluid collection. No main pancreatic ductal dilatation. SPLEEN: 7 cm. No focal lesion. ADRENAL GLANDS: No nodular lesions. KIDNEYS AND URETERS: Cystic lesions bilaterally the largest in the right kidney measures 3 cm at the corticomedullary junction. No gross renal mass. No hydronephrosis. BLADDER: Fluid-filled. GASTROINTESTINAL TRACT: Abundant stool throughout the large intestine. Scattered diverticula left hemicolon. Gas and fluid-filled mildly prominent small bowel loops. No intestinal obstruction pattern. No pneumatosis intestinalis. Terminal ileum appears normal. I do not see the appendix, no masses a: Edema pattern. ABDOMINAL WALL: Fat-containing umbilical hernia, small to moderate size. LYMPH NODES: There is a 4 cm in maximum dimension soft tissue attenuation beneath the right diaphragmatic crura and abutting the gastroesophageal junction and extending in the right anterior prevertebral compartment L1-2 levels. VASCULAR: Mixed plaques throughout the abdominal aorta wall and iliac arteries without aneurysm or dissection. PELVIC VISCERA: Punctate calcifications in the a normal-sized prostate gland. There is moderate amount of fluid in the left scrotal sac. OSSEOUS STRUCTURES: Status post posterior fusion L4 S1 with the transpedicular screws demonstrated lucency at the S1 level. 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 Multilevel marginal osteophyte formation and endplate sclerosis decreased intervertebral disc height and vacuum phenomenon, L1-L2 3 and L5-S1 levels. 1 cm blastic lesion right hemisacrum. Degenerative changes in the sacroiliac joints, symphysis pubis and both hips. CT/CT abdomen pelvis w IV con IMPRESSION: Fat-containing umbilical hernia. Diverticular disease, left hemicolon. Bilateral renal cysts Small hiatal hernia. 4 cm lymphadenopathy versus soft tissue mass in the right diaphragmatic retrocrural region. Loosening at the S1 screws related to the posterior L4 S1 lumbar fusion. Probable left hydrocele.. Fleischner guidelines were followed. Electronically signed by: Joseph Gamez MD 05/07/2024 11:58 AM EDT RP Dictated By: Joseph Silveira MD Discharge Plan Discharge Clinical Impression: Influenza, Bronchitis Patient Disposition: Still a Patient Instructions: Influenza (ED) Additional Instructions: You were seen in the emergency department and tested positive for influenza. You are already on antibiotic, I am going to add a secondary antibiotic to cover for acute bronchitis. Please take prescribed antibiotics as directed. Finish the entire course even if your symptoms improve. Drink plenty of fluids get plenty of rest. Take Tessalon Perles as needed for cough. Take doxycycline as prescribed. Finish the entire course even if your symptoms improve. If any new or worsening symptoms occur including do severe chest pain, shortness of breath, please seek emergent care. Use inhaler as directed. I have given you a formal copy of your CT scan results however the impression is also listed below. You need to follow-up with your primary care physician regarding these findings. Please call today to make an appointment. CT/CT abdomen pelvis w IV con IMPRESSION: Fat-containing umbilical hernia. Diverticular disease, left hemicolon. Bilateral renal cysts Small hiatal hernia. 4 cm lymphadenopathy versus soft tissue mass in the right diaphragmatic retrocrural region. Loosening at the S1 screws related to the posterior L4 S1 lumbar fusion. Probable left hydrocele.. Prescriptions: New doxycycline hyclate 100 mg capsule 100 mg PO BID 5 Days Qty: 10 0RF benzonatate 100 mg capsule 100 mg PO TID PRN (Reason: cough) 7 Days Qty: 21 0RF albuterol sulfate 90 mcg/actuation HFA aerosol inhaler 2 inh inhalation Q6H Qty: 6.7 0RF No Action (DME) CareSens N Test Strips Strip See Rx Instructions .Route Qty: 50 6RF Rx Instructions: As directed (DME) blood-glucose meter [FreeStyle Lite Meter] Kit See Rx Instructions .Route Qty: 1 0RF Rx Instructions: As directed tests 4 X/day (DME) lancets [FreeStyle Lancets] 28 gauge misc See Rx Instructions .Route Qty: 100 5RF Rx Instructions: As directed tests 4X/day (DME) FreeStyle Lite Strips Strip See Rx Instructions .ROUTE .COMPLEX Qty: 100 0RF Dose Instruction: USE TO CHECK BLOOD SUGAR FOUR TIMES DAILY Rx Instructions: USE TO CHECK BLOOD SUGAR FOUR TIMES DAILY Multivitamin 50 Plus Tablet 1 tab PO DAILY Qty: 90 3RF gabapentin 300 mg capsule 300 mg PO BID Qty: 180 3RF levothyroxine [Synthroid] 75 mcg tablet 75 mcg PO DAILY 90 Days Qty: 90 2RF losartan 100 mg tablet 100 mg PO DAILY Qty: 90 0RF metformin 500 mg tablet 500 mg PO BID 90 Days Qty: 180 2RF omeprazole 20 mg capsule,delayed release(DR/EC) 20 mg PO DAILY Qty: 90 3RF tadalafil 10 mg tablet 10 mg PO DAILY 90 Days Qty: 90 3RF Rx Instructions: Daily medication tadalafil 20 mg tablet 20 mg PO ONCE PRN (Reason: sexual activity) 30 Days Qty: 30 3RF Rx Instructions: On demand medication take 60 minutes before intended activity propranolol 10 mg tablet 10 mg PO BID Qty: 180 2RF lubiprostone [Amitiza] 8 mcg capsule 8 mcg PO BID Qty: 60 3RF atorvastatin 20 mg tablet 20 mg PO DAILY 90 Days Qty: 90 2RF fluticasone propionate [Flonase Allergy Relief] 50 mcg/actuation spray,suspension 2 spray intranasal DAILY PRN (Reason: Nasal Congestion) 90 Days Qty: 3 3RF Rx Instructions: administer into each nostril terazosin 2 mg capsule 2 mg PO BEDTIME 90 Days Qty: 90 2RF ibuprofen 800 mg tablet 800 mg PO BID Qty: 270 0RF cinnamon bark 500 mg capsule 1,000 mg PO DAILY (DME) AUTO PAP 6-16 mm H20 humidified AIR See Rx Instructions .Route .MEDSUPPLY Qty: 1 0RF Rx Instructions: As directed omega-3 acid ethyl esters 1 gram capsule PO DAILY cetirizine [Allergy Relief (cetirizine)] 10 mg tablet 10 mg PO DAILY Qty: 90 1RF Senna Plus 8.6-50 mg capsule 1 tab-cap PO BID PRN (Reason: constipation) 90 Days Qty: 180 3RF Afrin (oxymetazoline) 0.05 % mist 2 spray intranasal Q12H PRN trolamine salicylate [Aspercreme] 10 % cream 1 appl topical BEDTIME PRN Print Language: Prydeinig
--- NOTE | 2024-05-07 09:20 | ECG_ITS ---
Test Reason : dyspnea Blood Pressure : */* mmHG Vent. Rate : 61 BPM Atrial Rate : 61 BPM P-R Int : 156 ms QRS Dur : 84 ms QT Int : 400 ms P-R-T Axes : 29 -28 -15 degrees QTcB Int : 402 ms Normal sinus rhythm with sinus arrhythmia Inferior infarct , age undetermined Abnormal ECG When compared with ECG of 28-Mar-2024 10:07, No significant change was found Referred By: Anu Barrientos Electronically Signed By: Raymond Vargas
[2024-05-07 09:35] VITALS: PULSE 66; RESP 16; O2SAT 99
[2024-05-07] MEDS: Albuterol Sulfate 2.5 MG, Albuterol/Iprat 2.5/0.5MG 3 ML 3 ML INHALE (09:35)
[2024-05-07 09:44] LABS: MANUAL DIFF FLAG NO
[2024-05-07 09:45] LABS: Basophils Percent Auto 0.4 % (0-2); Eosinophils Absolute Auto 0.2 X10*3/uL (0.0-0.4); Eosinophils Percent Auto 2.8 % (0-4); Hematocrit 37.4 % (42.0-52.0); Hemoglobin 13.2 g/dl (14.0-18.0); Imm Gran Abs Auto 0.01 X10*3/uL (0.00-0.03); Imm Gran Pct Auto 0.1 % (0.0-0.4); Lymphocytes Absolute Auto 1.1 X10*3/uL (1.2-4.9); Mean Corpuscular HGB Conc 35.3 g/dl (31.0-36.0); Mean Corpuscular Hemoglobin 29.9 pg (27.0-33.0); Mean Corpuscular Volume 84.8 fL (80.0-98.0); Mean Platelet Volume 8.6 fL (9.4-12.4); Monocytes Absolute Auto 1.1 X10*3/uL (0.1-1.2); Neutrophils Absolute Auto 4.7 x10*3/uL (2.0-8.3); Neutrophils Percent Auto 66.7 % (45-73); Platelet Count 149 X10*3/uL (160-400); Red Blood Count 4.41 X10*6/uL (4.60-5.80); Red Cell Distribution Width 12.8 % (11.0-16.0); White Blood Count 7.1 X10*3/uL (4.8-10.8)
[2024-05-07 09:47] LABS: Influenza A PCR POSITIVE (Negative); Influenza B PCR NEGATIVE (Negative); Resp Syncy Virus RNA Qual PCR NEGATIVE (Negative); SARS COV2 PCR INHOUSE NEGATIVE (Negative)
[2024-05-07 10:09] LABS: Alanine Aminotransferase 31 U/L (0-40); Alkaline Phosphatase 64 U/L (39-117); Anion Gap 12 (12-20); Aspartate Amino Transferase 45 U/L (5-37); Bilirubin Direct 0.1 mg/dL (0.0-0.5); Bilirubin Total 0.3 mg/dL (0.0-1.0); Blood Urea Nitrogen 16 mg/dL (9-16); Carbon Dioxide 18 mmol/L (22-29); Chloride 112 mmol/L (96-108); Creatinine Clr Calc Pharmacy 94.3; Estimated Glomerular Filt Rate > 60; Glucose Random 97 mg/dL (60-115); Lipase 40 U/L (8-78); Magnesium 2.1 mg/dL (1.6-2.6); Potassium 4.4 mmol/L (3.3-5.1); Sodium 138 mmol/L (135-145); Total Protein 7.3 g/dL (6.5-8.0)
[2024-05-07 10:16] LABS: Troponin-I High Sensitivity 3.3 ng/L (<3.5-35.0)
[2024-05-07] MEDS: iohexoL 350 MG/ML 100 ML INFUS..BTL IV (11:29)
[2024-05-07 11:56] LABS: Appearance Urine Clear; Color Urine Yellow; Glucose Urine UA Negative (Negative); Leukocyte Esterase Urine Negative (Negative); Nitrite Urine Negative (Negative); PH 5.5 (5.0-9.0); Specific Gravity - Urine >= 1.030 (1.005-1.025); Urine Blood Negative (Negative); Urine Ketones Negative (Negative); Urine Protein Negative (Neg-Trace)
[2024-05-07 12:25] VITALS: BP 133/66; PULSE 70; RESP 18; TEMP 36.6; O2SAT 97
[2024-05-07 12:26] VITALS: BP 133/66; PULSE 70; RESP 18; TEMP 36.6; O2SAT 97
== END 2024-05-07 12:27 | disposition home or self-care (01) ==
PROVIDERS: Physician Assistant Medical; Emergency Provider Emergency Medicine; PCP Internal Medicine
DX: J10.1 Influenza due to other identified influenza virus with other respiratory manifestations (principal); R05.9 Cough, unspecified; R10.2 Pelvic and perineal pain; R06.02 Shortness of breath; I49.8 Other specified cardiac arrhythmias; R09.81 Nasal congestion; Z03.818 Encounter for observation for suspected exposure to other biological agents ruled out; Z79.899 Other long term (current) drug therapy; F17.210 Nicotine dependence, cigarettes, uncomplicated
CPT/HCPCS: 0241U; 36415; 71046; 74177; 80048; 80076; 81003; 83690; 83735; 84484; 85025; 93005; 94640; 99284; 99285; Q9967

== ENCOUNTER → 2024-05-07 09:20 | Outpatient (BNV) | payer MEDICARE, BC, SELFPAY | PROVIDERS: Emergency Provider Emergency Medicine; PCP Internal Medicine; Visit Provider Radiology Diagnostic Radiology | DX: K57.30 Diverticulosis of large intestine without perforation or abscess without bleeding (principal); N28.1 Cyst of kidney, acquired; K42.9 Umbilical hernia without obstruction or gangrene; K44.9 Diaphragmatic hernia without obstruction or gangrene; R05.9 Cough, unspecified | CPT/HCPCS: 71046; 74177 ==

== ENCOUNTER → 2024-05-07 09:20 | Outpatient (BNV) | payer MEDICARE, BC, SELFPAY | PROVIDERS: Emergency Provider Emergency Medicine; PCP Internal Medicine; Visit Provider Internal Medicine Cardiovascular Disease | DX: I49.8 Other specified cardiac arrhythmias (principal); R06.09 Other forms of dyspnea; R94.31 Abnormal electrocardiogram [ECG] [EKG] | CPT/HCPCS: 93010 ==

== ENCOUNTER 2024-05-15 10:42 | Outpatient (AMB) | payer MEDICARE, BC, SELFPAY ==
--- NOTE | 2024-05-15 11:02 | MHC.PC.OV ---
Vital Signs 05/15/24 11:03 Height 5 ft 9 in Weight 194 lb 8 oz BMI 28.7 BP 110/80 Blood Pressure Location Lt brachial Position Sitting Pulse 66 Pulse Source Pulse Oximeter Temp 97.3 F Temp Source Temporal Artery Scan Pulse Oximetry (%) 97 Oxygen Delivery Method Room Air Intake Visit Reasons: [facility] 05/07 Bronchitis Intake Note: Patient is here to follow-up after a visit the emergency department at [facility] on 05/06/24 Tap Puller Required: No Hospice Social Worker: Not Required per policy Accompanied by: Self / Same As Patient Allergies No Known Allergies [No Known Allergies*] Allergy (Verified 05/15/24 11:03) Medication List - Last Reconciled 05/15/24 by Silvia Tai PA-C albuterol sulfate 90 mcg/actuation 2 inhalations inhalation Q6H atorvastatin 20 mg PO DAILY 90 days [AUTO PAP 6-16 mm H20 humidified AIR As directed] benzonatate 100 mg PO TID PRN 7 days blood sugar diagnostic (Health 123s N Test Strips) As directed blood sugar diagnostic (FreeStyle Lite Strips) USE TO CHECK BLOOD SUGAR FOUR TIMES DAILY blood-glucose meter (FreeStyle Lite Meter kit) As directed tests 4 X/day cetirizine (Allergy Relief (cetirizine)) 10 mg PO DAILY cinnamon bark 1,000 mg PO DAILY fluticasone propionate 50 mcg/actuation (Flonase Allergy Relief) 2 sprays intranasal DAILY PRN 90 days gabapentin 300 mg PO BID ibuprofen 800 mg PO BID lancets (FreeStyle Lancets) As directed tests 4X/day levothyroxine (Synthroid) 75 mcg PO DAILY 90 days losartan 100 mg PO DAILY lubiprostone (Amitiza) 8 mcg PO BID metformin 500 mg PO BID 90 days vwqhhzrhrjyx-qysnrtfl-wudwiu (Multivitamin 50 Plus tablet) 1 tab PO DAILY omega-3 acid ethyl esters PO DAILY omeprazole 20 mg PO DAILY oxymetazoline 0.05% (Afrin (oxymetazoline)) 2 sprays intranasal Q12H PRN propranolol 10 mg PO BID sennosides-docusate sodium 8.6-50 mg (Senna Plus) 1 tab-cap PO BID PRN 90 days tadalafil 10 mg PO DAILY 90 days tadalafil 20 mg PO ONCE PRN 30 days terazosin 2 mg PO BEDTIME 90 days trolamine salicylate 10% (Aspercreme) 1 appl topical BEDTIME PRN Tobacco use date assessed: 05/15/24 Fall risk assessment: No Falls in past year Last assessed Fall Risk: 05/15/24 Dental Screening Dental Screen Date: 04/24/24 [facility] 05/07 Bronchitis HPI Details 74-year-old male with past medical history of diabetes mellitus, hypercholesterolemia, hypothyroid, hypertension, hypogonadism and generalized anxiety disorder last seen 04/2024 coming in for hospital discharge follow up.? Patient was seen in [facility] ED 05/07/2024 for productive cough and abdominal pain, tested positive for influenza.? Patient was given doxycycline for acute bronchitis and Tessalon Perles.? CT of the abdomen and pelvis showing:? IMPRESSION: Fat-containing umbilical hernia. Diverticular disease, left hemicolon. Bilateral renal cysts Small hiatal hernia. 4 cm lymphadenopathy versus soft tissue mass in the right diaphragmatic? retrocrural region. Loosening at the S1 screws related to the posterior L4 S1 lumbar fusion. Probable left hydrocele. Incidental findings during a comprehensive CT scan showed an asymptomatic abdominal hernia, diverticular disease of the left colon, and bilateral renal cysts. Resolution of respiratory symptoms previously treated with a course of doxycycline for a chronic cough. Previous use of this medication has resulted in improvement, and the cough has lessened. Post-surgical orthopedic hardware screws have noted loosening, necessitating follow-up with orthopedic services. Patient has reached out to JACLYN Corey for follow up. Presence of a hydrocele on the left side is asymptomatic presently, requiring no intervention. [facility] Medical History Type 2 diabetes mellitus with hyperglycemia Diabetic neuropathy Tubular adenoma of colon Nicotine dependence, cigarettes, uncomplicated Positive PPD Obstructive sleep apnea Foot pain, left Overweight (BMI 25.0-29.9) Obesity (BMI 30-39.9) Thyroid nodule Vertebral fracture Pulmonary nodule Osteoarthritis GERD (gastroesophageal reflux disease) Erectile dysfunction Hypothyroid Hypertension Hypercholesterolemia Surgical History History of back surgery History of colonoscopy History of arthroscopy of right knee History of appendectomy History of tonsillectomy Family History Father Medical history unknown Mother Diabetes Past heart attack Brother Prostate cancer Social History Housing: House Unable to assess alcohol history related to: Unknown Alcohol intake: current Alcohol intake frequency: 0-2 drinks per day Comment: QD 2 drinksstopped 12/2023 but last night ( 03/2024) 4 beers, Patient Tobacco Use Status: Former Tobacco user Tobacco use type: Cigarette Cigarette Packs Per Day: 1 Cigarettes Per Day: 15 Years Smoked: (onset 17yo, 3/4ppd x 56yrs, 40pyh) Packs Per Year: 0 Packs per year/per ci.00 e-Cigarette/Vaping Use: Never Used Second Hand Smoke Exposure: Yes service: No Current occupational status: disabled Cognitive needs: No Hearing needs: No Vision needs: Yes Questionnaire Thrive Questionnaire Date Thrive assessed: 04/24/24 JI-7 AMB Questionnaire JI-7 Date JI - 7 assessed: 04/24/24 Source: Developed by Drs. Remy Jacobsen, Lucita Morrissey, Jaskaran Mitchell and colleagues, with an educational maurilio from [employer]. Review of Systems Const Denies body aches, Denies chills, Denies fever(s), Denies headache(s) and Denies poor appetite Eyes Reports no additional complaints ENT Denies dysphagia, Denies dizziness, Denies headache(s) and Denies odynophagia Card Denies chest pain, Denies syncope, Denies edema, Denies irregular heart rhythm, Denies lightheadedness and Denies dyspnea Resp Denies cough and Denies dyspnea GI Denies abdominal pain, Denies constipation, Denies dysphagia, Denies diarrhea, Denies nausea, Denies odynophagia and Denies vomiting Reports no additional complaints Musc Reports no additional complaints and Denies abnormal gait Skin/Breast Reports system reviewed and no additional complaints, except as documented Neuro Denies abnormal gait, Denies dizziness, Denies syncope and Denies headache(s) Psych Reports no additional complaints Physical exam (Primary Care) Vital Signs: Last Vital Signs Temp 97.3 F 05/15/24 11:03 Pulse 66 05/15/24 11:03 BP 110/80 05/15/24 11:03 Pulse Ox 97 05/15/24 11:03 Oxygen Delivery Method Room Air 05/15/24 11:03 BMI result Body Mass Index 28.7 Tobacco/Smoking Status: Tobacco use Status Tobacco use date assessed 05/15/24 05/15/24 11:10 Patient Tobacco Use Status Former Tobacco user 05/15/24 11:10 Tobacco use type Cigarette 05/15/24 11:10 e-Cigarette/Vaping Use Never Used 05/15/24 11:10 Thrive Assessment: Date of Thrive Assessment Date Thrive assessed 04/24/24 05/15/24 11:10 Const General: cooperative, healthy appearing, comfortable and no acute distress Orientation/consciousness: patient oriented x3 HENMT Head: Yes normocephalic Ears: hearing grossly normal bilaterally General nose exam: Normal external nose present Eyes General: appearance normal, both eyes and all related structures Conjunctivae: conjunctivae normal Neck Neck: Yes full ROM and Yes no lymphadenopathy Resp Effort & Inspection: normal respiratory effort Auscultation: clear to auscultation bilaterally, no crackles, no rales, no rhonchi and no wheezes Cardio Rate: regular rate Rhythm: regular rhythm Skin General skin exam: no rashes or lesions noted Neuro General: patient oriented x3 Gait exam (Neuro): Normal gait present Extrem General: Yes normal to inspection, Yes full ROM and No edema Psych Affect: normal affect Attitude: cooperative Insight: Good insight present (Psych) Judgement: Good judgement present (Psych) Coding Level of Care Code Est Pt Level 3 (33356) Diagnoses Essential hypertension I10 Hypertension type: essential hypertension Type 2 diabetes mellitus with hyperglycemia, without long-term current use of insulin E11.65 Diabetes mellitus detention insulin use: without detention use Gastroesophageal reflux disease without esophagitis K21.9 Esophagitis presence: without esophagitis Cough R05.9 Lymphadenopathy R59.1 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 Avoid salt intake and encourage healthy diet and regular exercise. (2) Type 2 diabetes mellitus with hyperglycemia: Code(s): E11.65 - Type 2 diabetes mellitus with hyperglycemia Category: Medical Qualifiers: Diabetes mellitus oil heaterman insulin use: without oil heaterman use Qualified Code(s): E11.65 - Type 2 diabetes mellitus with hyperglycemia Plan: Decrease the amount of carbohydrates such as pasta, bread, rice, and potatoes and limit the amount of sweets. Although fruits are generally healthy they should be eaten in moderation as they are still high in sugar. Hemoglobin A1c goal of of less than 7% (3) GERD (gastroesophageal reflux disease): Code(s): K21.9 - Gastro-esophageal reflux disease without esophagitis Category: Medical Qualifiers: Esophagitis presence: without esophagitis Qualified Code(s): K21.9 - Gastro-esophageal reflux disease without esophagitis Plan: Avoid trigger foods such as citrus, tomato products, soda, caffeine, spicy foods and other foods that may be irritating to your stomach. Avoid laying flat 3-4 hours after eating and elevate the head of the bed 30 degrees to prevent acid from moving into the esophagus. (4) Cough: Code(s): R05.9 - Cough, unspecified Category: Medical Plan: The patient's chronic cough has improved with completed antibiotic therapy, and the albuterol inhaler will be replenished for respiratory symptom management. Continuous monitoring and periodic assessment of symptom change will guide future management plans. (5) Lymphadenopathy: Comment: IMPRESSION: Fat-containing umbilical hernia. Diverticular disease, left hemicolon. Bilateral renal cysts Small hiatal hernia. 4 cm lymphadenopathy versus soft tissue mass in the right diaphragmatic retrocrural region. Loosening at the S1 screws related to the posterior L4 S1 lumbar fusion. Probable left hydrocele.. Code(s): R59.1 - Generalized enlarged lymph nodes Category: Medical Plan: Discussed with Dr. Albright. Ongoing assessment of possible lymphadenopathy awaits further evaluation by radiology to determine if continued surveillance or biopsy is needed. (6) Loosening of hardware in spine: Code(s): T84.498A - Other mechanical complication of other internal orthopedic devices, implants and grafts, initial encounter Category: Medical Plan: Coordination with orthopedics for hardware revision due to post-surgical loosening. Follow up with Dr. Corey at [facility] Plan This note was constructed using voice recognition software. While every effort has been made to ensure accuracy and excelsior picker, still areas may have been included sometimes these areas may affect the content or meeting of the given symptoms. Total time spent caring for the patient today was 20 minutes. This includes time spent before the visit reviewing the chart, time spent during the visit, and time spent after the visit and documentation. Patient was informed and verbally consented to the use of an ambient scribe for clinic note documentation during this visit. Medications: Refilled albuterol sulfate 90 mcg/actuation 2 inhalations inhalation Q6H 6.7 grams 0RF
[2024-05-15 11:03] VITALS: BP 110/80; PULSE 66; TEMP 36.3; O2SAT 97; BMI 28.7
== END 2024-05-15 11:59 | disposition home or self-care (01) ==
LOC: HO.HMCH 10:43
PROVIDERS: PCP Internal Medicine
DX: E11.65 Type 2 diabetes mellitus with hyperglycemia (principal); T84.498A Other mechanical complication of other internal orthopedic devices, implants and grafts, initial encounter; I10 Essential (primary) hypertension; K21.9 Gastro-esophageal reflux disease without esophagitis; R05.9 Cough, unspecified; R59.1 Generalized enlarged lymph nodes

== ENCOUNTER → 2024-05-15 10:42 | Outpatient (BNVA) | payer MEDICARE, BC, SELFPAY | PROVIDERS: PCP Internal Medicine | DX: I10 Essential (primary) hypertension (principal); E11.65 Type 2 diabetes mellitus with hyperglycemia; K21.9 Gastro-esophageal reflux disease without esophagitis; R05.9 Cough, unspecified; R59.1 Generalized enlarged lymph nodes; T84.498D Other mechanical complication of other internal orthopedic devices, implants and grafts, subsequent encounter | CPT/HCPCS: 99212 ==

== ENCOUNTER 2024-06-24 14:55 | Emergency (ER) | payer MEDICARE, BC, SELFPAY ==
[2024-06-24 14:59] VITALS: BP 145/86; PULSE 79; RESP 18; TEMP 37; O2SAT 97; BMI 29.3
--- NOTE | 2024-06-24 15:02 | ED.GENADULT ---
HPI - General Adult General Chief complaint: Extremity Problem Stated complaint: Swollen finger no injury Time Seen by Provider: 06/24/24 17:45 Related Data Home Medications ?Medication ?Instructions ?Recorded ?Confirmed cinnamon bark 500 mg capsule 1,000 mg PO DAILY 09/26/22 05/15/24 omega-3 acid ethyl esters 1 gram PO DAILY 05/15/23 05/15/24 capsule oxymetazoline 0.05 % nasal mist 2 spray intranasal Q12H PRN 03/25/24 05/15/24 (Afrin (oxymetazoline)) trolamine salicylate 10 % topical 1 appl topical BEDTIME PRN 03/25/24 05/15/24 cream (Aspercreme) Previous Rx's ?Medication ?Instructions ?Recorded AUTO PAP 6-16 mm H20 humidified AIR #1 ea 05/24/20 blood sugar diagnostic (CareSens N #50 ea 05/24/21 Test Strips) blood-glucose meter (FreeStyle #1 ea 06/02/21 Lite Meter kit) lancets 28 gauge (FreeStyle #100 ea 06/02/21 Lancets) blood sugar diagnostic (FreeStyle #100 strips 08/09/21 Lite Strips) sennosides 8.6 mg-docusate sodium 1 tab-cap PO BID PRN constipation 09/26/22 50 mg capsule (Senna Plus) 90 days #180 caps nqgtfyjeezrx-lkgnkqtq-gkiiyv 1 tab PO DAILY #90 tabs 04/12/23 tablet (Multivitamin 50 Plus tablet) gabapentin 300 mg capsule 300 mg PO BID #180 caps 04/18/23 losartan 100 mg tablet 100 mg PO DAILY #90 tabs 04/18/23 metformin 500 mg tablet 500 mg PO BID 90 days #180 tabs 04/18/23 tadalafil 10 mg tablet 10 mg PO DAILY sexual activity 90 11/14/23 days #90 tabs tadalafil 20 mg tablet 20 mg PO ONCE PRN sexual activity 11/14/23 30 days #30 tabs propranolol 10 mg tablet 10 mg PO BID #180 tabs 02/06/24 lubiprostone 8 mcg capsule 8 mcg PO BID #60 caps 02/21/24 (Amitiza) atorvastatin 20 mg tablet 20 mg PO DAILY 90 days #90 tabs 02/29/24 fluticasone propionate 50 2 spray intranasal DAILY PRN Nasal 03/04/24 mcg/actuation nasal Congestion 90 days #3 ea spray,suspension (Flonase Allergy Relief) terazosin 2 mg capsule 2 mg PO BEDTIME 90 days #90 caps 03/04/24 ibuprofen 800 mg tablet 800 mg PO BID #270 tabs 04/23/24 cetirizine 10 mg tablet (Allergy 10 mg PO DAILY #90 tabs 04/24/24 Relief (cetirizine)) benzonatate 100 mg capsule 100 mg PO TID PRN cough 7 days #21 05/07/24 caps levothyroxine 75 mcg tablet 75 mcg PO DAILY 90 days #90 tabs 05/25/24 (Synthroid) omeprazole 20 mg capsule,delayed 20 mg PO DAILY #90 caps 06/03/24 release albuterol sulfate 90 mcg/actuation 2 inh inhalation Q6H #6.7 grams 06/06/24 aerosol inhaler sulfamethoxazole 800 1 tab PO BID 7 days #14 tabs 06/24/24 mg-trimethoprim 160 mg tablet (Bactrim DS) Allergies Allergy/AdvReac Type Severity Reaction Status Date / Time No Known Allergies Allergy Verified 06/24/24 15:00 [No Known Allergies*] [facility] Past Medical History Medical History Type 2 diabetes mellitus with hyperglycemia Diabetic neuropathy Tubular adenoma of colon Nicotine dependence, cigarettes, uncomplicated Positive PPD Obstructive sleep apnea Foot pain, left Overweight (BMI 25.0-29.9) Obesity (BMI 30-39.9) Thyroid nodule Vertebral fracture Pulmonary nodule Osteoarthritis GERD (gastroesophageal reflux disease) Erectile dysfunction Hypothyroid Hypertension Hypercholesterolemia Surgical History History of back surgery History of colonoscopy History of arthroscopy of right knee History of appendectomy History of tonsillectomy Family History Family History Father Medical history unknown Mother Diabetes Past heart attack Brother Prostate cancer Social History Social History Housing: House Unable to assess alcohol history related to: Unknown Alcohol intake: current Alcohol intake frequency: 0-2 drinks per day Alcohol type: beer Comment: QD 2 drinksstopped 12/2023 but last night ( 03/2024) 4 beers, Patient Tobacco Use Status: Former Tobacco user Tobacco use type: Cigarette Cigarette Packs Per Day: 1 Cigarettes Per Day: 15 Years Smoked: (onset 17yo, 3/4ppd x 56yrs, 40pyh) Smoked in Last 30 Days: Yes e-Cigarette/Vaping Use: Never Used Second Hand Smoke Exposure: Yes Use of substances other than those prescribed or required for medical reasons: No Advance Directives: No Advance Directives Information Provided: No service: No Current occupational status: disabled Cognitive needs: No Hearing needs: No Vision needs: Yes Physical Exam ED Vital Signs: Vital Signs - 24 hr 06/24/24 14:59 06/24/24 18:30 Temperature 98.6 F 98.3 F Pulse Rate 79 76 Respiratory Rate 18 14 Blood Pressure 145/86 H 124/64 Pulse Oximetry 97 96 Oxygen Delivery Method Room Air Room Air BMI result Body Mass Index 29.3 Course Course Course Narrative: RME: 74-year-old male presents to the ED for right index finger pain for 1 week now noted with swelling. Patient has complete range of motion of finger. History physical exam indicate paronychia will need drainage. Medications Administered Discontinued Medications Generic Name Dose Route Start Last Admin Trade Name Freq PRN Reason Stop Dose Admin Acetaminophen 975 mg 06/24/24 17:45 06/24/24 18:21 Acetaminophen 325 Mg Tablet PO 06/24/24 17:46 975 mg ONCE ONE Administration Lidocaine 1 patch 06/24/24 18:40 06/24/24 18:46 Lidocaine 4 % Patch Adh..Patch TRANSDERMA 06/24/24 18:41 1 patch ONCE ONE Administration Protocol Lidocaine HCl 5 ml 06/24/24 18:09 06/24/24 18:21 Lidocaine Hcl 1 % Mpf 5 Ml Vial INFILTRATI 06/24/24 18:10 5 ml ONCE ONE Administration Oxycodone HCl 5 mg 06/24/24 18:06/24/24 18:21 Oxycodone Hcl Immed Release 5 Mg Tablet PO 06/24/24 18:10 5 mg ONCE ONE Administration Trimethoprim/Sulfamethoxazole 1 tab 06/24/24 18:09 06/24/24 18:22 Sulfamethox/Trimeth 800/160 Tablet PO 05/06/25 18:10 1 tab ONCE ONE Administration Procedures Abscess I/D Site: hand (Distal 2nd right digit, paronychia) Side (if applicable): right Local Anesthetic: lidocaine 1% Amount of anesthesia used (mL): 5 Amount of fluid expressed (mL): 1 Sent for culture/gram staining?: Yes Irrigation: No Packing used?: none Complications: pain Medical Decision Making Medical Decision Making MDM Narrative: Diabetic, 74 simple paronychia right index finger. Incision and drainage. Plan for Bactrim close follow up. Lab Data Labs: Lab Results 06/24/24 06/24/24 Range/Units 18:10 18:12 POC Glucose 335 H 295 H (60-115) mg/dL Discharge Plan Discharge Clinical Impression: Paronychia of finger Patient Disposition: Home, Self-Care Instructions: Paronychia (ED) Additional Instructions: Paronychia. An infection of the fingertip. Incision and drainage was performed and we started you on antibiotics. You can take ibuprofen or Tylenol for pain. You can put ice over the affected finger. Keep the digit covered and clean. We would like you to have an evaluation of the wound in 3-4 days preferably an urgent care if you are unable to get there you can come to the emergency department for wound assessment. Take the antibiotics as prescribed Prescriptions: New sulfamethoxazole-trimethoprim [Bactrim DS] 800-160 mg tablet 1 tab PO BID 7 Days Qty: 14 0RF No Action (DME) CareSens N Test Strips Strip See Rx Instructions .Route Qty: 50 6RF Rx Instructions: As directed (DME) blood-glucose meter [FreeStyle Lite Meter] Kit See Rx Instructions .Route Qty: 1 0RF Rx Instructions: As directed tests 4 X/day (DME) lancets [FreeStyle Lancets] 28 gauge misc See Rx Instructions .Route Qty: 100 5RF Rx Instructions: As directed tests 4X/day (DME) FreeStyle Lite Strips Strip See Rx Instructions .ROUTE .COMPLEX Qty: 100 0RF Dose Instruction: USE TO CHECK BLOOD SUGAR FOUR TIMES DAILY Rx Instructions: USE TO CHECK BLOOD SUGAR FOUR TIMES DAILY Multivitamin 50 Plus Tablet 1 tab PO DAILY Qty: 90 3RF gabapentin 300 mg capsule 300 mg PO BID Qty: 180 3RF losartan 100 mg tablet 100 mg PO DAILY Qty: 90 0RF metformin 500 mg tablet 500 mg PO BID 90 Days Qty: 180 2RF tadalafil 10 mg tablet 10 mg PO DAILY 90 Days Qty: 90 3RF Rx Instructions: Daily medication tadalafil 20 mg tablet 20 mg PO ONCE PRN (Reason: sexual activity) 30 Days Qty: 30 3RF Rx Instructions: On demand medication take 60 minutes before intended activity propranolol 10 mg tablet 10 mg PO BID Qty: 180 2RF lubiprostone [Amitiza] 8 mcg capsule 8 mcg PO BID Qty: 60 3RF atorvastatin 20 mg tablet 20 mg PO DAILY 90 Days Qty: 90 2RF fluticasone propionate [Flonase Allergy Relief] 50 mcg/actuation spray,suspension 2 spray intranasal DAILY PRN (Reason: Nasal Congestion) 90 Days Qty: 3 3RF Rx Instructions: administer into each nostril terazosin 2 mg capsule 2 mg PO BEDTIME 90 Days Qty: 90 2RF ibuprofen 800 mg tablet 800 mg PO BID Qty: 270 0RF levothyroxine [Synthroid] 75 mcg tablet 75 mcg PO DAILY 90 Days Qty: 90 0RF omeprazole 20 mg capsule,delayed release(DR/EC) 20 mg PO DAILY Qty: 90 0RF albuterol sulfate 90 mcg/actuation HFA aerosol inhaler 2 inh inhalation Q6H Qty: 6.7 0RF benzonatate 100 mg capsule 100 mg PO TID PRN (Reason: cough) 7 Days Qty: 21 0RF cinnamon bark 500 mg capsule 1,000 mg PO DAILY (DME) AUTO PAP 6-16 mm H20 humidified AIR See Rx Instructions .Route .MEDSUPPLY Qty: 1 0RF Rx Instructions: As directed omega-3 acid ethyl esters 1 gram capsule PO DAILY cetirizine [Allergy Relief (cetirizine)] 10 mg tablet 10 mg PO DAILY Qty: 90 1RF Senna Plus 8.6-50 mg capsule 1 tab-cap PO BID PRN (Reason: constipation) 90 Days Qty: 180 3RF Afrin (oxymetazoline) 0.05 % mist 2 spray intranasal Q12H PRN trolamine salicylate [Aspercreme] 10 % cream 1 appl topical BEDTIME PRN Interventions: ED Discharge Assessment Last Done: 06/24/24 19:07 Discharge Date/Time: 06/24/24 19:08 Print Language: Citizen Of [place]
[2024-06-24 18:16] LABS: Glucose, Whole Blood 335 mg/dL (60-115)
[2024-06-24 18:16] LABS: Glucose, Whole Blood 295 mg/dL (60-115)
[2024-06-24] MEDS: Acetaminophen 325 MG TABLET 975 MG PO (18:21)
[2024-06-24] MEDS: Lidocaine HCl 1 % MPF 5 ML VIAL INFILTRATI (18:21)
[2024-06-24] MEDS: oxyCODONE HCl Immed Release 5 MG TABLET PO (18:21)
--- OUTSIDE RECORDS SUMMARY | 2024-06-24 18:21 | XMS_ITS | Patient Health Record ---
[facility] [place] Address [address] [place] [address] Care Team Providers Care Defence Force Member Other Ranks Name Role Phone Dayana Mccurdy Primary Care Provider Unavailabl e Black, Shanelle Unavailable [phone] Allergies No Known Allergies Results Component Value Reference Range Notes HEMOGLOBIN A1C (GLYCOHEMOGLO BIN) Reviewed date:12/13/2023 11:28:27 AM Interpretation: Performing Lab: Notes/Report: TOTAL HEMOGLOBIN (HGBA1C) 6.3 Reason For Referral No Information Medications Medication SIG (Take, Route, Frequency, Duration) Notes Start Date End Date Status Ipratropium [place] 0.03 % 2 sprays in each nostril [...] Once a day for 30 days Active [place]-3 Fatty Acids 1000 MG 1 capsule Orally [...] primary osteoarthritis of the ankle and/or foot (754330140) Primary osteoarthritis, left ankle and foot (M19.072) Active confirmed Problem Acquired hallux valgus (82709591) Hallux valgus (acquired), right foot (M20.11) Active confirmed Problem Acquired hammer toe of right foot (2324674648480990 ) Other hammer toe(s) (acquired), right foot (M20.41) Active confirmed Problem Acquired hammer toe of left foot (1411870024597373 ) Other hammer toe(s) (acquired), left foot (M20.42) Active confirmed Problem Polyneuropathy due to type 2 diabetes mellitus (490836833) Type 2 diabetes mellitus with diabetic polyneuropathy (E11.42) Active confirmed Problem 65428305 Smoker (F17.200) Active confirmed Problem Neuropathic ulce r of right foot with fat layer exposed (L97.512) Active confirmed Problem Neuropathic ulcer of right foot (disorder) (1398537163615989 2) Neuropathic ulcer of right foot, limited to breakdown of skin (L97.511) Active confirmed Vital Signs Height 5ft9in in 12/13/2023 Weight 198 lbs 12/13/2023 BMI 29.24 kg/m2 12/13/2023 Procedures Procedure Date Ordered Date Performed Result Body Sit e 05546-TIKFCQC NAIL, 1-5 12/13/2023 N/A 63785-EANR SKIN LESIONS, 2 TO 4 12/13/2023 N/A G4943-EFKSUTNQ DYSTROPHIC NAILS ANY # 12/13/2023 N/A Encounters Encounter Location Date Provider Diagnosis [address] [address] 12/13/2023 Shanelle Black Tinea unguium B35.1 ; Type 2 diabetes mellitus with diabetic polyneuropathy E11.42 and Smoker F17.[address] [address] 09/04/20[facility] [address] 11/22/2023 [facility] [address] 06/12/2024 Shanelle Black Assessments Encounter Date Diagnosis (ICD Code) Assessment Notes Treatment Notes Treatment Clinical Notes Section Notes 12/13/2023 Tinea unguium (ICD-10 - B35.1) 12/13/2023 Type 2 diabetes mellitus with diabetic polyneuropathy (ICD-10 - E11.42) 12/13/2023 Smoker (ICD-10 - F17.200) Plan Of Treatment Pending Test Test Name Order Date X ray : Foot, left 3V 03/02/2022 82371-QGLMARS NAIL, 1-5 11/14/2021 67500-WSFSOQF NAIL, 1-5 03/02/2022 65952-IPRNWIM NAIL, 1-5 09/25/2022 25206-XRVLDYN NAIL, 1-5 05/10/2023 23199-OKMZMMU NAIL, 1-5 12/13/2023 99332- Debride <25 sq cm 09/25/2022 33502-FUMX SKIN LESIONS, 2 TO 4 09/26/19 52424-VOGU SKIN LESIONS, 2 TO 4 03/02/19 23 03379-OEII SKIN LESIONS, 2 TO 4 12/13/19 24 90014-FYZB SKIN LESIONS, 2 TO 4 05/10/19 24 16461-DDDS SKIN LESIONS, 2 TO 4 11/15/19 22 I3149-XWLQEHXI DYSTROPHIC NAILS ANY # I2120-HCHUDIVB DYSTROPHIC NAILS ANY # Insurance Providers Payer Name Payer Address Payer Phone Subscriber Number Group Number Insured Name Patient Relationship to Insured Coverage Start Date Coverage End Date [facility] [employer] Claims [address] [place] [id number] Noman Pope ra Self - patient is the insured [facility] [address] [place] [address] [id number] Noman Pope ra Self - patient is the insured [facility] [address] [place] [address] [id number] Noman Pope ra Self - patient [...]
--- OUTSIDE RECORDS SUMMARY | 2024-06-24 18:21 | XMS_ITS | Clinical Summary ---
Author Organization [employer] Address [address] [facility] [address] [place] [address] Care Team Providers Care Investment Banking Analyst Name Role Phone Unavailable Primary Care [...] Relevant to Health Maintenance Insurance DENTAL - [facility] D[facility]AL DENTAL - [facility]
[2024-06-24] MEDS: Sulfamethox/Trimeth 800/160 TABLET 1 TAB PO (18:22)
--- OUTSIDE RECORDS SUMMARY | 2024-06-24 18:22 | XMS_ITS | Clinical Summary ---
Author Organization [facility] Address [address] [place] [address] Care Team Providers Care Community Support Specialist Name Role Phone Unavailable Primary Care Provider [...] ( - 2023-2 5 season) 2023 Influenza (Season Ended) 2024 RSV (1 - 1-dose 75+ series) 01/10/2027 [...]
--- OUTSIDE RECORDS SUMMARY | 2024-06-24 18:22 | XMS_ITS ---
Author Organization [facility] Address [address] [facility] [place] [address] Care Team Providers Care Hr Manager Name Role Phone Kaz Alyciapaulino Primary Care Provider Unavailabl e Black, Shanelle Unavailable [phone] REASON FOR VISIT no show 06/12 Encounters Encounter Location Date Provider Diagnosis [facility] [address] [place] [address] 06/12/2024 Shanelle Black Plan Of Treatment No Information Progress Notes * Aurora LAZOOB:[birth year]10 (74 yo M)Acc No.[id number]:06/12/2024 Patient:?Noman LAZO :1950???Age:74 Y???Sex:Male Address: [place], [address] * true * Date:? Generated for Printi ivonne/Safia/eTransmitting on:?06/24/2024 06:21 PM EDT
--- OUTSIDE RECORDS SUMMARY | 2024-06-24 18:22 | XMS_ITS ---
Author Organization [facility] Address [address] [facility] [place] [address] Care Team Providers Care Manager Registration Name Role Phone Dayana Mccurdy Primary Care Provider Unavailabl e Black, Shanelle Unavailable [phone] Allergies No Known Allergies REASON FOR VISIT Painful thick toenails which are aggrevated by shoes and causes difficulty standing/walking, At Risk Footcare Medications Medication SIG (Take, Route, Frequency, Duration) Notes Start Date End Date Status Ipratropium [place] 0.03 % 2 sprays in each nostril [...] Lidocaine 5 % as directed Externally Active [place]-3 Fatty Acids 1000 MG 1 capsule Orally [...] Ordered Date Performed Result Body Sit e 26866-LRLTSOD NAIL, 1-5 12/13/2023 N/A 20249-OYEE SKIN LESIONS, 2 TO 4 12/13/2023 N/A U0506-UALEJHJK DYSTROPHIC NAILS ANY # 12/13/2023 N/A Encounters Encounter Location Date Provider Diagnosis [facility] [address] [place] [address] 12/13/2023 Shanelle Black Tinea unguium B35.1 ; [...] Treatment Pending Test Test Name Order Date 70327-RVXXXPY NAIL, 1-5 12/13/2023 75436-JCZW SKIN LESIONS, 2 TO 4 12/13/19 T3434-UDTCLNDT DYSTROPHIC NAILS ANY # Next Appt Details Follow Up: 4 Months, Reason: Procedure Notes * Category Sub-Category Detail Notes Keratoma Treatment Parring or Cutting o f Benign Hyperkeratotic Lesion(s) 07301 (2-4 Lesions) - The Benign hyperkeratotic lesions, [...] use of a nail nipper and/or dremel-type centerless grinder operator, to a more viable healthy nail plate or bed tissue 1-5. Silver nitrate used for any petechial bleeding as necessary. Definitive antifungal treatment options have been reviewed and discussed with the patient. The patient chooses, no pharmaceutical tx - [address]01 Nail Reduction Nail Reduction Trimming of dyst rophic nails performed to reduce/remove overall nail length and girth, by manual and electrical means with use of a nail nipper and/or dremel, to more viable healthy nail plate or bed tissue 6-10 (G0127) Progress Notes * Aurora LAZOOB:[birth year] (73 yo M)Acc No.[id number]:12/13/2023 Progress Note Patient:ScottCarterRoyalNoman Provider:Pam Garcia DPM :1950???Age:73 Y???Sex:Male Lakhwinder e:12/13/2023 Address:[id number] Pcp:Dayana Mccurdy Subjective: * Chief Complaints: * [...] walking. ?Living with: Fiance. ?Occupation: Retired from [employer]. * Medications:?TakingAtorvasta tin Calcium 20 MG Tablet [...] milk as needed Orally every 8 hrsIpratropium [place] 0.03 % Solution 2 sprays in each [...] as needed Orally every 8 hrsTaking Ipratropium [place] 0.03 % Solution 2 sprays in each nostril Nasally Twice a dayTaking Levothyroxine Sodium 75 MCG Tablet 1 tablet in the morning on an empty stomach Orally Once a dayTaking Lidocaine 5 % Patch as directed Externally Taking Losartan Potassium 100 MG Tablet 1 tablet Orally Once a dayTaking metFORMIN HCl 500 MG Tablet 1 tablet with a meal Orally Once a dayTaking [place]-3 Fatty Acids 1000 MG Capsule 1 capsule [...] - F17.200? Plan: * Treatment: 2.?Tinea unguium?Procedure: 29282-GFQGJIM NAIL, 1-5 * Procedures:?Debride Nails 1-5:?Procedure:?Performance of this nail treatment by a nonprofessional would put this patients foot and overall health at risk. Therefore, nail debridement was performed extensively to reduce/remove overall nail length, girth, thickness, subungual debris, and necrotic tissue, by manual and/or electrical means through the use of a nail nipper and/or dremel-type centerless grinder operator, to a more viable healthy nail plate or bed tissue 1-5. Silver nitrate used for any petechial bleeding as necessary. Definitive antifungal treatment options have been reviewed and discussed with the patient. The patient chooses, no pharmaceutical tx - 56526.?Keratoma Treatment:?Parring or Cutting of Benign Hyperkeratotic Lesion(s)?08806 (2-4 Lesions) - The Benign hyperkeratotic lesions, as described above were pared, and/or cut utilizing a sterile #15 blade, tissue nippers, and/or dremel.?Nail Reduction:?Nail Reduction?Trimming of dystrophic nails performed to reduce/remove overall nail length and girth, by manual and electrical means with use of a nail nipper and/or dremel, to more viable healthy nail plate or bed tissue 6-10 (G0127).? * Procedure Codes:?86145 DEBRI DE NAIL, 1-5, Modifiers: XS G0127 TRIMMING DYSTROPHIC NAILS ANY #, Modifiers: XS 69727 TRIM SKIN LESIONS, 2 TO 4, Modifiers: XS * Preventive Medicine:? ??Counseling:?Tobacco use:?Type of Tobacco Use Cessation Counseling provided?Smoking cessation education ?Patient counseled on the dangers of smoking and urged to quit:?12/13/2023 * Follow Up:?4 Months * Images: * Sign off status: Completed true * Provider:?Shanelle Garcia DPM Date:?2023 Generated for Jesusita coronado/Safia/Mimi on:?06/24/2024 06:21 PM EDT History and Physical Notes * HPI (History of Present Illness) Category Sub-Category Detail Notes Category Not es Painful Nails Pt States Last PCP Visit: Date:: 10/17/2023 At Risk footcare Pt States Last PCP Visit: Date: Examination Category Sub-Category Detail Notes Category Not [...]
[2024-06-24 18:30] VITALS: BP 124/64; PULSE 76; RESP 14; TEMP 36.8; O2SAT 96
--- NOTE | 2024-06-24 18:34 | PC.NURSE ---
Patient A&O x 4. Denies SOB, fever/chills. Patient presents to ED c/o right index finger pain, Patient states it started a couple days ago and got worse . Patient denies injury to finger. Paronychia next to nail bed. Patient hypertensive but all other VSS. Patient medicated with tylenol and oxycodone before incision. effectiveness pending.
[2024-06-24] MEDS: Lidocaine 4 % Patch ADH..PATCH 1 PATCH TRANSDERMA (18:46)
[2024-06-24 19:07] VITALS: BP 124/64; PULSE 76; RESP 14; TEMP 36.8; O2SAT 96
== END 2024-06-24 19:08 | disposition home or self-care (01) ==
PROVIDERS: Emergency Provider Emergency Medicine; PCP Internal Medicine
DX: L03.011 Cellulitis of right finger (principal); B95.61 Methicillin susceptible Staphylococcus aureus infection as the cause of diseases classified elsewhere; B96.89 Other specified bacterial agents as the cause of diseases classified elsewhere; E11.9 Type 2 diabetes mellitus without complications; I10 Essential (primary) hypertension; E78.00 Pure hypercholesterolemia, unspecified; F17.210 Nicotine dependence, cigarettes, uncomplicated; Z79.84 Long term (current) use of oral hypoglycemic drugs; Z79.02 Long term (current) use of antithrombotics/antiplatelets; Z79.899 Other long term (current) drug therapy
CPT/HCPCS: 10060; 82947; 87070; 87077; 87186; 87205; 99283; 99284; J2003

== ENCOUNTER 2024-06-30 13:12 | Outpatient (AMB) | payer MEDICARE, BC, SELFPAY ==
--- OUTSIDE RECORDS SUMMARY | 2024-06-30 13:28 | XMS_ITS ---
Author Organization [facility] Address [address] [place] [address] Care Team Providers Care Supervisor Newspaper Deliveries Name Role Phone Dayana Mccurdy Primary Care Provider Unavailabl e Black, Shanelle Unavailable [phone] REASON FOR VISIT no show 06/12 Encounters Encounter Location Date Provider Diagnosis [facility] [address] [place] [address] 06/12/2024 Shanelle Black Plan Of Treatment No Information Progress Notes * Aurora LAZOOB:[birth year] (74 yo M)Acc No.[id number]:06/12/2024 Patient:?Noman LAZO :1950???Age:74 Y???Sex:Male Address: [place], [address] * true * Date:? Generated for Printi ivonne/Safia/eTransmitting on:?06/30/2024 01:28 PM EDT
--- OUTSIDE RECORDS SUMMARY | 2024-06-30 13:28 | XMS_ITS | Clinical Summary ---
Author Organization [employer] Address [address] [place] [address] Care Team Providers Care Data Operations Director Name Role Phone Unavailable Primary Care Provider [...] Relevant to Health Maintenance Insurance DENTAL - [facility] D[facility] DENTAL - [facility]
--- OUTSIDE RECORDS SUMMARY | 2024-06-30 13:28 | XMS_ITS | Patient Health Record ---
[facility] Organization [facility] [address] [place] [place] [place] Address [address] [facility] [address] Care Team Providers Care Wine Steward Name Role Phone Dayana Mccurdy Primary Care Provider Unavailabl e Black, Shanelle Unavailable [phone] Allergies No Known Allergies Results Component Value Reference Range Notes HEMOGLOBIN A1C (GLYCOHEMOGLO BIN) Reviewed date:12/13/2023 11:28:27 AM Interpretation: Performing Lab: Notes/Report: TOTAL HEMOGLOBIN (HGBA1C) 6.3 Reason For Referral No Information Medications Medication SIG (Take, Route, Frequency, Duration) Notes Start Date End Date Status Ipratropium [place] 0.03 % 2 sprays in each nostril [...] Once a day for 30 days Active [place]-3 Fatty Acids 1000 MG 1 capsule Orally [...] primary osteoarthritis of the ankle and/or foot (360367567) Primary osteoarthritis, left ankle and foot (M19.072) Active confirmed Problem Acquired hallux valgus (50373610) Hallux valgus (acquired), right foot (M20.11) Active confirmed Problem Acquired hammer toe of right foot (9592487496640606 ) Other hammer toe(s) (acquired), right foot (M20.41) Active confirmed Problem Acquired hammer toe of left foot (8660225905603851 ) Other hammer toe(s) (acquired), left foot (M20.42) Active confirmed Problem Polyneuropathy due to type 2 diabetes mellitus (632514606) Type 2 diabetes mellitus with diabetic polyneuropathy (E11.42) Active confirmed Problem 82107308 Smoker (F17.200) Active confirmed Problem Neuropathic ulce r of right foot with fat layer exposed (L97.512) Active confirmed Problem Neuropathic ulcer of right foot (disorder) (1404633451134191 2) Neuropathic ulcer of right foot, limited to breakdown of skin (L97.511) Active confirmed Vital Signs Height 5ft9in in 12/13/2023 Weight 198 lbs 12/13/2023 BMI 29.24 kg/m2 12/13/2023 Procedures Procedure Date Ordered Date Performed Result Body Sit e 73842-FZOBBPQ NAIL, 1-5 12/13/2023 N/A 33927-NWEQ SKIN LESIONS, 2 TO 4 12/13/2023 N/A E9021-RFXMGRRN DYSTROPHIC NAILS ANY # 12/13/2023 N/A Encounters Encounter Location Date Provider Diagnosis [address] [address] 12/13/2023 Shanelle Black Tinea unguium B35.1 ; Type 2 diabetes mellitus with diabetic polyneuropathy E11.42 and Smoker F17.[address] [address] 09/04/2023 [facility] [address] 11/22/2023 Shanelle Black [facility] [address] 06/12/2024 Shanelle Black Assessments Encounter Date Diagnosis (ICD Code) Assessment Notes Treatment Notes Treatment Clinical Notes Section Notes 12/13/2023 Tinea unguium (ICD-10 - B35.1) 12/13/2023 Type 2 diabetes mellitus with diabetic polyneuropathy (ICD-10 - E11.42) 12/13/2023 Smoker (ICD-10 - F17.200) Plan Of Treatment Pending Test Test Name Order Date X ray : Foot, left 3V 03/02/2022 71921-DLNFGYS NAIL, 1-5 11/14/2021 13126-TLYGZEW NAIL, 1-5 03/02/2022 84545-EALQUHL NAIL, 1-5 09/25/2022 04531-RCVCODE NAIL, 1-5 05/10/2023 04260-KOURPCD NAIL, 1-5 12/13/2023 25713- Debride <25 sq cm 09/25/2022 08755-SYYS SKIN LESIONS, 2 TO 4 09/26/19 02909-VLNH SKIN LESIONS, 2 TO 4 03/02/19 23 62866-MRSP SKIN LESIONS, 2 TO 4 12/13/19 24 28322-EZWD SKIN LESIONS, 2 TO 4 05/10/19 24 41212-EIKN SKIN LESIONS, 2 TO 4 11/15/19 22 C8286-TNKHBGQI DYSTROPHIC NAILS ANY # E0085-DEBVOURB DYSTROPHIC NAILS ANY # Insurance Providers Payer Name Payer Address Payer Phone Subscriber Number Group Number Insured Name Patient Relationship to Insured Coverage Start Date Coverage End Date [facility] [employer] Claims [address] [place] [id number] Noman Pope ra Self - patient is the insured [facility] [address] [place] [address] [id number] Noman Pope ra Self - patient is the insured [facility] [address] [place] [address] [id number] Noman Pope ra Self - patient [...]
--- OUTSIDE RECORDS SUMMARY | 2024-06-30 13:28 | XMS_ITS ---
Author Organization [facility] Address [address] [facility] [place] [address] Care Team Providers Care Credit Operations Processor Name Role Phone Dayana Mccurdy Primary Care Provider Unavailabl e Black, Shanelle Unavailable [phone] Allergies No Known Allergies REASON FOR VISIT Painful thick toenails which are aggrevated by shoes and causes difficulty standing/walking, At Risk Footcare Medications Medication SIG (Take, Route, Frequency, Duration) Notes Start Date End Date Status Ipratropium [place] 0.03 % 2 sprays in each nostril [...] Lidocaine 5 % as directed Externally Active [place]-3 Fatty Acids 1000 MG 1 capsule Orally [...] Ordered Date Performed Result Body Sit e 23034-TXIMSCL NAIL, 1-5 12/13/2023 N/A 57206-MZGZ SKIN LESIONS, 2 TO 4 12/13/2023 N/A G7686-LQQGBENF DYSTROPHIC NAILS ANY # 12/13/2023 N/A Encounters Encounter Location Date Provider Diagnosis [facility] [place] [address] [place] [address] 12/13/2023 Shanelle Black Tinea unguium B35.1 ; [...] Treatment Pending Test Test Name Order Date 23171-TPLJPNL NAIL, 1-5 12/13/2023 92276-JVMJ SKIN LESIONS, 2 TO 4 12/13/19 F6931-RHXIPZIH DYSTROPHIC NAILS ANY # Next Appt Details Follow Up: 4 Months, Reason: Procedure Notes * Category Sub-Category Detail Notes Keratoma Treatment Parring or Cutting o f Benign Hyperkeratotic Lesion(s) 25628 (2-4 Lesions) - The Benign hyperkeratotic lesions, [...] use of a nail nipper and/or dremel-type eyeglass lens grinder, to a more viable healthy nail plate or bed tissue 1-5. Silver nitrate used for any petechial bleeding as necessary. Definitive antifungal treatment options have been reviewed and discussed with the patient. The patient chooses, no pharmaceutical tx - 86277 Nail Reduction Nail Reduction Trimming of dyst rophic nails performed to reduce/remove overall nail length and girth, by manual and electrical means with use of a nail nipper and/or dremel, to more viable healthy nail plate or bed tissue 6-10 (G0127) Progress Notes * Aurora LAZOOB:[birth year] (73 yo M)Acc No.[id number]:12/13/2023 Progress Note Patient:ScottCarterRoyalNoman Provider:Pam Garcia DPM :1950???Age:73 Y???Sex:Male Lakhwinder e:12/13/2023 Address:[address] [id number] Pcp:Dayana Mccurdy Subjective: * Chief Complaints: * [...] walking. ?Living with: Fiance. ?Occupation: Retired from [employer]. * Medications:?TakingAtorvasta tin Calcium 20 MG [...] milk as needed Orally every 8 hrsIpratropium [place] 0.03 % Solution 2 sprays in each [...] as needed Orally every 8 hrsTaking Ipratropium [place] 0.03 % Solution 2 sprays in each nostril Nasally Twice a dayTaking Levothyroxine Sodium 75 MCG Tablet 1 tablet in the morning on an empty stomach Orally Once a dayTaking Lidocaine 5 % Patch as directed Externally Taking Losartan Potassium 100 MG Tablet 1 tablet Orally Once a dayTaking metFORMIN HCl 500 MG Tablet 1 tablet with a meal Orally Once a dayTaking [place]-3 Fatty Acids 1000 MG Capsule 1 capsule [...] - F17.200? Plan: * Treatment: 2.?Tinea unguium?Procedure: 35339-ERETYWI NAIL, 1-5 * Procedures:?Debride Nails 1-5:?Procedure:?Performance of this nail treatment by a nonprofessional would put this patients foot and overall health at risk. Therefore, nail debridement was performed extensively to reduce/remove overall nail length, girth, thickness, subungual debris, and necrotic tissue, by manual and/or electrical means through the use of a nail nipper and/or dremel-type eyeglass lens grinder, to a more viable healthy nail plate or bed tissue 1-5. Silver nitrate used for any petechial bleeding as necessary. Definitive antifungal treatment options have been reviewed and discussed with the patient. The patient chooses, no pharmaceutical tx - 86673.?Keratoma Treatment:?Parring or Cutting of Benign Hyperkeratotic Lesion(s)?29242 (2-4 Lesions) - The Benign hyperkeratotic lesions, as described above were pared, and/or cut utilizing a sterile #15 blade, tissue nippers, and/or dremel.?Nail Reduction:?Nail Reduction?Trimming of dystrophic nails performed to reduce/remove overall nail length and girth, by manual and electrical means with use of a nail nipper and/or dremel, to more viable healthy nail plate or bed tissue 6-10 (G0127).? * Procedure Codes:?19482 DEBRI DE NAIL, 1-5, Modifiers: XS G0127 TRIMMING DYSTROPHIC NAILS ANY #, Modifiers: XS 59363 TRIM SKIN LESIONS, 2 TO 4, Modifiers: XS * Preventive Medicine:? ??Counseling:?Tobacco use:?Type of Tobacco Use Cessation Counseling provided?Smoking cessation education ?Patient counseled on the dangers of smoking and urged to quit:?12/13/2023 * Follow Up:?4 Months * Images: * Sign off status: Completed true * Provider:?Shanelle Garcia DPM Date:?2023 Generated for Jesusita coronado/Safia/Mimi on:?06/30/2024 01:28 PM EDT History and Physical Notes * [...]
--- OUTSIDE RECORDS SUMMARY | 2024-06-30 13:28 | XMS_ITS ---
[facility] Organization [facility] Address [address] [place] [address] Care Team Providers Care Lighter Name Role Phone Dayana Mccurdy Primary Care Provider Shanelle Camp [phone] Encounters Encounter Location Date Provider Diagnosis [facility] [address] [place] [address] 06/12/2024 Shanelle Garcia Plan Of Treatment No Information Progress Notes * Nancy LAZOoDOB:[birth year] (74 yo M)Acc No.[id number]:06/12/2024 Progress Note Patient:STEPHSOPHIAVianeyNoman Provider:Pam Garcia DPM :1950???Age:74 Y???Sex:Male Lakhwinder e:06/12/2024 Address:[address] [place], [place] [address] [facility] Pcp:Dayana Mccurdy Subjective: * Chief Complaints: * ??? * Medical History:? Objective: * Vitals:? Assessment: Plan: * Treatment: * Images: * The named appointment provid er may or may not be the originator of this progress note, and it is not deemed complete until electronically signed by the appointment provider. Sign off status: Pending * Provider:?Shanelle Garcia DPM Date:?2024 Generated for Jesusita coronado/Safia/eTransmitting on:?06/30/2024 01:28 PM EDT
--- OUTSIDE RECORDS SUMMARY | 2024-06-30 13:28 | XMS_ITS | Clinical Summary ---
Author Organization [facility] Address [address] [place] [address] Care Team Providers Care Hot Knife Foxing Cutter Name Role Phone Unavailable Primary Care Provider [...]
--- NOTE | 2024-06-30 14:08 | MHC.OFFWIV ---
Intake Vital Signs 06/30/24 14:12 Weight 198 lb BP 110/70 Blood Pressure Location Rt brachial Position Sitting Pulse 72 Pulse Source Pulse Oximeter Pulse Oximetry (%) 97 Oxygen Delivery Method Room Air Intake Visit Reasons: EP-rt finger index finger swollen & pain Patient Tobacco Use Status: Former Tobacco user Allergies No Known Allergies [No Known Allergies*] Allergy (Verified 06/30/24 14:13) Do you need a note to return to daycare/school/sports/work: No HPI HPI Comments History of Present Illness Details History of Present Illness - The patient is a 74-year-old male with past med hx of DM2, HTN, HLD, GERD, hypothyroid, LUIS, JI and current smoker presenting with follow up for his right 2nd finger paronychia. - The condition originated 6 days ago and required medical attention at an emergency department where drainage was performed. - Since draining, the infection has shown gradual improvement with some ongoing drainage. - Current treatment includes Bactrim therapy on a twice-daily regimen, initiated on June 24, has one day of abx left. - The patient has underlying diabetes mellitus, which influences tissue healing and infection outcomes. - He has been washing it with soap and water and applying neosporin daily. Physical Exam General: Cooperative, healthy appearing, comfortable, no acute distress and well developed Orientation: Patient oriented x3 Limitations: No limitations Head: Normal to inspection Ears: Hearing grossly normal bilaterally Nose: Normal External nose present Face and sinus: Normal facial exam Eyes: Appearance normal, both eyes and all related structures Neck: Normal visual inspection and Yes full ROM Respiratory: Normal respiratory effort and able to speak in complete sentences. Skin: No rashes or lesions noted, right hand 2nd digit skin missing where paronychia was performed, lateral nail, some ttp and erythema at the base of the nail, distal skin. slight ttp. Neuro: Patient oriented x3 Extremities: Normal to inspection [facility] Medical History Type 2 diabetes mellitus with hyperglycemia Diabetic neuropathy Tubular adenoma of colon Nicotine dependence, cigarettes, uncomplicated Positive PPD Obstructive sleep apnea Foot pain, left Overweight (BMI 25.0-29.9) Obesity (BMI 30-39.9) Thyroid nodule Vertebral fracture Pulmonary nodule Osteoarthritis GERD (gastroesophageal reflux disease) Erectile dysfunction Hypothyroid Hypertension Hypercholesterolemia Surgical History History of back surgery History of colonoscopy History of arthroscopy of right knee History of appendectomy History of tonsillectomy Family History Father Medical history unknown Mother Diabetes Past heart attack Brother Prostate cancer Social History Housing: House Unable to assess alcohol history related to: Unknown Alcohol intake: current Alcohol intake frequency: 0-2 drinks per day Alcohol type: beer Comment: QD 2 drinksstopped 12/2023 but last night ( 03/2024) 4 beers, Patient Tobacco Use Status: Former Tobacco user Tobacco use type: Cigarette Cigarette Packs Per Day: 1 Cigarettes Per Day: 15 Years Smoked: (onset 17yo, 3/4ppd x 56yrs, 40pyh) e-Cigarette/Vaping Use: Never Used Second Hand Smoke Exposure: Yes service: No Current occupational status: disabled Cognitive needs: No Hearing needs: No Vision needs: Yes Review of Systems Const All systems reviewed & are unremarkable except as noted in HPI and below Physical Exam Vital Signs: Last Vital Signs Pulse 72 06/30/24 14:12 BP 110/70 06/30/24 14:12 Pulse Ox 97 06/30/24 14:12 Oxygen Delivery Method Room Air 06/30/24 14:12 Assessment & Plan Assessment & Plan (1) Paronychia of finger: Code(s): L03.019 - Cellulitis of unspecified finger Qualifiers: Laterality: right Qualified Code(s): L03.011 - Cellulitis of right finger Plan: Plan The patient was seen for a follow-up visit of paronychia. Treatment with Bactrim, started on June 24, has been prescribed to continue twice daily until completion, which should complete tomorrow, ensuring coverage for the resolving infection. With underlying diabetes mellitus, the patient has been advised to apply Aquaphor ointment to the area of infection twice daily, aiding in the healing process by maintaining moisture. The infection is noted to be healing well, no drainage. Daily washing with soap and water is recommended, with avoidance of further mechanical drainage unless clinically necessary. The patient is made aware to monitor for any signs of worsening, such as increasing pain, swelling, or erythema, and to seek further consultation if these symptoms occur. Continued observation and management are essential, emphasizing proper wound care and completion of the antibiotic therapy to fully resolve the condition. Patient was informed and verbally consented to the use of an ambient scribe for clinic note documentation during this visit. Coding Level of Care Code Est Pt Level 3 (40694) Diagnoses Paronychia of finger of right hand L03.011 Laterality: right
[2024-06-30 14:12] VITALS: BP 110/70; PULSE 72; O2SAT 97
== END 2024-06-30 14:40 | disposition home or self-care (01) ==
PROVIDERS: PCP Internal Medicine; Visit Provider Physician Assistant
DX: L03.011 Cellulitis of right finger (principal)

== ENCOUNTER → 2024-06-30 13:12 | Outpatient (BNVA) | payer MEDICARE, BC, SELFPAY | PROVIDERS: PCP Internal Medicine; Visit Provider Physician Assistant | DX: L03.011 Cellulitis of right finger (principal) | CPT/HCPCS: 99212 ==

== ENCOUNTER 2024-07-02 09:22 | Outpatient (REF) | payer MEDICARE, BC, SELFPAY ==
--- NOTE | ~2024-07-02 | XR_ITS ---
CLINICAL HISTORY: M54.9 - Dorsalgia, unspecified 3 views lumbar spine Comparison: None Findings: Grade 1 anterolisthesis of L5 on S1. Posterior fusion hardware at L4-S1. No acute fractures or dislocation. Multilevel disc space narrowing and endplate osteophyte formation, as well as facet hypertrophy. IMPRESSION: No acute findings. This document has been electronically signed by: Jeannie Villalta MD on 07/02/2024 14:26:50
--- NOTE | ~2024-07-02 | XR_ITS ---
CLINICAL HISTORY: M54.9 - Dorsalgia, unspecified 4 views thoracic spine Comparison: CR/SR - XR THORACIC SPINE 2V - 08/29/22 10:49 EDT Findings: Normal vertebral body alignment. No acute fractures or dislocation. Multilevel disc space narrowing and endplate osteophyte formation, as well as facet hypertrophy. IMPRESSION: No acute findings. This document has been electronically signed by: Jeannie Villalta MD on 07/02/2024 14:30:27
[2024-07-02 10:17] LABS: MANUAL DIFF FLAG NO
--- OUTSIDE RECORDS SUMMARY | 2024-07-02 10:58 | XMS_ITS | Clinical Summary ---
Author Organization [employer] Address [address] [facility] [address] [place] [address] Care Team Providers Care Batch Blender Name Role Phone Unavailable Primary Care Provider [...] Relevant to Health Maintenance Insurance DENTAL - [facility] DENTAL DENTAL - [facility]
--- OUTSIDE RECORDS SUMMARY | 2024-07-02 10:58 | XMS_ITS | Clinical Summary ---
Author Organization [facility] Address [address] [place] [address] Care Team Providers Care Glass Cleaner Name Role Phone Unavailable Primary Care Provider [...]
[2024-07-02 11:02] LABS: Appearance Urine Clear; Color Urine Dark Yellow; Glucose Urine UA 500 mg/dL (Negative); Leukocyte Esterase Urine Negative (Negative); Nitrite Urine Negative (Negative); PH 5.5 (5.0-9.0); Specific Gravity - Urine 1.025 (1.005-1.025); Urine Blood Negative (Negative); Urine Ketones Trace mg/dL (Negative); Urine Protein Negative (Neg-Trace)
[2024-07-02 11:16] LABS: Basophils Percent Auto 0.6 % (0-2); Eosinophils Absolute Auto 0.1 X10*3/uL (0.0-0.4); Eosinophils Percent Auto 1.9 % (0-4); Hematocrit 37.2 % (42.0-52.0); Hemoglobin 12.5 g/dl (14.0-18.0); Imm Gran Abs Auto 0.01 X10*3/uL (0.00-0.03); Imm Gran Pct Auto 0.1 % (0.0-0.4); Immature Retic Fraction 8.3 % (2.3-13.4); Lymphocytes Absolute Auto 1.7 X10*3/uL (1.2-4.9); Lymphocytes Percent Auto 23.8 % (20-40); Mean Corpuscular HGB Conc 33.6 g/dl (31.0-36.0); Mean Corpuscular Hemoglobin 29.7 pg (27.0-33.0); Mean Corpuscular Volume 88.4 fL (80.0-98.0); Mean Platelet Volume 9.3 fL (9.4-12.4); Monocytes Absolute Auto 0.7 X10*3/uL (0.1-1.2); Monocytes Percent Auto 10.2 % (2-11); Neutrophils Absolute Auto 4.4 x10*3/uL (2.0-8.3); Neutrophils Percent Auto 63.4 % (45-73); Platelet Count 183 X10*3/uL (160-400); Red Blood Count 4.21 X10*6/uL (4.60-5.80); Red Cell Distribution Width 13.2 % (11.0-16.0); Retic HGB Equivalent 34.6 pg (30.0-35.0); Reticulocyte Percent 0.8 % (0.5-1.8); Reticulocytes Absolute 0.035 X10*6/uL (0.026-0.095)
[2024-07-02 11:23] LABS: Estimated Average Glucose 197 mg/dL; Hemoglobin A1C 225.7974 umol/L; Hemoglobin A1c % 8.5 % (<6.0); Total Hemoglobin (HGBA1C) 3267.7395 umol/L
[2024-07-02 11:26] LABS: Creatinine Urine 132.41 mg/dL
[2024-07-02 11:59] LABS: Alanine Aminotransferase 33 U/L (0-40); Albumin Level 3.8 g/dL (3.5-5.0); Alkaline Phosphatase 79 U/L (39-117); Anion Gap 13 (12-20); Aspartate Amino Transferase 34 U/L (5-37); Bilirubin Total 0.4 mg/dL (0.0-1.0); Blood Urea Nitrogen 18 mg/dL (9-16); Calcium 8.7 mg/dL (8.4-10.2); Carbon Dioxide 22 mmol/L (22-29); Chloride 108 mmol/L (96-108); Cholesterol 170 mg/dL (<200); Estimated Glomerular Filt Rate > 60; Glucose Random 223 mg/dL (60-115); HDL Cholesterol 72 mg/dL (>40); Iron 86 mcg/dL (45-160); LDL Cholesterol Calculated 64 mg/dL (<100); Percent Iron Saturation 34 % (15-50); Potassium 4.8 mmol/L (3.3-5.1); Sodium 138 mmol/L (135-145); Total Iron Binding Capacity 250 mcg/dL (228-428); Total Protein 6.4 g/dL (6.5-8.0); Triglycerides 171 mg/dL (<150); Unsaturated Iron Binding 164 ug/dL
[2024-07-02 12:03] LABS: Ferritin 88 ng/mL (20-250); Free T4 (Free Thyroxine) 0.89 ng/dL (0.71-1.85); Thyroid Stimulating Hormone 4.78 uIU/mL (0.32-4.0)
[2024-07-02 12:14] LABS: Folate 11.8 ng/mL (> or = 4.0); Vitamin B12 643 pg/mL (200-900)
== END 2024-07-02 09:23 | disposition home or self-care (01) ==
LOC: HO.XRAY 09:22
PROVIDERS: PCP Internal Medicine; Visit Provider Nurse Practitioner
DX: K59.04 Chronic idiopathic constipation (principal); K21.9 Gastro-esophageal reflux disease without esophagitis; R35.0 Frequency of micturition; M54.9 Dorsalgia, unspecified; E11.65 Type 2 diabetes mellitus with hyperglycemia; E78.00 Pure hypercholesterolemia, unspecified
CPT/HCPCS: 36415; 72070; 72100; 80053; 80061; 81003; 82570; 82607; 82728; 82746; 83036; 83540; 84439; 84443; 85025; 85045; 99212

== ENCOUNTER 2024-07-02 09:22 | Outpatient (AMB) | payer MEDICARE, BC, SELFPAY ==
--- NOTE | 2024-07-02 09:25 | A.OFFVIS_ITS ---
Vital Signs 3 07/02/24 09:26 Height 5 ft 9 in Weight 198 lb BMI 29.2 Intake Visit Reasons: 6 month follow up R/S from 04/23/24 Intake Note: Patient presents pod2arprf follow up Allergies No Known Allergies [No Known Allergies*] Allergy (Verified 07/02/24 09:28) HPI HPI 6 month follow up R/S from 04/23/24: Details: Assessment & Plan (1) GERD (gastroesophageal reflux disease): Code(s): K21.9 - Gastro-esophageal reflux disease without esophagitis Category: Medical Qualifiers: Esophagitis presence: without esophagitis Qualified Code(s): K21.9 - Gastro-esophageal reflux disease without esophagitis Plan He continues to do well on him omeprazole. He also continues to control his constipation with dietary interventions. Return office visit in 6 months TODAY'S VISIT He continues to do well on him omeprazole. He also continues to control his constipation with dietary interventions. he still has the senna if he needs it as at times he still strains. He is also c/o urinary frequency and pain in the right flank. I will get a UA to see if infectious process, and XR's TS and LS. He has had L4-5-S1 surgery in the past. Increased left paraspinous tone, no SI tenderness. However there is quite an element of stiffness and when he wakes up in the morning he has the stooped gait of someone with a musculoskeletal/back mediated dysfunction. ROV 6 mos. PFSH Medical History Family history of colon cancer Osteoarthritis Sinusitis Vertebral fracture Essential tremor Constipation Preop exam for internal medicine Type 2 diabetes mellitus with hyperglycemia Diabetic neuropathy Tubular adenoma of colon Nicotine dependence, cigarettes, uncomplicated Positive PPD Obstructive sleep apnea Foot pain, left Overweight (BMI 25.0-29.9) Obesity (BMI 30-39.9) Thyroid nodule Pulmonary nodule GERD (gastroesophageal reflux disease) Erectile dysfunction Hypothyroid Hypertension Hypercholesterolemia Surgical History History of back surgery History of colonoscopy History of arthroscopy of right knee History of appendectomy History of tonsillectomy Family History Father Medical history unknown Mother Diabetes Past heart attack Brother Prostate cancer Social History Housing: House Unable to assess alcohol history related to: Unknown Alcohol intake: current Alcohol intake frequency: 0-2 drinks per day Alcohol type: beer Comment: QD 2 drinksstopped 12/2023 but last night ( 03/2024) 4 beers, Patient Tobacco Use Status: Former Tobacco user Tobacco use type: Cigarette Cigarette Packs Per Day: 1 Cigarettes Per Day: 15 Years Smoked: (onset 17yo, 3/4ppd x 56yrs, 40pyh) e-Cigarette/Vaping Use: Never Used Second Hand Smoke Exposure: Yes service: No Current occupational status: disabled Cognitive needs: No Hearing needs: No Vision needs: Yes Review of Systems Const Denies fatigue, Denies fever(s), Denies night sweats, Denies poor appetite and Denies weight loss Eyes Details: glasses Reports requires corrective lenses ENT Reports Normal hearing present, Denies dental pain, Denies dysphagia, Denies hearing loss, Denies mouth pain, Reports nasal obstruction, Denies odynophagia, Reports post nasal drip, Reports sinus pain, Denies throat swelling, Denies tongue swelling and Reports other (Dentition adequate) Card Reports no additional complaints Resp Reports no additional complaints GI Details: Denies abdominal pain, Denies melena, Denies bloating, Denies hematochezia, Reports constipation, Denies GI cramping, Denies dysphagia, Denies excessive flatus, Denies early satiety, Reports heartburn, Denies diarrhea, Denies nausea, Denies odynophagia, Denies vomiting and Denies hematemesis Reports flank pain and Reports urinary frequency Musc Reports abnormal gait, Reports back pain, Denies radiating pain into limb and Reports stiffness Skin/Breast Denies pruritus, Denies lesions, Denies rash and Denies jaundice Neuro Reports Normal hearing present, Denies Abnormal speech present and Reports abnormal gait Endo Denies fatigue Aller/Immun Denies throat swelling and Denies tongue swelling Physical Exam Vital Signs: BMI result Body Mass Index 29.2 Const General: cooperative, no acute distress, well developed and well groomed Nutritional Appearance: well nourished and obese Orientation/consciousness: oriented to person, oriented to place and oriented to time Limitations: No language barrier HEENT Head: Yes normocephalic and Yes atraumatic Eyes General: appearance normal, both eyes and all related structures Pupils: Equal, round and reactive pupils present Neck Neck: Yes normal visual inspection and Yes no lymphadenopathy Thyroid: Thyroid normal Resp Effort & Inspection: normal respiratory effort and able to speak in complete sentences Auscultation: clear to auscultation bilaterally Cardio Rate: regular rate Rhythm: regular rhythm Heart sounds: Normal, physiologic split S2 sound present Peripheral pulses: radial pulses present and posterior tibial pulses present GI Inspection: No distended and No Abdominal panniculus present Palpation (GI): Soft to palpation, nontender, no guarding, not rigid and No hepatosplenomegaly present Percussion: Yes normal to percussion Auscultation: normal bowel sounds Rectal Exam - Male: Yes deferred General: Yes no CVA tenderness Back/Spine/Pelvis Other: Increased paraspinal tone and spasm L3-L4 area Back: no CVA tenderness Thoracic/Lumbar Spine: paraspinal muscle tenderness on the left in the lower thoracic and in the upper thoracic and on the right (In the musculature of the back around to the flank), thoracic spinal tenderness and No lumbar spinal tenderness Sacroiliac joints: bilaterally nontender Back/spine/pelvis image: 2 1. Area of tenderness Skin General skin exam: no rashes or lesions noted, turgor normal, skin not dry, no jaundice, No spider nevi and no striae Rashes: no rashes Nails: normal Neuro General: oriented to person, oriented to place and oriented to time Cranial nerves: Yes Equal, round and reactive pupils present and Yes Normal hearing present Speech: No Abnormal speech present Extrem General: Yes normal to inspection, No clubbing, No cyanosis and No edema Psych Appearance: grossly normal and well kempt Mental Status: mental status grossly normal Speech and movement: Normal speech and movement present Affect: normal affect Attitude: cooperative Thought process: Normal thought process present and not confabulating Thought content: Normal thought content present Insight: Fair insight present (Psych) Judgement: Fair judgement present (Psych) Assessment & Plan Assessment & Plan (1) Chronic idiopathic constipation: Code(s): K59.04 - Chronic idiopathic constipation Category: Medical (2) GERD (gastroesophageal reflux disease): Code(s): K21.9 - Gastro-esophageal reflux disease without esophagitis Category: Medical Qualifiers: Esophagitis presence: without esophagitis Qualified Code(s): K21.9 - Gastro-esophageal reflux disease without esophagitis (3) Increased urinary frequency: Code(s): R35.0 - Frequency of micturition Category: Medical (4) Back pain: Code(s): M54.9 - Dorsalgia, unspecified Category: Medical Plan He continues to do well on him omeprazole. He also continues to control his constipation with dietary interventions. he still has the senna if he needs it as at times he still strains. He is also c/o urinary frequency and pain in the right flank. I will get a UA to see if infectious process, and XR's TS and LS. He has had L4-5-S1 surgery in the past. Increased left paraspinous tone, no SI tenderness. However there is quite an element of stiffness and when he wakes up in the morning he has the stooped gait of someone with a musculoskeletal/back mediated dysfunction. He has an upcoming appointment with Urology so if my exams are negative he may want to investigate prostate isn't origin, he also has an upcoming appoint with his primary care provider Dr. Mccurdy. Ordering some studies will help him get a handle on this quicker. He recently was treated with ampicillin for a chronic sinusitis along with Flonase and this has improved. He currently has not infection on his right index finger for which he is on doxycycline. ROV 6 mos. Orders: Orders 2 UA CC w/rflx Micro + Cult Today R35.0 - Frequency of micturition XR thoracic spine 2V Today M54.9 - Dorsalgia, unspecified XR lumbar spine 2-3V Today M54.9 - Dorsalgia, unspecified Medications: Refilled 2 omeprazole 20 mg PO DAILY 90 caps 0RF lubiprostone (Amitiza) 8 mcg PO BID 60 caps 6RF K59.04 - Chronic idiopathic constipation Resumed 2 sennosides-docusate sodium 8.6-50 mg (Senna Plus) 1 tab-cap PO BID 90 days PRN 180 caps 3RF constipation K59.00 - Constipation, unspecified Coding Level of Care Code Est Pt Level 3 (41550) Diagnoses Chronic idiopathic constipation K59.04 Gastroesophageal reflux disease without esophagitis K21.9 Esophagitis presence: without esophagitis Increased urinary frequency R35.0 Back pain M54.9
[2024-07-02 09:26] VITALS: BMI 29.2
--- OUTSIDE RECORDS SUMMARY | 2024-07-02 09:53 | XMS_ITS ---
Author Organization [facility] Address [address] [place] [address] Care Team Providers Care Auricular Detoxification Specialist Name Role Phone Dayana Mccurdy Primary Care Provider Shanelle Camp [phone] Encounters Encounter Location Date Provider Diagnosis [address] [address] 06/12/2024 Shanelle Garcia Plan Of Treatment Next Appt Details Provider Name:Shanelle Garcia , 07/31/2024 02:30:00 PM, [address] [place] [address], [phone], Progress Notes * Nancy LAZOoDOB:[birth year] (74 yo M)Acc No.[id number]:06/12/2024 Progress Note Patient:?Noman LAZO Provider:?Shanelle Garcia DPM :1950???Age:74 Y???Sex:Male Lakhwinder e:06/12/2024 Address:[place] Pcp:Dayana Mccurdy Subjective: * Chief Complaints: * ??? * Medical History:? Objective: * Vitals:? Assessment: Plan: * Treatment: * Images: * The named appointment provid er may or may not be the originator of this progress note, and it is not deemed complete until electronically signed by the appointment provider. Sign off status: Pending * Provider:Pam Garcia DPM Date:?2024 Generated for Jesusita coronado/Safia/Mimi on:?07/02/2024 09:53 AM EDT
--- OUTSIDE RECORDS SUMMARY | 2024-07-02 09:54 | XMS_ITS | Clinical Summary ---
Author Organization [employer] Address [address] [facility] 7[address] [place] [address] Care Team Providers Care Public Administration Professor Name Role Phone Unavailable Primary Care Provider [...] Relevant to Health Maintenance Insurance DENTAL - [facility] DENTAL DENTAL - [facility]
--- OUTSIDE RECORDS SUMMARY | 2024-07-02 09:54 | XMS_ITS | Patient Health Record ---
Author Organization [facility] [place] Address [address] [facility] [place] [address] Care Team Providers Care Performance Test Architect Name Role Phone Dayana Mccurdy Primary Care Provider Unavailabl e Black, Shanelle Unavailable [phone] Allergies No Known Allergies Results Component Value Reference Range Notes HEMOGLOBIN A1C (GLYCOHEMOGLO BIN) Reviewed date:12/13/2023 11:28:27 AM Interpretation: Performing Lab: Notes/Report: TOTAL HEMOGLOBIN (HGBA1C) 6.3 Reason For Referral No Information Medications Medication SIG (Take, Route, Frequency, Duration) Notes Start Date End Date Status Ipratropium Spruce 0.03 % 2 sprays in each nostril [...] Once a day for 30 days Active [place]-3 Fatty Acids 1000 MG 1 capsule Orally [...] primary osteoarthritis of the ankle and/or foot (371268818) Primary osteoarthritis, left ankle and foot (M19.072) Active confirmed Problem Acquired hallux valgus (83206165) Hallux valgus (acquired), right foot (M20.11) Active confirmed Problem Acquired hammer toe of right foot (5174317170090652 ) Other hammer toe(s) (acquired), right foot (M20.41) Active confirmed Problem Acquired hammer toe of left foot (9868622184394150 ) Other hammer toe(s) (acquired), left foot (M20.42) Active confirmed Problem Polyneuropathy due to type 2 diabetes mellitus (833703062) Type 2 diabetes mellitus with diabetic polyneuropathy (E11.42) Active confirmed Problem 87640175 Smoker (F17.200) Active confirmed Problem Neuropathic ulce r of right foot with fat layer exposed (L97.512) Active confirmed Problem Neuropathic ulcer of right foot (disorder) (7762444695771968 2) Neuropathic ulcer of right foot, limited to breakdown of skin (L97.511) Active confirmed Vital Signs Height 5ft9in in 12/13/2023 Weight 198 lbs 12/13/2023 BMI 29.24 kg/m2 12/13/2023 Procedures Procedure Date Ordered Date Performed Result Body Sit e 96832-HYHYZDN NAIL, 1-5 12/13/2023 N/A 75291-CRHY SKIN LESIONS, 2 TO 4 12/13/2023 N/A U8906-DDBXTXPN DYSTROPHIC NAILS ANY # 12/13/2023 N/A Encounters Encounter Location Date Provider Diagnosis [address] [address] 12/13/2023 Shanelle Black Tinea unguium B35.1 ; Type 2 diabetes mellitus with diabetic polyneuropathy E11.42 and Smoker F17.[address] [address] 09/04/20[facility] [address] 11/22/20[facility] [address] 06/12/2024 Shanelle Black Assessments Encounter Date Diagnosis (ICD Code) Assessment Notes Treatment Notes Treatment Clinical Notes Section Notes 12/13/2023 Tinea unguium (ICD-10 - B35.1) 12/13/2023 Type 2 diabetes mellitus with diabetic polyneuropathy (ICD-10 - E11.42) 12/13/2023 Smoker (ICD-10 - F17.200) Plan Of Treatment Pending Test Test Name Order Date X ray : Foot, left 3V 03/02/2022 58942-OIUDYJY NAIL, 1-5 11/14/2021 58695-MKQJRTJ NAIL, 1-5 03/02/2022 13367-JECZZDI NAIL, 1-5 09/25/2022 69444-YJUZXBR NAIL, 1-5 05/10/2023 53707-YTKBURU NAIL, 1-5 12/13/2023 63109- Debride <25 sq cm 09/25/2022 07599-UKTB SKIN LESIONS, 2 TO 4 09/26/19 23 75947-STXV SKIN LESIONS, 2 TO 4 03/02/19 23 70753-WQLG SKIN LESIONS, 2 TO 4 12/13/19 24 33536-RIEF SKIN LESIONS, 2 TO 4 05/10/19 24 64375-YOIV SKIN LESIONS, 2 TO 4 11/15/19 22 G9522-IQTLFNHP DYSTROPHIC NAILS ANY # X9557-PFZBXQBX DYSTROPHIC NAILS ANY # Next Appt Details Provider Name:Shanelle Garcia , 07/31/2024 02:30:00 PM, [address] [place] [address], [phone], Insurance Providers Payer Name Payer Address Payer Phone Subscriber Number Group Number Insured Name Patient Relationship to Insured Coverage Start Date Coverage End Date [facility] [employer] Claims [address] [place] [id number] Noman Pope ra Self - patient is the insured [facility] [address] [place] [address] [id number] Noman Pope ra Self - patient is the insured [employer] [address] [place] [address] [id number] Noman Pope ra Self - patient [...]
--- OUTSIDE RECORDS SUMMARY | 2024-07-02 09:54 | XMS_ITS ---
Author Organization [facility] Address [address] [place] [address] Care Team Providers Care Chain Saw Driver Name Role Phone Dayana Mccurdy Primary Care Provider Unavailabl e Shanelle Garcia Unavailable [phone] REASON FOR VISIT no show 06/12 Encounters Encounter Location Date Provider Diagnosis [address] [address] 06/12/2024 Shanelle Garcia Plan Of Treatment Next Appt Details Provider Name:Shanelle Garcia , 07/31/2024 02:30:00 PM, [address] [place] [address], [phone], Progress Notes * Nancy LAZOoDOB:[birth year] (74 yo M)Acc No.[id number]:06/12/2024 Patient:?Noman LAZO :1950???Age:74 Y???Sex:Male Address: [place], [address] * true * Date:? Generated for Printi ng/Faelianag/eTransmitting on:?07/02/2024 09:54 AM EDT
--- OUTSIDE RECORDS SUMMARY | 2024-07-02 09:54 | XMS_ITS ---
Author Organization [facility] Address [address] [facility] [place] [address] Care Team Providers Care County Director Name Role Phone Dayana Mccurdy Primary Care Provider Unavailabl e Black, Shanelle Unavailable [phone] Allergies No Known Allergies REASON FOR VISIT Painful thick toenails which are aggrevated by shoes and causes difficulty standing/walking, At Risk Footcare Medications Medication SIG (Take, Route, Frequency, Duration) Notes Start Date End Date Status Ipratropium Hastings 0.03 % 2 sprays in each nostril [...] Lidocaine 5 % as directed Externally Active [place]-3 Fatty Acids 1000 MG 1 capsule Orally [...] Ordered Date Performed Result Body Sit e 09285-JOEKPCY NAIL, 1-5 12/13/2023 N/A 49570-ZOLT SKIN LESIONS, 2 TO 4 12/13/2023 N/A T4060-TNFZYLJL DYSTROPHIC NAILS ANY # 12/13/2023 N/A Encounters Encounter Location Date Provider Diagnosis [facility] [address] [place] [address] 12/13/2023 Shanelle Black Tinea unguium B35.1 ; [...] Treatment Pending Test Test Name Order Date 56178-QWIJGWV NAIL, 1-5 12/13/2023 99460-IEOK SKIN LESIONS, 2 TO 4 12/13/19 U3001-NYZLKBNJ DYSTROPHIC NAILS ANY # Next Appt Details Follow Up: 4 Months, Reason: Provider Name:Shanelle Garcia , 07/31/2024 02:30:00 PM, [address] [place] [address], [phone], Procedure Notes * Category Sub-Category Detail Notes Keratoma Treatment Parring or Cutting o f Benign Hyperkeratotic Lesion(s) 53625 (2-4 Lesions) - The Benign hyperkeratotic lesions, [...] use of a nail nipper and/or dremel-type radius grinder, to a more viable healthy nail plate or bed tissue 1-5. Silver nitrate used for any petechial bleeding as necessary. Definitive antifungal treatment options have been reviewed and discussed with the patient. The patient chooses, no pharmaceutical tx - 52371 Nail Reduction Nail Reduction Trimming of dyst rophic nails performed to reduce/remove overall nail length and girth, by manual and electrical means with use of a nail nipper and/or dremel, to more viable healthy nail plate or bed tissue 6-10 (G0127) Progress Notes * Aurora LAZOOB:[birth year] (73 yo M)Acc No.[id number]:12/13/2023 Progress Note Patient:?Noman Lazo Provider:?Shanelle Garcia DPM :1950???Age:73 Y???Sex:Male Lakhwinder e:12/13/2023 Address:[address] [facility] Pcp:Dayana Mccurdy Subjective: * Chief Complaints: * [...] walking. ?Living with: Fiance. ?Occupation: Retired from [employer] and [employer]. * Medications:?TakingAtorvasta tin Calcium 20 MG Tablet [...] milk as needed Orally every 8 hrsIpratropium Hastings 0.03 % Solution 2 sprays in each [...] as needed Orally every 8 hrsTaking Ipratropium Hastings 0.03 % Solution 2 sprays in each nostril Nasally Twice a dayTaking Levothyroxine Sodium 75 MCG Tablet 1 tablet in the morning on an empty stomach Orally Once a dayTaking Lidocaine 5 % Patch as directed Externally Taking Losartan Potassium 100 MG Tablet 1 tablet Orally Once a dayTaking metFORMIN HCl 500 MG Tablet 1 tablet with a meal Orally Once a dayTaking [place]-3 Fatty Acids 1000 MG Capsule 1 capsule [...] - F17.200? Plan: * Treatment: 2.?Tinea unguium?Procedure: 73489-VFTXASP NAIL, 1-5 * Procedures:?Debride Nails 1-5:?Procedure:?Performance of this nail treatment by a nonprofessional would put this patients foot and overall health at risk. Therefore, nail debridement was performed extensively to reduce/remove overall nail length, girth, thickness, subungual debris, and necrotic tissue, by manual and/or electrical means through the use of a nail nipper and/or dremel-type radius grinder, to a more viable healthy nail plate or bed tissue 1-5. Silver nitrate used for any petechial bleeding as necessary. Definitive antifungal treatment options have been reviewed and discussed with the patient. The patient chooses, no pharmaceutical tx - 92445.?Keratoma Treatment:?Parring or Cutting of Benign Hyperkeratotic Lesion(s)?78911 (2-4 Lesions) - The Benign hyperkeratotic lesions, as described above were pared, and/or cut utilizing a sterile #15 blade, tissue nippers, and/or dremel.?Nail Reduction:?Nail Reduction?Trimming of dystrophic nails performed to reduce/remove overall nail length and girth, by manual and electrical means with use of a nail nipper and/or dremel, to more viable healthy nail plate or bed tissue 6-10 (G0127).? * Procedure Codes:?35912 DEBRI DE NAIL, 1-5, Modifiers: XS G0127 TRIMMING DYSTROPHIC NAILS ANY #, Modifiers: XS 22979 TRIM SKIN LESIONS, 2 TO 4, Modifiers: XS * Preventive Medicine:? ??Counseling:?Tobacco use:?Type of Tobacco Use Cessation Counseling provided?Smoking cessation education ?Patient counseled on the dangers of smoking and urged to quit:?12/13/2023 * Follow Up:?4 Months * Images: * Sign off status: Completed true * Provider:?ACE MorenoM Date:?2023 Generated for Jesusita coronado/Safia/eTransmitting on:?07/02/2024 09:54 AM EDT History and Physical Notes * HPI [...]
--- OUTSIDE RECORDS SUMMARY | 2024-07-02 09:54 | XMS_ITS | Clinical Summary ---
Author Organization [facility] Address [address] [place] [address] Care Team Providers Care Casing Operator Name Role Phone Unavailable Primary Care [...]
== END 2024-07-02 09:48 | disposition home or self-care (01) ==
LOC: HO.HGI 09:22
PROVIDERS: PCP Internal Medicine; Visit Provider Nurse Practitioner
DX: K59.04 Chronic idiopathic constipation (principal); K21.9 Gastro-esophageal reflux disease without esophagitis; R35.0 Frequency of micturition; M54.9 Dorsalgia, unspecified
CPT/HCPCS: 99213

== ENCOUNTER → 2024-07-02 10:23 | Outpatient (BNV) | payer MEDICARE, BC, SELFPAY | PROVIDERS: PCP Internal Medicine; Visit Provider Radiology Diagnostic Radiology | DX: M50.30 Other cervical disc degeneration, unspecified cervical region (principal); M54.9 Dorsalgia, unspecified | CPT/HCPCS: 72070; 72100 ==

== ENCOUNTER 2024-07-08 08:55 | Outpatient (AMB) | payer MEDICARE, BC, SELFPAY ==
[2024-07-08 08:57] VITALS: BP 142/88; PULSE 78; O2SAT 98; BMI 29.8
--- NOTE | 2024-07-08 08:57 | AM.OFFVISMDC ---
Intake Vital Signs 07/08/24 08:57 Height 5 ft 9 in Weight 202 lb BMI 29.8 BP 142/88 H Blood Pressure Location Lt brachial Position Sitting Pulse 78 Pulse Source Pulse Oximeter Pulse Oximetry (%) 98 Oxygen Delivery Method Room Air Intake Visit Reasons: [facility] G0439 Allergies No Known Allergies [No Known Allergies*] Allergy (Verified 07/08/24 08:58) Medication List - Last Reconciled 07/08/24 by Dayana Mccurdy MD albuterol sulfate 90 mcg/actuation 2 inhalations inhalation Q6H atorvastatin 20 mg PO DAILY 90 days [AUTO PAP 6-16 mm H20 humidified AIR As directed] blood sugar diagnostic (Vitruvias Therapeuticss N Test Strips) As directed blood sugar diagnostic (FreeStyle Lite Strips) USE TO CHECK BLOOD SUGAR FOUR TIMES DAILY blood-glucose meter (FreeStyle Lite Meter kit) As directed tests 4 X/day cetirizine (Allergy Relief (cetirizine)) 10 mg PO DAILY cinnamon bark 1,000 mg PO DAILY doxycycline monohydrate 100 mg PO BID 7 days fluticasone propionate 50 mcg/actuation (Flonase Allergy Relief) 2 sprays intranasal DAILY PRN 90 days gabapentin 300 mg PO BID ibuprofen 800 mg PO BID lancets (FreeStyle Lancets) As directed tests 4X/day levothyroxine (Synthroid) 75 mcg PO DAILY 90 days losartan 100 mg PO DAILY lubiprostone (Amitiza) 8 mcg PO BID metformin 500 mg PO BID 90 days qjzrxganacnr-sudlrmqw-hrpiiz (Multivitamin 50 Plus tablet) 1 tab PO DAILY omega-3 acid ethyl esters PO DAILY omeprazole 20 mg PO DAILY oxymetazoline 0.05% (Afrin (oxymetazoline)) 2 sprays intranasal Q12H PRN propranolol 10 mg PO BID sennosides-docusate sodium 8.6-50 mg (Senna Plus) 1 tab-cap PO BID PRN 90 days tadalafil 10 mg PO DAILY 90 days tadalafil 20 mg PO ONCE PRN 30 days terazosin 2 mg PO BEDTIME 90 days trolamine salicylate 10% (Aspercreme) 1 appl topical BEDTIME PRN HPI [facility] G0439 HPI Details [place] nutrition, Urology Dr. Smart, gastroenterology Shyla Clara/Dr. Ricardo nettie podiatry [facility] for Ophthalmology orthopedics Dr. Corey endocrinology Dr. Schultz, ENT Dr. Mc, [facility] pain management. ER visit 06/2024 R pointer finger paronychia treated with bactrim first then changed to cephalexin and doxycycline PFSH Medical History Family history of colon cancer Osteoarthritis Sinusitis Vertebral fracture Essential tremor Constipation Preop exam for internal medicine Type 2 diabetes mellitus with hyperglycemia Diabetic neuropathy Tubular adenoma of colon Nicotine dependence, cigarettes, uncomplicated Positive PPD Obstructive sleep apnea Foot pain, left Overweight (BMI 25.0-29.9) Obesity (BMI 30-39.9) Thyroid nodule Pulmonary nodule GERD (gastroesophageal reflux disease) Erectile dysfunction Hypothyroid Hypertension Hypercholesterolemia Surgical History History of back surgery History of colonoscopy History of arthroscopy of right knee History of appendectomy History of tonsillectomy Family History Father Medical history unknown Mother Diabetes Past heart attack Brother Prostate cancer Social History (Updated 07/08/24 @ 09:28 by Dayana Mccurdy MD) Housing: House Unable to assess alcohol history related to: Unknown Alcohol intake: current Alcohol intake frequency: 0-2 drinks per day Alcohol type: beer Comment: QD 2 drinksstopped 12/2023 but last night ( 03/2024) 4 beers, ,3 beers a day Patient Tobacco Use Status: Former Tobacco user Tobacco use type: Cigarette Cigarette Packs Per Day: 1 Cigarettes Per Day: 15 Years Smoked: (onset 17yo, 3/4ppd x 56yrs, 40pyh) (06/2024 1/2 pack a day) e-Cigarette/Vaping Use: Never Used Second Hand Smoke Exposure: Yes service: No Current occupational status: disabled Cognitive needs: No Hearing needs: No Vision needs: Yes Questionnaire Medicare Wellness Checkup [age] What gender do you identify with?: male During the past 4 weeks, how much have you been bothered by emotional problems such as feeling anxious, depressed, irritable, sad or downhearted, and blue?: not at all During the past 4 weeks, has your physical & emotional health limited your social activities with family, friends, neighbors, or groups?: not at all During the past 4 weeks, how much bodily pain have you generally had?: moderate pain During the past 4 weeks, was someone available to help you if you needed & wanted help?: yes, a little During the past 4 weeks, what was the hardest physical activity you could do for at least 2 minutes?: moderate Can you get to places out of walking distance without help? (For eg., can you travel alone on buses, taxis or drive your car?): Yes Can you go shopping for groceries or clothes without someone's help?: Yes Can you prepare your own meals?: Yes Can you do your housework without help?: Yes Because of any health problems, do you need the help of another person with your personal care needs such as eating, bathing, dressing or getting around the house?: No Can you handle your own money without help?: Yes During the past 4 weeks, how would you rate your health in general?: excellent During the past 4 weeks how have things been going for you?: very well; could hardly better Are you having difficulties driving your car?: no Do you always fasten your seat belt when you are in a car?: yes, usually During past 4 weeks, have you been bothered by the following: never: Falling or dizzy when standing up, Sexual problems?, Trouble eating well?, Teeth or denture problems?, Problems using the telephone? and Tiredness or fatigue? Have you fallen 2 or more times in the past year?: No Are you afraid of falling?: No Are you a smoker?: yes, and I might quit During the past 4 weeks, how many drinks of wine, beer, or other alcoholic beverages did you have?: 1 drink or less per week Do you exercise for about 20 minutes 3 or more times a week?: yes, most of the time Have you been given information to help with the following?: no: Hazards in your house that might hurt you? and no: Keeping track of your medications? How often do you have trouble taking medicines the way you have been told to take them?: I always take medicine as prescribed How confident are you that you can control & manage most of your health problems?: very confident What is your race?: or origin or descent PHQ-9 Over the last 2 weeks, how often have you been bothered by any of the following problems? 1. Little interest or pleasure in doing things: not at all 2. Feeling down, depressed, or hopeless: not at all 3. Trouble falling or staying asleep, or sleeping too much: several days 4. Feeling tired or having little energy: not at all 5. Poor appetite or overeating: not at all 6. Feeling bad about yourself - or that you are a failure or have let yourself or your family down: not at all 7. Trouble concentrating on things, such as reading the newspaper or watching television: not at all 8. Moving or speaking so slowly that other people could have noticed. Or the opposite - being so fidgety or restless that you have been moving around a lot more than usual: several days 9. Thoughts that you would be better off or of hurting yourself in some way: not at all Total score: 2 Depression Screening Interpretation: Positive Depression Screening Done: Yes 99892 - PHQ-9 Billing: Yes Source: Developed by Drs. Remy Jacobsen, Lucita Morrissey, Jaskaran Mitchell and colleagues, with an educational maurilio from [employer]. Thrive Questionnaire Date Thrive assessed: 04/24/24 JI-7 AMB Questionnaire JI-7 Date JI - 7 assessed: 04/24/24 Source: Developed by Drs. Remy Jacobsen, Jaskaran Rodriguez and colleagues, with an educational maurilio from [employer]. Review of Systems Const Denies poor appetite and Denies weakness Eyes Denies no additional complaints ENT Reports Normal hearing present, Denies dizziness, Denies nasal congestion, Denies tinnitus and Denies sore throat Card Denies chest pain, Denies syncope, Denies rapid heart rate and Denies dyspnea Resp Denies cough and Denies dyspnea GI Denies change in stool character, Reports constipation, Denies diarrhea, Denies nausea and Denies vomiting Denies dysuria and Denies urinary frequency Neuro Reports Normal hearing present, Denies confusion, Denies dizziness, Denies syncope and Denies weakness Psych Denies confusion Physical Exam Vital Signs: Oxygen Delivery Method Room Air 07/08/24 08:57 BMI result Body Mass Index 29.8 Const General: No confusion Orientation/consciousness: No confusion HEENT Other: impacted cerumen bilateral Head: Yes normocephalic Ears: external ears normal Face and sinus: Yes normal facial exam Mouth: moist mucous membranes Throat: Yes tonsils normal Eyes Conjunctivae: conjunctivae normal Pupils: Equal, round and reactive pupils present and Pupil accommodation reflex normal Direct Ophthalmoscopy: normal light reflex Neck Neck: No lymphadenopathy Thyroid: Thyroid normal Chest Chest palpation & inspection: normal inspection of the chest Resp Effort & Inspection: normal respiratory effort and no audible wheezes Auscultation: clear to auscultation bilaterally, no crackles, no wheezes and lung sounds not diminished Cardio Rate: regular rate Rhythm: regular rhythm Peripheral pulses: radial pulses present and dorsalis pedis present GI Other: guaiac negative prostate N Palpation (GI): no masses Auscultation: normal bowel sounds and normoactive bowel sounds Male General Exam: Yes normal external exam Skin General skin exam: no rashes or lesions noted Rashes: no rashes Neuro General: No confusion Cranial nerves: Yes Equal, round and reactive pupils present and Yes Normal hearing present Cognition (Neuro): normal cognition Gait exam (Neuro): Normal gait present Motor exam (neuro): 5/5 motor strength present throughout Deep tendon reflexes (DTR's): Right brachioradialis reflex intensity grade: 2+, Left brachioradialis reflex intensity grade: 2+, Right patellar reflex intensity grade: 2+ and Left patellar reflex intensity grade: 2+ Extrem Other: pedal pulse R> L but present, pin prick good black nail R big toe. R pointer nail with whitish skin with a laceration below nail General: No edema Assessment & Plan Assessment & Plan (1) Annual wellness visit: Code(s): Z00.00 - Encounter for general adult medical examination without abnormal findings Plan: Patient is advised to eat healthy, keep well hydrated, keep active and have adequate sleep. 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 Hemoglobin A1c goal of less than 7.0. Patient on metformin 500 mg twice a day only. Concern that the hemoglobin A1c has gotten up (3) Hypothyroid: Comment: admits to not taking med Code(s): E03.9 - Hypothyroidism, unspecified Qualifiers: Hypothyroidism type: acquired Qualified Code(s): E03.9 - Hypothyroidism, unspecified Plan: Continue with thyroid medication. will need repeat (4) Hypercholesterolemia: Code(s): E78.00 - Pure hypercholesterolemia, unspecified Plan: Avoid fried foods, chicken skin, eggs, butter margarine, pastries and meat. Be it pork or beef they have a lot of cholesterol LDL goal of less than 100 and triglyceride of less than 150 patient is taking atorvastatin 20 mg once a day (5) Hypertension: Code(s): I10 - Essential (primary) hypertension Qualifiers: Hypertension type: essential hypertension Qualified Code(s): I10 - Essential (primary) hypertension Plan: Continue with blood pressure medication. Decrease salt intake and exercise on losartan 100 mg once a day propranolol 10 mg twice a day (6) Hepatic steatosis: Code(s): K76.0 - Fatty (change of) liver, not elsewhere classified Plan: Low-fat diet and exercise (7) GERD (gastroesophageal reflux disease): Code(s): K21.9 - Gastro-esophageal reflux disease without esophagitis Qualifiers: Esophagitis presence: without esophagitis Qualified Code(s): K21.9 - Gastro-esophageal reflux disease without esophagitis Plan: Avoid the foods that causes that usually spicy foods, tomato products, juices, coffee, soda and foods that your sensitive to. After eating do not lie down, allow 3-4 hours before in lie down. And keep the head of bed above 30 degrees to avoid the acid from going up. (8) Nicotine dependence, cigarettes, uncomplicated: Comment: (current smoker - onset 17yo, 3/4ppd x 56yrs, 40pyh) CT scan July 2023 Code(s): F17.210 - Nicotine dependence, cigarettes, uncomplicated Plan: Patient is strongly advised to stop smoking. Up-to-date with CAT scan in July 2024 schedule (9) Spondylolisthesis, lumbar region: Comment: May spondylolisthesis unstable grade to L5-S1 degenerative retrolisthesis: posterior decompression and instrumented fusion L4 to sacrum Dr. Corey Code(s): M43.16 - Spondylolisthesis, lumbar region Plan: On gabapentin (10) Generalized anxiety disorder: Comment: Declined any referral for counseling 08/2021 Code(s): F41.1 - Generalized anxiety disorder Plan: Stable (11) Anemia of chronic disease: Code(s): D63.8 - Anemia in other chronic diseases classified elsewhere Plan: Stable (12) Paronychia of finger: Comment: R pointer finger Code(s): L03.019 - Cellulitis of unspecified finger Qualifiers: Laterality: right Qualified Code(s): L03.011 - Cellulitis of right finger (13) Onychomycosis: Code(s): B35.1 - Tinea unguium (14) Impacted cerumen of both ears: Code(s): H61.23 - Impacted cerumen, bilateral Plan History of Present Illness The patient is a 74-year-old male presenting for his annual wellness visit. He is currently managing type 2 diabetes mellitus with metformin but reports inadequate glycemic control, as indicated by recent lab results. Symptoms of frequent urination at night have been noted, possibly related to hyperglycemia. Management includes potential dietary and medication adjustments. His medical history is significant for essential hypertension, hypercholesterolemia, GERD, hepatic steatosis, and hypogonadism. Current treatment for hypertension includes losartan, and his lipid levels are managed with atorvastatin. GERD management has been less effective due to continued smoking. He reports within normal liver function tests amid previous concerns about hepatic steatosis. The patient has a detailed surgical history with colonoscopy findings of tubular adenoma and recent imaging revealing lumbar spondylolisthesis and an umbilical hernia. Relevant urological history includes reported frequent urination. The patient currently consumes alcohol on a regular basis, and a previous attempt to quit smoking was unsuccessful. Health Maintenance - Up to date with vaccines including tetanus, shingles, and pneumonia - Colonoscopy performed in 2021 - CT scan abdomen and pelvis in April 2024 for ongoing evaluations of umbilical hernia, diverticular disease - Blood pressure and lipid management with current LDL at 64 mg/dL - Behavioral advice for smoking cessation and alcohol moderation - Scheduled follow-up blood work in September 2024 Social History - Tobacco use: Smokes half a pack of cigarettes per day, recent brief cessation attempt - Alcohol consumption: Drinks approximately three beers daily, cautioned on liver health implications - Dietary habits: Low-fat diet recommended, exercise encouraged - Family support: Engages with family for health decisions, with a proxy document discussed for future consideration - Recent cataract surgery noted for vision improvement Review of Systems - Cardiovascular: Denies chest pain, denies shortness of breath - Gastrointestinal: Denies nausea, vomiting, difficulty swallowing, heartburn - Genitourinary: Reports frequent urination, especially nocturnal - Musculoskeletal: Reports lower back pain from lumbar spondylolisthesis - Neurological: Reports numbness in the foot - Respiratory: Denies wheezing, denies use of inhalers - General: Reports stable weight, denies fever Physical Exam General: Cooperative, healthy appearing, comfortable, no acute distress and well developed Orientation: Patient oriented x3 Limitations: No limitations Head: Normal to inspection Ears: Hearing grossly normal bilaterally, but a lot of ear wax noted Nose: Normal external nose present Face and sinus: Normal facial exam Eyes: Appearance normal, both eyes and all related structures Neck: Normal visual inspection and Yes full ROM Respiratory: Normal respiratory effort and able to speak in complete sentences. Occasional wheeze noted, advised to stop smoking Cardiovascular: Regular rate and rhythm. Normal S1 and S2 GI: Normal to inspection. Soft to palpation and nontender Skin: No rashes or lesions noted, but fungal infection on the right big toe Neuro: Patient oriented x3 Extremities: Normal to inspection, but left foot pulse weaker than right since operation. Numbness noted on the bottom of the foot. Results - Labs: Hemoglobin A1c 8.5%, random blood glucose 223 mg/dL, LDL 64 mg/dL, triglycerides 171 mg/dL, TSH mildly elevated at 4.78 - Imaging: Lumbar x-ray showing multilevel disc space narrowing, CT abdomen/pelvis showing umbilical hernia, renal cysts, and diverticular disease Plan We discussed the ongoing management of type 2 diabetes, emphasizing the addition of a new medication to aid glycemic control, pending insurance approval. Lifestyle changes and dietary modifications were recommended to assist glucose management. Hypertension continues to be managed with losartan, and cholesterol levels remain well-controlled on atorvastatin. Recommendations were given for GERD management with a strong emphasis on the need for smoking cessation. Alcohol intake moderation was discussed in view of hepatic steatosis. Patient follow-up for blood work is scheduled in three months to monitor progress and medication efficacy. Coordination with podiatry will continue for the patient's foot health. Patient was informed and verbally consented to the use of an ambient scribe for clinic note documentation during this visit. Discussion Notes I reviewed with the patient that the suboptimal control of blood glucose necessitates introducing a new medication like Jardiance or Farxiga, discussing its benefits for renal protection and potential side effects such as increased urination. I confirmed the continuation of losartan and atorvastatin therapy, acknowledging current efficacy and targets achieved. I explained the risks associated with ongoing smoking and alcohol consumption, advising complete cessation or significant reduction. Anticipatory guidance included the regular follow-up of thyroid function and diabetic management, with discussions on medication adherence. Coordination with specialists, including podiatry and urology, will support comprehensive management. Additionally, I acknowledged the patient's concerns about weight and activity, addressing the importance of ongoing lifestyle modifications in cardiovascular and metabolic health. Patient Instructions - Take metformin 500 mg twice daily as directed. - Discuss with your insurance about the coverage for Jardiance or Farxiga. - Aim to reduce carbohydrate intake and maintain regular exercise. - Continue losartan and atorvastatin as prescribed. - Consider stopping smoking completely for better health outcomes. - Moderation of alcohol to reduce liver damage risk; ideally, limit to occasional consumption. - Schedule blood work before next appointment. - Follow up with podiatry for foot care. - Monitor for any side effects or symptoms and report them. - Return for follow-up as per recommended schedule or if symptoms worsen. Orders: Orders Hemoglobin A1c 3 Months E11.65 - Type 2 diabetes mellitus with hyperglycemia Comprehensive Met. Panel 3 Months E11.65 - Type 2 diabetes mellitus with hyperglycemia Lipid Panel 3 Months E11.65 - Type 2 diabetes mellitus with hyperglycemia, E78.00 - Pure hypercholesterolemia, unspecified Thyroid Stimulating Hormone 3 Months E11.65 - Type 2 diabetes mellitus with hyperglycemia Free T4 (Free Thyroxine) 3 Months E11.65 - Type 2 diabetes mellitus with hyperglycemia Medications: New dapagliflozin propanediol (Farxiga) 5 mg PO DAILY 30 tabs 3RF E11.65 - Type 2 diabetes mellitus with hyperglycemia Refilled atorvastatin 20 mg PO DAILY 90 days 90 tabs 2RF E11.65 - Type 2 diabetes mellitus with hyperglycemia levothyroxine (Synthroid) 75 mcg PO DAILY 90 days 90 tabs 2RF E03.8 - Other specified hypothyroidism, E06.3 - Autoimmune thyroiditis losartan 100 mg PO DAILY 90 tabs 2RF E11.65 - Type 2 diabetes mellitus with hyperglycemia metformin 500 mg PO BID 90 days 180 tabs 2RF E11.9 - Type 2 diabetes mellitus without complications propranolol 10 mg PO BID 180 tabs 2RF G25.0 - Essential tremor Quality Reporting (2019) Depression/Bipolar (159/160/161/177) PHQ-9: Total score: 2 Coding Level of Care Code Medicare Subsequent (G0439) Diagnoses Annual wellness visit Z00.00 Type 2 diabetes mellitus with hyperglycemia, without long-term current use of insulin E11.65 Diabetes mellitus nursing home insulin use: without nursing home use Acquired hypothyroidism E03.9 Hypothyroidism type: acquired Hypercholesterolemia E78.00 Essential hypertension I10 Hypertension type: essential hypertension Hepatic steatosis K76.0 Gastroesophageal reflux disease without esophagitis K21.9 Esophagitis presence: without esophagitis Nicotine dependence, cigarettes, uncomplicated F17.210 Spondylolisthesis, lumbar region M43.16 Generalized anxiety disorder F41.1 Anemia of chronic disease D63.8 Paronychia of finger of right hand L03.011 Laterality: right Onychomycosis B35.1 Impacted cerumen of both ears H61.23 Additional Codes PHQ-9 - 29447 - PHQ-9 Billing: Yes ([id number])
--- OUTSIDE RECORDS SUMMARY | 2024-07-08 09:22 | XMS_ITS ---
Author Organization [facility] Address [address] [facility] [place] [address] Care Team Providers Care Grid Casting Machine Operator Helper Name Role Phone Dayana Mccurdy Primary Care Provider Unavailabl e Black, Shanelle Unavailable [phone] Allergies No Known Allergies REASON FOR VISIT Painful thick toenails which are aggrevated by shoes and causes difficulty standing/walking, At Risk Footcare Medications Medication SIG (Take, Route, Frequency, Duration) Notes Start Date End Date Status Ipratropium [place] 0.03 % 2 sprays in each nostril [...] Lidocaine 5 % as directed Externally Active Joice-3 Fatty Acids 1000 MG 1 capsule Orally [...] Ordered Date Performed Result Body Sit e 58650-NSLRQKC NAIL, 1-5 12/13/2023 N/A 69875-GRYA SKIN LESIONS, 2 TO 4 12/13/2023 N/A M3379-THUHWCDB DYSTROPHIC NAILS ANY # 12/13/2023 N/A Encounters Encounter Location Date Provider Diagnosis [facility] [place] [address] [place] [address] 12/13/2023 Shanelle Black Tinea unguium B35.1 ; [...] Treatment Pending Test Test Name Order Date 13769-XMUQMIY NAIL, 1-5 12/13/2023 74146-BROH SKIN LESIONS, 2 TO 4 12/13/19 I0722-ETSWYCWD DYSTROPHIC NAILS ANY # Next Appt Details Follow Up: 4 Months, Reason: Provider Name:Shanelle Garcia , 07/31/2024 02:30:00 PM, [address] [place] [address], [phone], Procedure Notes * Category Sub-Category Detail Notes Keratoma Treatment Parring or Cutting o f Benign Hyperkeratotic Lesion(s) 61474 (2-4 Lesions) - The Benign hyperkeratotic lesions, [...] use of a nail nipper and/or dremel-type rotary surface grinder, to a more viable healthy nail plate or bed tissue 1-5. Silver nitrate used for any petechial bleeding as necessary. Definitive antifungal treatment options have been reviewed and discussed with the patient. The patient chooses, no pharmaceutical tx - 52239 Nail Reduction Nail Reduction Trimming of dyst rophic nails performed to reduce/remove overall nail length and girth, by manual and electrical means with use of a nail nipper and/or dremel, to more viable healthy nail plate or bed tissue 6-10 (G0127) Progress Notes * Aurora LAZOOB:[birth year] (73 yo M)Acc No.[id number]:12/13/2023 Progress Note Patient:?Noman Lazo Provider:?Shanelle Garcia DPM :1950???Age:73 Y???Sex:Male Lakhwinder e:12/13/2023 Address:[address] [facility] Pcp:Dayana Mccurdy Subjective: * Chief Complaints: * [...] walking. ?Living with: Fiance. ?Occupation: Retired from [employer]. * Medications:?TakingAtorvasta tin Calcium 20 MG Tablet [...] milk as needed Orally every 8 hrsIpratropium [place] 0.03 % Solution 2 sprays in each [...] as needed Orally every 8 hrsTaking Ipratropium [place] 0.03 % Solution 2 sprays in each nostril Nasally Twice a dayTaking Levothyroxine Sodium 75 MCG Tablet 1 tablet in the morning on an empty stomach Orally Once a dayTaking Lidocaine 5 % Patch as directed Externally Taking Losartan Potassium 100 MG Tablet 1 tablet Orally Once a dayTaking metFORMIN HCl 500 MG Tablet 1 tablet with a meal Orally Once a dayTaking Joice-3 Fatty Acids 1000 MG Capsule 1 capsule [...] - F17.200? Plan: * Treatment: 2.?Tinea unguium?Procedure: 71951-PFRXJMU NAIL, 1-5 * Procedures:?Debride Nails 1-5:?Procedure:?Performance of this nail treatment by a nonprofessional would put this patients foot and overall health at risk. Therefore, nail debridement was performed extensively to reduce/remove overall nail length, girth, thickness, subungual debris, and necrotic tissue, by manual and/or electrical means through the use of a nail nipper and/or dremel-type rotary surface grinder, to a more viable healthy nail plate or bed tissue 1-5. Silver nitrate used for any petechial bleeding as necessary. Definitive antifungal treatment options have been reviewed and discussed with the patient. The patient chooses, no pharmaceutical tx - 32028.?Keratoma Treatment:?Parring or Cutting of Benign Hyperkeratotic Lesion(s)?01098 (2-4 Lesions) - The Benign hyperkeratotic lesions, as described above were pared, and/or cut utilizing a sterile #15 blade, tissue nippers, and/or dremel.?Nail Reduction:?Nail Reduction?Trimming of dystrophic nails performed to reduce/remove overall nail length and girth, by manual and electrical means with use of a nail nipper and/or dremel, to more viable healthy nail plate or bed tissue 6-10 (G0127).? * Procedure Codes:?55811 DEBRI DE NAIL, 1-5, Modifiers: XS G0127 TRIMMING DYSTROPHIC NAILS ANY #, Modifiers: XS 16023 TRIM SKIN LESIONS, 2 TO 4, Modifiers: XS * Preventive Medicine:? ??Counseling:?Tobacco use:?Type of Tobacco Use Cessation Counseling provided?Smoking cessation education ?Patient counseled on the dangers of smoking and urged to quit:?12/13/2023 * Follow Up:?4 Months * Images: * Sign off status: Completed true * Provider:?ACE MorenoM Date:?2023 Generated for Jesusita coronado/Safia/eTransmitting on:?07/08/2024 09:22 AM EDT History and Physical Notes * [...]
--- OUTSIDE RECORDS SUMMARY | 2024-07-08 09:22 | XMS_ITS ---
Author [facility] Address [address] [place] [address] Care Team Providers Care Open Winder Name Role Phone Dayana Mccurdy Primary Care Provider Shanelle Camp [phone] Encounters Encounter Location Date Provider Diagnosis [address] [address] 06/12/2024 Shanelle Garcia Plan Of Treatment Next Appt Details Provider Name:Shanelle Garcia , 07/31/2024 02:30:00 PM, [address] [place] [address], [phone], Progress Notes * Nancy LAZOoDOB:[birth year] (74 yo M)Acc No.[id number]:06/12/2024 Progress Note Patient:?Noman LAZO Provider:?Shanelle Garcia DPM :1950???Age:74 Y???Sex:Male Lakhwinder e:06/12/2024 Address:[address] [place] Pcp:Dayana Mccurdy Subjective: * Chief Complaints: * ??? * Medical History:? Objective: * Vitals:? Assessment: Plan: * Treatment: * Images: * The named appointment provid er may or may not be the originator of this progress note, and it is not deemed complete until electronically signed by the appointment provider. Sign off status: Pending * Provider:Pam Garcia DPM Date:?2024 Generated for Jesusita coronado/Safia/Mimi on:?07/08/2024 09:22 AM EDT
--- OUTSIDE RECORDS SUMMARY | 2024-07-08 09:22 | XMS_ITS ---
Author Organization [facility] Address [address] [place] [address] Care Team Providers Care Wheelchair Rental Clerk Name Role Phone Dayana Mccurdy Primary Care Provider Unavailabl e Shanelle Garcia Unavailable [phone] REASON FOR VISIT no show 06/12 Encounters Encounter Location Date Provider Diagnosis [address] [address] 06/12/2024 Shanelle Garcia Plan Of Treatment Next Appt Details Provider Name:Shanelle Garcia , 07/31/2024 02:30:00 PM, [address] [place] [address], [address], Progress Notes * Nancy LAZOoDOB:[birth year] (74 yo M)Acc No.[id number]:06/12/2024 Patient:?Noman LAZO :1950???Age:74 Y???Sex:Male Address: [place], [address] * true * Date:? Generated for Printi ng/Faelianag/eTransmitting on:?07/08/2024 09:22 AM EDT
--- OUTSIDE RECORDS SUMMARY | 2024-07-08 09:22 | XMS_ITS | Clinical Summary ---
Author Organization [employer] Address [address] [facility] [address] [place] [address] Care Team Providers Care Ribbon Blockmaker Name Role Phone Unavailable Primary Care Provider [...] patient's age to complete this topic Meningococcal B Vaccine Aged Out No l onger eligible based on patient's age to complete [...] Relevant to Health Maintenance Insurance DENTAL - [facility] DENTAL DENTAL - [facility]
--- OUTSIDE RECORDS SUMMARY | 2024-07-08 09:22 | XMS_ITS | Patient Health Record ---
Author Organization [facility] [place] Address [address] [facility] [place] [address] Care Team Providers Care Customs Brokerage Agent Name Role Phone Dayana Mccurdy Primary Care Provider Unavailabl e Black, Shanelle Unavailable [phone] Allergies No Known Allergies Results Component Value Reference Range Notes HEMOGLOBIN A1C (GLYCOHEMOGLO BIN) Reviewed date:12/13/2023 11:28:27 AM Interpretation: Performing Lab: Notes/Report: TOTAL HEMOGLOBIN (HGBA1C) 6.3 Reason For Referral No Information Medications Medication SIG (Take, Route, Frequency, Duration) Notes Start Date End Date Status Ipratropium [place] 0.03 % 2 sprays in each nostril [...] Once a day for 30 days Active [place]-3 Fatty Acids 1000 MG 1 capsule Orally [...] primary osteoarthritis of the ankle and/or foot (378176592) Primary osteoarthritis, left ankle and foot (M19.072) Active confirmed Problem Acquired hallux valgus (49855224) Hallux valgus (acquired), right foot (M20.11) Active confirmed Problem Acquired hammer toe of right foot (3101209050964629 ) Other hammer toe(s) (acquired), right foot (M20.41) Active confirmed Problem Acquired hammer toe of left foot (7244098531748343 ) Other hammer toe(s) (acquired), left foot (M20.42) Active confirmed Problem Polyneuropathy due to type 2 diabetes mellitus (254752181) Type 2 diabetes mellitus with diabetic polyneuropathy (E11.42) Active confirmed Problem 46289036 Smoker (F17.200) Active confirmed Problem Neuropathic ulce r of right foot with fat layer exposed (L97.512) Active confirmed Problem Neuropathic ulcer of right foot (disorder) (8633524103040905 2) Neuropathic ulcer of right foot, limited to breakdown of skin (L97.511) Active confirmed Vital Signs Height 5ft9in in 12/13/2023 Weight 198 lbs 12/13/2023 BMI 29.24 kg/m2 12/13/2023 Procedures Procedure Date Ordered Date Performed Result Body Sit e 39746-BRJLDXB NAIL, 1-5 12/13/2023 N/A 78109-CGBU SKIN LESIONS, 2 TO 4 12/13/2023 N/A S8752-HEPZSGSG DYSTROPHIC NAILS ANY # 12/13/2023 N/A Encounters Encounter Location Date Provider Diagnosis [address] [address] 12/13/2023 Shanelle Black Tinea unguium B35.1 ; Type 2 diabetes mellitus with diabetic polyneuropathy E11.42 and Smoker F17.[address] [address] 09/04/20[facility] [address] 11/22/20[facility] [address] 06/12/2024 Shanelle Black Assessments Encounter Date Diagnosis (ICD Code) Assessment Notes Treatment Notes Treatment Clinical Notes Section Notes 12/13/2023 Tinea unguium (ICD-10 - B35.1) 12/13/2023 Type 2 diabetes mellitus with diabetic polyneuropathy (ICD-10 - E11.42) 12/13/2023 Smoker (ICD-10 - F17.200) Plan Of Treatment Pending Test Test Name Order Date X ray : Foot, left 3V 03/02/2022 08677-DXTWBYT NAIL, 1-5 11/14/2021 15047-BUTDUHZ NAIL, 1-5 03/02/2022 24317-FDZPKBT NAIL, 1-5 09/25/2022 79661-BAXTULY NAIL, 1-5 05/10/2023 00466-RNLHXVX NAIL, 1-5 12/13/2023 47121- Debride <25 sq cm 09/25/2022 31274-WMIR SKIN LESIONS, 2 TO 4 09/26/19 23 49206-TNCE SKIN LESIONS, 2 TO 4 03/02/19 23 98363-ITKI SKIN LESIONS, 2 TO 4 12/13/19 24 40369-EQIU SKIN LESIONS, 2 TO 4 05/10/19 24 05734-YOPT SKIN LESIONS, 2 TO 4 11/15/19 22 O8374-WKRAONNE DYSTROPHIC NAILS ANY # W2572-BVIBXXLT DYSTROPHIC NAILS ANY # Next Appt Details Provider Name:Shanelle Garcia , 07/31/2024 02:30:00 PM, [address] [place] [address], [phone], Insurance Providers Payer Name Payer Address Payer Phone Subscriber Number Group Number Insured Name Patient Relationship to Insured Coverage Start Date Coverage End Date [facility] [employer] Claims [address] [place] [id number] Noman Pope ra Self - patient is the insured [facility] [address] [place] [address] [id number] Noman Pope ra Self - patient is the insured Aet [address] [place] [address] [id number] Noman Pope ra Self - patient [...]
--- OUTSIDE RECORDS SUMMARY | 2024-07-08 09:22 | XMS_ITS | Clinical Summary ---
Author Organization [facility] Address [address] [place] [address] Care Team Providers Care Scrap Piler Name Role Phone Unavailable Primary Care Provider [...]
== END 2024-07-08 10:02 | disposition home or self-care (01) ==
LOC: HO.HMCH 08:55
PROVIDERS: PCP Internal Medicine; Visit Provider Internal Medicine
DX: Z00.00 Encounter for general adult medical examination without abnormal findings (principal); E11.65 Type 2 diabetes mellitus with hyperglycemia; E03.9 Hypothyroidism, unspecified; E78.00 Pure hypercholesterolemia, unspecified; I10 Essential (primary) hypertension; K76.0 Fatty (change of) liver, not elsewhere classified; K21.9 Gastro-esophageal reflux disease without esophagitis; F17.210 Nicotine dependence, cigarettes, uncomplicated; M43.16 Spondylolisthesis, lumbar region; F41.1 Generalized anxiety disorder; D63.8 Anemia in other chronic diseases classified elsewhere; L03.011 Cellulitis of right finger; B35.1 Tinea unguium

== ENCOUNTER → 2024-07-08 08:55 | Outpatient (BNVA) | payer MEDICARE, BC, SELFPAY | PROVIDERS: PCP Internal Medicine; Visit Provider Internal Medicine | DX: Z00.01 Encounter for general adult medical examination with abnormal findings (principal); L03.011 Cellulitis of right finger; E11.65 Type 2 diabetes mellitus with hyperglycemia; E03.9 Hypothyroidism, unspecified; E78.00 Pure hypercholesterolemia, unspecified; I10 Essential (primary) hypertension; K76.0 Fatty (change of) liver, not elsewhere classified; K21.9 Gastro-esophageal reflux disease without esophagitis; F17.210 Nicotine dependence, cigarettes, uncomplicated; M43.16 Spondylolisthesis, lumbar region; F41.1 Generalized anxiety disorder; D63.8 Anemia in other chronic diseases classified elsewhere; B35.1 Tinea unguium; H61.23 Impacted cerumen, bilateral; E03.8 Other specified hypothyroidism; E06.3 Autoimmune thyroiditis; G25.0 Essential tremor; Z79.84 Long term (current) use of oral hypoglycemic drugs | CPT/HCPCS: 96127 ==

== ENCOUNTER → 2024-09-18 08:21 | Outpatient (BNV) | payer MEDICARE, BC, SELFPAY | PROVIDERS: Emergency Provider Emergency Medicine Emergency Medical Services; PCP Internal Medicine; Visit Provider Radiology Diagnostic Radiology | DX: R60.0 Localized edema (principal) | CPT/HCPCS: 73610 ==

== ENCOUNTER 2024-09-18 08:45 | Emergency (ER) | payer MEDICARE, BC, SELFPAY ==
--- OUTSIDE RECORDS SUMMARY | 2024-07-31 10:30 | XMS_ITS ---
Author Organization [facility] Address [address] [place] [address] Care Team Providers Care Giver Name Role Phone Dayana Mccurdy Primary Care Provider Shanelle Camp [phone] Encounters Encounter Location Date Provider Diagnosis [address] [address] 07/31/2024 Shanelle Garcia Plan Of Treatment Next Appt Details Provider Name:Shanelle Garcia , 11/06/2024 08:00:00 AM, [address] [place] [address], [phone], Progress Notes * Nancy LAZOoDOB:[birth year] (74 yo M)Acc No.[id number]:07/31/2024 Progress Note Patient: Ivis REGALADONoman DOMINIQUE Provider: Danelle Garcia DPM :1950 A ge:74 Y S ex:Male Date:07/31/2024 Address: [place] Pcp:Dayana Mccurdy Subjective: * Chief Complaints: * [...] 07/31/2024 Generated for Jesusita coronado/Safia/Mimi on: 0 09/18/2024 09:55 AM EDT
--- NOTE | ~2024-09-18 | XR_ITS ---
EXAMINATION: XR ANKLE, LEFT CLINICAL INFORMATION: s/p fall COMPARISON: None available. TECHNIQUE: AP, lateral, and mortise views of the left ankle. FINDINGS: Soft tissue contusion/edema pattern, bimalleolar. 2 mm well-corticated calcification inferior to the medial malleolus. No acute cortical disruption or gross malalignment. No subcutaneous emphysema. No lytic or blastic lesions. XR/XR ankle LT min 3V IMPRESSION: Soft tissue contusion/edema pattern, bimalleolar. 2 mm calcification in the inferior medial malleolus likely old trauma. No acute fracture or dislocation. Internal derangement cannot be excluded. Electronically signed by: Joseph Gamez MD 09/18/2024 09:25 AM EDT
[2024-09-18 08:52] VITALS: BP 93/50; PULSE 71; RESP 17; TEMP 36.2; O2SAT 99; BMI 29.8
[2024-09-18 09:21] VITALS: BP 105/59; PULSE 69; RESP 16; O2SAT 97
--- NOTE | 2024-09-18 09:35 | PC.NURSE ---
Pt to ED 10 from triage after reports of falling down 6 steps last night resulting in left ankle injury. A/O x 3, reports pain 7/10. Moderate amount of redness/swelling noted. + pedal pulse, CMS intact. Xray pending..
--- NOTE | 2024-09-18 09:45 | ED_ITS ---
HPI - General Adult General Chief complaint: Extremity Injury, Lower Stated complaint: Fall down stairs - L foot injury Time Seen by Provider: 09/18/24 09:45 Source: patient Mode of arrival: ambulatory Limitations: no limitations History of Present Illness ED Provider: Maria Guadalupe Siddiqui PA-C HPI narrative: Patient is a 74 year old assigned male at with a history of HTN, DM, LUIS, PVD, and back pain for which he uses a cane at baseline presenting to the emergency department today with left ankle pain. Patient states that yesterday he fell down 6 steps and rolled his left ankle. Patient denies any head strike or loss of consciousness. Patient denies any dizziness, lightheadedness, abdominal pain, nausea, vomiting, fever, chills, blurry vision, double vision, loss of vision, chest pain, difficulty breathing, shortness of breath, back pain, night sweats, pain with urination, increased urinary frequency, increased urinary urgency, blood in his urine or stool, syncope or a near syncopal episode, bowel incontinence, bladder incontinence, or any other complaints at this time. Onset (ago): day(s) (1) Location: left (ankle) Relieving factors: none Exacerbating factors: movement Associated symptoms: denies other symptoms Treatments prior to arrival: none Related Data Home Medications ?Medication ?Instructions ?Recorded ?Confirmed cinnamon bark 500 mg capsule 1,000 mg PO DAILY 3 07/08/24 omega-3 acid ethyl esters 1 gram PO DAILY 05/15/23 capsule oxymetazoline 0.05 % nasal mist 2 spray intranasal Q12 H PRN 03/25/24 07/08/24 (Afrin (oxymetazoline)) trolamine salicylate 10 % topical 1 appl topical BEDTI ME PRN 03/25/24 07/08/24 cream (Aspercreme) Previous Rx's ?Medication ?Instructions ?Recorded AUTO PAP 6-16 mm H20 humidified AIR #1 ea 05/24/20 blood sugar diagnostic (CareSens N #50 ea 05/24/21 Test Strips) blood-glucose meter (FreeStyle #1 ea 06/02/21 Lite Meter kit) lancets 28 gauge (FreeStyle #100 ea 06/02/21 Lancets) blood sugar diagnostic (FreeStyle #100 strips 08/09/21 Lite Strips) sennosides 8.6 mg-docusate sodium 1 tab-cap PO BID PRN constipation 09/26/22 50 mg capsule (Senna Plus) 90 days #180 caps yvzynaotuytj-uiijzbed-uteuua 1 tab PO DAILY #90 tabs 0 04/12/23 tablet (Multivitamin 50 Plus tablet) fluticasone propionate 50 2 spray intranasal DAILY PRN Nasal 03/04/24 mcg/actuation nasal Congestion 90 days #3 ea spray,suspension (Flonase Allergy Relief) terazosin 2 mg capsule 2 mg PO BEDTIME 90 days #90 caps 03/04/24 ibuprofen 800 mg tablet 800 mg PO BID #270 tabs 07/13 cetirizine 10 mg tablet (Allergy 10 mg PO DAILY #90 ta bs 04/24/24 Relief (cetirizine)) doxycycline monohydrate 100 mg 100 mg PO BID 7 days #1 4 caps 06/29/24 capsule lubiprostone 8 mcg capsule 8 mcg PO BID #60 caps 07/02 (Amitiza) omeprazole 20 mg capsule,delayed 20 mg PO DAILY #90 ca ps 07/02/24 release atorvastatin 20 mg tablet 20 mg PO DAILY 90 days #90 t abs 07/08/24 dapagliflozin propanediol 5 mg 5 mg PO DAILY #30 tabs 07/08/24 tablet (Farxiga) levothyroxine 75 mcg tablet 75 mcg PO DAILY 90 days #9 0 tabs 07/08/24 (Synthroid) losartan 100 mg tablet 100 mg PO DAILY #90 tabs metformin 500 mg tablet 500 mg PO BID 90 days #180 t abs 07/08/24 propranolol 10 mg tablet 10 mg PO BID #180 tabs 07/08 gabapentin 300 mg capsule 300 mg PO BID #180 caps 07/21 09/12 albuterol sulfate 90 mcg/actuation 2 inh inhalation Q6 H #6.7 grams 08/29/24 aerosol inhaler tadalafil 10 mg tablet 10 mg PO DAILY sexual activi ty 90 09/11/24 days #90 tabs tadalafil 20 mg tablet 20 mg PO ONCE PRN sexual act ivity 09/11/24 30 days #30 tabs Allergies Allergy/AdvReac Type Severity Reaction Status Date / Time No Known Allergies (No Known Allergy Verified 09/18/24 08:54 Allergies*) Review of Systems Constitutional: Constitutional: Reports no additional constitutional complaints, Denies chills, Denies fever(s) and Denies night sweats Eyes: Eyes: Reports no additional eye complaints, Denies blurry vision, Denies change in vision, Denies diplopia, Denies eye discharge, Denies loss of vision and Denies eye pain ENT: Denies dizziness Cardiovascular: Cardiovascular: Reports no additional cardiovascular complaints, Denies chest pain, Denies lightheadedness, Denies Loss of Consciousness and Denies dyspnea Respiratory: Respiratory: Reports no additional respiratory complaints and Denies dyspnea Gastrointestinal: Gastrointestinal: Reports no additional gastrointestinal complaints, Denies abdominal pain, Denies melena, Denies hematochezia, Denies change in bowel habits and Denies change in stool character Genitourinary: Genitourinary: Reports no additional male genitourinary complaints, Denies hematuria, Denies oliguria, Denies difficulty urinating, Denies dysuria, Denies urinary frequency, Denies urinary hesitancy, Denies urinary incontinence and Denies urinary urgency Musculoskeletal: Musculoskeletal: Reports no additional musculoskeletal complaints, Denies numbness and Denies tingling Comments: left ankle pain Neurologic: Denies dizziness, Denies loss of vision, Denies numbness and Denies tingling Psychiatric: Psychiatric: Reports no additional psychiatric complaints Endocrine: Endocrine: Reports no additional endocrine complaints Hematologic/Lymphatic: Hematologic/Lymphatic: Reports no additional hematologic/lymphatic complaints Allergic/Immunologic: Allergic/Immunologic: Reports no additional allergic/immunologic complaints PMF Past Medical History Attestation statement: The following information was validated with the patient. Source: old records reviewed and nursing notes reviewed Medical History Family history of colon cancer Osteoarthritis Vertebral fracture Essential tremor Constipation Type 2 diabetes mellitus with hyperglycemia Diabetic neuropathy Tubular adenoma of colon Nicotine dependence, cigarettes, uncomplicated Positive PPD Obstructive sleep apnea Foot pain, left Overweight (BMI 25.0-29.9) Obesity (BMI 30-39.9) Thyroid nodule Pulmonary nodule GERD (gastroesophageal reflux disease) Erectile dysfunction Hypothyroid Hypertension Hypercholesterolemia Surgical History History of back surgery History of colonoscopy History of arthroscopy of right knee History of appendectomy History of tonsillectomy Family History Family History Father Medical history unknown Mother Diabetes Past heart attack Brother Prostate cancer Social History Social History Housing: House Unable to assess alcohol history related to: Unknown Alcohol intake: current Alcohol intake frequency: 3 or more drinks per day Alcohol type: beer Comment: QD 2 drinksstopped 12/2023 but last night ( 03/2024) 4 beers, ,3 beers a day Patient Tobacco Use Status: Former Tobacco user Tobacco use type: Cigarette Cigarette Packs Per Day: 1 Cigarettes Per Day: 15 Years Smoked: (onset 17yo, 3/4ppd x 56yrs, 40pyh) (06/2024 1/2 pack a day) Smoked in Last 30 Days: Yes e-Cigarette/Vaping Use: Never Used Second Hand Smoke Exposure: Yes Use of substances other than those prescribed or required for medical reasons: No Advance Directives: No Advance Directives Information Provided: Yes Do you have a plan to hurt others: No Plan service: No Current occupational status: disabled Cognitive needs: No Hearing needs: No Vision needs: Yes Physical Exam ED Vital Signs: Vital Signs - 24 hr 09/18/24 08:52 09/18/24 09:21 09/18/24 10:04 Temperature 97.2 F 97.2 F Pulse Rate 71 69 69 Respiratory Rate 17 16 16 Blood Pressure 93/50 L 105/59 L 105/59 L Pulse Oximetry 99 97 97 Oxygen Delivery Method Room Air Room Air Room Air BMI result Body Mass Index 29.8 Const General: cooperative, no acute distress, alert and awake Nutritional Appearance: well nourished Orientation/consciousness: patient oriented x3 HENMT Head: Yes normal to inspection and Yes atraumatic Ears: hearing grossly normal bilaterally and external ears normal General nose exam: Normal external nose present, no nasal discharge noted and no epistaxis Face and sinus: Yes normal facial exam, No abrasion and No laceration Mouth: Normal oral and palatal mucosa present, no drooling and no muffled voice Eyes General: appearance normal, both eyes and all related structures Periorbital: periorbital findings normal Eyelids: Yes eyelids normal Conjunctivae: conjunctivae normal Pupils: Equal, round and reactive pupils present EOM: EOMs intact bilaterally Neck Neck: Yes normal visual inspection, Yes full ROM and Yes no lymphadenopathy Resp Effort & Inspection: normal respiratory effort and able to speak in complete sentences Neuro General: patient oriented x3, moves all extremities and CN's II-XI intact bilaterally Cranial nerves: Yes Equal, round and reactive pupils present Cognition (Neuro): normal cognition Extrem Other: left ankle swelling - pain with palpation of the left ankle General: Yes full ROM and Yes capillary refill normal Psych Appearance: grossly normal Mental Status: mental status grossly normal Affect: normal affect Attitude: cooperative Thought process: Normal thought process present Thought content: Normal thought content present Insight: Good insight present (Psych) Procedures Orthopedic Splinting/Casting Injury #1: Side: left Lower Extremity Injury Location: ankle Lower Extremity Immobilizer: boot orthosis Medical Decision Making Medical Decision Making MDM Narrative: Patient is a 74 year old assigned male at with a history of HTN, DM, LUIS, PVD, and back pain for which he uses a cane at baseline presenting to the emergency department today with left ankle pain. Patient's physical exam was as noted in the physical exam portion of this note. Patient's left ankle x-ray showed no acute fracture. Patient's clinical presentation is most consistent with a left ankle sprain. I explained my physical exam findings as well as all test results to the patient. I answered all questions asked by the patient. Patient's left ankle was placed in a walking boot, without incident. Patient's PMS was intact prior to and after boot placement. I stressed the importance of the patient taking his medication as directed (either prescribed or as the over the counter packaging recommends). I stressed the importance of the patient following up with his primary care provider and if pain persists greater than 2 weeks - the orthopedic team. I stressed the importance of the patient returning to the emergency department immediately if his symptoms were to worsen or if he were to develop any dizziness, shortness of breath, difficulty breathing, chest pain, blurry vision, loss of vision, nausea, vomiting, abdominal pain, fever, chills, back pain, or any other complaints. Patient verbalized agreement and understanding with this treatment plan and discharge. Differential Diagnosis Differential Diagnoses: The differential diagnosis associated with the presentat ion includes Left ankle sprain Left ankle strain Left ankle fracture Admission/Observation Consideration of admission/observation: Escalation of care including admission/observation considered Patient would have been admitted to the hospital had his work up had any findings where hospital admission was appropriate and his clinical presentation warranted hospital admission. Independent Interpretation I performed an independent interpretation of an: Plain X-Ray Interpretation: My interpretation is in agreement with the radiologist's impression of this imaging study. EXAMINATION: XR ANKLE, LEFT CLINICAL INFORMATION: s/p fall COMPARISON: None available. TECHNIQUE: AP, lateral, and mortise views of the left ankle. FINDINGS: Soft tissue contusion/edema pattern, bimalleolar. 2 mm well-corticated calcification inferior to the medial malleolus. No acute cortical disruption or gross malalignment. No subcutaneous emphysema. No lytic or blastic lesions. XR/XR ankle LT min 3V IMPRESSION: Soft tissue contusion/edema pattern, bimalleolar. 2 mm calcification in the inferior medial malleolus likely old trauma. No acute fracture or dislocation. Internal derangement cannot be excluded. Electronically signed by: Joseph Gamez MD 09/18/2024 09:25 AM EDT RP Dictated By: Joseph Silveira MD Signed By: Electronically signed by Joseph Sevilla MD 09/18/24 0913 Radiology Impression Discussion of test interpretation with radiology: I have reviewed the radiologist's reading. Discharge Plan Discharge Clinical Impression: Ankle sprain Patient Disposition: Home, Self-Care Instructions: Ankle Sprain (DC), Walking Boot (ED) Additional Instructions: Wear your walking boot for 2 weeks when ambulating ONLY. If pain persists after those 2 weeks - follow up with the orthopedic group. When stationary - elevate the left ankle. Follow up with your primary care provider. Return to the emergency department immediately if your symptoms worsen or if you develop any numbness, tingling, dizziness, shortness of breath, difficulty breathing, chest pain, blurry vision, loss of vision, nausea, vomiting, abdominal pain, fever, chills, back pain, or any other complaints. Please see the information below about our Patient Portal. If you are not yet enrolled in the [facility] Patient Portal, you will receive an enrollment email invitation following your visit to any [facility] setting. You may also self-enroll in the Patient Portal by visiting our website: [email or web address] The following information is required to access the Patient Portal: - Your [facility] Medical Record Number - Your personal home email address (must match what is in your electronic medical record, Registration staff can assist with this) - Name - Date of Capabilities of the Patient Portal: - Message some providers - View upcoming appointments - Access your health summary, medical history, and visit history - View current conditions and allergies - View procedure and lab results - View your medications, including guidelines, side effects, and precautions - Complete pre-appointment questionnaires requested by your provider - Ready summary reports of your office visits and procedures To access the Patient Portal Mobile Emili, follow these directions: - Search Volta in the Emili Store or UserVoice Store - Download the Emili - Search for [facility] - Enter your login/password Prescriptions: No Action (DME) CareSens N Test Strips Strip See Rx Instructions .Route Qty: 50 6RF Rx Instructions: As directed (DME) blood-glucose meter [FreeStyle Lite Meter] Kit See Rx Instructions .Route Qty: 1 0RF Rx Instructions: As directed tests 4 X/day (DME) lancets [FreeStyle Lancets] 28 gauge misc See Rx Instructions .Route Qty: 100 5RF Rx Instructions: As directed tests 4X/day (DME) FreeStyle Lite Strips Strip See Rx Instructions .ROUTE .COMPLEX Qty: 100 0RF Dose Instruction: USE TO CHECK BLOOD SUGAR FOUR TIMES DAILY Rx Instructions: USE TO CHECK BLOOD SUGAR FOUR TIMES DAILY Multivitamin 50 Plus Tablet 1 tab PO DAILY Qty: 90 3RF fluticasone propionate [Flonase Allergy Relief] 50 mcg/actuation spray,suspension 2 spray intranasal DAILY PRN (Reason: Nasal Congestion) 90 Days Qty: 3 3RF Rx Instructions: administer into each nostril terazosin 2 mg capsule 2 mg PO BEDTIME 90 Days Qty: 90 2RF ibuprofen 800 mg tablet 800 mg PO BID Qty: 270 0RF gabapentin 300 mg capsule 300 mg PO BID Qty: 180 3RF albuterol sulfate 90 mcg/actuation HFA aerosol inhaler 2 inh inhalation Q6H Qty: 6.7 0RF tadalafil 10 mg tablet 10 mg PO DAILY 90 Days Qty: 90 3RF Rx Instructions: Daily medication tadalafil 20 mg tablet 20 mg PO ONCE PRN (Reason: sexual activity) 30 Days Qty: 30 3RF Rx Instructions: On demand medication take 60 minutes before intended activity doxycycline monohydrate 100 mg capsule 100 mg PO BID 7 Days Qty: 14 0RF cinnamon bark 500 mg capsule 1,000 mg PO DAILY (DME) AUTO PAP 6-16 mm H20 humidified AIR See Rx Instructions .Route .MEDSUPPLY Qty: 1 0RF Rx Instructions: As directed omega-3 acid ethyl esters 1 gram capsule PO DAILY cetirizine [Allergy Relief (cetirizine)] 10 mg tablet 10 mg PO DAILY Qty: 90 1RF Senna Plus 8.6-50 mg capsule 1 tab-cap PO BID PRN (Reason: constipation) 90 Days Qty: 180 3RF lubiprostone [Amitiza] 8 mcg capsule 8 mcg PO BID Qty: 60 6RF omeprazole 20 mg capsule,delayed release(DR/EC) 20 mg PO DAILY Qty: 90 0RF dapagliflozin propanediol [Farxiga] 5 mg tablet 5 mg PO DAILY Qty: 30 3RF atorvastatin 20 mg tablet 20 mg PO DAILY 90 Days Qty: 90 2RF levothyroxine [Synthroid] 75 mcg tablet 75 mcg PO DAILY 90 Days Qty: 90 2RF losartan 100 mg tablet 100 mg PO DAILY Qty: 90 2RF metformin 500 mg tablet 500 mg PO BID 90 Days Qty: 180 2RF propranolol 10 mg tablet 10 mg PO BID Qty: 180 2RF Afrin (oxymetazoline) 0.05 % mist 2 spray intranasal Q12H PRN trolamine salicylate [Aspercreme] 10 % cream 1 appl topical BEDTIME PRN Referrals: [facility] Orthopedic Surgeons [Provider Group] Referral Note: If pain persists with proper boot use after 2 weeks - call to establish and follow up with the orthopedic team. Dayana Mccurdy MD [Primary Care Provider, Internal Medicine] Interventions: ED Discharge Assessment Last Done: 09/18/24 10:04 Discharge Date/Time: 09/18/24 10:16 Print Language: Scottish
--- OUTSIDE RECORDS SUMMARY | 2024-09-18 09:55 | XMS_ITS | Patient Health Record ---
Author Organization [facility] Address [address] [place] [address] Care Team Providers Care Power Driven Brush Maker Name Role Phone Po Dayana SCHWARTZ Primary Care Provider German Verma Jr Unavailable Rebecca Kaiser Unavailable Unavailable Reason For Referral No Information Medications Medication SIG (Take, Route, Frequency, Duration) Notes Start Date End Date Status Ibuprofen 800 MG 1 tablet Orally prn Active Atorvastatin Calcium 20 MG 1 tablet Oral ly Once a day Active Aspir-81 81 MG 1 tablet Orally Once a day Active Gabapentin Active Synthroid Active metFORMIN HCl Active Loratadine 10 MG Oral for 30 A ctive Colyte with Flavor Packs 240 GM As directed Orally Over the specified time. for 1 day(s) Active PriLOSEC Active Fluticasone Propionate 50 MCG/ACT Nasal for 60 Active Losartan Potassium 100 MG Oral for 90 Active Social History Alcohol Screen Question Answer Notes Did you have a drink contain ing alcohol in the past year? Yes How often did you have a dri nk containing alcohol in the past year? 2 to 3 times a week (3 points) How many drinks did you have on a typical day when you were drinking in the past year? 5 or 6 drinks (2 points) How often did you have 6 or more drinks on one occasion in the past year? Weekly (3 points) Points 8 Interpretation Positive Section Notes: beer drinker Problems Problem Type SNOMED Code ICD Code Onset Dates Problem Status W/U Status Risk Notes Problem 975909896 Colon cancer screening (Z12.11) Active confirmed Problem 624695551 Gastroesophageal reflux disease without esophagitis (K21.9) Active confirmed Problem 358048760 Family history o f colon cancer (Z80.0) Active confirmed Plan Of Treatment Future Test Test Name Order Date COLONOSCOPY 07/13/2016 Insurance Providers Payer Name Payer Address Payer Phone Subscriber Number Group Number Insured Name Patient Relationship to Insured Coverage Start Date Coverage End Date [facility] [address] [place], [place] [id number] JENNIE MC Self - patient is the insured Medical (General) History Medical History History ICD Code hypertension elevated cholesterol obstructive sleep apnea elevated blood sugar prediabetic Surgical History Surgery Date(Month/Year) appendectomy tonsillectomy left knee arthroscopy right knee arthroscopy
--- OUTSIDE RECORDS SUMMARY | 2024-09-18 09:55 | XMS_ITS | Clinical Summary ---
Author Organization [facility] Address [address] [place] [address] Care Team Providers Care Education Reporter Name Role Phone Unavailable Primary Care Provider [...] 01/10/2002 Abdominal Aorta Imaging 01/10/2017 COVID-19 Vaccine (1 - 2023-2 5 season) 2023 Influenza (#1) 2024 RSV (1 - 1-dose 75+ series) 01/10/2027 HPV Vaccine (No Doses Required) Completed Hep A Aged Out No longer eligi [...]
--- OUTSIDE RECORDS SUMMARY | 2024-09-18 09:55 | XMS_ITS | Clinical Summary ---
Author Organization [employer] Address [address] [place] [address] Care Team Providers Care Mental Health Professional Name Role Phone Unavailable Primary Care Provider [...] 2023-2 5 season) 2023 Influenza Vaccine (#1) 2024 Dental X-Ray: Full Mouth 08/04/2025 08/03/2022 RSV [...] Relevant to Health Maintenance Insurance DENTAL - [facility] DENT[facility] DENTAL - [facility]
[2024-09-18 10:04] VITALS: BP 105/59; PULSE 69; RESP 16; TEMP 36.2; O2SAT 97
== END 2024-09-18 10:16 | disposition home or self-care (01) ==
PROVIDERS: Emergency Provider Emergency Medicine Emergency Medical Services; PCP Internal Medicine
DX: S93.402A Sprain of unspecified ligament of left ankle, initial encounter (principal); W10.9XXA Fall (on) (from) unspecified stairs and steps, initial encounter; Z91.81 History of falling; Y93.9 Activity, unspecified; Y92.9 Unspecified place or not applicable; Y99.8 Other external cause status
CPT/HCPCS: 73610; 99283; 99284

== ENCOUNTER 2024-09-19 08:58 | Outpatient (AMB) | payer MEDICARE, BC, SELFPAY ==
--- OUTSIDE RECORDS SUMMARY | 2024-07-31 10:30 | XMS_ITS ---
Author Organization [facility] Address [address] [place] [address] Care Team Providers Care Student Counsellor Name Role Phone Dayana Mccurdy Primary Care Provider Shanelle Camp [phone] Encounters Encounter Location Date Provider Diagnosis [address] [address] 07/31/2024 Shanelle Garcia Plan Of Treatment Next Appt Details Provider Name:Shanelle Garcia , 11/06/2024 08:00:00 AM, [address] [place] [address], [address], Progress Notes * Nancy LAZOoDOB:[birth year] (74 yo M)Acc No.[id number]:07/31/2024 Progress Note Patient: Ivis REGALADONoman DOMINIQUE Provider: Danelle Garcia DPM :1950 A ge:74 Y S ex:Male Date:07/31/2024 Address: [address] [place] Pcp:Dayana Mccurdy Subjective: * Chief Complaints: * [...] 07/31/2024 Generated for Jesusita coronado/Safia/Mimi on: 0 09/19/2024 09:14 AM EDT
--- NOTE | 2024-09-19 09:14 | MHC.PC.OV ---
Vital Signs 09/19/24 09:18 Height 5 ft 9 in Weight 198 lb BMI 29.2 BP 124/68 Blood Pressure Location Lt brachial Position Sitting Pulse 62 Pulse Source Pulse Oximeter Temp 97.8 F Temp Source Temporal Artery Scan Pulse Oximetry (%) 98 Oxygen Delivery Method Room Air Intake Visit Reasons: ear flush Die Maker Trim Required: No Accompanied by: Self / Same As Patient Allergies No Known Allergies (No Known Allergies*) Allergy (Verified 09/19/24 09:34) Medication List - Last Reconciled 09/19/24 by Silvia Tai PA-C albuterol sulfate 90 mcg/actuation 2 inhalations inhalation Q6H atorvastatin 20 mg PO DAILY 90 days [AUTO PAP 6-16 mm H20 humidified AIR As directed] blood sugar diagnostic ([employer] N Test Strips) As directed blood sugar diagnostic (FreeStyle Lite Strips) USE TO CHECK BLOOD SUGAR FOUR TIMES DAILY blood-glucose meter (FreeStyle Lite Meter kit) As directed tests 4 X/day cetirizine (Allergy Relief (cetirizine)) 10 mg PO DAILY cinnamon bark 1,000 mg PO DAILY dapagliflozin propanediol (Farxiga) 5 mg PO DAILY doxycycline monohydrate 100 mg PO BID 7 days fluticasone propionate 50 mcg/actuation (Flonase Allergy Relief) 2 sprays intranasal DAILY PRN 90 days gabapentin 300 mg PO BID ibuprofen 800 mg PO BID lancets (FreeStyle Lancets) As directed tests 4X/day levothyroxine (Synthroid) 75 mcg PO DAILY 90 days losartan 100 mg PO DAILY lubiprostone (Amitiza) 8 mcg PO BID metformin 500 mg PO BID 90 days lxqmswurbkxe-hpshnnqz-nbimdg (Multivitamin 50 Plus tablet) 1 tab PO DAILY omega-3 acid ethyl esters PO DAILY omeprazole 20 mg PO DAILY oxymetazoline 0.05% (Afrin (oxymetazoline)) 2 sprays intranasal Q12H PRN propranolol 10 mg PO BID sennosides-docusate sodium 8.6-50 mg (Senna Plus) 1 tab-cap PO BID PRN 90 days tadalafil 10 mg PO DAILY 90 days tadalafil 20 mg PO ONCE PRN 30 days terazosin 2 mg PO BEDTIME 90 days trolamine salicylate 10% (Aspercreme) 1 appl topical BEDTIME PRN Tobacco use date assessed: 09/19/24 Fall risk assessment: 1 Fall in past year Last assessed Fall Risk: 09/19/24 Dental Screening Dental Screen Date: 09/19/24 Did you have a dental visit in the last 12 months?: Yes Did you have a dental problem in the last 6 months where you did not have access to dental care?: No Was dental information given to patient?: Patient has dentist HPI ear flush HPI Details 74-year-old male with past medical history of diabetes mellitus, hypercholesterolemia, hypothyroid, hypertension, hypogonadism and generalized anxiety disorder last seen 06/2024 coming in for hospital discharge follow up. In review of the notes, patient was seen in [facility] 09/18/2024 for ankle pain after a fall diagnosed with sprain and discharged home. He is placed in a boot and advised to use his while weight-bearing and if pain not improved after 2 weeks to follow up with Orthopedics. Patient tells us today he has been using the boot for weight-bearing. He does still continue to have mild pain in the right ankle when significant swelling. He is elevating the leg when possible. No other concerns today [facility] Medical History Family history of colon cancer Osteoarthritis Vertebral fracture Essential tremor Constipation Type 2 diabetes mellitus with hyperglycemia Diabetic neuropathy Tubular adenoma of colon Nicotine dependence, cigarettes, uncomplicated Positive PPD Obstructive sleep apnea Foot pain, left Overweight (BMI 25.0-29.9) Obesity (BMI 30-39.9) Thyroid nodule Pulmonary nodule GERD (gastroesophageal reflux disease) Erectile dysfunction Hypothyroid Hypertension Hypercholesterolemia Surgical History History of back surgery History of colonoscopy History of arthroscopy of right knee History of appendectomy History of tonsillectomy Family History Father Medical history unknown Mother Diabetes Past heart attack Brother Prostate cancer Social History Housing: House Unable to assess alcohol history related to: Unknown Alcohol intake: current Alcohol intake frequency: 3 or more drinks per day Alcohol type: beer Comment: QD 2 drinksstopped 12/2023 but last night ( 03/2024) 4 beers, ,3 beers a day Patient Tobacco Use Status: Former Tobacco user Tobacco use type: Cigarette Cigarette Packs Per Day: 1 Cigarettes Per Day: 15 Years Smoked: (onset 17yo, 3/4ppd x 56yrs, 40pyh) (06/2024 1/2 pack a day) e-Cigarette/Vaping Use: Never Used Second Hand Smoke Exposure: Yes service: No Current occupational status: disabled Cognitive needs: No Hearing needs: No Vision needs: Yes Questionnaire PHQ-9 Over the last 2 weeks, how often have you been bothered by any of the following problems? 1. Little interest or pleasure in doing things: not at all 2. Feeling down, depressed, or hopeless: not at all 3. Trouble falling or staying asleep, or sleeping too much: not at all 4. Feeling tired or having little energy: not at all 5. Poor appetite or overeating: not at all 6. Feeling bad about yourself - or that you are a failure or have let yourself or your family down: not at all 7. Trouble concentrating on things, such as reading the newspaper or watching television: not at all 8. Moving or speaking so slowly that other people could have noticed. Or the opposite - being so fidgety or restless that you have been moving around a lot more than usual: not at all 9. Thoughts that you would be better off or of hurting yourself in some way: not at all Total score: 0 38413 - PHQ-9 Billing: Yes Source: Developed by Drs. Remy Jacobsen, Lucita Morrissey, Jaskaran Mitchell and colleagues, with an educational maurilio from [employer]. Thrive Questionnaire Date Thrive assessed: 09/19/24 I am a: Patient What is your living situation today?: I have a steady place to live Within the past 12 months, did the food you bought not last and you didn't have the money to get more?: Never true Within the past 12 months, did you worry whether your food would run out before you got money to buy more?: Never true Do you have trouble paying for medicines?: No Do you have trouble getting transportation to medical appointments?: No Do you have trouble paying your heating and electricity bill?: No Do you have trouble taking care of your child, family member or friend?: No Do you have trouble with day-to-day activities such as bathing, preparing meals, shopping, managing finances, etc.?: No Are you currently unemployed and looking for a job?: No Are you interested in more education?: No Please select the resources that you would like help with: None Currently or been in a relationship where the following occur: No concerns reported THRIVE Score: 0 AUDIT C Alcohol Use Questionnaire (AUDIT-C) 1. How often do you have a drink containing alcohol?: 2-3 times a week 2. How many drinks containing alcohol do you have on a typical day when you are drinking?: 1 or 2 Total Score: 3 JI-7 AMB Questionnaire JI-7 Date JI - 7 assessed: 09/19/24 Feeling nervous, anxious, or on edge: 0 = Not at all Not being able to stop or control worryin = Not at all Worrying too much about different things: 0 = Not at all Trouble relaxin = Not at all Being so restless that it is hard to sit still: 0 = Not at all Becoming easily annoyed or irritable: 0 = Not at all Feeling afraid as if something awful might happen: 0 = Not at all Total JI-7 score (0-4 normal; 5-9 mild; 10-14 moderate; 15-21 severe): 0 Source: Developed by Drs. Remy Jacobsen, Lucita Morrissey, Jaskaran Mitchell and colleagues, with an educational maurilio from [employer]. JI-7 Assessment Billing JI-7 Assessment Tool: JI-7 Assessment 79882 Review of Systems Const Denies body aches, Denies chills, Denies fever(s) and Denies poor appetite Eyes Reports no additional complaints ENT Denies dizziness Card Denies chest pain, Denies lightheadedness and Denies dyspnea Resp Denies dyspnea Musc Reports as per HPI and Denies abnormal gait Skin/Breast Reports system reviewed and no additional complaints, except as documented Neuro Denies abnormal gait and Denies dizziness Psych Reports no additional complaints Physical exam (Primary Care) Vital Signs: Last Vital Signs Temp 97.8 F 09/19/24 09:18 Pulse 62 09/19/24 09:18 BP 124/68 09/19/24 09:18 Pulse Ox 98 09/19/24 09:18 Oxygen Delivery Method Room Air 09/19/24 09:18 BMI result Body Mass Index 29.2 Tobacco/Smoking Status: Tobacco use Status Tobacco use date assessed 09/19/24 09/19/24 09:26 Patient Tobacco Use Status Former Tobacco user 09/19/24 09:26 Tobacco use type Cigarette 09/19/24 09:26 e-Cigarette/Vaping Use Never Used 09/19/24 09:26 PHQ-9: PHQ-9 Score PHQ-9: Total score 0 09/19/24 09:26 Thrive Assessment: Date of Thrive Assessment Date Thrive assessed 09/19/24 09/19/24 09:26 Currently or been in a relationship where the following occur: No concerns reported Const General: cooperative, healthy appearing, comfortable and no acute distress Orientation/consciousness: patient oriented x3 HENMT Head: Yes normocephalic Ears: hearing grossly normal bilaterally and EAC's normal General nose exam: Normal external nose present Eyes General: appearance normal, both eyes and all related structures Conjunctivae: conjunctivae normal Neck Neck: Yes full ROM and Yes no lymphadenopathy Resp Effort & Inspection: normal respiratory effort Auscultation: clear to auscultation bilaterally, no crackles, no rales, no rhonchi and no wheezes Cardio Rate: regular rate Rhythm: regular rhythm Skin General skin exam: no rashes or lesions noted Neuro General: patient oriented x3 Gait exam (Neuro): Normal gait present Extrem Other: Bruising in the posterior aspect of the left heel. Mild edema of the left foot, tenderness to palpation over left ankle. Intact strength, sensation, pulses and left lower extremity. Good range of motion of the left lower extremity General: Yes normal to inspection, Yes full ROM and No edema Psych Affect: normal affect Attitude: cooperative Insight: Good insight present (Psych) Judgement: Good judgement present (Psych) Results AMB Hemoglobin A1c AMB Hemoglobin A1c 6.9 % Last Edit by Lisa Parker CMA on 09/19/24 10:00 Coding Level of Care Code Est Pt Level 3 (13637) Diagnoses Sprain of left ankle, unspecified ligament, subsequent encounter S93.402D Encounter type: subsequent encounter Involved ligament of ankle: unspecified ligament Laterality: left Essential hypertension I10 Hypertension type: essential hypertension Hypercholesterolemia E78.00 Type 2 diabetes mellitus with hyperglycemia, without long-term current use of insulin E11.65 Diabetes mellitus [facility] insulin use: without buttermaker continuous churn use Obesity (BMI 30.0-34.9) E66.9 Impacted cerumen of both ears H61.23 Additional Codes JI-7 Assessment Billing - JI-7 Assessment Tool: JI-7 Assessment 21017 ([id number]) PHQ-9 - 53124 - PHQ-9 Billing: Yes ([id number]) Assessment & Plan Assessment & Plan (1) Ankle sprain: Code(s): S93.409A - Sprain of unspecified ligament of unspecified ankle, initial encounter Category: Medical Qualifiers: Encounter type: subsequent encounter Involved ligament of ankle: unspecified ligament Laterality: left Qualified Code(s): S93.402D - Sprain of unspecified ligament of left ankle, subsequent encounter Plan: Continue to use a boot for weight-bearing activities. When at home removed with the boot and work on gentle range of motion exercises, elevate the leg, ice and heat as needed. Patient may use Tylenol and ibuprofen as needed. Advised to use the boot for weight-bearing activities for the next 2 weeks. If pain persists consider referral to Orthopedics. (2) Hypertension: Code(s): I10 - Essential (primary) hypertension Category: Medical Qualifiers: Hypertension type: essential hypertension Qualified Code(s): I10 - Essential (primary) hypertension Plan: Continue on current blood pressure medication. Avoid salt intake and encourage healthy diet and regular exercise. (3) Hypercholesterolemia: Code(s): E78.00 - Pure hypercholesterolemia, unspecified Category: Medical Plan: Avoid foods that are high in cholesterol such as red meat, fried foods, eggs and baked goods. Triglyceride goal of less than 150 and LDL goal of less than 100. Patient is due for blood work this month. (4) Type 2 diabetes mellitus with hyperglycemia: Code(s): E11.65 - Type 2 diabetes mellitus with hyperglycemia Category: Medical Qualifiers: Diabetes mellitus buttermaker continuous churn insulin use: without [facility] use Qualified Code(s): E11.65 - Type 2 diabetes mellitus with hyperglycemia Plan: Decrease the amount of carbohydrates such as pasta, bread, rice, and potatoes and limit the amount of sweets. Although fruits are generally healthy they should be eaten in moderation as they are still high in sugar. Hemoglobin A1c goal of less than 7%. His A1c has improved from 8.5% to 6.9% today in the clinic. Continue on current medication (5) Obesity (BMI 30.0-34.9): Code(s): E66.9 - Obesity, unspecified Category: Medical Plan: Healthy diet and regular exercise is encouraged. (6) Impacted cerumen of both ears: Code(s): H61.23 - Impacted cerumen, bilateral Category: Medical Plan: Bilateral ears are clean and no procedure was completed today. Patient was given Debrox drops for maintenance Plan This note was constructed using voice recognition software. While every effort has been made to ensure accuracy and embroidery supervisor, still areas may have been included sometimes these areas may affect the content or meeting of the given symptoms. Total time spent caring for the patient today was 20 minutes. This includes time spent before the visit reviewing the chart, time spent during the visit, and time spent after the visit and documentation. Orders: Orders AMB Hemoglobin A1c Today E11.65 - Type 2 diabetes mellitus with hyperglycemia Medications: New carbamide peroxide 6.5% (Debrox) 5 drps otic (ears) DAILY 15 mL 0RF 4 days
--- OUTSIDE RECORDS SUMMARY | 2024-09-19 09:14 | XMS_ITS | Clinical Summary ---
Author Organization [facility] Address [address] [place] [address] Care Team Providers Care Filler Sifter Machine Name Role Phone Unavailable Primary Care Provider [...]
--- OUTSIDE RECORDS SUMMARY | 2024-09-19 09:14 | XMS_ITS | Patient Health Record ---
Author Organization [facility] Address [address] [place] [address] Care Team Providers Care Bath Steward/Stewardess Name Role Phone Po Dayana SCHWARTZ Primary Care Provider German Verma Jr Unavailable [phone] Rebecca Kaiser Unavailable Unavailable Reason For Referral [...] Problem Status W/U Status Risk Notes Problem 404156644 Colon cancer screening (Z12.11) Active confirmed Problem 470182277 Gastroesophageal reflux disease without esophagitis (K21.9) Active confirmed Problem 638815410 Family history o f colon cancer (Z80.0) Active confirmed Plan Of Treatment Future Test Test Name Order Date COLONOSCOPY 07/13/2016 Insurance Providers Payer Name Payer Address Payer Phone Subscriber Number Group Number Insured Name Patient Relationship to Insured Coverage Start Date Coverage End Date [facility] [address] [place], [place] [id number] JENNIE MC Self - patient is the insured Medical (General) History Medical History History ICD Code hypertension elevated cholesterol obstructive sleep apnea elevated blood sugar prediabetic Surgical History Surgery Date(Month/Year) appendectomy tonsillectomy left knee arthroscopy right knee arthroscopy
--- OUTSIDE RECORDS SUMMARY | 2024-09-19 09:14 | XMS_ITS | Clinical Summary ---
Author Organization [employer] Address [address] [place] [address] Care Team Providers Care Artificial Flowers Dyer Name Role Phone Unavailable Primary Care Provider [...] to Health Maintenance Insurance DENTAL - [facility] DENTAL DENTAL - [facility]
[2024-09-19 09:18] VITALS: BP 124/68; PULSE 62; TEMP 36.6; O2SAT 98; BMI 29.2
== END 2024-09-19 10:01 | disposition home or self-care (01) ==
LOC: HO.HMCH 08:59
PROVIDERS: PCP Internal Medicine
DX: E11.65 Type 2 diabetes mellitus with hyperglycemia (principal); S93.402D Sprain of unspecified ligament of left ankle, subsequent encounter; Z68.29 Body mass index [BMI] 29.0-29.9, adult; E66.9 Obesity, unspecified; I10 Essential (primary) hypertension; E78.00 Pure hypercholesterolemia, unspecified; H61.23 Impacted cerumen, bilateral

== ENCOUNTER → 2024-09-19 08:58 | Outpatient (BNVA) | payer MEDICARE, BC, SELFPAY | PROVIDERS: PCP Internal Medicine | DX: I10 Essential (primary) hypertension (principal); E78.00 Pure hypercholesterolemia, unspecified; E11.65 Type 2 diabetes mellitus with hyperglycemia; E66.9 Obesity, unspecified; Z68.29 Body mass index [BMI] 29.0-29.9, adult; H61.23 Impacted cerumen, bilateral; S93.402D Sprain of unspecified ligament of left ankle, subsequent encounter; X58.XXXD Exposure to other specified factors, subsequent encounter; Z13.39 Encounter for screening examination for other mental health and behavioral disorders; Z13.30 Encounter for screening examination for mental health and behavioral disorders, unspecified | CPT/HCPCS: 83036; 96127; 99212 ==

== ENCOUNTER 2024-10-10 08:45 | Outpatient (AMB) | payer MEDICARE, BC, SELFPAY ==
--- OUTSIDE RECORDS SUMMARY | 2024-07-31 10:30 | XMS_ITS ---
Author Organization [facility] Address [address] [place] [address] Care Team Providers Care Automotive Brake Specialist Name Role Phone Dayana Mccurdy Primary Care Provider Shanelle Camp [phone] Encounters Encounter Location Date Provider Diagnosis [address] [address] 07/31/2024 Shanelle Garcia Plan Of Treatment Next Appt Details Provider Name:Shanelle Garcia , 11/06/2024 08:00:00 AM, [address] [place] [address], [phone], Progress Notes * Nancy LAZOoDOB:[birth year] (74 yo M)Acc No.[id number]:07/31/2024 Progress Note Patient: Ivis REGALADONoman DOMINIQUE Provider: Danelle Garcia DPM :1950 A ge:74 Y S ex:Male Date:07/31/2024 Address: [place] Pcp:Dayana Mccurdy Subjective: * Chief Complaints: * * Medical History: Objective: * Vitals: Assessment: Plan: * Treatment: * Images: * The named appointment provid er may or may not be the originator of this progress note, and it is not deemed complete until electronically signed by the appointment provider. Sign off status: Pending * Provider: Danelle Garcia, DPSamantha Date: 0 07/31/2024 Generated for Jesusita coronado/Safia/Mimi on: 0 10/10/2024 08:58 AM EDT
--- NOTE | 2024-10-10 08:49 | A.OFFPC_ITS ---
Vital Signs 10/10/24 08:50 Height 5 ft 9 in Weight 198 lb BMI 29.2 BP 146/80 H Blood Pressure Location Lt brachial Position Sitting Pulse 65 Pulse Source Pulse Oximeter Temp 97.3 F Temp Source Temporal Artery Scan Pulse Oximetry (%) 94 Oxygen Delivery Method Room Air Intake Visit Reasons: [facility] 09/18 Fall/swollen feet Intake Note: Patient is here to follow-up after a visit the emergency department at [facility] on 09/18/24. Valve Inspector Required: No Nuclear Unit Operator: Not Required per policy Accompanied by: Self / Same As Patient Allergies No Known Allergies (No Known Allergies*) Allergy (Verified 10/10/24 08:50) Medication List - Last Reconciled 10/10/24 by Sophia Pedraza NP albuterol sulfate 90 mcg/actuation 2 inhalations inhalation Q6H atorvastatin 20 mg PO DAILY 90 days [AUTO PAP 6-16 mm H20 humidified AIR As directed] blood sugar diagnostic ([employer] N Test Strips) As directed blood sugar diagnostic ([employer]Style Lite Strips) USE TO CHECK BLOOD SUGAR FOUR TIMES DAILY blood-glucose meter (FreeStyle Lite Meter kit) As directed tests 4 X/day carbamide peroxide 6.5% (Debrox) 5 drps otic (ears) DAILY 4 days cetirizine (Allergy Relief (cetirizine)) 10 mg PO DAILY cinnamon bark 1,000 mg PO DAILY dapagliflozin propanediol (Farxiga) 5 mg PO DAILY fluticasone propionate 50 mcg/actuation (Flonase Allergy Relief) 2 sprays intranasal DAILY PRN 90 days gabapentin 300 mg PO BID ibuprofen 800 mg PO BID lancets (FreeStyle Lancets) As directed tests 4X/day levothyroxine (Synthroid) 75 mcg PO DAILY 90 days losartan 100 mg PO DAILY lubiprostone (Amitiza) 8 mcg PO BID metformin 500 mg PO BID 90 days nektonhyjlps-dsdxhnfv-ptkwzw (Multivitamin 50 Plus tablet) 1 tab PO DAILY omega-3 acid ethyl esters PO DAILY omeprazole 20 mg PO DAILY oxymetazoline 0.05% (Afrin (oxymetazoline)) 2 sprays intranasal Q12H PRN propranolol 10 mg PO BID sennosides-docusate sodium 8.6-50 mg (Senna Plus) 1 tab-cap PO BID PRN 90 days tadalafil 10 mg PO DAILY 90 days tadalafil 20 mg PO ONCE PRN 30 days terazosin 2 mg PO BEDTIME 90 days trolamine salicylate 10% (Aspercreme) 1 appl topical BEDTIME PRN Tobacco use date assessed: 10/10/24 Fall risk assessment: 1 Fall in past year Last assessed Fall Risk: 10/10/24 Dental Screening Dental Screen Date: 09/19/24 HPI HPI Comments History of Present Illness Details 74 y/o Male patient who presents to the clinic today for EDF. Pt was admitted at [facility] on 09/18 for an evaluation and treatment of Left Ankle Sprain. He is currently wearing the Weight Bearing Boot. Pt c/o Some mild tenderness around the Ankle but managable. He is main concern today is the Swelling of the Ankle. Pt asking for Orthopedics referral. [facility] Medical History Family history of colon cancer Osteoarthritis Vertebral fracture Essential tremor Constipation Type 2 diabetes mellitus with hyperglycemia Diabetic neuropathy Tubular adenoma of colon Nicotine dependence, cigarettes, uncomplicated Positive PPD Obstructive sleep apnea Foot pain, left Overweight (BMI 25.0-29.9) Obesity (BMI 30-39.9) Thyroid nodule Pulmonary nodule GERD (gastroesophageal reflux disease) Erectile dysfunction Hypothyroid Hypertension Hypercholesterolemia Surgical History History of back surgery History of colonoscopy History of arthroscopy of right knee History of appendectomy History of tonsillectomy Family History Father Medical history unknown Mother Diabetes Past heart attack Brother Prostate cancer Social History Housing: House Unable to assess alcohol history related to: Unknown Alcohol intake: current Alcohol intake frequency: 3 or more drinks per day Alcohol type: beer Comment: QD 2 drinksstopped 12/2023 but last night ( 03/2024) 4 beers, ,3 beers a day Patient Tobacco Use Status: Former Tobacco user Tobacco use type: Cigarette Cigarette Packs Per Day: 1 Cigarettes Per Day: 15 Years Smoked: (onset 17yo, 3/4ppd x 56yrs, 40pyh) (06/2024 1/2 pack a day) Packs Per Year: 0 Packs per year/per ci.00 e-Cigarette/Vaping Use: Never Used Second Hand Smoke Exposure: Yes service: No Current occupational status: disabled Cognitive needs: No Hearing needs: No Vision needs: Yes Questionnaire Thrive Questionnaire Date Thrive assessed: 09/17/24 I am a: Patient What is your living situation today?: I have a steady place to live Within the past 12 months, did the food you bought not last and you didn't have the money to get more?: Never true Within the past 12 months, did you worry whether your food would run out before you got money to buy more?: Never true Do you have trouble paying for medicines?: No Do you have trouble getting transportation to medical appointments?: No Do you have trouble paying your heating and electricity bill?: No Do you have trouble taking care of your child, family member or friend?: No Do you have trouble with day-to-day activities such as bathing, preparing meals, shopping, managing finances, etc.?: No Are you currently unemployed and looking for a job?: No Are you interested in more education?: No Please select the resources that you would like help with: None Currently or been in a relationship where the following occur: No concerns reported THRIVE Score: 0 JI-7 AMB Questionnaire JI-7 Date JI - 7 assessed: 09/19/24 Source: Developed by Drs. Remy Jacobsen, Lucita Morrissey, Jaskaran Mitchell and colleagues, with an educational maurilio from [employer]. Review of Systems Const All systems reviewed & are unremarkable except as noted in HPI and below Physical exam (Primary Care) Vital Signs: Last Vital Signs Temp 97.3 F 10/10/24 08:50 Pulse 65 10/10/24 08:50 BP 146/80 H 10/10/24 08:50 Pulse Ox 94 10/10/24 08:50 Oxygen Delivery Method Room Air 10/10/24 08:50 BMI result Body Mass Index 29.2 Tobacco/Smoking Status: Tobacco use Status Tobacco use date assessed 10/10/24 10/10/24 09:00 Patient Tobacco Use Status Former Tobacco user 10/10/24 09:00 Tobacco use type Cigarette 10/10/24 09:00 e-Cigarette/Vaping Use Never Used 10/10/24 09:00 Thrive Assessment: Date of Thrive Assessment Date Thrive assessed 09/17/24 10/10/24 09:00 Currently or been in a relationship where the following occur: No concerns reported Const General: no acute distress Nutritional Appearance: obese Orientation/consciousness: patient oriented x3 Neuro General: patient oriented x3 and moves all extremities Extrem Left lower extremity: ankle Details: tenderness Location: of the lateral malleolus and of the medial malleolus, swelling Details: diffusely and abnormal ROM Details: pain with active ROM and pain with passive ROM; no crepitus Psych Speech and movement: Normal speech and movement present Coding Level of Care Code Est Pt Level 4 (49145) Diagnoses Sprain of left ankle, unspecified ligament, subsequent encounter S93.402D Encounter type: subsequent encounter Involved ligament of ankle: unspecified ligament Laterality: left Time Spent (min) 20 Assessment & Plan Assessment & Plan (1) Ankle sprain: Code(s): S93.409A - Sprain of unspecified ligament of unspecified ankle, initial encounter Category: Medical Qualifiers: Encounter type: subsequent encounter Involved ligament of ankle: unspecified ligament Laterality: left Qualified Code(s): S93.402D - Sprain of unspecified ligament of left ankle, subsequent encounter Plan: Continue on Support Boot. Continue on RICE. NSAIDs or Acetaminophen for pain relief. Ordered Orthopedics Referral. Orders: Referrals Orthopedics Referral S93.402D - Sprain of unspecified ligament of left ankle, subsequent encounter Medications: New prednisone 20 mg PO DAILY 10 tabs 0RF S93.402D - Sprain of unspecified ligament of left ankle, subsequent encounter Refilled cetirizine (Allergy Relief (cetirizine)) 10 mg PO DAILY 90 tabs 1RF terazosin 2 mg PO BEDTIME 90 caps 2RF 90 days R39.9 - Unspecified symptoms and signs involving the genitourinary system ibuprofen 800 mg PO BID 270 tabs 0RF dapagliflozin propanediol (Farxiga) 5 mg PO DAILY 30 tabs 3RF E11.65 - Type 2 diabetes mellitus with hyperglycemia omeprazole 20 mg PO DAILY 90 caps 0RF
[2024-10-10 08:50] VITALS: BP 146/80; PULSE 65; TEMP 36.3; O2SAT 94; BMI 29.2
--- OUTSIDE RECORDS SUMMARY | 2024-10-10 08:59 | XMS_ITS | Clinical Summary ---
Author Organization [facility] Address [address] [place] [address] Care Team Providers Care Firer Bisque Kiln Name Role Phone Unavailable Primary Care Provider [...]
--- OUTSIDE RECORDS SUMMARY | 2024-10-10 08:59 | XMS_ITS | Clinical Summary ---
Author Organization [employer] [facility] [employer] Address [address] [place] [address] Care Team Providers Care Writer Editor Name Role Phone Unavailable Primary Care Provider [...] Relevant to Health Maintenance Insurance DENTAL - [facility] DENTAL DENTAL - [facility]
--- OUTSIDE RECORDS SUMMARY | 2024-10-10 08:59 | XMS_ITS | Patient Health Record ---
Author Organization [facility] Address [address] [place] [address] Care Team Providers Care Senior Software Development Manager Name Role Phone Po Dayana SCHWARTZ Primary [...] Problem Status W/U Status Risk Notes Problem [id number] Colon cancer screening (Z12.11) Active confirmed Problem [id number] Gastroesophageal reflux disease without esophagitis (K21.9) Active confirmed Problem [id number] Family history o f colon cancer (Z80.0) Active confirmed Plan Of Treatment Future Test Test Name Order Date COLONOSCOPY 07/13/2016 Insurance Providers Payer Name Payer Address Payer Phone Subscriber Number Group Number Insured Name Patient Relationship to Insured Coverage Start Date Coverage End Date [facility] [address] [place], [place] [id number] JENNIE MC Self - patient is the insured Medical (General) History Medical History History ICD Code hypertension elevated cholesterol obstructive sleep apnea elevated blood sugar prediabetic Surgical History Surgery Date(Month/Year) appendectomy tonsillectomy left knee arthroscopy right knee arthroscopy
== END 2024-10-10 10:26 | disposition home or self-care (01) ==
LOC: HO.HMCH 08:46
PROVIDERS: PCP Internal Medicine; Visit Provider Nurse Practitioner Family
DX: S93.402D Sprain of unspecified ligament of left ankle, subsequent encounter (principal)

== ENCOUNTER → 2024-10-10 08:45 | Outpatient (BNVA) | payer MEDICARE, BC, SELFPAY | PROVIDERS: PCP Internal Medicine; Visit Provider Nurse Practitioner Family | DX: S93.402D Sprain of unspecified ligament of left ankle, subsequent encounter (principal); E11.65 Type 2 diabetes mellitus with hyperglycemia; X58.XXXD Exposure to other specified factors, subsequent encounter | CPT/HCPCS: 99212 ==

== ENCOUNTER 2024-10-30 07:43 | Outpatient (AMB) | payer MEDICARE, BC, SELFPAY ==
--- OUTSIDE RECORDS SUMMARY | 2023-11-26 05:30 | XMS_ITS ---
Author Organization [facility] Address [address] [place] [phone] Care Team Providers Care Director Of Public Relations Name Role Phone Dayana Mccurdy Primary Care Provider Shanelle Capm [phone] Encounters Encounter Location Date Provider Diagnosis [address] [phone] 11/26/2023 Shanelle Garcia Plan Of Treatment Next Appt Details Provider Name:Shanelle Garcia , 11/06/2024 08:00:00 AM, [address] [place] [address], [phone], Progress Notes * Nancy LAZOoDOB:[birth year] (74 yo M)Acc No.[id number]:11/26/2023 Progress Note Patient: Ivis REGALADONoman DOMINIQUE Provider: Danelle Garcia DPM :1950 A ge:73 Y S ex:Male Date:11/26/2023 Address: [place] Pcp:Dayana Mccurdy Subjective: * Chief Complaints: * [...] Date: 1 Generated for Jesusita coronado/Safia/Mimi on: 0 10/30/2024 07:46 AM EDT
--- OUTSIDE RECORDS SUMMARY | 2024-06-12 07:30 | XMS_ITS ---
Author Organization [facility] Address [address] [place] [phone] Care Team Providers Care Title One Reading Teacher Name Role Phone Dayana Mccurdy Primary Care Provider Shanelle Camp [phone] Encounters Encounter Location Date Provider Diagnosis [address] [address] 06/12/2024 Shanelle Garcia Plan Of Treatment Next Appt Details Provider Name:Shanelle Garcia , 11/06/2024 08:00:00 AM, [address] [place] [address], [phone], Progress Notes * Nancy LAZOoDOB:[birth year] (74 yo M)Acc No.[id number]:06/12/2024 Progress Note Patient: Ivis REGALADONoman DOMINIQUE Provider: Danelle Garcia DPM :1950 A ge:74 Y S ex:Male Date:06/12/2024 Address: [place] Pcp:Dayana Mccurdy Subjective: * Chief Complaints: * [...] 06/12/2024 Generated for Jesusita coronado/Safia/Mimi on: 0 10/30/2024 07:46 AM EDT
--- OUTSIDE RECORDS SUMMARY | 2024-07-31 10:30 | XMS_ITS ---
Author Organization [facility] Address [address] [place] [address] Care Team Providers Care Communication Skills Instructor Name Role Phone Dayana Mccudry Primary Care Provider Shanelle Camp [phone] Encounters Encounter Location Date Provider Diagnosis [address] [address] 07/31/2024 Shanelle Garcia Plan Of Treatment Next Appt Details Provider Name:Shanelle Garcia , 11/06/2024 08:00:00 AM, [address] [place] [address], [address], Progress Notes * Nancy LAZOoDOB:[birth year] (74 yo M)Acc No.[id number]:07/31/2024 Progress Note Patient: Ivis REGALADONoman DOMINIQUE Provider: Danelle Garcia DPM :1950 A ge:74 Y S ex:Male Date:07/31/2024 Address: [place] Pcp:Dayana Mccurdy Subjective: * Chief Complaints: * [...] 07/31/2024 Generated for Jesusita coronado/Safia/Mimi on: 0 10/30/2024 07:46 AM EDT
--- OUTSIDE RECORDS SUMMARY | 2024-10-30 07:46 | XMS_ITS | Patient Health Record ---
Author Organization [facility] Address [address] [place] [address] Care Team Providers Care Hand Inspector Name Role Phone Po Dayana SCHWARTZ Primary [...] Problem Status W/U Status Risk Notes Problem [id number] Colon cancer screening (Z12.11) Active confirmed Problem 776300805 Gastroesophageal reflux disease without esophagitis (K21.9) Active confirmed Problem [id number] Family history o f colon cancer (Z80.0) Active confirmed Plan Of Treatment Future Test Test Name Order Date COLONOSCOPY 07/13/2016 Insurance Providers Payer Name Payer Address Payer Phone Subscriber Number Group Number Insured Name Patient Relationship to Insured Coverage Start Date Coverage End Date [facility] [address] [place], [place] [id number] JENNIE MC Self - patient is the insured Medical (General) History Medical History History ICD Code hypertension elevated cholesterol obstructive sleep apnea elevated blood sugar prediabetic Surgical History Surgery Date(Month/Year) appendectomy tonsillectomy left knee arthroscopy right knee arthroscopy
--- OUTSIDE RECORDS SUMMARY | 2024-10-30 07:46 | XMS_ITS | Clinical Summary ---
Author Organization [employer] Address [address] [facility] [address] [place] [address] Care Team Providers Care Cost And Risk Analysis Manager Name Role Phone Unavailable Primary Care [...] COVID-19 Vaccine (1 - 2023-2 5 season) 2024 Influenza Vaccine (#1) 2024 Dental X-Ray: Full [...] Relevant to Health Maintenance Insurance D[facility]AL - [facility] D[facility]AL - [facility]
--- OUTSIDE RECORDS SUMMARY | 2024-10-30 07:47 | XMS_ITS | Clinical Summary ---
Author Organization [facility] Address [address] [place] [address] Care Team Providers Care Promotional Representative Name Role Phone Unavailable Primary Care Provider [...] (1 - 2023-2 5 season) 2024 Influenza (#1) 2024 RSV (1 - 1-dose [...]
--- OUTSIDE RECORDS SUMMARY | 2024-10-30 07:47 | XMS_ITS | Patient Health Record ---
Author Organization [facility] Address [address] [facility] [place] [address] Care Team Providers Care Senior Operator Name Role Phone Dayana Mccurdy Primary Care Provider Unavailabl e Black, Shanelle Unavailable [phone] Allergies No Known Allergies Results Component Value Reference Range Notes HEMOGLOBIN A1C (GLYCOHEMOGLO BIN) Reviewed date:12/13/2023 11:28:27 AM Interpretation: Performing Lab: Notes/Report: TOTAL HEMOGLOBIN (HGBA1C) 6.3 Reason For Referral No Information Medications Medication SIG (Take, Route, Frequency, Duration) Notes Start Date End Date Status metFORMIN HCl 500 MG 1 tablet with a vanessa l Orally Once a day; Duration: 30 day(s) Active Losartan Potassium 100 MG 1 tablet Orall y Once a day; Duration: 30 day(s) Active Aspirin 81 MG 1 tablet Orally Once a day; Duration: 30 day(s) Not-Taking Lidocaine 5 % as directed Externally Active Ciclopirox Olamine 0.77 % 1 application Externally Once a day; Duration: 30 days Active Levothyroxine Sodium 75 MCG 1 tablet in the morning on an empty stomach Orally Once a day; Duration: 30 day(s) Active Extra Depth Orthopedic Shoes (1 Pair) with Customized Heat Molded Multidensity Innersoles (3 Pair) as directed Dx: NIDDM/Polyneuropathy (E11.42), Hammertoe Foot Deformity (M20.41,M20.42), Preulcerative Skin Lesion(s) (L85.1 03/02/2022 Active Ipratropium Mcfaddin 0.03 % 2 sprays in each nostril Nasally Twice a day; Duration: 30 day(s) Active zzzCompression Stockings 20-30mm Hg . . .; Duration: . Active Ibuprofen 800 MG 1 tablet with food o r milk as needed Orally every 8 hrs Active Terazosin HCl 2 MG 1 capsule at bedtime Orally Once a day; Duration: 30 day(s) Active Gabapentin 300 MG 1 capsule Orally Onc e a day; Duration: 30 day(s) Active Sennosides 8.6 MG 2 tablets at bedtime as needed Orally Once a day; Duration: 30 day(s) Active Fexofenadine HCl 180 MG 1 tablet Swallow whole with water; do not take with fruit juices. Orally Once a day; Duration: 30 day(s) Active Propranolol HCl 10 MG 1 tablet Orally On ce a day; Duration: 30 day(s) Active Cinnamon 500 MG as directed Orally Active Polyethylene Glycol 3350 17 GM/SCOOP as directed Orally Active Atorvastatin Calcium 20 MG 1 tablet Orally Once a day; Duration: 30 day(s) Active Omeprazole 20 MG 1 capsule 30 minutes before morning meal Orally Once a day; Duration: 30 day(s) Active Brodhead-3 Fatty Acids 1000 MG 1 capsule Orally Once a day; Duration: 30 day(s) Active Immunizations Vaccine Route Administration [...] Problem Status W/U Status Risk Notes Problem Polyneuropathy due to type 2 diabetes mellitus (189654559) Type 2 diabetes mellitus with diabetic polyneuropathy (E11.42) Active confirmed Problem Smoker (34683173) Smoker (F17.200) Active confi rmed Vital Signs Blood pressure diastolic 80 mm Hg 07/24/2024 Height 5ft9in in 07/24/2024 Blood pressure systolic 133 mm Hg 07/24/2024 Weight 198 lbs 07/24/2024 BMI 29.24 kg/m2 07/24/2024 Procedures Procedure Date Ordered Date Performed Result Body Sit e 05320-IGVIPFL NAIL, 1-5 12/13/2023 N/A 33362-UTHO SKIN LESIONS, 2 TO 4 12/13/2023 N/A A5854-XKBJTCLT DYSTROPHIC NAILS ANY # 12/13/2023 N/A 36845-LFNPUEX NAIL, 1-5 07/24/2024 N/A 04731-UBES SKIN LESIONS, 2 TO 4 07/24/2024 N/A V4335-OQTBTOWB DYSTROPHIC NAILS ANY # 07/24/2024 N/A Encounters Encounter [facility] [address] 12/13/2023 Shanelle Black Tinea unguium B35.1 ; Type 2 diabetes mellitus with diabetic polyneuropathy E11.42 and Smoker F17.[address] [address] 07/24/2024 Shanelle Black Tinea unguium B35.1 ; Type 2 diabetes mellitus with diabetic polyneuropathy E11.42 and Smoker F17.[address] [address] 11/22/2023 Shanelle Black [address] [address] 06/12/2024 Shanelle Black Assessments Encounter Date Diagnosis (ICD Code) Assessment Notes Treatment Notes Treatment Clinical Notes Section Notes 12/13/2023 Tinea unguium (ICD-10 - B35.1) 07/24/2024 Tinea unguium (ICD-10 - B35.1) 07/24/2024 Type 2 diabetes mellitus with diabetic polyneuropathy (ICD-10 - E11.42) 12/13/2023 Type 2 diabetes mellitus with diabetic polyneuropathy (ICD-10 - E11.42) 12/13/2023 Smoker (ICD-10 - F17.200) 07/24/2024 Smoker (ICD-10 - F17.200) Plan Of Treatment Pending Test Test Name Order Date X ray : Foot, left 3V 03/02/2022 83039-PNUDNXF NAIL, 1-5 11/14/2021 52453-NHBYJBI NAIL, 1-5 03/02/2022 34692-BCVAIAF NAIL, 1-5 09/25/2022 26057-YZTZBKD NAIL, 1-5 05/10/2023 38417-YXZCNWS NAIL, 1-5 12/13/2023 46656-LOTGYEY NAIL, 1-5 07/24/2024 22826- Debride <25 sq cm 09/25/2022 71812-HMYK SKIN LESIONS, 2 TO 4 09/26/19 23 94620-SANT SKIN LESIONS, 2 TO 4 03/02/19 23 35542-DEOD SKIN LESIONS, 2 TO 4 12/13/19 24 34267-RUYD SKIN LESIONS, 2 TO 4 05/10/19 24 91631-SHVT SKIN LESIONS, 2 TO 4 11/15/19 22 36882-EYSF SKIN LESIONS, 2 TO 4 07/25/19 25 C3330-WKNHAEZK DYSTROPHIC NAILS ANY # J1552-AUATNHTO DYSTROPHIC NAILS ANY # I7382-BVPYIWUE DYSTROPHIC NAILS ANY # Next Appt Details Provider Name:Shanelle Garcia , 11/06/2024 08:00:00 AM, [address] [place], [address], Insurance Providers Payer Name Payer Address Payer Phone Subscriber Number Group Number Insured Name Patient Relationship to Insured Coverage Start Date Coverage End Date [employer] [address] [place] [phone] [id number] Noman Pope ra Self - patient is the insured [facility] [address] [place] [address] [id number] Noman Pope ra Self - patient is the insured Medical (General) History Medical History History ICD Code Back,Hip,and Knee pain High blood pressure Tuberculosis Reflux ( GERD) Obesity osteoarthritis Pulmonary Nodules thyroid nodule Diabetic nephropathy type II diabetes vertebral fracture Erectile dysfunction Hypothyroidism Hypercholesterolemia CPAT Machine - Every Night Other hammer toe(s) (acquired), left jeffry t M20.42 Other hammer toe(s) (acquired), right fo ot M20.41 Hallux valgus (acquired), right foot M20 .11 Primary osteoarthritis, left ankle and f oot M19.072 Surgical History Surgery Date(Month/Year) knee surgery, right- scoped it knee surgery, left - torn meniscus tonsillectomy appendectomy back surgery 06/01/22
--- NOTE | 2024-10-30 07:55 | A.OFFVIS_ITS ---
Vital Signs 3 10/30/24 07:56 Height 5 ft 9 in Weight 198 lb BMI 29.2 Intake Visit Reasons: New Patient - Left Ankle Sprain 09/17/24 Intake Note: Noman is a 74 year old male who presents today as a new patient for an evaluation of his left ankle sprain. Patient reports no pain but ankle is still swollen. Allergies No Known Allergies (No Known Allergies*) Allergy (Verified 10/30/24 07:57) Medication List - Last Reconciled 10/30/24 by Marita Garza DPM albuterol sulfate 90 mcg/actuation 2 inhalations inhalation Q6H atorvastatin 20 mg PO DAILY 90 days [AUTO PAP 6-16 mm H20 humidified AIR As directed] blood sugar diagnostic ([employer] N Test Strips) As directed blood sugar diagnostic (FreeStyle Lite Strips) USE TO CHECK BLOOD SUGAR FOUR TIMES DAILY blood-glucose meter (FreeStyle Lite Meter kit) As directed tests 4 X/day carbamide peroxide 6.5% (Debrox) 5 drps otic (ears) DAILY 4 days cetirizine (Allergy Relief (cetirizine)) 10 mg PO DAILY cinnamon bark 1,000 mg PO DAILY dapagliflozin propanediol (Farxiga) 5 mg PO DAILY fluticasone propionate 50 mcg/actuation (Flonase Allergy Relief) 2 sprays intranasal DAILY PRN 90 days gabapentin 300 mg PO BID ibuprofen 800 mg PO BID lancets (FreeStyle Lancets) As directed tests 4X/day levothyroxine (Synthroid) 75 mcg PO DAILY 90 days losartan 100 mg PO DAILY lubiprostone (Amitiza) 8 mcg PO BID metformin 500 mg PO BID 90 days dupbmcvzckyp-rztzfyed-obitji (Multivitamin 50 Plus tablet) 1 tab PO DAILY omega-3 acid ethyl esters PO DAILY omeprazole 20 mg PO DAILY oxymetazoline 0.05% (Afrin (oxymetazoline)) 2 sprays intranasal Q12H PRN prednisone 20 mg PO DAILY propranolol 10 mg PO BID sennosides-docusate sodium 8.6-50 mg (Senna Plus) 1 tab-cap PO BID PRN 90 days tadalafil 10 mg PO DAILY 90 days tadalafil 20 mg PO ONCE PRN 30 days terazosin 2 mg PO BEDTIME 90 days trolamine salicylate 10% (Aspercreme) 1 appl topical BEDTIME PRN HPI Comments Details: The patient is a 74-year-old male with a past medical history as seen below presenting with left ankle swelling. The left ankle swelling and mild pain began after an accident on August 18, with no fractures identified on x-ray, but mild arthritis was noted. The patient reports no significant pain but experiences swelling, mostly noted to the lateral aspect of the ankle. He states he experiences intermittent weakness, usually noticed when going up and downstairs. Patient has been using a cam boot. Patient denies using any wrap, bandaging, or a brace. The patient has a history of diabetes mellitus, with recent blood glucose readings ranging from 110 to 166 mg/dL in the past week. He reports numbness and tingling in both feet. He denies any other pedal concerns. Denies any current nausea, vomiting, fever, or chills. [facility] Medical History Family history of colon cancer Osteoarthritis Vertebral fracture Essential tremor Constipation Type 2 diabetes mellitus with hyperglycemia Diabetic neuropathy Tubular adenoma of colon Nicotine dependence, cigarettes, uncomplicated Positive PPD Obstructive sleep apnea Foot pain, left Overweight (BMI 25.0-29.9) Obesity (BMI 30-39.9) Thyroid nodule Pulmonary nodule GERD (gastroesophageal reflux disease) Erectile dysfunction Hypothyroid Hypertension Hypercholesterolemia Surgical History History of back surgery History of colonoscopy History of arthroscopy of right knee History of appendectomy History of tonsillectomy Family History Father Medical history unknown Mother Diabetes Past heart attack Brother Prostate cancer Social History Housing: House Unable to assess alcohol history related to: Unknown Alcohol intake: current Alcohol intake frequency: 3 or more drinks per day Alcohol type: beer Comment: QD 2 drinksstopped 12/2023 but last night ( 03/2024) 4 beers, ,3 beers a day Patient Tobacco Use Status: Former Tobacco user Tobacco use type: Cigarette Cigarette Packs Per Day: 1 Cigarettes Per Day: 15 Years Smoked: (onset 17yo, 3/4ppd x 56yrs, 40pyh) (06/2024 1/2 pack a day) e-Cigarette/Vaping Use: Never Used Second Hand Smoke Exposure: Yes service: No Current occupational status: disabled Cognitive needs: No Hearing needs: No Vision needs: Yes Review of Systems Const Details: Musculoskeletal: Reports swelling in the left ankle, denies significant pain. Neurological: Reports numbness and tingling in both feet. Endocrine: Reports blood glucose levels ranging from 110 to 166 mg/dL. for the past week. All systems reviewed & are unremarkable except as noted in HPI and below Physical Exam Vital Signs: BMI result Body Mass Index 29.2 Extrem Other: Left lower extremity focused physical exam: Derm: Mild edema noted to the lateral aspect of the ankle. No open lesions abrasions or wounds noted. Skin turgor intact and within normal limits. No clinical signs of infection. Toenails X 10 noted to be slightly thickened, length within normal limits, and with mild subungual debris. Vascular: DP/PT pulses mildly palpable. Capillary refill time less than 3 seconds. No varicosities noted. Pedal hair absent. Neurological: Protective sensation is grossly diminished. Musculoskeletal: Range of motion of the ankle slightly reduced, with stiffness. Minimal pain on palpation to the lateral aspect of the ankle along the area of the calcaneal fibular ligament. Mild weakness noted to the left ankle in comparison to the right. No crepitus noted. Ankle/foot/toe images: 2 1. Results Reviewed Results Reviewed: Provided patient with a referral for physical therapy. Podiatry read of left ankle x-rays (09/18/2024): joint space narrowing noted to the left ankle with some osteophytic formation. No acute fractures or dislocations noted. Left ankle x-rays (09/18/2024): FINDINGS: Soft tissue contusion/edema pattern, bimalleolar. 2 mm well-corticated calcification inferior to the medial malleolus. No acute cortical disruption or gross malalignment. No subcutaneous emphysema. No lytic or blastic lesions. IMPRESSION: Soft tissue contusion/edema pattern, bimalleolar. 2 mm calcification in the inferior medial malleolus likely old trauma. No acute fracture or dislocation. Internal derangement cannot be excluded. Assessment & Plan Assessment & Plan (1) Type 2 diabetes mellitus with hyperglycemia: Code(s): E11.65 - Type 2 diabetes mellitus with hyperglycemia Category: Medical Qualifiers: Diabetes mellitus snf insulin use: without long term care pharmacist use Q ualified Code(s): E11.65 - Type 2 diabetes mellitus with hyperglycemia (2) Diabetic neuropathy: Code(s): E11.40 - Type 2 diabetes mellitus with diabetic neuropathy, unspecified Category: Medical Qualifiers: Diabetes mellitus type: type 2 Diabetes mellitus complication detail: d iabetic polyneuropathy Qualified Code(s): E11.42 - Type 2 diabetes mellitus with diabetic polyneuropathy (3) Peripheral vascular disease: Code(s): I73.9 - Peripheral vascular disease, unspecified Category: Medical (4) Left ankle sprain: Code(s): S93.402A - Sprain of unspecified ligament of left ankle, initial encounter Category: Medical Qualifiers: Encounter type: initial encounter Involved ligament of ankle: u nspecified ligament Qualified Code(s): S93.402A - Sprain of unspecified ligament of left ankle, initial encounter (5) Left ankle pain: Code(s): M25.572 - Pain in left ankle and joints of left foot Category: Medical Qualifiers: Chronicity: unspecified Qualified Code(s): M25.572 - Pain in left ankle and joints of left foot (6) Ankle weakness: Code(s): R29.898 - Other symptoms and signs involving the musculoskeletal system Category: Medical Plan Patient was informed and verbally consented to the use of an ambient scribe for clinic note documentation during this visit. Discussed the following diagnoses with the patient and discussed conservative and surgical treatment options for the conditions. At this time conservative treatment is recommended. 1. Left Ankle Edema The patient will transition out of the CAMboot and use a stabilizing lace up ankle brace to manage swelling and instability. RICE protocol is recommended to reduce swelling. A referral for physical therapy has been provided to improve ankle strength, range of motion, and stability. 2. Diabetes Mellitus The patient is advised to monitor blood glucose levels regularly and contact healthcare provider if levels spike. Continue diabetic management as per PCP. Advised patient to wear supportive shoe gear and avoid barefoot walking due to numbness and tingling and preventative measures for avoiding ulcerations. Advised patient to monitor his feet daily and keep the feet clean and dry. Recommended routine diabetic nail care, patient states he currently has routine nail care done with Dr. Garcia in [place]. 3. Peripheral Neuropathy The patient is advised to monitor feet daily for injuries due to numbness and tingling. Regular follow-ups are recommended to manage symptoms and prevent complications. Discussed with patient gabapentin does not necessarily eradicate the numbness and tingling, but does assist with relief of burning pain. 4. Ankle Arthritis The patient is advised to use supportive footwear and continue physical therapy to manage arthritis symptoms. If pain becomes severe, further evaluation will be necessary. Patient is to return to the office in 1 month for continued evaluation especially after starting physical therapy. Orders: Orders 2 PT Evaluation and Treatment Today E11.40 - Type 2 diabetes mellitus with diabetic neuropathy, unspecified, E11.65 - Type 2 diabetes mellitus with hyperglycemia, I73.9 - Peripheral vascular disease, unspecified, M25.572 - Pain in left ankle and joints of left foot, R29.898 - Other symptoms and signs involving the musculoskeletal system, S93.402A - Sprain of unspecified ligament of left ankle, initial encounter Coding Level of Care Code New Pt Level 4 (90367) Diagnoses Type 2 diabetes mellitus with hyperglycemia, without long-term current use of insulin E11.65 Diabetes mellitus long term care pharmacist insulin use: without long term care pharmacist use Diabetic polyneuropathy associated with type 2 diabetes mellitus E11.42 Diabetes mellitus type: type 2 Diabetes mellitus complication detail: diabetic polyneuropathy Peripheral vascular disease I73.9 Sprain of left ankle, unspecified ligament, initial encounter S93.402A Encounter type: initial encounter Involved ligament of ankle: unspecified ligament Left ankle pain, unspecified chronicity M25.572 Chronicity: unspecified Ankle weakness R29.898 Time Spent (min) 50
[2024-10-30 07:56] VITALS: BMI 29.2
== END 2024-10-30 08:30 | disposition home or self-care (01) ==
LOC: HO.HPODS 07:44
PROVIDERS: PCP Internal Medicine; Visit Provider Student in an Organized Health Care Education/Training Program
DX: E11.65 Type 2 diabetes mellitus with hyperglycemia (principal); E11.42 Type 2 diabetes mellitus with diabetic polyneuropathy; S93.402A Sprain of unspecified ligament of left ankle, initial encounter; I73.9 Peripheral vascular disease, unspecified; M25.572 Pain in left ankle and joints of left foot; R29.898 Other symptoms and signs involving the musculoskeletal system
CPT/HCPCS: 99204

== ENCOUNTER → 2024-10-30 07:43 | Outpatient (BNVA) | payer MEDICARE, BC, SELFPAY | PROVIDERS: PCP Internal Medicine; Visit Provider Student in an Organized Health Care Education/Training Program | DX: M25.572 Pain in left ankle and joints of left foot (principal); R29.898 Other symptoms and signs involving the musculoskeletal system; S93.402A Sprain of unspecified ligament of left ankle, initial encounter; W10.9XXA Fall (on) (from) unspecified stairs and steps, initial encounter; Y93.01 Activity, walking, marching and hiking; Y92.9 Unspecified place or not applicable; Y99.9 Unspecified external cause status; E11.65 Type 2 diabetes mellitus with hyperglycemia; E11.42 Type 2 diabetes mellitus with diabetic polyneuropathy; I73.9 Peripheral vascular disease, unspecified | CPT/HCPCS: 99202 ==

== ENCOUNTER 2024-11-13 08:36 | Outpatient (REF) | payer MEDICARE, BC, SELFPAY ==
--- NOTE | ~2024-11-13 | XR_ITS ---
EXAMINATION: XR ELBOW, RIGHT CLINICAL INFORMATION: R22.31 - Localized swelling, mass and lump, right upper limb COMPARISON: None available. TECHNIQUE: AP, lateral, and oblique views of the right elbow. FINDINGS: There is corticated ossification lateral to the lateral humeral epicondyle. There is a small marginal osteophyte involving the radial head and olecranon. No joint effusion is evident. XR/XR elbow RT 2V IMPRESSION: Mild degenerative changes Electronically signed by: Cristiano Dee MD 11/13/2024 12:06 PM EDT
== END 2024-11-13 08:37 | disposition home or self-care (01) ==
LOC: HO.XRAY 08:36
PROVIDERS: PCP Internal Medicine; Visit Provider Urology
DX: E11.65 Type 2 diabetes mellitus with hyperglycemia (principal); E78.00 Pure hypercholesterolemia, unspecified; I10 Essential (primary) hypertension; F41.1 Generalized anxiety disorder; E03.9 Hypothyroidism, unspecified; E66.9 Obesity, unspecified; Z68.29 Body mass index [BMI] 29.0-29.9, adult; K21.9 Gastro-esophageal reflux disease without esophagitis; K76.0 Fatty (change of) liver, not elsewhere classified; M25.572 Pain in left ankle and joints of left foot; R22.31 Localized swelling, mass and lump, right upper limb; N43.3 Hydrocele, unspecified; R39.9 Unspecified symptoms and signs involving the genitourinary system; E11.69 Type 2 diabetes mellitus with other specified complication; N52.1 Erectile dysfunction due to diseases classified elsewhere; Z87.891 Personal history of nicotine dependence; Z71.3 Dietary counseling and surveillance
CPT/HCPCS: 73070; 99212

== ENCOUNTER 2024-11-13 08:36 | Outpatient (AMB) | payer MEDICARE, BC, SELFPAY ==
--- OUTSIDE RECORDS SUMMARY | 2024-06-12 07:30 | XMS_ITS ---
Author Organization [facility] Address [address] [place] [phone] Care Team Providers Care Cook Helper Meat Name Role Phone Dayana Mccurdy Primary Care Provider Shanelle Camp [phone] Encounters Encounter Location Date Provider Diagnosis [address] [address] 06/12/2024 Shanelle Garcia Plan Of Treatment Next Appt Details Provider Name:Shanelle Garcia , 02/02/2025 09:15:00 AM, [address] [place] [address], [phone], Progress Notes * Nancy LAZOoDOB:[birth year] (74 yo M)Acc No.[id number]:06/12/2024 Progress Note Patient: Ivis REGALADONoman DOMINIQUE Provider: Danelle Garcia DPM :1950 A ge:74 Y S ex:Male Date:06/12/2024 Address: [place] Pcp:Dayana Mccurdy Subjective: * Chief Complaints: * [...] 0 06/12/2024 Generated for Jesusita coronado/Safia/Mimi on: 0 11/13/2024 09:08 AM EDT
--- OUTSIDE RECORDS SUMMARY | 2024-07-31 10:30 | XMS_ITS ---
Author Organization [facility] Address [address] [place] [address] Care Team Providers Care Scuba Diver Name Role Phone Dayana Mccurdy Primary Care Provider Shanelle Camp [phone] Encounters Encounter Location Date Provider Diagnosis [address] [address] 07/31/2024 Shanelle Garcia Plan Of Treatment Next Appt Details Provider Name:Shaenlle Garcia , 02/02/2025 09:15:00 AM, [address] [place] [address], [phone], Progress Notes * Nancy LAZOoDOB:[birth year] (74 yo M)Acc No.[id number]:07/31/2024 Progress Note Patient: Ivis REGALADONoman DOMINIQUE Provider: Danelle Garcia DPM :1950 A ge:74 Y S ex:Male Date:07/31/2024 Address: [place] Pcp:Dayana Mccurdy Subjective: * Chief Complaints: * [...] 07/31/2024 Generated for Jesusita coronado/Safia/Mimi on: 0 11/13/2024 09:08 AM EDT
--- NOTE | 2024-11-13 08:48 | A.OFFVIS_ITS ---
Intake Visit Reasons: 1y follow up Intake Note: patient presents today for: 1yr follow up urology medications: terazosin, tadalafil blood thinners: none Internal Grinder Tender Required: No Accompanied by: Self / Same As Patient Allergies No Known Allergies (No Known Allergies*) Allergy (Verified 11/13/24 08:49) HPI Comments Details: Noman a pleasant male. He is a patient of Dr. Mccurdy. Seen for the following urologic conditions - erectile dysfunction associated with diabetes - hypogonadism associated with diabetes Has been on 10 mg daily tadalafil 20 mg on demand Successful testosterone hinduism and benefit Last HbA1c 6.9 on Farxiga and metformin Came off tadalafil since developed left hydrocele Moderate size hydrocele left side Encouraged him to go back on tadalafil Given options of aspiration versus surgery He would like to try aspiration in the office Arrange scrotal ultrasound plan office aspiration Erectile Dysfunction in setting of diabetes He presents today for - further evaluation of erectile dysfunction associated hypo gonad hypogonadism Symptoms have been present for/since - progressive since 2019 Current treatment includes - none At initial presentation he experiences - are partial and insufficient for vaginal penetration Nocturnal erections do not occur Associated Medical Conditions include hypertension, type 2 diabetes, tobacco use, Atherosclerosis Cardiovascular Disease Risk not completed Medications include(s) statin, benzodiazepine, beta-mansi, Recent labs include 05/10 T 135 low FSH/LH, 03/13 P 1.0, 11/11 T 196 F 31 L 4.8, 05/12 T 320 PSA 1.1, 11/12 T 372 HbA1c down 0.3 Therapeutic plan includes - maximum tolerated on medication daily tadalafil with repeat labs [facility] Medical History (Updated 11/13/24 @ 09:20 by Jaydon Smart MD) Ankle weakness Left ankle pain Left ankle sprain Family history of colon cancer Osteoarthritis Vertebral fracture Essential tremor Constipation Type 2 diabetes mellitus with hyperglycemia Diabetic neuropathy Tubular adenoma of colon Nicotine dependence, cigarettes, uncomplicated Positive PPD Obstructive sleep apnea Foot pain, left Overweight (BMI 25.0-29.9) Obesity (BMI 30-39.9) Thyroid nodule Pulmonary nodule GERD (gastroesophageal reflux disease) Erectile dysfunction Hypothyroid Hypertension Hypercholesterolemia Surgical History History of back surgery History of colonoscopy History of arthroscopy of right knee History of appendectomy History of tonsillectomy Family History Father Medical history unknown Mother Diabetes Past heart attack Brother Prostate cancer Social History Housing: House Unable to assess alcohol history related to: Unknown Alcohol intake: current Alcohol intake frequency: 3 or more drinks per day Alcohol type: beer Comment: QD 2 drinksstopped 12/2023 but last night ( 03/2024) 4 beers, ,3 beers a day Patient Tobacco Use Status: Former Tobacco user Tobacco use type: Cigarette Cigarette Packs Per Day: 1 Cigarettes Per Day: 15 Years Smoked: (onset 17yo, 3/4ppd x 56yrs, 40pyh) (06/2024 1/2 pack a day) e-Cigarette/Vaping Use: Never Used Second Hand Smoke Exposure: Yes service: No Current occupational status: disabled Cognitive needs: No Hearing needs: No Vision needs: Yes Review of Systems Const Denies chills and Denies fever(s) Card Reports no additional complaints and Denies syncope Resp Denies cough GI Denies abdominal pain and Denies heartburn Reports as per HPI and Denies change in libido Neuro Denies syncope Psych Denies change in libido Endo Denies change in libido Physical Exam Const General: cooperative, healthy appearing, comfortable and no acute distress Orientation/consciousness: patient oriented x3 HEENT Face and sinus: Yes normal facial exam Mouth: moist mucous membranes Neck Neck: Yes normal visual inspection, Yes full ROM and Yes trachea midline Chest Chest palpation & inspection: normal inspection of the chest Resp Effort & Inspection: normal respiratory effort, able to speak in complete sentences and no respiratory distress GI Inspection: Yes normal to inspection Back/Spine/Pelvis Cervical Spine: normal cervical lordosis Thoracic/Lumbar Spine: thoracic and lumbar spine normal to inspection Skin General skin exam: no rashes or lesions noted Neuro General: patient oriented x3, gait normal, tone normal and moves all extremities Extrem General: Yes normal to inspection and Yes capillary refill normal Assessment & Plan Assessment & Plan (1) Hydrocele in adult: Code(s): N43.3 - Hydrocele, unspecified Category: Medical (2) Lower urinary tract symptoms (LUTS): Code(s): R39.9 - Unspecified symptoms and signs involving the genitourinary system Category: Medical (3) Erectile dysfunction associated with type 2 diabetes mellitus: Code(s): E11.69 - Type 2 diabetes mellitus with other specified complication; N52.1 - Erectile dysfunction due to diseases classified elsewhere Category: Medical Plan Plan office aspiration hydrocele Risks, benefits and alternatives to therapy were discussed. These include but are not limited to infection, bleeding, damage to local organs and tissues, need for further interventions. Anesthetic risks regarding cardiac arrhythmia, blood clots, and potential mortality were discussed. The patient understands the typical recovery time and the outpatient nature of the procedure. After consideration of these risks the patient gives full informed consent and they wish to move ahead with the procedure. Orders: Orders US scrotum Today N43.3 - Hydrocele, unspecified Patient Instructions: This note is constructed using voice recognition software. While every effort has been made to ensure accuracy ward maid errors may have been included. Imaging studies, laboratory and physical exam results were discussed and reviewed in detail. No major barriers to patient understanding were identified. An opportunity to ask questions regarding the treatment plan was provided. All questions were answered. The patient expressed understanding and agreement with the above treatment plan. The patient is aware they should contact our office by phone for worsening of their current condition or the appearance of new urologic symptoms. Compliance is encouraged with any medications and followup testing that is ordered. It is a privilege to participate in the urologic care of your patient. If you have any questions or concerns regarding treatment for the above conditions, or other urologic issues, please do not hesitate to contact me. The office telephone contact is [phone]. Sincerely, Dr Jaydon Smart MD, [facility] - Urology Compassionate Specialist Care for the Genitourinary System Coding Level of Care Code Est Pt Level 4 (29209) Diagnoses Hydrocele in adult N43.3 Lower urinary tract symptoms (LUTS) R39.9 Erectile dysfunction associated with type 2 diabetes mellitus E11.69; N52.1
--- OUTSIDE RECORDS SUMMARY | 2024-11-13 09:09 | XMS_ITS | Patient Health Record ---
Author [facility] Address [address] [place] [address] Care Team Providers Care Chief Of Production Name Role Phone Dayana Mccurdy Primary Care Provider Unavailabl e Black, Shanelle Unavailable [phone] Allergies No Known Allergies Results Component Value Reference Range Notes HEMOGLOBIN A1C (GLYCOHEMOGLO BIN) Reviewed date:11/06/2024 08:11:29 AM Interpretation: Performing Lab: Notes/Report: HEMOGLOBIN A1C % (HH) 6.9 Reason For Referral No Information Medications Medication SIG (Take, Route, Frequency, Duration) Notes Start Date End Date Status Atorvastatin Calcium 20 MG 1 tablet Orally Once a day; Duration: 30 day(s) Active metFORMIN HCl 500 MG 1 tablet with a vanessa l Orally Once a day; Duration: 30 day(s) Active [place]-3 Fatty Acids 1000 MG 1 capsule Orally Once a day; Duration: 30 day(s) Active Lidocaine 5 % as directed Externally Active Ciclopirox Olamine 0.77 % 1 application Externally Once a day; Duration: 30 days Active Losartan Potassium 100 MG 1 tablet Orall y Once a day; Duration: 30 day(s) Active Aspirin 81 MG 1 tablet Orally Once a day; Duration: 30 day(s) Not-Taking Ipratropium Arg[place] 0.03 % 2 sprays in each nostril Nasally Twice a day; Duration: 30 day(s) Active zzzCompression Stockings 20-30mm Hg . . .; Duration: . Active Levothyroxine Sodium 75 MCG 1 tablet in the morning on an empty stomach Orally Once a day; Duration: 30 day(s) Active Extra Depth Orthopedic Shoes (1 Pair) with Customized Heat Molded Multidensity Innersoles (3 Pair) as directed Dx: NIDDM/Polyneuropathy (E11.42), Hammertoe Foot Deformity (M20.41,M20.42), Preulcerative Skin Lesion(s) (L85.1 03/02/2022 Active Gabapentin 300 MG 1 capsule Orally Onc e a day; Duration: 30 day(s) Active Sennosides 8.6 MG 2 tablets at bedtime as needed Orally Once a day; Duration: 30 day(s) Active Ibuprofen 800 MG 1 tablet with food o r milk as needed Orally every 8 hrs Active Terazosin HCl 2 MG 1 capsule at bedtime Orally Once a day; Duration: 30 day(s) Active Cinnamon 500 MG as directed Orally Active Polyethylene Glycol 3350 17 GM/SCOOP as directed Orally Active Fexofenadine HCl 180 MG 1 tablet Swallow whole with water; do not take with fruit juices. Orally Once a day; Duration: 30 day(s) Active Propranolol HCl 10 MG 1 tablet Orally On ce a day; Duration: 30 day(s) Active Omeprazole 20 MG 1 capsule 30 minutes before morning meal Orally Once a day; Duration: 30 day(s) Active Immunizations Vaccine Route Administration Date Status Comme nts Influenza Unknown 05/10/2023 Refused Influenza Unknown 11/20/2023 Administered Social History Tobacco Use: Social History Observation Description Date Details (start date - stop date) Current Smoker NA - NA Alcohol Screen Question Answer Notes Did you [...] Are you an other tobacco user? No Tobacco Control (Standard) Question Answer Notes Tobacco use: Current smoker How often do you smoke cigarettes? Every day How many cigarettes a day do you smoke? 6-10 How soon after you wake up do you smoke your fir st cigarette? After 60 minutes AUDIT-C (Standard) Question Answer Notes Did you have a drink contain ing alcohol in the past year? Yes How often did you have a dri nk containing alcohol in the past year? 2 to 4 times a month (2 points) How many drinks did you have on a typical day when you were drinking in the past year? 3 or 4 drinks (1 point) How often did you have six o r more drinks on one occasion in the past year? 2 to 4 times a month (2 points) Points 5 Interpretation Positive Problems Problem Type SNOMED Code ICD Code Onset Dates Problem Status W/U Status Risk Notes Problem Acquired hammer toe of right foot (5133187150973433 ) Other hammer toe(s) (acquired), right foot (M20.41) Active confirmed Problem Acquired hammer toe of left foot (2936378785826337 ) Other hammer toe(s) (acquired), left foot (M20.42) Active confirmed Problem Polyneuropathy due to type 2 diabetes mellitus (359883959) Type 2 diabetes mellitus with diabetic polyneuropathy (E11.42) Active confirmed Problem Smoker (97558013) Smoker (F17.200) Active confi rmed Vital Signs Blood pressure diastolic 76 mm Hg 11/06/2024 Height 5ft 9in in 11/06/2024 Blood pressure systolic 114 mm Hg 11/06/2024 Weight 198 lbs 11/06/2024 BMI 29.24 kg/m2 11/06/2024 Procedures Procedure Date Ordered Date Performed Result Body Sit e 06889-EMOWODD NAIL, 1-5 12/13/2023 N/A 55268-VTGJ SKIN LESIONS, 2 TO 4 12/13/2023 N/A E6578-BHPRWEGH DYSTROPHIC NAILS ANY # 12/13/2023 N/A 75916-TTEIIFB NAIL, 1-5 07/24/2024 N/A 12691-CWVX SKIN LESIONS, 2 TO 4 07/24/2024 N/A Q3072-MGJBROOD DYSTROPHIC NAILS ANY # 07/24/2024 N/A 12222-STBTLRZ NAIL, 1-5 11/06/2024 N/A 32920-OBHP SKIN LESIONS, 2 TO 4 11/06/2024 N/A O0937-HQIUJKDW DYSTROPHIC NAILS ANY # 11/06/2024 N/A Encounters Encounter Location Date Provider Diagnosis [facility] [address] [place] [address] 12/13/2023 Shanelle Black Tinea unguium B35.1 ; Type 2 diabetes mellitus with diabetic polyneuropathy E11.42 and Smoker F17.[address] [address] 07/24/2024 Shanelle Black Tinea unguium B35.1 ; Type 2 diabetes mellitus with diabetic polyneuropathy E11.42 and Smoker F17.[address] [address] 11/06/2024 Shanelle Black Tinea unguium B35.1 ; Type 2 diabetes mellitus with diabetic polyneuropathy E11.42 ; Smoker F17.200 ; Other hammer toe(s) (acquired), right foot M20.41 and Other hammer toe(s) (acquired), left foot M20.[address] [address] 11/22/2023 Shanelle Garcia [address] [address] 06/12/2024 Shanelle Garcia Assessments Encounter Date Diagnosis (ICD Code) Assessment Notes Treatment Notes Treatment Clinical Notes Section Notes 07/24/2024 Tinea unguium (ICD-10 - B35.1) 12/13/2023 Tinea unguium (ICD-10 - B35.1) 11/06/2024 Tinea unguium (ICD-10 - B35.1) 12/13/2023 Type 2 diabetes mellitus with diabetic polyneuropathy (ICD-10 - E11.42) 11/06/2024 Type 2 diabetes mellitus with diabetic polyneuropathy (ICD-10 - E11.42) 11/06/2024 Smoker (ICD-10 - F17.200) 07/24/2024 Type 2 diabetes mellitus with diabetic polyneuropathy (ICD-10 - E11.42) 07/24/2024 Smoker (ICD-10 - F17.200) 11/06/2024 Other hammer toe(s) (acquired), right foot (ICD-10 - M20.41) Patient Educated with: DIABETIC FOOT CARE INSTRUCTIONS. pdf (DIABETIC FOOT CARE INSTRUCTIONS. pdf) 12/13/2023 Smoker (ICD-10 - F17.200) 11/06/2024 Other hammer toe(s) (acquired), left foot (ICD-10 - M20.42) Plan Of Treatment Pending Test Test Name Order Date X ray : Foot, left 3V 03/02/2022 85475-FYKJRAY NAIL, 1-5 11/14/2021 13763-SSORMRW NAIL, 1-5 03/02/2022 68928-HPBQQWE NAIL, 1-5 09/25/2022 13368-LGGHERC NAIL, 1-5 05/10/2023 35419-TCDODZY NAIL, 1-5 12/13/2023 95058-CRSHWYM NAIL, 1-5 07/24/2024 46924-QIBCSTN NAIL, 1-5 11/06/2024 74448- Debride <25 sq cm 09/25/2022 55224-LFTW SKIN LESIONS, 2 TO 4 09/26/19 23 00597-EOEL SKIN LESIONS, 2 TO 4 03/02/19 23 68470-EDMJ SKIN LESIONS, 2 TO 4 12/13/19 24 08979-AWJH SKIN LESIONS, 2 TO 4 05/10/19 24 62640-RYWU SKIN LESIONS, 2 TO 4 11/15/19 22 45263-IOTC SKIN LESIONS, 2 TO 4 11/07/19 25 75949-QGTQ SKIN LESIONS, 2 TO 4 07/25/19 25 A8335-NRECWMFR DYSTROPHIC NAILS ANY # G8749-QPNIALXG DYSTROPHIC NAILS ANY # P3321-UZVPFYFX DYSTROPHIC NAILS ANY # Z9657-UISPWXIK DYSTROPHIC NAILS ANY # Next Appt Details Provider Name:Shanelle Garcia , 02/02/2025 09:15:00 AM, [address] [place], [address], Insurance Providers Payer Name Payer Address Payer Phone Subscriber Number Group Number Insured Name Patient Relationship to Insured Coverage Start Date Coverage End Date [employer] [address] LIVE Sharif [phone] [id number] Noman Pope ra Self - patient is the insured [facility] [address] [place] [address] [id number] Noman Pope ra Self - patient is [...] torn meniscus tonsillectomy appendectomy back surgery 06/01/22 Hospitalization History Reason Date(Month/Year) [facility] [place] 09/18/2024
--- OUTSIDE RECORDS SUMMARY | 2024-11-13 09:09 | XMS_ITS | Clinical Summary ---
Author Organization [facility] Address [address] [place] [address] Care Team Providers Care Palliative Medicine Physician Name Role Phone Unavailable Primary Care Provider [...]
--- OUTSIDE RECORDS SUMMARY | 2024-11-13 09:09 | XMS_ITS | Patient Health Record ---
Author Organization [facility] Address [address] [place] [address] Care Team Providers Care Workers Compensation Claims Assistant Name Role Phone Po Dayana SCHWARTZ Primary [...] Problem Status W/U Status Risk Notes Problem [id number] Colon cancer screening (Z12.11) Active confirmed Problem 678574457 Gastroesophageal reflux disease without esophagitis (K21.9) Active confirmed Problem 585163937 Family history o f colon cancer (Z80.0) Active confirmed Plan Of Treatment Future Test Test Name Order Date COLONOSCOPY 07/13/2016 Insurance Providers Payer Name Payer Address Payer Phone Subscriber Number Group Number Insured Name Patient Relationship to Insured Coverage Start Date Coverage End Date [facility] [address] [place], [place] [id number] JENNIE MC Self - patient is the insured Medical (General) History Medical History History ICD Code hypertension elevated cholesterol obstructive sleep apnea elevated blood sugar prediabetic Surgical History Surgery Date(Month/Year) appendectomy tonsillectomy left knee arthroscopy right knee arthroscopy
--- OUTSIDE RECORDS SUMMARY | 2024-11-13 09:09 | XMS_ITS | Clinical Summary ---
Author Organization [employer] Address [address] [place] [address] Care Team Providers Care Reference Assistant Name Role Phone Unavailable Primary Care Provider [...] Relevant to Health Maintenance Insurance DENTAL - [facility] DENTAL DENTAL - [facility]
== END 2024-11-13 09:28 | disposition home or self-care (01) ==
LOC: HO.HUSH 08:37
PROVIDERS: PCP Internal Medicine; Visit Provider Urology
DX: N43.3 Hydrocele, unspecified (principal); R39.9 Unspecified symptoms and signs involving the genitourinary system; E11.69 Type 2 diabetes mellitus with other specified complication; N52.1 Erectile dysfunction due to diseases classified elsewhere
CPT/HCPCS: 99214

== ENCOUNTER 2024-11-13 09:34 | Outpatient (AMB) | payer MEDICARE, BC, SELFPAY ==
[2024-11-13 09:43] VITALS: BP 138/72; PULSE 69; O2SAT 98; BMI 29.7
--- NOTE | 2024-11-13 09:43 | A.OFFPC_ITS ---
Vital Signs 11/13/24 09:43 Height 5 ft 9 in Weight 201 lb BMI 29.7 BP 138/72 Blood Pressure Location Lt brachial Position Sitting Pulse 69 Pulse Source Pulse Oximeter Pulse Oximetry (%) 98 Oxygen Delivery Method Room Air Intake Visit Reasons: DM Allergies No Known Allergies (No Known Allergies*) Allergy (Verified 11/13/24 09:44) Tobacco use date assessed: 10/10/24 Fall risk assessment: 1 Fall in past year Last assessed Fall Risk: 11/13/24 Dental Screening Dental Screen Date: 09/19/24 HPI DM HPI Details ankle pain - sent to podiatry and advised physical therapy [facility] Medical History (Updated 11/13/24 @ 10:27 by Dayana Mccurdy MD) Ankle weakness Left ankle pain Left ankle sprain Family history of colon cancer Osteoarthritis Vertebral fracture Essential tremor Constipation Type 2 diabetes mellitus with hyperglycemia Diabetic neuropathy Tubular adenoma of colon Nicotine dependence, cigarettes, uncomplicated Positive PPD Obstructive sleep apnea Foot pain, left Overweight (BMI 25.0-29.9) Obesity (BMI 30-39.9) Thyroid nodule Pulmonary nodule GERD (gastroesophageal reflux disease) Erectile dysfunction Hypothyroid Hypertension Hypercholesterolemia Surgical History History of back surgery History of colonoscopy History of arthroscopy of right knee History of appendectomy History of tonsillectomy Family History Father Medical history unknown Mother Diabetes Past heart attack Brother Prostate cancer Social History Housing: House Alcohol intake: current Alcohol intake frequency: 3 or more drinks per day Alcohol type: beer Comment: QD 2 drinksstopped 12/2023 but last night ( 03/2024) 4 beers, ,3 beers a day Patient Tobacco Use Status: Former Tobacco user Tobacco use type: Cigarette Cigarette Packs Per Day: 1 Cigarettes Per Day: 15 Years Smoked: (onset 17yo, 3/4ppd x 56yrs, 40pyh) (06/2024 1/2 pack a day) e-Cigarette/Vaping Use: Never Used Second Hand Smoke Exposure: Yes service: No Current occupational status: disabled Cognitive needs: No Hearing needs: No Vision needs: Yes Questionnaire Thrive Questionnaire Date Thrive assessed: 09/17/24 I am a: Patient What is your living situation today?: I have a steady place to live Within the past 12 months, did the food you bought not last and you didn't have the money to get more?: Never true Within the past 12 months, did you worry whether your food would run out before you got money to buy more?: Never true Do you have trouble paying for medicines?: No Do you have trouble getting transportation to medical appointments?: No Do you have trouble paying your heating and electricity bill?: No Do you have trouble taking care of your child, family member or friend?: No Do you have trouble with day-to-day activities such as bathing, preparing meals, shopping, managing finances, etc.?: No Are you currently unemployed and looking for a job?: No Are you interested in more education?: No Please select the resources that you would like help with: None Currently or been in a relationship where the following occur: No concerns reported THRIVE Score: 0 JI-7 AMB Questionnaire JI-7 Date JI - 7 assessed: 09/19/24 Source: Developed by Drs. Remy Jacobsen, Lucita Morrissey, Jaskaran Mitchell and colleagues, with an educational maurilio from [employer]. Physical exam (Primary Care) Vital Signs: Last Vital Signs Pulse 69 11/13/24 09:43 BP 138/72 11/13/24 09:43 Pulse Ox 98 11/13/24 09:43 Oxygen Delivery Method Room Air 11/13/24 09:43 BMI result Body Mass Index 29.7 Tobacco/Smoking Status: Tobacco use Status Tobacco use date assessed 10/10/24 11/13/24 09:45 Patient Tobacco Use Status Former Tobacco user 11/13/24 09:45 Tobacco use type Cigarette 11/13/24 09:45 e-Cigarette/Vaping Use Never Used 11/13/24 09:45 Thrive Assessment: Date of Thrive Assessment Date Thrive assessed 09/17/24 11/13/24 09:45 Currently or been in a relationship where the following occur: No concerns reported Const General: alert; No acute distress Eyes Conjunctivae: conjunctivae normal Resp Auscultation: clear to auscultation bilaterally Cardio Rate: regular rate Rhythm: regular rhythm GI Inspection: Yes normal to inspection Extrem General: Yes normal to inspection and No edema Coding Level of Care Code Est Pt Level 4 (50343) Complex EM visit Add On G2211 Diagnoses Type 2 diabetes mellitus with hyperglycemia, without long-term current use of insulin E11.65 Diabetes mellitus half-way insulin use: without half-way use Essential hypertension I10 Hypertension type: essential hypertension Hypercholesterolemia E78.00 Generalized anxiety disorder F41.1 Acquired hypothyroidism E03.9 Hypothyroidism type: acquired Obesity (BMI 30.0-34.9) E66.9 Gastroesophageal reflux disease without esophagitis K21.9 Esophagitis presence: without esophagitis Hepatic steatosis K76.0 Left ankle pain, unspecified chronicity M25.572 Chronicity: unspecified Mass of right elbow R22.31 Assessment & Plan Assessment & Plan (1) Type 2 diabetes mellitus with hyperglycemia: Code(s): E11.65 - Type 2 diabetes mellitus with hyperglycemia Category: Medical Qualifiers: Diabetes mellitus half-way insulin use: without half-way use Qualified Code(s): E11.65 - Type 2 diabetes mellitus with hyperglycemia Plan: Decrease the amount of carbohydrate intake, pasta, bread, rice and potatoes are all sugar and that is aside from all the sweet stuff, remember that fruits are good but they are Sweet also. Hemoglobin A1c goal of less than 7.0. Patient is taking Farxiga 5 mg once a day metformin 500 mg twice a day recently given prednisone for the ankle. (2) Hypertension: Code(s): I10 - Essential (primary) hypertension Category: Medical Qualifiers: Hypertension type: essential hypertension Qualified Code(s): I10 - Essential (primary) hypertension Plan: Continue with blood pressure medication. Decrease salt intake and exercise on propranolol 10 mg twice a day losartan 100 mg once a day (3) Hypercholesterolemia: Code(s): E78.00 - Pure hypercholesterolemia, unspecified Category: Medical Plan: Avoid fried foods, chicken skin, eggs, butter margarine, pastries and meat. Be it pork or beef they have a lot of cholesterol LDL goal of less than 100 and triglyceride of less than 150 (4) Generalized anxiety disorder: Comment: Declined any referral for counseling 08/2021 Code(s): F41.1 - Generalized anxiety disorder Category: Medical Plan: Stable (5) Hypothyroid: Comment: admits to not taking med Code(s): E03.9 - Hypothyroidism, unspecified Category: Medical Qualifiers: Hypothyroidism type: acquired Qualified Code(s): E03.9 - Hypothyroidism, unspecified Plan: Continue with levothyroxine. (6) Obesity (BMI 30.0-34.9): Code(s): E66.9 - Obesity, unspecified Category: Medical Plan: Diet and exercise (7) GERD (gastroesophageal reflux disease): Code(s): K21.9 - Gastro-esophageal reflux disease without esophagitis Category: Medical Qualifiers: Esophagitis presence: without esophagitis Qualified Code(s): K21.9 - Gastro-esophageal reflux disease without esophagitis Plan: Avoid the foods that causes that usually spicy foods, tomato products, juices, coffee, soda and foods that your sensitive to. After eating do not lie down, allow 3-4 hours before in lie down. And keep the head of bed above 30 degrees to avoid the acid from going up. (8) Hepatic steatosis: Code(s): K76.0 - Fatty (change of) liver, not elsewhere classified Category: Medical Plan: Low-fat diet and exercise (9) Left ankle pain: Code(s): M25.572 - Pain in left ankle and joints of left foot Category: Medical Qualifiers: Chronicity: unspecified Qualified Code(s): M25.572 - Pain in left ankle and joints of left foot Plan: Patient has been referred to orthopedics. (10) Mass of right elbow: Code(s): R22.31 - Localized swelling, mass and lump, right upper limb Category: Medical Plan History of Present Illness The patient is a 74-year-old male presenting for follow-up on multiple chronic conditions and recent ankle sprain. The patient has a history of generalized anxiety disorder, diabetes mellitus, lumbar spondylolisthesis, gastroesophageal reflux disease, hypothyroidism, hypercholesterolemia, hypertension, and hepatic steatosis. He is also diagnosed with anemia of chronic disease and was last seen in September 2024 for follow-up. The patient experienced an ankle sprain in August 2024 following a fall, for which he was seen in the emergency department and placed on ibuprofen and prednisone, with an orthopedic referral. An ankle x-ray in August showed soft tissue contusion and calcification in the medial malleolus, but no fracture was noted. The patient has erectile dysfunction and hypogonadism, previously managed with tadalafil, which was discontinued due to the development of a left hydrocele. He is considering surgical options or aspiration for the hydrocele. The patient's last blood work in June showed anemia with hemoglobin at 12.5 g/dL and hematocrit at 37.2%, which is chronic and stable. Electrolytes were within normal limits, and renal function was stable with a creatinine level of 1.13 mg/dL. His hemoglobin A1c was 6.9%, down from 8.5% in June, indicating improved glycemic control. The patient is a smoker and follows up with podiatry for his ankle sprain. He is currently on medications including metformin, propranolol, losartan, atorvastatin, levothyroxine, and omeprazole. Health Maintenance - Preventative care: Colon cancer screening with stool test last done in October 2021 - Vaccinations: Up to date with shingles, tetanus, and pneumonia vaccines - Lifestyle: Advised on no-fat diet and exercise for reflux management Social History - Smoking: Patient is a smoker Review of Systems - Musculoskeletal: Reports left ankle pain - Endocrine: Reports stable thyroid function Physical Exam Results - Labs: Hemoglobin 12.5 g/dL, Hematocrit 37.2%, Creatinine 1.13 mg/dL, Hemoglobin A1c 6.9% - Imaging: Ankle x-ray showed soft tissue contusion and calcification in the medial malleolus, no fracture Plan Patient was informed and verbally consented to the use of an ambient scribe for clinic note documentation during this visit. 1. Diabetes Mellitus The patient's hemoglobin A1c is currently 6.9%, improved from 8.5% in June, indicating better glycemic control. He is on metformin 500 mg twice a day and was previously on Farxiga, which was discontinued due to cost concerns. Consideration for Jardiance as an alternative was discussed, pending insurance approval. 2. Ankle Sprain The patient experienced a left ankle sprain in August 2024, managed initially with ibuprofen and prednisone. An orthopedic referral was made, and physical therapy was initiated. An ankle x-ray showed soft tissue contusion and calcification, but no fracture. 3. Erectile Dysfunction The patient has erectile dysfunction and hypogonadism, previously managed with tadalafil, which was discontinued due to a left hydrocele. Surgical options or aspiration for the hydrocele were discussed. 4. Hypothyroidism The patient is on levothyroxine for hypothyroidism, with thyroid levels noted to be mildly elevated and requiring monitoring. 5. Hypertension The patient is on propranolol 10 mg twice a day and losartan 100 mg once a day for hypertension management. 6. Hypercholesterolemia The patient's LDL cholesterol is 64 mg/dL, with a goal of less than 100 mg/dL. He is on atorvastatin for cholesterol management. Discussion Notes During the visit, we discussed the management of the patient's diabetes, including the current hemoglobin A1c level of 6.9% and the potential use of Jardiance pending insurance approval. We also reviewed the treatment plan for the ankle sprain, including physical therapy and the results of the ankle x-ray showing no fracture. For erectile dysfunction, we discussed the discontinuation of tadalafil due to a left hydrocele and considered surgical options or aspiration. Patient Instructions - Continue taking metformin as prescribed. - Follow up with orthopedics for ankle management. - Monitor blood sugar levels regularly and report any significant changes. - Discuss Jardiance with your insurance provider. - Consider surgical options for the hydrocele if symptoms persist. Orders: Orders XR elbow RT 2V Today R22.31 - Localized swelling, mass and lump, right upper limb US Extremity Nonvas Limited RT Today R22.31 - Localized swelling, mass and lump, right upper limb Medications: Refilled ibuprofen 800 mg PO BID 270 tabs 0RF metformin 500 mg PO BID 180 tabs 3RF 90 days E11.9 - Type 2 diabetes mellitus without complications atorvastatin 20 mg PO DAILY 90 tabs 2RF 90 days E11.65 - Type 2 diabetes mellitus with hyperglycemia omeprazole 20 mg PO DAILY 90 caps 0RF gabapentin 300 mg PO BID 180 caps 3RF levothyroxine (Synthroid) 75 mcg PO DAILY 90 tabs 2RF 90 days E03.8 - Other specified hypothyroidism, E06.3 - Autoimmune thyroiditis losartan 100 mg PO DAILY 90 tabs 2RF E11.65 - Type 2 diabetes mellitus with hyperglycemia Discontinued prednisone Discontinued Reason: Patient Completed Course 20 mg PO DAILY 10 tabs 0RF S93.402D - Sprain of unspecified ligament of left ankle, subsequent encounter
== END 2024-11-13 10:36 | disposition home or self-care (01) ==
LOC: HO.HMCH 09:35
PROVIDERS: PCP Internal Medicine; Visit Provider Internal Medicine
DX: E11.65 Type 2 diabetes mellitus with hyperglycemia (principal); E66.9 Obesity, unspecified; Z68.29 Body mass index [BMI] 29.0-29.9, adult; I10 Essential (primary) hypertension; E78.00 Pure hypercholesterolemia, unspecified; F41.1 Generalized anxiety disorder; E03.9 Hypothyroidism, unspecified; K21.9 Gastro-esophageal reflux disease without esophagitis; K76.0 Fatty (change of) liver, not elsewhere classified; M25.572 Pain in left ankle and joints of left foot; R22.31 Localized swelling, mass and lump, right upper limb

== ENCOUNTER → 2024-11-13 11:21 | Outpatient (BNV) | payer MEDICARE, BC, SELFPAY | PROVIDERS: PCP Internal Medicine; Visit Provider Radiology Diagnostic Radiology | DX: M25.721 Osteophyte, right elbow (principal) | CPT/HCPCS: 73070 ==

== ENCOUNTER 2024-11-27 08:55 | Outpatient (AMB) | payer MEDICARE, BC, SELFPAY ==
--- NOTE | 2024-11-27 09:13 | A.OFFVIS_ITS ---
Intake Visit Reasons: OV - Left Ankle Sprain 09/17/24 Intake Note: Noman is a 74 year old male who presents today for a follow up of his Left Ankle Sprain, DOI 09/17/24. Hx of DM. At the last visit the was instructed to wean out of his walking boot into a lace up ankle brace and an order for Physical therapy was placed. He has not yet started PT due to not receiving a phone call from them to schedule an appointment. Pt states the brace had cut him on both sides of the ankle and now he has a gauze wrap underneath, he also still finds his ankle and foot is still swollen. Allergies No Known Allergies (No Known Allergies*) Allergy (Verified 11/13/24 09:44) HPI Comments Details: The patient is a 74-year-old male presenting for follow-up of left with ankle swelling and pain at the ball of the foot. The ankle swelling has persisted since the initial injury, and the patient has not yet commenced physical therapy. The patient reports that the brace previously used caused skin irritation, which has since healed. Patient states he used kerlix to apply a cushion to the skin before application of the brace. Patient states he experiences mild pain to the ankle and mild pain to the plantar aspect of the f oot in the submet 1 area. He states he continues to experience intermittent weakness, usually noticed when going up and downstairs. Patient has been using the ankle brace with minimal relief. He denies any other pedal concerns. Denies any current nausea, vomiting, fever, or chills. COUNTS INCLUDE 234 BEDS AT THE [facility] Medical History (Updated 11/27/24 @ 10:43 by Marita Garza DPM) Abrasion, left lower leg, initial encounter Ankle weakness Left ankle pain Left ankle sprain Family history of colon cancer Osteoarthritis Vertebral fracture Essential tremor Constipation Type 2 diabetes mellitus with hyperglycemia Diabetic neuropathy Tubular adenoma of colon Nicotine dependence, cigarettes, uncomplicated Positive PPD Obstructive sleep apnea Foot pain, left Overweight (BMI 25.0-29.9) Obesity (BMI 30-39.9) Thyroid nodule Pulmonary nodule GERD (gastroesophageal reflux disease) Erectile dysfunction Hypothyroid Hypertension Hypercholesterolemia Surgical History History of back surgery History of colonoscopy History of arthroscopy of right knee History of appendectomy History of tonsillectomy Family History Father Medical history unknown Mother Diabetes Past heart attack Brother Prostate cancer Social History Housing: House Alcohol intake: current Alcohol intake frequency: 3 or more drinks per day Alcohol type: beer Comment: QD 2 drinksstopped 12/2023 but last night ( 03/2024) 4 beers, ,3 beers a day Patient Tobacco Use Status: Former Tobacco user Tobacco use type: Cigarette Cigarette Packs Per Day: 1 Cigarettes Per Day: 15 Years Smoked: (onset 17yo, 3/4ppd x 56yrs, 40pyh) (06/2024 1/2 pack a day) e-Cigarette/Vaping Use: Never Used Second Hand Smoke Exposure: Yes service: No Current occupational status: disabled Cognitive needs: No Hearing needs: No Vision needs: Yes Review of Systems Const Details: Musculoskeletal: Reports swelling in the left ankle, denies significant pain. Reports pain to the ball of the left foot. Neurological: Reports numbness and tingling in both feet. Endocrine: Reports blood glucose levels ranging from 110 to 166 mg/dL. for the past week. All systems reviewed & are unremarkable except as noted in HPI and below Physical Exam Extrem Other: Left lower extremity focused physical exam: Derm: Mild edema noted to the lateral aspect of the ankle. Healed abrasions noted to the leg diffusely. Skin turgor intact and within normal limits. No clinical signs of infection. Toenails X 10 noted to be slightly thickened, length within normal limits, and with mild subungual debris. No clinical signs of infection. Vascular: DP/PT pulses mildly palpable. Capillary refill time less than 3 seconds. No varicosities noted. Pedal hair absent. Neurological: Protective sensation is grossly diminished. Musculoskeletal: Mild pain on palpation to the submet 1 area. Range of motion o f the ankle slightly reduced, with stiffness. Minimal pain on palpation to the lateral aspect of the ankle along the area of the calcaneal fibular ligament. Mild weakness noted to the left ankle in comparison to the right. No crepitus noted. Office Procedures AMB Podiatry Dressing Details of Procedure: Applied cast padding to the left foot and ankle and the lace up ankle brace. 18165 - Strapping of foot/ankle Procedure code (CPT) selection complete Results Reviewed Results Reviewed: Provided patient with a referral for physical therapy - awaiting start of PT. Podiatry read of left ankle x-rays (09/18/2024): joint space narrowing noted to the left ankle with some osteophytic formation. No acute fractures or dislocations noted. Left ankle x-rays (09/18/2024): FINDINGS: Soft tissue contusion/edema pattern, bimalleolar. 2 mm well-corticated calcification inferior to the medial malleolus. No acute cortical disruption or gross malalignment. No subcutaneous emphysema. No lytic or blastic lesions. IMPRESSION: Soft tissue contusion/edema pattern, bimalleolar. 2 mm calcification in the inferior medial malleolus likely old trauma. No acute fracture or dislocation. Internal derangement cannot be excluded. Assessment & Plan Assessment & Plan (1) Type 2 diabetes mellitus with hyperglycemia: Code(s): E11.65 - Type 2 diabetes mellitus with hyperglycemia Category: Medical Qualifiers: Diabetes mellitus fpc insulin use: without equipment operator intermodal yard use Qualified Code(s): E11.65 - Type 2 diabetes mellitus with hyperglycemia (2) Diabetic neuropathy: Code(s): E11.40 - Type 2 diabetes mellitus with diabetic neuropathy, unspecified Category: Medical Qualifiers: Diabetes mellitus type: type 2 Diabetes mellitus complication detail: diabetic polyneuropathy Qualified Code(s): E11.42 - Type 2 diabetes mellitus with diabetic polyneuropathy (3) Peripheral vascular disease: Code(s): I73.9 - Peripheral vascular disease, unspecified Category: Medical (4) Left ankle sprain: Code(s): S93.402A - Sprain of unspecified ligament of left ankle, initial encounter Category: Medical Qualifiers: Encounter type: initial encounter Involved ligament of ankle: unspecified ligament Qualified Code(s): S93.402A - Sprain of unspecified ligament of left ankle, initial encounter (5) Left ankle pain: Code(s): M25.572 - Pain in left ankle and joints of left foot Category: Medical Qualifiers: Chronicity: unspecified Qualified Code(s): M25.572 - Pain in left ankle and joints of left foot (6) Ankle weakness: Code(s): R29.898 - Other symptoms and signs involving the musculoskeletal system Category: Medical (7) Abrasion, left lower leg, initial encounter: Code(s): S80.812A - Abrasion, left lower leg, initial encounter Category: Medical Plan Patient was informed and verbally consented to the use of an ambient scribe for clinic note documentation during this visit. I discussed with the patient the diagnosis of metatarsalgia and the use of m etatarsal pads to relieve pressure and pain. We also reviewed the importance of starting physical therapy to address the ankle swelling, pain, and to improve function. The patient was informed about the follow-up appointment in six weeks to evaluate the effectiveness of the interventions. - The patient is advised to initiate physical therapy to address ankle swelling and improve mobility. - Metatarsal pads are recommended to alleviate pressure on the ball of the foot and reduce pain associated with metatarsalgia. Provided patient with metatarsal pads. - Applied cast padding to the left ankle and foot to provide cushion to the skin to prevent irritation from the brace. Provided patient with cast padding. - Continue RICE protocol. - Wear supportive shoe gear and avoid barefoot walking. Follow-up is scheduled in six weeks to assess progress and adjust treatment as necessary. Orders: Orders AMB Podiatry Dressing Today E11.42 - Type 2 diabetes mellitus with diabetic polyneuropathy, M25.572 - Pain in left ankle and joints of left foot, R29.898 - Other symptoms and signs involving the musculoskeletal system, S80.812A - Abrasion, left lower leg, initial encounter, S93.402A - Sprain of unspecified ligament of left ankle, initial encounter Coding Level of Care Code Est Pt Level 4 (93304) Diagnoses Type 2 diabetes mellitus with hyperglycemia, without long-term current use of insulin E11.65 Diabetes mellitus fpc insulin use: without fpc use Diabetic polyneuropathy associated with type 2 diabetes mellitus E11.42 Diabetes mellitus type: type 2 Diabetes mellitus complication detail: diabetic polyneuropathy Peripheral vascular disease I73.9 Sprain of left ankle, unspecified ligament, initial encounter S93.402A Encounter type: initial encounter Involved ligament of ankle: unspecified ligament Left ankle pain, unspecified chronicity M25.572 Chronicity: unspecified Ankle weakness R29.898 Abrasion, left lower leg, initial encounter S80.812A CPT Codes Podiatry Dressing - CPT: 99725 - Strapping of foot/ankle ([id number]) Time Spent (min) 48
== END 2024-11-27 09:40 | disposition home or self-care (01) ==
LOC: HO.HPODS 08:55
PROVIDERS: PCP Internal Medicine; Visit Provider Student in an Organized Health Care Education/Training Program
DX: E11.65 Type 2 diabetes mellitus with hyperglycemia (principal); E11.42 Type 2 diabetes mellitus with diabetic polyneuropathy; I73.9 Peripheral vascular disease, unspecified; S93.402A Sprain of unspecified ligament of left ankle, initial encounter; M25.572 Pain in left ankle and joints of left foot; R29.898 Other symptoms and signs involving the musculoskeletal system; S80.812A Abrasion, left lower leg, initial encounter
CPT/HCPCS: 29540; 99214

== ENCOUNTER → 2024-11-27 08:55 | Outpatient (BNVA) | payer MEDICARE, BC, SELFPAY | PROVIDERS: PCP Internal Medicine; Visit Provider Student in an Organized Health Care Education/Training Program | DX: E11.65 Type 2 diabetes mellitus with hyperglycemia (principal); E11.40 Type 2 diabetes mellitus with diabetic neuropathy, unspecified; M25.572 Pain in left ankle and joints of left foot; R29.898 Other symptoms and signs involving the musculoskeletal system; S80.812D Abrasion, left lower leg, subsequent encounter; S93.402D Sprain of unspecified ligament of left ankle, subsequent encounter | CPT/HCPCS: 29540; 99212 ==

== ENCOUNTER 2024-12-23 08:51 | Outpatient (AMB) | payer MEDICARE, BC, SELFPAY ==
--- OUTSIDE RECORDS SUMMARY | 2023-06-25 05:15 | XMS_ITS ---
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 Name Role Phone Dayana Mccurdy Primary Care Provider Shanelle Camp [phone] Encounters Encounter Location Date Provider Diagnosis [address] [id number] 06/25/2023 Shanelle Garcia Plan Of Treatment Next Appt Details Provider Name:Shanelle Garcia , 02/02/2025 09:15:00 AM, [address] [place] [address], [id number], Progress Notes * Nancy LAZOoDOB:[birth year] (74 yo M)Acc No.[id number]:06/25/2023 Progress Notes Patient: Ivis Noman ALCARAZ Provider: Danelle Garcia DPM :1950 A ge:73 Y S ex:Male Date:06/25/2023 Address: [id number] Pcp:Dayana Mccurdy Subjective: * Chief Complaints: * * Medical History: Objective: * Vitals: Assessment: Plan: * Treatment: * Images: * The named appointment provid er may or may not be the originator of this progress note, and it is not deemed complete until electronically signed by the appointment provider. Sign off status: Pending * Provider: Danelle Garcia, DPSamantha Date: 0 06/25/2023 Generated for Jesusita coronado/Safia/Mimi on: 02/23/2024 09:27 AM EST
--- OUTSIDE RECORDS SUMMARY | 2023-09-06 06:30 | XMS_ITS ---
Author Organization [facility] Address [address] [place] [id number] Care Team Providers Care Oil Treater Name Role Phone Dayana Mccurdy Primary Care Provider Shanelle Camp [phone] Encounters Encounter Location Date Provider Diagnosis [address] [phone] 09/06/2023 Shanelle Garcia Plan Of Treatment Next Appt Details Provider Name:Shanelle Garcia , 02/02/2025 09:15:00 AM, [address] [place] [address], [phone], Progress Notes * Nancy LAZOoDOB:[birth year] (74 yo M)Acc No.[id number]:09/06/2023 Progress Note Patient: Ivis REGALADONoman DOMINIQUE Provider: Danelle Garcia DPM :1950 A ge:73 Y S ex:Male Date:09/06/2023 Address: [place] Pcp:Dayana Mccurdy Subjective: * Chief Complaints: * * Medical History: Objective: * Vitals: Assessment: Plan: * Treatment: * Images: * The named appointment provid er may or may not be the originator of this progress note, and it is not deemed complete until electronically signed by the appointment provider. Sign off status: Pending * Provider: Danelle Garcia, BALBIR Date: 0 09/06/2023 Generated for Jesusita coronado/Safia/Mimi on: 02/23/2024 09:28 AM EST
--- OUTSIDE RECORDS SUMMARY | 2023-11-26 04:30 | XMS_ITS ---
[facility] Address [address] [place] [id number] Care Team Providers Care Bundling Machine Operator Name Role Phone Dayana Mccurdy Primary Care Provider Shanelle Camp [phone] Encounters Encounter Location Date Provider Diagnosis [address] [phone] 11/26/2023 Shanelle Garcia Plan Of Treatment Next Appt Details Provider Name:Shanelle Garcia , 02/02/2025 09:15:00 AM, [address] [place] [address], [phone], Progress Notes * Nancy LAZOoDOB:[birth year] (74 yo M)Acc No.[id number]:11/26/2023 Progress Note Patient: Ivis REGALADONoman DOMINIQUE Provider: Daenlle Garcia DPM :1950 A ge:73 Y S ex:Male Date:11/26/2023 Address:[address] [id number] Pcp:Dayana Mccurdy Subjective: * Chief Complaints: * * Medical History: Objective: * Vitals: Assessment: Plan: * Treatment: * Images: * The named appointment provid er may or may not be the originator of this progress note, and it is not deemed complete until electronically signed by the appointment provider. Sign off status: Pending * Provider: Danelle Garcia DPM Date: 1 Generated for Jesusita coronado/Safia/Mimi on: 02/23/2024 09:28 AM EST
--- OUTSIDE RECORDS SUMMARY | 2024-06-12 06:30 | XMS_ITS ---
Author Organization [facility] Address [address] [place] [phone] Care Team Providers Care Orthopedic Cast Specialist Name Role Phone Dayana Mccurdy Primary Care Provider Shanelle Camp [phone] Encounters Encounter Location Date Provider Diagnosis [address] [address] 06/12/2024 Shanelle Garcia Plan Of Treatment Next Appt Details Provider Name:Shanelle Garcia , 02/02/2025 09:15:00 AM, [address] [place] [address], [phone], Progress Notes * Nancy LAZOoDOB:[birth year] (74 yo M)Acc No.[id number]:06/12/2024 Progress Note Patient: Ivis REGALADONoman DOMINIQUE Provider: Danelle Garcia DPM :1950 A ge:74 Y S ex:Male Date:06/12/2024 Address: [place] Pcp:Dayana Mccurdy Subjective: * Chief Complaints: * * Medical History: Objective: * Vitals: Assessment: Plan: * Treatment: * Images: * The named appointment provid er may or may not be the originator of this progress note, and it is not deemed complete until electronically signed by the appointment provider. Sign off status: Pending * Provider: Danelle Garcia, DPSamantha Date: 0 06/12/2024 Generated for Jesusita coronado/Safia/Mimi on: 02/23/2024 09:27 AM EST
--- OUTSIDE RECORDS SUMMARY | 2024-07-31 09:30 | XMS_ITS ---
Author Organization [facility] Address [address] [place] [address] Care Team Providers Care Gas Meter Installer Name Role Phone Dayana Mccurdy Primary Care Provider Shanelle Camp [phone] Encounters Encounter Location Date Provider Diagnosis [address] [address] 07/31/2024 Shanelle Garcia Plan Of Treatment Next Appt Details Provider Name:Shanelle Garcia , 02/02/2025 09:15:00 AM, [address] [place] [address], [phone], Progress Notes * Nancy LAZOoDOB:[birth year] (74 yo M)Acc No.[id number]:07/31/2024 Progress Note Patient: Ivis REGALADONoman DOMINIQUE Provider: Danelle Garcia DPM :1950 A ge:74 Y S ex:Male Date:07/31/2024 Address: [place] Pcp:Dayana Mccurdy Subjective: * Chief Complaints: * * Medical History: Objective: * Vitals: Assessment: Plan: * Treatment: * Images: * The named appointment provid er may or may not be the originator of this progress note, and it is not deemed complete until electronically signed by the appointment provider. Sign off status: Pending * Provider: Danelle Garcia, BALBIR Date: 0 07/31/2024 Generated for Jesusita coronado/Safia/Mimi on: 02/23/2024 09:27 AM EST
--- NOTE | 2024-12-23 09:01 | A.OFFVIS_ITS ---
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 He is a patient of Dr. Mccurdy. Seen for the following urologic conditions - erectile dysfunction associated with diabetes - hypogonadism associated with diabetes - left hydrocele Here today for left hydrocele aspiration and sclerosis Proximally 12 oz removed 20 cc of doxycycline inserted Tolerated well See procedure note for details Has been on 10 mg daily tadalafil 20 mg on demand Successful testosterone sabianism and benefit Last HbA1c 6.9 on Farxiga and metformin Erectile Dysfunction in setting of diabetes He presents today for - further evaluation of erectile dysfunction associated hypo gonad hypogonadism Symptoms have been present for/since - progressive since 2019 Current treatment includes - none At initial presentation he experiences - are partial and insufficient for vaginal penetration Nocturnal erections do not occur Associated Medical Conditions include hypertension, type 2 diabetes, tobacco use, Atherosclerosis Cardiovascular Disease Risk not completed Medications include(s) statin, benzodiazepine, beta-mansi, Recent labs include 05/10 T 135 low FSH/LH, 03/13 P 1.0, 11/11 T 196 F 31 L 4.8, T 320 PSA 1.1, 11/12 T 372 HbA1c down 0.3 Therapeutic plan includes - maximum tolerated on medication daily tadalafil with repeat labs [facility] Medical History (Updated 12/23/24 @ 17:09 by Jaydon Smart MD) Abrasion, left lower leg, initial encounter Ankle weakness Left ankle pain Left ankle sprain Family history of colon cancer Osteoarthritis Vertebral fracture Essential tremor Constipation Type 2 diabetes mellitus with hyperglycemia Diabetic neuropathy Tubular adenoma of colon Nicotine dependence, cigarettes, uncomplicated Positive PPD Obstructive sleep apnea Foot pain, left Overweight (BMI 25.0-29.9) Obesity (BMI 30-39.9) Thyroid nodule Pulmonary nodule GERD (gastroesophageal reflux disease) Erectile dysfunction Hypothyroid Hypertension Hypercholesterolemia Surgical History History of back surgery History of colonoscopy History of arthroscopy of right knee History of appendectomy History of tonsillectomy Family History Father Medical history unknown Mother Diabetes Past heart attack Brother Prostate cancer Social History Housing: House Alcohol intake: current Alcohol intake frequency: 3 or more drinks per day Alcohol type: beer Comment: QD 2 drinksstopped 12/2023 but last night ( 03/2024) 4 beers, ,3 beers a day Patient Tobacco Use Status: Former Tobacco user Tobacco use type: Cigarette Cigarette Packs Per Day: 1 Cigarettes Per Day: 15 Years Smoked: (onset 17yo, 3/4ppd x 56yrs, 40pyh) (06/2024 1/2 pack a day) e-Cigarette/Vaping Use: Never Used Second Hand Smoke Exposure: Yes service: No Current occupational status: disabled Cognitive needs: No Hearing needs: No Vision needs: Yes Review of Systems Const Denies chills and Denies fever(s) Card Reports no additional complaints and Denies syncope Resp Denies cough GI Denies abdominal pain and Denies heartburn Reports as per HPI and Denies change in libido Neuro Denies syncope Psych Denies change in libido Endo Denies change in libido Physical Exam Const General: cooperative, healthy appearing, comfortable and no acute distress Orientation/consciousness: patient oriented x3 HEENT Face and sinus: Yes normal facial exam Mouth: moist mucous membranes Neck Neck: Yes normal visual inspection, Yes full ROM and Yes trachea midline Chest Chest palpation & inspection: normal inspection of the chest Resp Effort & Inspection: normal respiratory effort, able to speak in complete sentences and no respiratory distress GI Inspection: Yes normal to inspection Back/Spine/Pelvis Cervical Spine: normal cervical lordosis Thoracic/Lumbar Spine: thoracic and lumbar spine normal to inspection Skin General skin exam: no rashes or lesions noted Neuro General: patient oriented x3, gait normal, tone normal and moves all extremities Extrem General: Yes normal to inspection and Yes capillary refill normal Office Procedures Procedure Thyroid Biopsy Procedural Documentation: PreOperative Diagnosis: Left large hydrocele Post Operative Diagnosis: Left large hydrocele Procedure: Drainage of hydrocele with sclerotherapy in office Surgeon: Dr Jaydon Smart Anesthesia: Local Indications for procedure: Persistent hydrocele Procedure: Informed consent was verified and site confirmed The testicle was prepped using Betadine swab stick 10 cc 1% lidocaine placed in cord for cord block Testicle was elevated and 18 gauge Angiocath placed for drainage of hydrocele fluid through inferior portion of testicle Three hundred cc of fluid removed 20 cc of 200 mg doxycycline mixed with 1% lidocaine injected for sclerotherapy Procedure tolerated well Two week follow-up nursing CPT 15611 hydrocele aspiration, 78185 sclerotherapy agent application Assessment & Plan Assessment & Plan (1) Hydrocele: Code(s): N43.3 - Hydrocele, unspecified Category: Medical Plan Hydrocele aspirated Patient Instructions: This note is constructed using voice recognition software. 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 Imaging studies, laboratory and physical exam results were discussed and reviewed in detail. No major barriers to patient understanding were identified. An opportunity to ask questions regarding the treatment plan was provided. All questions were answered. The patient expressed understanding and agreement with the above treatment plan. The patient is aware they should contact our office by phone for worsening of their current condition or the appearance of new urologic symptoms. Compliance is encouraged with any medications and followup testing that is ordered. It is a privilege to participate in the urologic care of your patient. If you have any questions or concerns regarding treatment for the above conditions, or other urologic issues, please do not hesitate to contact me. The office telephone contact is [phone]. Sincerely, Dr Jaydon Smart MD, [facility] - Urology Compassionate Specialist Care for the Genitourinary System Coding Level of Care Code Procedure Only Diagnoses Hydrocele N43.3
--- OUTSIDE RECORDS SUMMARY | 2024-12-23 09:28 | XMS_ITS | Patient Health Record ---
Author Organization [facility] Address [address] [place] [address] Care Team Providers Care Finish Molder Name Role Phone Dayana Mccurdy Primary Care Provider Unavailabl e Black, Shanelle Unavailable [phone] Allergies No Known Allergies Results Component Value [...] Once a day; Duration: 30 day(s) Active [place]-3 Fatty Acids 1000 MG 1 capsule Orally [...] a day; Duration: 30 day(s) Not-Taking Ipratropium [place] 0.03 % 2 sprays in each nostril [...] Problem Acquired hammer toe of right foot (5479287894653443 ) Other hammer toe(s) (acquired), right foot (M20.41) Active confirmed Problem Acquired hammer toe of left foot (2110823693596557 ) Other hammer toe(s) (acquired), left foot (M20.42) Active confirmed Problem Polyneuropathy due to type 2 diabetes mellitus (444611302) Type 2 diabetes mellitus with diabetic polyneuropathy (E11.42) Active confirmed Problem Smoker (45060336) Smoker (F17.200) Active confi rmed Vital Signs Blood pressure diastolic 76 mm Hg 11/06/2024 Height 5ft 9in in 11/06/2024 Blood pressure systolic 114 mm Hg 11/06/2024 Weight 198 lbs 11/06/2024 BMI 29.24 kg/m2 11/06/2024 Procedures Procedure Date Ordered Date Performed Result Body Sit e 97613-TELMMRF NAIL, 1-5 07/24/2024 N/A 11526-JECT SKIN LESIONS, 2 TO 4 07/24/2024 N/A B9386-FPYGAOYB DYSTROPHIC NAILS ANY # 07/24/2024 N/A 39650-MKBBRKR NAIL, 1-5 11/06/2024 N/A 70723-UYAL SKIN LESIONS, 2 TO 4 11/06/2024 N/A K1173-CFECYFIQ DYSTROPHIC NAILS ANY # 11/06/2024 N/A Encounters Encounter Location Date Provider Diagnosis [facility] [address] 07/24/2024 Shanelle Black Tinea unguium B35.1 ; Type 2 diabetes mellitus with diabetic polyneuropathy E11.42 and Smoker F17.[address] [facility] [address] 11/06/2024 Shanelle Black Tinea unguium B35.1 ; Type 2 diabetes mellitus with diabetic polyneuropathy E11.42 ; Smoker F17.200 ; Other hammer toe(s) (acquired), right foot M20.41 and Other hammer toe(s) (acquired), left foot M20.42 [facility] [place] [address] [place] [address] 06/12/2024 Shanelle Garcia Assessments Encounter Date Diagnosis (ICD Code) Assessment Notes Treatment Notes Treatment Clinical Notes Section Notes 07/24/2024 Tinea unguium (ICD-10 - B35.1) 11/06/2024 Tinea unguium (ICD-10 - B35.1) 11/06/2024 Type 2 diabetes mellitus with diabetic polyneuropathy (ICD-10 - E11.42) 11/06/2024 Smoker (ICD-10 - F17.200) 07/24/2024 Type 2 diabetes mellitus with diabetic polyneuropathy (ICD-10 - E11.42) 07/24/2024 Smoker (ICD-10 - F17.200) 11/06/2024 Other hammer toe(s) (acquired), right foot (ICD-10 - M20.41) Patient Educated with: DIABETIC FOOT CARE INSTRUCTIONS. pdf (DIABETIC FOOT CARE INSTRUCTIONS. pdf) 11/06/2024 Other hammer toe(s) (acquired), left foot (ICD-10 - M20.42) Plan Of Treatment Pending Test Test Name Order Date X ray : Foot, left 3V 03/02/2022 55316-RIPVWVC NAIL, -11/14/2021 56286-PUSROQS NAIL, -03/02/2022 22970-STMPMRE NAIL, -09/25/2022 61106-HHZJIXN NAIL, -05/10/2023 22380-HWIBTME NAIL, -12/13/2023 05258-QVHDPLR NAIL, -07/24/2024 96185-ABNHYQF NAIL, -11/06/2024 05166- Debride <25 sq cm 09/25/2022 78903-UULA SKIN LESIONS, 2 TO 4 09/26/19 23 73065-GQFO SKIN LESIONS, 2 TO 4 03/02/19 23 14634-LGXX SKIN LESIONS, 2 TO 4 12/13/19 38465-GPNE SKIN LESIONS, 2 TO 4 05/10/19 24 74533-VNOZ SKIN LESIONS, 2 TO 4 11/15/19 71166-SBWB SKIN LESIONS, 2 TO 4 11/07/19 70324-GQDR SKIN LESIONS, 2 TO 4 07/25/19 G4838-RFKXDZBR DYSTROPHIC NAILS ANY # I5527-FDMPGQUP DYSTROPHIC NAILS ANY # V1808-UWCJECPP DYSTROPHIC NAILS ANY # Q3508-BWESLULV DYSTROPHIC NAILS ANY # Next Appt Details Provider Name:Shanelle Garcia , 02/02/2025 09:15:00 AM, [address] [facility], [place], [address], Insurance Providers Payer Name Payer Address Payer Phone Subscriber Number Group Number Insured Name Patient Relationship to Insured Coverage Start Date Coverage End Date [employer] [address] [place] [address] [id number] Noman Pope ra Self - patient is the insured [facility] [address] [place] [address] [id number] Noman Pope ra Self - patient is [...] back surgery 06/01/22 Hospitalization History Reason Date(Month/Year) [facility]-sprained ankle 09/18/2024
--- OUTSIDE RECORDS SUMMARY | 2024-12-23 09:28 | XMS_ITS | Patient Health Record ---
Author Organization [facility] Address [address] [place] [address] Care Team Providers Care Educational Specialist Name Role Phone Po Dayana SCHWARTZ Primary [...] Active metFORMIN HCl Active Loratadine 10 MG Oral; Duration: 30 Active Colyte with Flavor Packs 240 GM As directed Orally Over the specified time.; Duration: 1 day(s) Active PriLOSEC Active Fluticasone Propionate 50 MCG/ACT Nasal; Duration: 60 Active Losartan Potassium 100 MG Oral; Duration: 90 Active Social History Alcohol Screen Question [...] Problem Status W/U Status Risk Notes Problem Colon cancer screening (813527151) Colon cancer screening (Z12.11) Active confirmed Problem Gastroesophageal reflux disease without esophagitis (886286224) Gastroesophageal reflux disease without esophagitis (K21.9) Active confirmed Problem Family History of Cancer of Colon (Situation) (685612878) Family history of colon cancer (Z80.0) Active confirmed Plan Of Treatment Future Test Test Name Order Date COLONOSCOPY 07/13/2016 Insurance Providers Payer Name Payer Address Payer Phone Subscriber Number Group Number Insured Name Patient Relationship to Insured Coverage Start Date Coverage End Date [facility] [address] [place], [place] [id number] JENNIE MC Self - patient is the insured Medical (General) History Medical History History ICD Code hypertension elevated cholesterol obstructive sleep apnea elevated blood sugar prediabetic Surgical History Surgery Date(Month/Year) appendectomy tonsillectomy left knee arthroscopy right knee arthroscopy
--- OUTSIDE RECORDS SUMMARY | 2024-12-23 09:28 | XMS_ITS | Clinical Summary ---
Author Organization [employer] Address [address] [facility] [address] [place] [address] Care Team Providers Care Cloth Grader Supervisor Name Role Phone Unavailable Primary Care Provider [...] Relevant to Health Maintenance Insurance DENTAL - [facility] D[facility]AL - [facility] [place]
--- OUTSIDE RECORDS SUMMARY | 2024-12-23 09:29 | XMS_ITS | Clinical Summary ---
Author Organization [facility] Address [address] [place] [address] Care Team Providers Care Evaporator Operator Molasses Name Role Phone Unavailable Primary Care Provider [...] Aorta Imaging 01/10/2017 COVID-19 Vaccine (1 - 2024-2 6 season) 2024 Influenza (#1) 2024 RSV (1 [...]
== END 2024-12-23 10:12 | disposition home or self-care (01) ==
LOC: HO.HUSH 08:51
PROVIDERS: PCP Internal Medicine; Visit Provider Urology
DX: N43.3 Hydrocele, unspecified (principal)
CPT/HCPCS: 49185; 55000

== ENCOUNTER → 2024-12-23 08:51 | Outpatient (BNVA) | payer MEDICARE, BC, SELFPAY | PROVIDERS: PCP Internal Medicine; Visit Provider Urology | DX: N43.3 Hydrocele, unspecified (principal) | CPT/HCPCS: 49185; 55000; J1271; J2003 ==

== ENCOUNTER 2024-12-30 09:14 | Outpatient (AMB) | payer MEDICARE, BC, SELFPAY ==
--- OUTSIDE RECORDS SUMMARY | 2023-09-06 06:30 | XMS_ITS ---
[facility] Address [address] [place] [id number] Care Team Providers Care Horse Show Judge Name Role Phone Dayana Mccurdy Primary Care Provider Shanelle Camp [phone] Encounters Encounter Location Date Provider Diagnosis [address] [phone] 09/06/2023 Shanelle Garcia Plan Of Treatment Next Appt Details Provider Name:Shanelle Garcia , 02/02/2025 09:15:00 AM, [address] [place] [address], [phone], Progress Notes * Nancy LAZOoDOB:[birth year] (74 yo M)Acc No.[id number]:09/06/2023 Progress Note Patient: Ivis Noman ALCARAZ Provider: Danelle Garcia DPM :1950 A ge:73 Y S ex:Male Date:09/06/2023 Address: [place] Pcp:Dayana Mccurdy Subjective: * Chief Complaints: * * Medical History: Objective: * Vitals: Assessment: Plan: * Treatment: * Images: * The named appointment provid er may or may not be the originator of this progress note, and it is not deemed complete until electronically signed by the appointment provider. Sign off status: Pending * Provider: Danelle Garcia, DPSamantha Date: 0 09/06/2023 Generated for Jesusita coronado/Safia/Mimi on: 03/01/2024 10:00 AM EST
--- OUTSIDE RECORDS SUMMARY | 2023-11-26 04:30 | XMS_ITS ---
[facility] Address [address] [place] [phone] Care Team Providers Care Inspector And Tester Name Role Phone Dayana Mccurdy Primary Care Provider Shanelle Camp [phone] Encounters Encounter Location Date Provider Diagnosis [address] [phone] 11/26/2023 Shanelle Garcia Plan Of Treatment Next Appt Details Provider Name:Shanelle Garcia , 02/02/2025 09:15:00 AM, [address] [place] [address], [phone], Progress Notes * Nancy LAZOoDOB:[birth year] (74 yo M)Acc No.[id number]:11/26/2023 Progress Note Patient: Ivis REGALADONoman DOMINIQUE Provider: Danelle Garcia DPM :1950 A ge:73 Y S ex:Male Date:11/26/2023 Address:[address] [id number] Pcp:Dayana Mccurdy Subjective: * Chief Complaints: * [...] Date: 1 Generated for Jesusita coronado/Safia/Mimi on: 03/01/2024 10:00 AM EST
--- OUTSIDE RECORDS SUMMARY | 2024-06-12 06:30 | XMS_ITS ---
Author Organization [facility] Address [address] [place] [phone] Care Team Providers Care Forestry Contractor Name Role Phone Dayana Mccurdy Primary Care Provider Shanelle Camp [phone] Encounters Encounter Location Date Provider Diagnosis [address] [address] 06/12/2024 Shanelle Garcia Plan Of Treatment Next Appt Details Provider Name:Shanelle Garcia , 02/02/2025 09:15:00 AM, [address] [place] [address], [phone], Progress Notes * Nancy LAZOoDOB:[birth year] (74 yo M)Acc No.[id number]:06/12/2024 Progress Note Patient: Ivis REGALADONoman DOMINIQUE Provider: Danelle Garcia DPM :1950 A ge:74 Y S ex:Male Date:06/12/2024 Address: [place] Pcp:Dayana Mccurdy Subjective: * Chief Complaints: * * Medical History: Objective: * Vitals: Assessment: Plan: * Treatment: * Images: * The named appointment provid er may or may not be the originator of this progress note, and it is not deemed complete until electronically signed by the appointment provider. Sign off status: Pending * Provider: Danelle Garcia, BALBIR Date: 0 06/12/2024 Generated for Jesusita coronado/Safia/Mimi on: 03/01/2024 10:00 AM EST
--- OUTSIDE RECORDS SUMMARY | 2024-07-31 09:30 | XMS_ITS ---
Author Organization [facility] Address [address] [place] [address] Care Team Providers Care Commercial Producer Name Role Phone Dayana Mccurdy Primary Care Provider Shanelle Camp [phone] Encounters Encounter Location Date Provider Diagnosis [address] [address] 07/31/2024 Shanelle Garcia Plan Of Treatment Next Appt Details Provider Name:Shanelle Garcia , 02/02/2025 09:15:00 AM, [address] [place] [address], [phone], Progress Notes * Nancy LAZOoDOB:[birth year] (74 yo M)Acc No.[id number]:07/31/2024 Progress Note Patient: Ivis REGALADONoman DOMINIQUE Provider: Danelle Garcia DPM :1950 A ge:74 Y S ex:Male Date:07/31/2024 Address: [place] Pcp:Dayana Mccurdy Subjective: * Chief Complaints: * [...] 0 07/31/2024 Generated for Jesusita coronado/Safia/Mimi on: 1 03/01/2024 09:59 AM EST
--- NOTE | 2024-12-30 09:17 | A.OFFVIS_ITS ---
Vital Signs 12/30/24 09:36 Height 5 ft 9 in Weight 198 lb BMI 29.2 BP 134/78 Blood Pressure Location Rt brachial Position Sitting Pulse 64 Pulse Source Pulse Oximeter Pulse Oximetry (%) 97 Oxygen Delivery Method Room Air Intake Visit Reasons: 6 MO GERD, CIC, back dysuria Intake Note: Est pt for mgmt of GERD + CIC. CC: Pt denies any new GI concerns or sx at this time. Excelsior Machine Operator Required: No Accompanied by: Self / Same As Patient Allergies No Known Allergies (No Known Allergies*) Allergy (Verified 12/23/24 09:02) Medication List - Last Reconciled 12/30/24 by JAMA Lopez albuterol sulfate 90 mcg/actuation 2 inhalations inhalation Q6H atorvastatin 20 mg PO DAILY 90 days [AUTO PAP 6-16 mm H20 humidified AIR As directed] blood sugar diagnostic (FrogApps N Test Strips) As directed blood sugar diagnostic (FreeStyle Lite Strips) USE TO CHECK BLOOD SUGAR FOUR TIMES DAILY blood-glucose meter (FreeStyle Lite Meter kit) As directed tests 4 X/day carbamide peroxide 6.5% (Debrox) 5 drps otic (ears) DAILY 4 days cetirizine (Allergy Relief (cetirizine)) 10 mg PO DAILY cinnamon bark 1,000 mg PO DAILY fluticasone propionate 50 mcg/actuation (Flonase Allergy Relief) 2 sprays intranasal DAILY PRN 90 days gabapentin 300 mg PO BID ibuprofen 800 mg PO BID lancets (FreeStyle Lancets) As directed tests 4X/day levothyroxine (Synthroid) 75 mcg PO DAILY 90 days losartan 100 mg PO DAILY metformin 500 mg PO BID 90 days lqrsvrucuqok-sjvzhqqn-ohsfue (Multivitamin 50 Plus tablet) 1 tab PO DAILY omega-3 acid ethyl esters PO DAILY omeprazole 20 mg PO DAILY oxymetazoline 0.05% (Afrin (oxymetazoline)) 2 sprays intranasal Q12H PRN propranolol 10 mg PO BID tadalafil 20 mg PO DAILY PRN trolamine salicylate 10% (Aspercreme) 1 appl topical BEDTIME PRN HPI HPI 6 MO GERD, CIC, back dysuria: Details: Assessment & Plan (1) Chronic idiopathic constipation: Code(s): K59.04 - Chronic idiopathic constipation Category: Medical (2) GERD (gastroesophageal reflux disease): Code(s): K21.9 - Gastro-esophageal reflux disease without esophagitis Category: Medical Qualifiers: Esophagitis presence: without esophagitis Qualified Code(s): K21.9 - Gastro-esophageal reflux disease without esophagitis (3) Increased urinary frequency: Code(s): R35.0 - Frequency of micturition Category: Medical (4) Back pain: Code(s): M54.9 - Dorsalgia, unspecified Category: Medical Plan He continues to do well on him omeprazole. He also continues to control his constipation with dietary interventions. he still has the senna if he needs it as at times he still strains. He is also c/o urinary frequency and pain in the right flank. I will get a UA to see if infectious process, and XR's TS and LS. He has had L4-5-S1 surgery in the past. Increased left paraspinous tone, no SI tenderness. However there is quite an element of stiffness and when he wakes up in the morning he has the stooped gait of someone with a musculoskeletal/back mediated dysfunction. He has an upcoming appointment with Urology so if my exams are negative he may want to investigate prostate isn't origin, he also has an upcoming appoint with his primary care provider Dr. Mccurdy. Ordering some studies will help him get a handle on this quicker. He recently was treated with ampicillin for a chronic sinusitis along with Flonase and this has improved. He currently has not infection on his right index finger for which he is on doxycycline. ROV 6 mos. Orders: Orders UA CC w/rflx Micro + Cult Today R35.0 - Frequency of micturition XR thoracic spine 2V Today M54.9 - Dorsalgia, unspecified XR lumbar spine 2-3V Today M54.9 - Dorsalgia, unspecified Medications: Refilled omeprazole 20 mg PO DAILY 90 caps 0RF lubiprostone (Amitiza) 8 mcg PO BID 60 caps 6RF K59.04 - Chronic idiopathic constipation Resumed sennosides-docusate sodium 8.6-50 mg (Senna Plus) 1 tab-cap PO BID 90 days PRN 180 caps 3RF constipation K59.00 - Constipation, unspecified LABS; 07/02/24-1007 [facility] DR: Dayana Mccurdy MD ORDERED: Ua Clean Catch QUERIES: Source: Urine, Clean Catch Test Result Flag Reference Ur Color Dark Yellow Ur Appear Clear PH 5.5 5.0-9.0 Ur Glu 500 H Negative mg/dL Urine Blood Negative Negative Spec [place] Ur 1.025 1.005-1.025 Urine Protein Negative Neg-Trace mg/dL Urine Ketones Trace Negative mg/dL Ur Nitrite Negative Negative Ur Leann Esterase Negative Negative XR THORACIC AND LUMBAR SPINE 07/02/2024 Findings: Grade 1 anterolisthesis of L5 on S1. Posterior fusion hardware at L4-S1. No acute fractures or dislocation. Multilevel disc space narrowing and endplate osteophyte formation, as well as facet hypertrophy. Findings: Normal vertebral body alignment. No acute fractures or dislocation. Multilevel disc space narrowing and endplate osteophyte formation, as well as facet hypertrophy. IMPRESSION: No acute findings. TODAYS VISIT [facility] Medical History Back pain Abrasion, left lower leg, initial encounter Ankle weakness Left ankle pain Left ankle sprain Family history of colon cancer Osteoarthritis Vertebral fracture Essential tremor Constipation Type 2 diabetes mellitus with hyperglycemia Diabetic neuropathy Tubular adenoma of colon Nicotine dependence, cigarettes, uncomplicated Positive PPD Obstructive sleep apnea Foot pain, left Overweight (BMI 25.0-29.9) Obesity (BMI 30-39.9) Thyroid nodule Pulmonary nodule GERD (gastroesophageal reflux disease) Erectile dysfunction Hypothyroid Hypertension Hypercholesterolemia Surgical History History of back surgery History of colonoscopy History of arthroscopy of right knee History of appendectomy History of tonsillectomy Family History Father Medical history unknown Mother Diabetes Past heart attack Brother Prostate cancer Social History Housing: House Alcohol intake: current Alcohol intake frequency: 3 or more drinks per day Alcohol type: beer Comment: QD 2 drinksstopped 12/2023 but last night ( 03/2024) 4 beers, ,3 beers a day Patient Tobacco Use Status: Former Tobacco user Tobacco use type: Cigarette Cigarette Packs Per Day: 1 Cigarettes Per Day: 15 Years Smoked: (onset 17yo, 3/4ppd x 56yrs, 40pyh) (06/2024 1/2 pack a day) e-Cigarette/Vaping Use: Never Used Second Hand Smoke Exposure: Yes service: No Current occupational status: disabled Cognitive needs: No Hearing needs: No Vision needs: Yes Review of Systems Const Denies fatigue, Denies fever(s), Denies night sweats, Denies poor appetite and Denies weight loss Eyes Details: glasses Reports requires corrective lenses ENT Reports Normal hearing present, Denies dental pain, Denies dysphagia, Denies hearing loss, Denies mouth pain, Denies odynophagia, Denies throat swelling, Denies tongue swelling and Reports other (Dentition adequate) Card Reports no additional complaints Resp Reports no additional complaints GI Details: Denies abdominal pain, Denies melena, Denies bloating, Denies hematochezia, Reports constipation, Denies GI cramping, Denies dysphagia, Denies excessive flatus, Denies early satiety, Reports heartburn, Denies diarrhea, Denies nausea, Denies odynophagia, Denies vomiting and Denies hematemesis Musc Reports abnormal gait, Reports back pain, Reports myalgias and Reports arthralgias Skin/Breast Denies pruritus, Denies lesions, Denies rash and Denies jaundice Neuro Reports Normal hearing present, Denies Abnormal speech present and Reports abnormal gait Endo Denies fatigue Aller/Immun Denies throat swelling and Denies tongue swelling Physical Exam Vital Signs: Last Vital Signs Pulse 64 12/30/24 09:36 BP 134/78 12/30/24 09:36 Pulse Ox 97 12/30/24 09:36 Oxygen Delivery Method Room Air 12/30/24 09:36 BMI result Body Mass Index 29.2 Const General: cooperative, no acute distress, well developed and well groomed Nutritional Appearance: well nourished and obese Orientation/consciousness: oriented to person, oriented to place and oriented to time Limitations: No language barrier and ambulation with cane HEENT Head: Yes normocephalic and Yes atraumatic Eyes General: appearance normal, both eyes and all related structures Pupils: Equal, round and reactive pupils present Neck Neck: Yes normal visual inspection and Yes no lymphadenopathy Thyroid: Thyroid normal Resp Effort & Inspection: normal respiratory effort and able to speak in complete sentences Auscultation: clear to auscultation bilaterally Cardio Rate: regular rate Rhythm: regular rhythm Heart sounds: Normal, physiologic split S2 sound present Peripheral pulses: radial pulses present and posterior tibial pulses present GI Inspection: No distended, No Abdominal panniculus present and Yes obesity Palpation (GI): Soft to palpation, nontender, no guarding, not rigid and No hepatosplenomegaly present Percussion: Yes normal to percussion Auscultation: normal bowel sounds Rectal Exam - Male: Yes deferred Skin General skin exam: no rashes or lesions noted, turgor normal, skin not dry, no jaundice, No spider nevi and no striae Rashes: no rashes Nails: normal Neuro General: oriented to person, oriented to place and oriented to time Cranial nerves: Yes Equal, round and reactive pupils present and Yes Normal hearing present Speech: No Abnormal speech present Extrem General: Yes normal to inspection, No clubbing, No cyanosis and No edema Psych Appearance: grossly normal and well kempt Mental Status: mental status grossly normal Speech and movement: Normal speech and movement present Affect: normal affect Attitude: cooperative Thought process: Normal thought process present and not confabulating Thought content: Normal thought content present Insight: Good insight present (Psych) Judgement: Good judgement present (Psych) Results Reviewed Results Reviewed: 07/02/24-1007 [facility] DR: Dayana Mccurdy MD ORDERED: Ua Clean Catch QUERIES: Source: Urine, Clean Catch Test Result Flag Reference Ur Color Dark Yellow Ur Appear Clear PH 5.5 5.0-9.0 Ur Glu 500 H Negative mg/dL Urine Blood Negative Negative Spec [place] Ur 1.025 1.005-1.025 Urine Protein Negative Neg-Trace mg/dL Urine Ketones Trace Negative mg/dL Ur Nitrite Negative Negative Ur Leann Esterase Negative Negative XR THORACIC AND LUMBAR SPINE 07/02/2024 Findings: Grade 1 anterolisthesis of L5 on S1. Posterior fusion hardware at L4-S1. No acute fractures or dislocation. Multilevel disc space narrowing and endplate osteophyte formation, as well as facet hypertrophy. Findings: Normal vertebral body alignment. No acute fractures or dislocation. Multilevel disc space narrowing and endplate osteophyte formation, as well as facet hypertrophy. IMPRESSION: No acute findings. Assessment & Plan Assessment & Plan (1) GERD (gastroesophageal reflux disease): Code(s): K21.9 - Gastro-esophageal reflux disease without esophagitis Category: Medical Qualifiers: Esophagitis presence: without esophagitis Qualified Code(s): K21.9 - Gastro-esophageal reflux disease without esophagitis (2) Chronic idiopathic constipation: Code(s): K59.04 - Chronic idiopathic constipation Category: Medical (3) Thoracic back pain: Code(s): M54.6 - Pain in thoracic spine Category: Medical (4) Spondylolisthesis, lumbar region: Comment: May spondylolisthesis unstable grade to L5-S1 degenerative retrolisthesis: posterior decompression and instrumented fusion L4 to sacrum Dr. Corey Code(s): M43.16 - Spondylolisthesis, lumbar region Category: Medical Plan Today he is complaining that his constipation med is too expensive. I believe he is referring to the Amitiza which I thought we understood we discontinued at the last visit. I have restarted him on senna Colace combination pill but it appears that either he did not understand this or was not covered by insurance. I let him know that if it is not covered he can get it fairly inexpensively through [facility] with 600 pills causing only 13 dollars. He feels that he can do this and asked me to write down medication for him. He continues to do well on his omeprazole. Return office visit in 6 months Medications: New sennosides (Senna Laxative) 17.2 mg (2 x 8.6 mg) PO BEDTIME 60 tabs 6RF sennosides (Senna Laxative) 17.2 mg (2 x 8.6 mg) PO BEDTIME 60 tabs 6RF Refilled omeprazole 20 mg PO DAILY 90 caps 0RF Coding Level of Care Code Est Pt Level 3 (91991) Diagnoses Gastroesophageal reflux disease without esophagitis K21.9 Esophagitis presence: without esophagitis Chronic idiopathic constipation K59.04 Thoracic back pain M54.6 Spondylolisthesis, lumbar region M43.16
[2024-12-30 09:36] VITALS: BP 134/78; PULSE 64; O2SAT 97; BMI 29.2
--- OUTSIDE RECORDS SUMMARY | 2024-12-30 10:00 | XMS_ITS | Patient Health Record ---
Author Organization [facility] Address [address] [place] [address] Care Team Providers Care Quenching Machine Operator Name Role Phone Po Dayana SCHWARTZ Primary Care Provider German Verma Jr Unavailable [phone] Rebecca Kaiser Unavailable Unavailable Reason For Referral [...] Status Risk Notes Problem Colon cancer screening (564923811) Colon cancer screening (Z12.11) Active confirmed Problem Gastroesophageal reflux disease without esophagitis (756130974) Gastroesophageal reflux disease without esophagitis (K21.9) Active confirmed Problem Family History of Cancer of Colon (Situation) (656249470) Family history of colon cancer (Z80.0) Active confirmed Plan Of Treatment Future Test Test Name Order Date COLONOSCOPY 07/13/2016 Insurance Providers Payer Name Payer Address Payer Phone Subscriber Number Group Number Insured Name Patient Relationship to Insured Coverage Start Date Coverage End Date [facility] [address] [place], [place] [id number] [phone] [id number] JENNIE MC Self - patient is the insured Medical (General) History Medical History History ICD Code hypertension elevated cholesterol obstructive sleep apnea elevated blood sugar prediabetic Surgical History Surgery Date(Month/Year) appendectomy tonsillectomy left knee arthroscopy right knee arthroscopy
--- OUTSIDE RECORDS SUMMARY | 2024-12-30 10:00 | XMS_ITS | Patient Health Record ---
[facility] Address [address] [place] [address] Care Team Providers Care Mass Spectrometry Specialist Name Role Phone Dayana Mccurdy Primary Care Provider Unavailabl e Black, Shanelle Unavailable [phone] Allergies No Known Allergies Results Component Value [...] Once a day; Duration: 30 day(s) Active [place]-3 Fatty Acids 1000 MG 1 capsule Orally [...] a day; Duration: 30 day(s) Not-Taking Ipratropium Ryan 0.03 % 2 sprays in each nostril [...] Problem Acquired hammer toe of right foot (1745478960123251 ) Other hammer toe(s) (acquired), right foot (M20.41) Active confirmed Problem Acquired hammer toe of left foot (6033091695614878 ) Other hammer toe(s) (acquired), left foot (M20.42) Active confirmed Problem Polyneuropathy due to type 2 diabetes mellitus (640239995) Type 2 diabetes mellitus with diabetic polyneuropathy (E11.42) Active confirmed Problem Smoker (38696458) Smoker (F17.200) Active confi rmed Vital Signs Blood pressure diastolic 76 mm Hg 11/06/2024 Height 5ft 9in in 11/06/2024 Blood pressure systolic 114 mm Hg 11/06/2024 Weight 198 lbs 11/06/2024 BMI 29.24 kg/m2 11/06/2024 Procedures Procedure Date Ordered Date Performed Result Body Sit e 25386-ELEBFGL NAIL, 1-5 07/24/2024 N/A 42682-SKCG SKIN LESIONS, 2 TO 4 07/24/2024 N/A M1429-PDYQXDDI DYSTROPHIC NAILS ANY # 07/24/2024 N/A 07280-JXSOAJF NAIL, 1-5 11/06/2024 N/A 62390-HZGF SKIN LESIONS, 2 TO 4 11/06/2024 N/A X0585-JWCQRERB DYSTROPHIC NAILS ANY # 11/06/2024 N/A Encounters Encounter Location Date Provider Diagnosis [facility] [address] 07/24/2024 Shanelle Black Tinea unguium B35.1 ; Type 2 diabetes mellitus with diabetic polyneuropathy E11.42 and Smoker F17.[address] [facility] [address] 11/06/2024 Shanelle Black Tinea unguium B35.1 ; Type 2 diabetes mellitus with diabetic polyneuropathy E11.42 ; Smoker F17.200 ; Other hammer toe(s) (acquired), right foot M20.41 and Other hammer toe(s) (acquired), left foot M20.42 [facility] [address] [place] [address] 06/12/2024 Shanelle Garcia Assessments Encounter Date Diagnosis [...] X ray : Foot, left 3V 03/02/2022 15671-ASSNMPN NAIL, -11/14/2021 01130-CIOGMTH NAIL, -03/02/2022 64030-TIBLPVJ NAIL, -09/25/2022 55960-HCMYTXX NAIL, -05/10/2023 43580-CCFNGCM NAIL, -12/13/2023 28111-SYEUYTZ NAIL, -07/24/2024 75252-TECNJQJ NAIL, -11/06/2024 75627- Debride <25 sq cm 09/25/2022 51030-GPJS SKIN LESIONS, 2 TO 4 09/26/19 23 65649-AEUB SKIN LESIONS, 2 TO 4 03/02/19 23 10335-IASP SKIN LESIONS, 2 TO 4 12/13/19 40430-DZHA SKIN LESIONS, 2 TO 4 05/10/19 24 66601-XFDT SKIN LESIONS, 2 TO 4 11/15/19 39870-WMUU SKIN LESIONS, 2 TO 4 11/07/19 61967-XOPV SKIN LESIONS, 2 TO 4 07/25/19 P4756-CHBCAOIP DYSTROPHIC NAILS ANY # X1823-YEUCSKDH DYSTROPHIC NAILS ANY # F8003-NMSTAJMQ DYSTROPHIC NAILS ANY # N8723-HIJGENWI DYSTROPHIC NAILS ANY # Next Appt Details Provider Name:Shanelle Garcia , 02/02/2025 09:15:00 AM, [address] [facility], [place], [address], Insurance Providers Payer Name Payer Address Payer Phone Subscriber Number Group Number Insured Name Patient Relationship to Insured Coverage Start Date Coverage End Date [employer] [address] [place] [phone] [id number] Noman Pope ra Self - patient is the insured [facility] [address] [place] [address] [id number] Noman Pope ra Self - patient is [...] back surgery 06/01/22 Hospitalization History Reason Date(Month/Year) [facility]-sprained ankle 09/18/2024
--- OUTSIDE RECORDS SUMMARY | 2024-12-30 10:00 | XMS_ITS | Clinical Summary ---
Author Organization [employer] Address [address] [address] [place] [address] Care Team Providers Care Manager Visual Name Role Phone Unavailable Primary Care Provider [...] Relevant to Health Maintenance Insurance DENTAL - [facility] D[facility] DENTAL - [facility]
--- OUTSIDE RECORDS SUMMARY | 2024-12-30 10:01 | XMS_ITS | Clinical Summary ---
Author Organization [facility] Address [address] [place] [address] Care Team Providers Care Shellfish Weigher Name Role Phone Unavailable Primary Care Provider [...]
== END 2024-12-30 10:09 | disposition home or self-care (01) ==
LOC: HO.HGI 09:14
PROVIDERS: PCP Internal Medicine; Visit Provider Nurse Practitioner
DX: K21.9 Gastro-esophageal reflux disease without esophagitis (principal); K59.04 Chronic idiopathic constipation; M54.6 Pain in thoracic spine; M43.16 Spondylolisthesis, lumbar region
CPT/HCPCS: 99213

== ENCOUNTER → 2024-12-30 09:14 | Outpatient (BNVA) | payer MEDICARE, BC, SELFPAY | PROVIDERS: PCP Internal Medicine; Visit Provider Nurse Practitioner | DX: K21.9 Gastro-esophageal reflux disease without esophagitis (principal); K59.04 Chronic idiopathic constipation; M54.6 Pain in thoracic spine; M43.16 Spondylolisthesis, lumbar region | CPT/HCPCS: 99212 ==

== ENCOUNTER 2025-01-05 07:55 | Emergency (ER) | payer MEDICARE, BC, SELFPAY ==
--- NOTE | ~2025-01-05 | US_ITS ---
EXAMINATION: US SCROTUM CLINICAL INFORMATION: Scrotal pain, significant left swelling. COMPARISON: None available. TECHNIQUE: A sonogram of the scrotum was performed assessing miller-scale appearance and color Doppler flow. Spectral Doppler analysis of the arterial and venous flow were performed in the testes bilaterally. FINDINGS: RIGHT: Right testicle measures 5.0 x 3.0 x 2.7 cm, volume 21.2 mL. No focal testicular parenchymal lesions are visualized. Spectral Doppler analysis of the arterial and venous flow is normal in the right testis. Right epididymal head is normal in size. No right hydrocele or varicocele is seen. Right epididymal Doppler flow is normal. LEFT: Left testicle measures 5.0 x 1.4 x 3.2 cm, volume 12.4 mL. No focal testicular parenchymal lesions are visualized. Spectral Doppler analysis of the arterial and venous flow is normal in the left testis. The left epididymis is largely obscured and not well seen secondary to a large complex fluid collection superior to the left testicle measuring approximately 7.2 x 6.0 x 6.7 cm. There are internal thin lacy echoes, mild floating and dependent specular debris, and minimal mural nodularity seen. This carries a large differential diagnosis. US/US scrotum IMPRESSION: 1. Normal testicles bilaterally. No intrinsic testicular lesion identified. 2. The right epididymis is normal. 3. Superior to the left testicle, there is a large complex fluid collection measuring 7.2 x 6.0 x 6.7 cm as described above. This may lie within the epididymis although this is not certain. Differential includes large complex epididymal cyst, spermatocele, abscess, resolving hematoma, or less likely a benign or possibly malignant cystic neoplasm of the epididymis. Malignant neoplasm is felt to be less likely given the appearance but not entirely excluded. Urological evaluation suggested. Electronically signed by: Ralf Cheema MD 01/05/2025 10:50 AM EST
[2025-01-05 08:01] VITALS: BP 115/66; PULSE 70; RESP 18; TEMP 36.1; O2SAT 100; BMI 29.2
--- NOTE | 2025-01-05 08:11 | ED_ITS ---
HPI - Male Genitourinary General Chief complaint: Urogenital-Male Stated complaint: Cyst on intestines Time Seen by Provider: 01/05/25 08:11 Source: patient Mode of arrival: ambulatory Limitations: no limitations History of Present Illness ED Provider: Maria Guadalupe Siddiqui PA-C HPI Narrative: Patient is a 74 year old assigned male at with a history of HTN, DM, LUIS, PVD, hydrocele recently drained by Dr. Smart on 12/23/2024, and back pain for which he uses a cane at baseline presenting to the emergency department today with scrotal pain and swelling. Patient states that over the last week his left testicle has gotten significantly more swollen and painful. Patient denies any other complaints at this time. Related Data Home Medications ?Medication ?Instructions ?Recorded ?Confirmed cinnamon bark 500 mg capsule 1,000 mg PO DAILY 3 12/30/24 omega-3 acid ethyl esters 1 gram PO DAILY 05/15/2301/13 capsule oxymetazoline 0.05 % nasal mist 2 spray intranasal Q12 H PRN 03/25/24 12/30/24 (Afrin (oxymetazoline)) trolamine salicylate 10 % topical 1 appl topical BEDTI ME PRN 03/25/24 12/30/24 cream (Aspercreme) tadalafil 20 mg tablet 20 mg PO DAILY PRN 12/30/24 12/30/24 Previous Rx's ?Medication ?Instructions ?Recorded AUTO PAP 6-16 mm H20 humidified AIR #1 ea 05/24/20 blood sugar diagnostic (CareSens N #50 ea 05/24/21 Test Strips) blood-glucose meter (FreeStyle #1 ea 06/02/21 Lite Meter kit) lancets 28 gauge (FreeStyle #100 ea 06/02/21 Lancets) blood sugar diagnostic (FreeStyle #100 strips 08/09/21 Lite Strips) irvatrclvrcf-esovxxte-gjvvoh 1 tab PO DAILY #90 tabs 0 04/12/23 tablet (Multivitamin 50 Plus tablet) fluticasone propionate 50 2 spray intranasal DAILY PRN Nasal 03/04/24 mcg/actuation nasal Congestion 90 days #3 ea spray,suspension (Flonase Allergy Relief) propranolol 10 mg tablet 10 mg PO BID #180 tabs 07/08 carbamide peroxide 6.5 % ear drops 5 drp otic (ears) D AILY 4 days #15 09/19/24 (Debrox) mL cetirizine 10 mg tablet (Allergy 10 mg PO DAILY #90 ta bs 10/10/24 Relief (cetirizine)) atorvastatin 20 mg tablet 20 mg PO DAILY 90 days #90 t abs 11/13/24 gabapentin 300 mg capsule 300 mg PO BID #180 caps 10/21 07/13 ibuprofen 800 mg tablet 800 mg PO BID #270 tabs 10/21 07/13 levothyroxine 75 mcg tablet 75 mcg PO DAILY 90 days #9 0 tabs 11/13/24 (Synthroid) losartan 100 mg tablet 100 mg PO DAILY #90 tabs metformin 500 mg tablet 500 mg PO BID 90 days #180 t abs 11/13/24 albuterol sulfate 90 mcg/actuation 2 inh inhalation Q6 H #6.7 grams 12/11/24 aerosol inhaler omeprazole 20 mg capsule,delayed 20 mg PO DAILY #90 ca ps 12/30/24 release sennosides 8.6 mg tablet (Senna 17.2 mg (2 x 8.6 mg) P O BEDTIME 12/30/24 Laxative) #60 tabs cephalexin 500 mg capsule 500 mg PO Q6H 7 days #28 cap s 01/05/25 doxycycline hyclate 100 mg tablet 100 mg PO BID 7 days #14 tabs 01/05/25 Allergies Allergy/AdvReac Type Severity Reaction Status Date / Time No Known Allergies (No Known Allergy Verified 01/05/25 08:03 Allergies*) Review of Systems 2 Constitutional: Constitutional: Reports as per HPI Eyes: Eyes: Reports as per HPI ENT: Reports as per HPI Cardiovascular: Cardiovascular: Reports as per HPI Respiratory: Respiratory: Reports as per HPI Gastrointestinal: Gastrointestinal: Reports as per HPI Genitourinary: Genitourinary: Reports as per HPI Musculoskeletal: Musculoskeletal: Reports as per HPI Integumentary/Breasts: Skin/Breast: Reports as per HPI Neurologic: Reports as per HPI Psychiatric: Psychiatric: Reports as per HPI Endocrine: Endocrine: Reports as per HPI Hematologic/Lymphatic: Hematologic/Lymphatic: Reports as per HPI Allergic/Immunologic: Allergic/Immunologic: Reports as per HPI [facility] Past Medical History Attestation statement: The following information was validated with the patient. Source: old records reviewed and nursing notes reviewed Medical History Back pain Abrasion, left lower leg, initial encounter Ankle weakness Left ankle pain Left ankle sprain Family history of colon cancer Osteoarthritis Vertebral fracture Essential tremor Constipation Type 2 diabetes mellitus with hyperglycemia Diabetic neuropathy Tubular adenoma of colon Nicotine dependence, cigarettes, uncomplicated Positive PPD Obstructive sleep apnea Foot pain, left Overweight (BMI 25.0-29.9) Obesity (BMI 30-39.9) Thyroid nodule Pulmonary nodule GERD (gastroesophageal reflux disease) Erectile dysfunction Hypothyroid Hypertension Hypercholesterolemia Surgical History History of back surgery History of colonoscopy History of arthroscopy of right knee History of appendectomy History of tonsillectomy Family History Family History Father Medical history unknown Mother Diabetes Past heart attack Brother Prostate cancer Social History Social History Housing: House Alcohol intake: current Alcohol intake frequency: 0-2 drinks per day Alcohol type: beer Comment: QD 2 drinksstopped 12/2023 but last night ( 03/2024) 4 beers, ,3 beers a day Patient Tobacco Use Status: Former Tobacco user Tobacco use type: Cigarette Cigarette Packs Per Day: 1 Cigarettes Per Day: 15 Years Smoked: (onset 17yo, 3/4ppd x 56yrs, 40pyh) (06/2024 1/2 pack a day) e-Cigarette/Vaping Use: Never Used Second Hand Smoke Exposure: Yes service: No Current occupational status: disabled Cognitive needs: No Hearing needs: No Vision needs: Yes Physical Exam 2 Vital Signs: Vital Signs: Last Vital Signs Temp 98.1 F 01/05/25 11:37 Pulse 60 01/05/25 11:37 Resp 18 01/05/25 11:37 BP 168/86 H 01/05/25 11:37 Pulse Ox 96 01/05/25 11:37 O2 Del Method Room Air 01/05/25 11:37 BMI result Body Mass Index 29.2 Const: General: cooperative, no acute distress, alert and awake Nutritional Appearance: well nourished Orientation/consciousness: patient oriented x3 HEENT: Head: Yes normal to inspection and Yes atraumatic Ears: hearing grossly normal bilaterally and external ears normal General nose exam: Normal external nose present, no nasal discharge noted and no epistaxis Face and sinus: Yes normal facial exam, No abrasion and No laceration Mouth: Normal oral and palatal mucosa present, no drooling and no muffled voice Eyes: General: appearance normal, both eyes and all related structures P eriorbital: periorbital findings normal Eyelids: Yes eyelids normal C onjunctivae: conjunctivae normal Pupils: Equal, round and reactive pupils present EOM: EOMs intact bilaterally Neck: Neck: Yes normal visual inspection and Yes full ROM Resp: Effort & Inspection: normal respiratory effort and able to speak in complete sentences : Other: Scrotal examination performed with Jason Lindsay as clinical support manager. Significant scrotal swelling - no erythema, small skin papule at the most superior aspect of the left testicle Penis: uncircumcised Neuro: General: patient oriented x3, moves all extremities and CN's II-XI intact bilaterally Cranial nerves: Yes Equal, round and reactive pupils present Cognition (Neuro): normal cognition Extrem: General: Yes normal to inspection, Yes full ROM and Yes capillary refill normal Psych: Appearance: grossly normal Mental Status: mental status grossly normal Affect: normal affect Attitude: cooperative Thought process: N ormal thought process present Thought content: Normal thought content present Insight: Good insight present (Psych) Medical Decision Making Medical Decision Making MDM Narrative: Patient is a 74 year old assigned male at with a history of HTN, DM, LUIS, PVD, hydrocele recently drained by Dr. Smart on 12/23/2024, and back pain for which he uses a cane at baseline presenting to the emergency department today with scrotal pain and swelling. Patient's physical exam was as noted in the physical exam portion of this note. Patient's blood work was unremarkable. Patient's urine showed no acute process. Patient's scrotal US showed: Superior to the left testicle, there is a large complex fluid collection measuring 7.2 x 6.0 x 6.7 cm as described above. This may lie within the epididymis although this is not certain. Differential includes large complex epididymal cyst, spermatocele, abscess, resolving hematoma, or less likely a benign or possibly malignant cystic neoplasm of the epididymis. Malignant neoplasm is felt to be less likely given the appearance but not entirely excluded. Urological evaluation suggested. I spoke to the Urologist mrp controller, Dr. Wylie who recommended starting the patient on oral antibiotics and having him follow up in their office. She stated the patient will be contacted by one of the [facility] nurses for follow up scheduling. Given the patient's history of DM, will start on Cephalexin + Doxycycline. I explained my physical exam findings as well as all test results to the patient. I answered all questions asked by the patient. I stressed the importance of the patient taking his medication as directed (either prescribed or as the over the counter packaging recommends). I stressed the importance of the patient following up with his primary care provider and the [facility] urology team. I stressed the importance of the patient returning to the emergency department immediately if his symptoms were to worsen or if he were to develop any dizziness, shortness of breath, difficulty breathing, chest pain, blurry vision, loss of vision, nausea, vomiting, abdominal pain, fever, chills, back pain, or any other complaints. Patient verbalized agreement and understanding with this treatment plan and discharge. Differential Diagnosis Differential Diagnoses: The differential diagnosis associated with the presentation includes Testicular swelling Testicular pain Testicular abscess UTI Admission/Observation Consideration of admission/observation: Escalation of care including admission/observation considered Patient would have been admitted to the hospital had his work up had any findings where hospital admission was appropriate and his clinical presentation warranted hospital admission. Consult Healthcare Provider Management of the patient was discussed with: Cost Estimating Engineer (spoke with the Urologist mrp controller as noted in the MDM Rationale portion of this note. ) Lab Data [facility] Lab Attestation statement: I reviewed the patient's lab results. My interpretation of these results are in the MDM Rationale portion of this note. 01/05/25 08:28 01/05/25 08:28 Labs: Lab Results 01/05/25 01/05/25 Range/Units 08:28 10:27 WBC 9.2 (4.8-10.8) X10*3/uL RBC 4.18 L (4.60-5.80) X10*6/uL Hgb 12.5 L (14.0-18.0) g/dl Hct 37.2 L (42.0-52.0) % MCV 89.0 (80.0-98.0) fL MCH 29.9 (27.0-33.0) pg MCHC 33.6 (31.0-36.0) g/dl RDW 13.0 (11.0-16.0) % Plt Count 203 (160-400) X10*3/uL MPV 9.0 L (9.4-12.4) fL Immature Gran % (Auto) 0.2 (0.0-0.4) % Neut % (Auto) 65.8 (45-73) % Lymph % (Auto) 18.6 L (20-40) % [place] % (Auto) 11.9 H (2-11) % Eos % (Auto) 3.2 (0-4) % Baso % (Auto) 0.3 (0-2) % Lymph # (Auto) 1.7 (1.2-4.9) X10*3/uL [place] # (Auto) 1.1 (0.1-1.2) X10*3/uL Eos # (Auto) 0.3 (0.0-0.4) X10*3/uL Baso # (Auto) 0.0 (0.0-0.2) X10*3/uL Abs Immat Gran (auto) 0.02 (0.00-0.03) X10*3/uL Absolute Neuts (auto) 6.1 (2.0-8.3) x10*3/uL Absolute Nucleated RBC 0.000 (0.0-0.012) X10*3/uL Nucleated RBC % (auto) 0.0 (0.0-0.2) /100WBC ESR 11 (0-15) MM/HR Sodium 140 (135-145) mmol/L Potassium 4.2 (3.3-5.1) mmol/L Chloride 111 H (96-108) mmol/L Carbon Dioxide 21 L (22-29) mmol/L Anion Gap 12 (12-20) BUN 14 (9-16) mg/dL Creatinine 0.81 (0.5-1.4) mg/dL Estim Creat Clear Calc 91.3 Estimated GFR > 60 Random Glucose 148 H (60-115) mg/dL Calcium 9.2 (8.4-10.2) mg/dL Total Bilirubin 0.6 (0.0-1.0) mg/dL AST 25 (5-37) U/L ALT 17 (0-40) U/L Alkaline Phosphatase 63 (39-117) U/L C-Reactive Protein 0.66 H (< or = 0.50) mg/dL Total Protein 6.7 (6.5-8.0) g/dL Albumin 4.1 (3.5-5.0) g/dL Urine Color Yellow Urine Appearance Clear Urine pH 5.5 (5.0-9.0) Ur Specific [place] 1.020 (1.005-1.025) Urine Protein Negative (Neg-Trace) mg/dL Urine Glucose (UA) Negative (Negative) mg/dL Urine Ketones Negative (Negative) mg/dL Urine Blood Negative (Negative) Urine Nitrite Negative (Negative) Ur Leukocyte Esterase Negative (Negative) Independent Interpretation I performed an independent interpretation of an: Ultrasound Interpretation: My interpretation is in agreement with the radiologist's impression of this imaging study. L EXAMINATION: US SCROTUM CLINICAL INFORMATION: Scrotal pain, significant left swelling. COMPARISON: None available. TECHNIQUE: A sonogram of the scrotum was performed assessing miller-scale appearance and color Doppler flow. Spectral Doppler analysis of the arterial and venous flow were performed in the testes bilaterally. FINDINGS: RIGHT: Right testicle measures 5.0 x 3.0 x 2.7 cm, volume 21.2 mL. No focal testicular parenchymal lesions are visualized. Spectral Doppler analysis of the arterial and venous flow is normal in the right testis. Right epididymal head is normal in size. No right hydrocele or varicocele is seen. Right epididymal Doppler flow is normal. LEFT: Left testicle measures 5.0 x 1.4 x 3.2 cm, volume 12.4 mL. No focal testicular parenchymal lesions are visualized. Spectral Doppler analysis of the arterial and venous flow is normal in the left testis. The left epididymis is largely obscured and not well seen secondary to a large complex fluid collection superior to the left testicle measuring approximately 7.2 x 6.0 x 6.7 cm. There are internal thin lacy echoes, mild floating and dependent specular debris, and minimal mural nodularity seen. This carries a large differential diagnosis. US/US scrotum IMPRESSION: 1. Normal testicles bilaterally. No intrinsic testicular lesion identified. 2. The right epididymis is normal. 3. Superior to the left testicle, there is a large complex fluid collection measuring 7.2 x 6.0 x 6.7 cm as described above. This may lie within the epididymis although this is not certain. Differential includes large complex epididymal cyst, spermatocele, abscess, resolving hematoma, or less likely a benign or possibly malignant cystic neoplasm of the epididymis. Malignant neoplasm is felt to be less likely given the appearance but not entirely excluded. Urological evaluation suggested. Electronically signed by: Ralf Cheema MD 01/05/2025 10:50 AM EST Dictated By: Ralf Cheema MD Signed By: Electronically signed by Ralf Cheema MD 01/05/25 1057 Radiology Impression Discussion of test interpretation with radiology: I have reviewed the radiologist's reading. Prescription Management I considered prescription management with: Antibiotic (patient prescribed antibiotics as noted in the MDM Rationale portion of this note. ) Chronic Conditions Patient?s care impacted by: Diabetes Critical Care Time Critical Care Time Critical Care Time: Yes Total Critical Care Time: 32 Attestation: I spent 32 minutes of Critical Care Time with this patient. This does not include time spent on separately reported billable procedures. Discharge Plan Discharge Clinical Impression: Scrotal swelling, Scrotal abscess Patient Disposition: Home, Self-Care Instructions: Testicle Pain (ED), Scrotal Pain (ED) Additional Instructions: The [facility] Urology team will be in touch to schedule you an appointment for your scrotal swelling. Take your antibiotics as prescribed. IF you are prescribed home medications and/or you are taking over the counter medications at home - it is very important you continue to do so as prescribed / directed unless told otherwise. Follow up with your primary care provider. Return to the emergency department immediately if your symptoms worsen or if you develop any numbness, tingling, dizziness, shortness of breath, difficulty breathing, chest pain, blurry vision, loss of vision, nausea, vomiting, abdominal pain, fever, chills, back pain, or any other complaints. Please see the information below about our Patient Portal. If you are not yet enrolled in the [facility] Patient Portal, you will receive an enrollment email invitation following your visit to any [facility] care setting. You may also self-enroll in the Patient Portal by visiting our website: [email or web address] The following information is required to access the Patient Portal: - Your [facility] Medical Record Number - Your personal home email address (must match what is in your electronic medical record, Registration staff can assist with this) - Name - Date of Capabilities of the Patient Portal: - Message some providers - View upcoming appointments - Access your health summary, medical history, and visit history - View current conditions and allergies - View procedure and lab results - View your medications, including guidelines, side effects, and precautions - Complete pre-appointment questionnaires requested by your provider - Ready summary reports of your office visits and procedures To access the Patient Portal Mobile Emili, follow these directions: - Search [employer] in the Emili Store or [employer] Store - Download the Emili - Search for [facility] - Enter your login/password Prescriptions: New cephalexin 500 mg capsule 500 mg PO Q6H 7 Days Qty: 28 0RF doxycycline hyclate 100 mg tablet 100 mg PO BID 7 Days Qty: 14 0RF No Action (DME) CareSens N Test Strips Strip See Rx Instructions .Route Qty: 50 6RF Rx Instructions: As directed (DME) blood-glucose meter [FreeStyle Lite Meter] Kit See Rx Instructions .Route Qty: 1 0RF Rx Instructions: As directed tests 4 X/day (DME) lancets [FreeStyle Lancets] 28 gauge misc See Rx Instructions .Route Qty: 100 5RF Rx Instructions: As directed tests 4X/day (DME) FreeStyle Lite Strips Strip See Rx Instructions .ROUTE .COMPLEX Qty: 100 0RF Dose Instruction: USE TO CHECK BLOOD SUGAR FOUR TIMES DAILY Rx Instructions: USE TO CHECK BLOOD SUGAR FOUR TIMES DAILY Multivitamin 50 Plus Tablet 1 tab PO DAILY Qty: 90 3RF fluticasone propionate [Flonase Allergy Relief] 50 mcg/actuation spray,suspension 2 spray intranasal DAILY PRN (Reason: Nasal Congestion) 90 Days Qty: 3 3RF Rx Instructions: administer into each nostril albuterol sulfate 90 mcg/actuation HFA aerosol inhaler 2 inh inhalation Q6H Qty: 6.7 0RF cinnamon bark 500 mg capsule 1,000 mg PO DAILY (DME) AUTO PAP 6-16 mm H20 humidified AIR See Rx Instructions .Route .MEDSUPPLY Qty: 1 0RF Rx Instructions: As directed omega-3 acid ethyl esters 1 gram capsule PO DAILY ibuprofen 800 mg tablet 800 mg PO BID Qty: 270 0RF gabapentin 300 mg capsule 300 mg PO BID Qty: 180 3RF metformin 500 mg tablet 500 mg PO BID 90 Days Qty: 180 3RF atorvastatin 20 mg tablet 20 mg PO DAILY 90 Days Qty: 90 2RF levothyroxine [Synthroid] 75 mcg tablet 75 mcg PO DAILY 90 Days Qty: 90 2RF losartan 100 mg tablet 100 mg PO DAILY Qty: 90 2RF cetirizine [Allergy Relief (cetirizine)] 10 mg tablet 10 mg PO DAILY Qty: 90 1RF propranolol 10 mg tablet 10 mg PO BID Qty: 180 2RF Afrin (oxymetazoline) 0.05 % mist 2 spray intranasal Q12H PRN trolamine salicylate [Aspercreme] 10 % cream 1 appl topical BEDTIME PRN tadalafil 20 mg tablet 20 mg PO DAILY PRN sennosides [Senna Laxative] 8.6 mg tablet 17.2 mg PO BEDTIME Qty: 60 6RF omeprazole 20 mg capsule,delayed release(DR/EC) 20 mg PO DAILY Qty: 90 0RF Debrox 6.5 % drops 5 drp otic (ears) DAILY 4 Days Qty: 15 0RF Referrals: [facility] Urology Services [Provider Group, Urology] Referral Note: The [facility] Urology group will be in touch to schedule a follow up appointment. Dayana Mccurdy MD [Primary Care Provider, Internal Medicine] Interventions: ED Discharge Assessment Last Done: 01/05/25 11:37 Discharge Date/Time: 01/05/25 11:39 Print Language: Spanish
[2025-01-05 08:33] LABS: MANUAL DIFF FLAG NO
[2025-01-05 08:36] LABS: Hematocrit 37.2 % (42.0-52.0); Hemoglobin 12.5 g/dl (14.0-18.0); Imm Gran Abs Auto 0.02 X10*3/uL (0.00-0.03); Imm Gran Pct Auto 0.2 % (0.0-0.4); Lymphocytes Absolute Auto 1.7 X10*3/uL (1.2-4.9); Mean Corpuscular HGB Conc 33.6 g/dl (31.0-36.0); Mean Corpuscular Hemoglobin 29.9 pg (27.0-33.0); Mean Corpuscular Volume 89.0 fL (80.0-98.0); NRBC Abs Auto 0.000 X10*3/uL (0.0-0.012); NRBC Pct Auto 0.0 /100WBC (0.0-0.2); Platelet Count 203 X10*3/uL (160-400); Red Blood Count 4.18 X10*6/uL (4.60-5.80); White Blood Count 9.2 X10*3/uL (4.8-10.8)
[2025-01-05 08:48] LABS: Alanine Aminotransferase 17 U/L (0-40); Albumin Level 4.1 g/dL (3.5-5.0); Alkaline Phosphatase 63 U/L (39-117); Anion Gap 12 (12-20); Aspartate Amino Transferase 25 U/L (5-37); Blood Urea Nitrogen 14 mg/dL (9-16); Calcium 9.2 mg/dL (8.4-10.2); Carbon Dioxide 21 mmol/L (22-29); Chloride 111 mmol/L (96-108); Creatinine Clr Calc Pharmacy 91.3; Estimated Glomerular Filt Rate > 60; Potassium 4.2 mmol/L (3.3-5.1); Sodium 140 mmol/L (135-145); Total Protein 6.7 g/dL (6.5-8.0)
[2025-01-05 09:15] LABS: Erythrocyte Sedimentation Rate 11 MM/HR (0-15)
[2025-01-05 10:34] LABS: Appearance Urine Clear; Glucose Urine UA Negative (Negative); PH 5.5 (5.0-9.0); Specific Gravity - Urine 1.020 (1.005-1.025)
[2025-01-05 10:47] VITALS: BP 165/78; PULSE 52; TEMP 36.7; O2SAT 96
[2025-01-05 11:37] VITALS: BP 168/86; PULSE 60; RESP 18; TEMP 36.7; O2SAT 96
== END 2025-01-05 11:39 | disposition home or self-care (01) ==
PROVIDERS: Physician Assistant Medical; Emergency Provider Emergency Medicine; PCP Internal Medicine
DX: N50.82 Scrotal pain (principal); N49.2 Inflammatory disorders of scrotum; Z79.899 Other long term (current) drug therapy; Z87.891 Personal history of nicotine dependence
CPT/HCPCS: 36415; 76870; 80053; 81003; 85025; 85652; 86140; 99284

== ENCOUNTER → 2025-01-05 08:16 | Outpatient (BNV) | payer MEDICARE, BC, SELFPAY | PROVIDERS: PCP Internal Medicine; Visit Provider Radiology Diagnostic Radiology | DX: N50.89 Other specified disorders of the male genital organs (principal) | CPT/HCPCS: 76870 ==

== ENCOUNTER 2025-01-06 11:54 | Outpatient (REF) | payer MEDICARE, BC, SELFPAY ==
--- NOTE | ~2025-01-06 | US_ITS ---
CLINICAL HISTORY: R22.31 - right elbow mass Ultrasound soft tissues right elbow Comparison: None provided Findings: Heterogeneous 4.0 x 4.3 and 3.8 x 1.3 cm solid lesions. These are contiguous and could represent a single lesion. Differential includes soft tissue masses such as sarcoma. Hematoma is also in the differential. Please correlate with history and physical exam. Tissue sampling may be needed for diagnosis. Impression: Indeterminate solid lesion or lesions at right elbow Question mass versus hematoma or other etiologies Tissue sampling may be required This document has been electronically signed by: Kota Bowers MD on 01/06/2025 19:34:38
== END 2025-01-06 11:55 | disposition home or self-care (01) ==
LOC: HO.HMGCX 11:54
PROVIDERS: PCP Internal Medicine; Visit Provider Internal Medicine
DX: M54.6 Pain in thoracic spine (principal); R22.31 Localized swelling, mass and lump, right upper limb; N49.2 Inflammatory disorders of scrotum
CPT/HCPCS: 76882; 99212

== ENCOUNTER → 2025-01-06 11:57 | Outpatient (BNV) | payer MEDICARE, BC, SELFPAY | PROVIDERS: PCP Internal Medicine; Visit Provider Radiology Diagnostic Radiology | DX: R22.31 Localized swelling, mass and lump, right upper limb (principal) | CPT/HCPCS: 76882 ==

== ENCOUNTER 2025-01-06 12:13 | Outpatient (AMB) | payer MEDICARE, BC, SELFPAY ==
[2025-01-06 12:15] VITALS: BP 118/80; PULSE 65; TEMP 36.9; O2SAT 97; BMI 30.1
--- NOTE | 2025-01-06 12:15 | AM.OFFWIN_ITS ---
Intake Vital Signs 01/06/25 12:15 Height 5 ft 9 in Weight 204 lb BMI 30.1 BP 118/80 Blood Pressure Location Lt brachial Position Sitting Pulse 65 Pulse Source Pulse Oximeter Temp 98.4 F Temp Source Oral Pulse Oximetry (%) 97 Oxygen Delivery Method Room Air Intake Visit Reasons: EP Back pain right side Intake Note: pt presents with right mid back pain beginning last evening without injury and denies any urinary tract issues. pt reports pshx spine sx S1, L4-L5 06/01/2022. pt reports [facility] visit for testicular pain yesterday- was rx'd with Cephelexin and Doxycycline, ultrasound performed. Patient Tobacco Use Status: Former Tobacco user Allergies No Known Allergies (No Known Allergies*) Allergy (Verified 01/06/25 12:21) Do you need a note to return to daycare/school/sports/work: No HPI HPI Comments History of Present Illness Details History - The patient is a 74-year-old male pres enting with a scrotal abscess and right sided mid back pain. - The scrotal abscess was identified fol lowing blood work and an ultrasound conducted the previous day at the [facility]. - The patient was prescribed Keflex and Doy for the infection. Has Urology follow up tomorrow. - Right sided mid back pain began 3 days ago with sharp pain in the right mid- back, exacerbated since last night. - The pain is intermittent, with tempora ry relief from pain medication, but persists without any known injury. Using aspercream and salonpas patches. - current kidney function appears kevyn l. + Review of Systems - Genitourinary: Reports scrotal abscess . - Musculoskeletal: Reports intermittent sharp pain in the right mid-back since Sunday. - Renal: Denies history of kidney stones . All systems reviewed and are unremarkable except as noted in HPI Physical Exam General: cooperative, healthy appearing and comfortable, patient oriented x3 Head: Yes normal to inspection and Yes normocephalic General nose exam: Normal external nose present Face and sinus: Yes normal facial exam Effort & Inspection: normal respiratory effort and able to speak in complete sentences Back/spine: no CVA tenderness bilaterally cervical, thoracic and lumbar spine normal to inspection cervical ROM normal, thoracic ROM normal, lumbar ROM normal no Cervical, thoracic or lumbar spine tenderness TTP on right thoracic back Extremities: moving extremities normally Neuro: A&O x3, gait normal PFSH Medical History Back pain Abrasion, left lower leg, initial encounter Ankle weakness Left ankle pain Left ankle sprain Family history of colon cancer Osteoarthritis Vertebral fracture Essential tremor Constipation Type 2 diabetes mellitus with hyperglycemia Diabetic neuropathy Tubular adenoma of colon Nicotine dependence, cigarettes, uncomplicated Positive PPD Obstructive sleep apnea Foot pain, left Overweight (BMI 25.0-29.9) Obesity (BMI 30-39.9) Thyroid nodule Pulmonary nodule GERD (gastroesophageal reflux disease) Erectile dysfunction Hypothyroid Hypertension Hypercholesterolemia Surgical History History of back surgery History of colonoscopy History of arthroscopy of right knee History of appendectomy History of tonsillectomy Family History Father Medical history unknown Mother Diabetes Past heart attack Brother Prostate cancer Social History Housing: House Alcohol intake: current Alcohol intake frequency: 0-2 drinks per day Alcohol type: beer Comment: QD 2 drinksstopped 12/2023 but last night ( 03/2024) 4 beers, ,3 beers a day Patient Tobacco Use Status: Former Tobacco user Tobacco use type: Cigarette Cigarette Packs Per Day: 1 Cigarettes Per Day: 15 Years Smoked: (onset 17yo, 3/4ppd x 56yrs, 40pyh) (06/2024 1/2 pack a day) e-Cigarette/Vaping Use: Never Used Second Hand Smoke Exposure: Yes service: No Current occupational status: disabled Cognitive needs: No Hearing needs: No Vision needs: Yes Physical Exam Vital Signs: Last Vital Signs Temp 98.4 F 01/06/25 12:15 Pulse 65 01/06/25 12:15 BP 118/80 01/06/25 12:15 Pulse Ox 97 01/06/25 12:15 Oxygen Delivery Method Room Air 01/06/25 12:15 BMI result Body Mass Index 30.1 Assessment & Plan Assessment & Plan (1) Acute right-sided thoracic back pain: Code(s): M54.6 - Pain in thoracic spine Plan: Plan - No hematuria in urine yesterday at ED, negative CVA tenderness and pain is reproducible so unlikely renal stones/colic and more likely musculoskeletal. - Initiate meloxicam for musculoskeletal pain management, avoiding concurrent use of ibuprofen to prevent renal strain. - Prescribe cyclobenzaprine as a muscle relaxant to aid in alleviating back pain. - Continue Keflex for the scrotal abscess as prescribed, monitoring for resolution of infection. - Advise follow-up with primary care physician if symptoms persist or worsen. Patient was informed and verbally consented to the use of an ambient scribe for clinic note documentation during this visit. Medications: New meloxicam 15 mg PO DAILY PRN 15 tabs 0RF pain, moderate cyclobenzaprine 10 mg (2 x 5 mg) PO Q8H PRN 20 tabs 0RF Muscle Spasm Discontinued ibuprofen Discontinued Reason: Patient Completed Course 800 mg PO BID 270 tabs 0RF Coding Level of Care Code Est Pt Level 3 (41800) Diagnoses Acute right-sided thoracic back pain M54.6
--- OUTSIDE RECORDS SUMMARY | 2025-01-07 03:03 | XMS_ITS | Clinical Summary ---
Author Organization [facility] Address [address] [place] [address] Care Team Providers Care Calculator Operator Name Role Phone Unavailable Primary Care [...]
== END 2025-01-06 12:55 | disposition home or self-care (01) ==
PROVIDERS: PCP Internal Medicine; Visit Provider Physician Assistant
DX: M54.6 Pain in thoracic spine (principal)

== ENCOUNTER 2025-01-08 08:46 | Outpatient (AMB) | payer MEDICARE, BC, SELFPAY ==
[2025-01-08 09:05] VITALS: BMI 30.1
--- NOTE | 2025-01-08 09:05 | MHC.OFFVIS ---
Vital Signs 01/08/25 09:05 Height 5 ft 9 in Weight 204 lb BMI 30.1 Intake Visit Reasons: or left plantar fasciitis & achilles tendinitis Intake Note: Noman is a 74 year old male who presents today for a follow up on his plantar fasciitis and Achilles tendonitis. At his last visit he was referred to PT and he was provided with metatarsal pads . Cast padding was applied to his left foot and ankle and he was advised to continue rice treatment and wear supportive shoe gear. Patient reports he has been attending PT and performing his stretching exercises routinely. He states he is no longer using the lace up ankle brace and is using boots instead. Allergies No Known Allergies (No Known Allergies*) Allergy (Verified 01/08/25 09:06) HPI Comments Details: The patient is a 74-year-old individual presenting for follow-up of a left ankle sprain. The patient started physical therapy on the 26 of December and attends sessions twice a week. The patient reports improvement in ankle strength and a reduction in swelling, with no pain during movement in various directions. The patient has been using a regular shoe/boot to stabilize the ankle, which he states has been beneficial in maintaining stability. The patient states he no longer uses the lace up ankle brace. The patient has not experienced any cramping or significant pain, and there has been no need for surgical intervention. He denies any other pedal concerns. Denies any new pedal injuries. [facility] Medical History Back pain Abrasion, left lower leg, initial encounter Ankle weakness Left ankle pain Left ankle sprain Family history of colon cancer Osteoarthritis Vertebral fracture Essential tremor Constipation Type 2 diabetes mellitus with hyperglycemia Diabetic neuropathy Tubular adenoma of colon Nicotine dependence, cigarettes, uncomplicated Positive PPD Obstructive sleep apnea Foot pain, left Overweight (BMI 25.0-29.9) Obesity (BMI 30-39.9) Thyroid nodule Pulmonary nodule GERD (gastroesophageal reflux disease) Erectile dysfunction Hypothyroid Hypertension Hypercholesterolemia Surgical History History of back surgery History of colonoscopy History of arthroscopy of right knee History of appendectomy History of tonsillectomy Family History Father Medical history unknown Mother Diabetes Past heart attack Brother Prostate cancer Social History Housing: House Alcohol intake: current Alcohol intake frequency: 0-2 drinks per day Alcohol type: beer Comment: QD 2 drinksstopped 12/2023 but last night ( 03/2024) 4 beers, ,3 beers a day Patient Tobacco Use Status: Former Tobacco user Tobacco use type: Cigarette Cigarette Packs Per Day: 1 Cigarettes Per Day: 15 Years Smoked: (onset 17yo, 3/4ppd x 56yrs, 40pyh) (06/2024 1/2 pack a day) e-Cigarette/Vaping Use: Never Used Second Hand Smoke Exposure: Yes service: No Current occupational status: disabled Cognitive needs: No Hearing needs: No Vision needs: Yes Review of Systems Const Details: - Musculoskeletal: Reports improvement in left ankle strength and reduction in swelling. Denies pain during movement, cramping, or popping sounds. All systems reviewed & are unremarkable except as noted in HPI and below Physical Exam Vital Signs: BMI result Body Mass Index 30.1 Extrem Other: Left lower extremity focused physical exam: Derm: No edema noted to the lateral aspect of the ankle. Healed abrasions noted to the leg diffusely. Skin turgor intact and within normal limits. No clinical signs of infection. Toenails X 10 noted to be slightly thickened, length within normal limits, and with mild subungual debris. No clinical signs of infection. Vascular: DP/PT pulses mildly palpable. Capillary refill time less than 3 seconds. No varicosities noted. Pedal hair absent. Neurological: Protective sensation is grossly diminished. Musculoskeletal: No pain on palpation to the submet 1 area. Range of motion of the ankle improved from last visit. No pain on palpation to the lateral aspect of the ankle along the area of the calcaneal fibular ligament. No weakness noted to the left ankle in comparison to the right. MMT 5/5. No crepitus noted. Results Reviewed Results Reviewed: Podiatry read of left ankle x-rays (09/18/2024): joint space narrowing noted to the left ankle with some osteophytic formation. No acute fractures or dislocations noted. Left ankle x-rays (09/18/2024): FINDINGS: Soft tissue contusion/edema pattern, bimalleolar. 2 mm well-corticated calcification inferior to the medial malleolus. No acute cortical disruption or gross malalignment. No subcutaneous emphysema. No lytic or blastic lesions. IMPRESSION: Soft tissue contusion/edema pattern, bimalleolar. 2 mm calcification in the inferior medial malleolus likely old trauma. No acute fracture or dislocation. Internal derangement cannot be excluded. Assessment & Plan Assessment & Plan (1) Type 2 diabetes mellitus with hyperglycemia: Code(s): E11.65 - Type 2 diabetes mellitus with hyperglycemia Category: Medical Qualifiers: Diabetes mellitus fci insulin use: without joint terminal attack controller use Qualified Code(s): E11.65 - Type 2 diabetes mellitus with hyperglycemia (2) Diabetic neuropathy: Code(s): E11.40 - Type 2 diabetes mellitus with diabetic neuropathy, unspecified Category: Medical Qualifiers: Diabetes mellitus type: type 2 Diabetes mellitus complication detail: diabetic polyneuropathy Qualified Code(s): E11.42 - Type 2 diabetes mellitus with diabetic polyneuropathy (3) Peripheral vascular disease: Code(s): I73.9 - Peripheral vascular disease, unspecified Category: Medical (4) Left ankle sprain: Code(s): S93.402A - Sprain of unspecified ligament of left ankle, initial encounter Category: Medical Qualifiers: Encounter type: initial encounter Involved ligament of ankle: unspecified ligament Qualified Code(s): S93.402A - Sprain of unspecified ligament of left ankle, initial encounter (5) Left ankle pain: Code(s): M25.572 - Pain in left ankle and joints of left foot Category: Medical Qualifiers: Chronicity: unspecified Qualified Code(s): M25.572 - Pain in left ankle and joints of left foot (6) Ankle weakness: Code(s): R29.898 - Other symptoms and signs involving the musculoskeletal system Category: Medical (7) Abrasion, left lower leg, initial encounter: Code(s): S80.812A - Abrasion, left lower leg, initial encounter Category: Medical Plan Patient was informed and verbally consented to the use of an ambient scribe for clinic note documentation during this visit. I discussed with the patient the progress of his left ankle rehabilitation, noting the improvement in strength, pain, and reduction in swelling. We agreed to continue physical therapy and to use supportive the lace up ankle brace as needed. I advised the patient to contact us if he experience prolonged swelling or pain. - Continue physical therapy sessions. - Use a the lace up ankle brace or HANSA bandage prn for swelling and stability. - Adhere to RICE protocol PRN. - Use metatarsal pads PRN for pain. - Wear supportive shoe gear and avoid barefoot walking. RTC prn. Coding Level of Care Code Est Pt Level 3 (78199) Diagnoses Type 2 diabetes mellitus with hyperglycemia, without long-term current use of insulin E11.65 Diabetes mellitus joint terminal attack controller insulin use: without fci use Diabetic polyneuropathy associated with type 2 diabetes mellitus E11.42 Diabetes mellitus type: type 2 Diabetes mellitus complication detail: diabetic polyneuropathy Peripheral vascular disease I73.9 Sprain of left ankle, unspecified ligament, initial encounter S93.402A Encounter type: initial encounter Involved ligament of ankle: unspecified ligament Left ankle pain, unspecified chronicity M25.572 Chronicity: unspecified Ankle weakness R29.898 Abrasion, left lower leg, initial encounter S80.812A Time Spent (min) 21
== END 2025-01-08 09:13 | disposition home or self-care (01) ==
LOC: HO.HPODS 08:46
PROVIDERS: PCP Internal Medicine; Visit Provider Student in an Organized Health Care Education/Training Program
DX: E11.65 Type 2 diabetes mellitus with hyperglycemia (principal); E11.42 Type 2 diabetes mellitus with diabetic polyneuropathy; I73.9 Peripheral vascular disease, unspecified; S93.402A Sprain of unspecified ligament of left ankle, initial encounter; M25.572 Pain in left ankle and joints of left foot; R29.898 Other symptoms and signs involving the musculoskeletal system; S80.812A Abrasion, left lower leg, initial encounter
CPT/HCPCS: 99213

== ENCOUNTER → 2025-01-08 08:46 | Outpatient (BNVA) | payer MEDICARE, BC, SELFPAY | PROVIDERS: PCP Internal Medicine; Visit Provider Student in an Organized Health Care Education/Training Program | DX: E11.65 Type 2 diabetes mellitus with hyperglycemia (principal); E11.42 Type 2 diabetes mellitus with diabetic polyneuropathy; I73.9 Peripheral vascular disease, unspecified; S93.402A Sprain of unspecified ligament of left ankle, initial encounter; R29.898 Other symptoms and signs involving the musculoskeletal system; S80.812A Abrasion, left lower leg, initial encounter; X58.XXXA Exposure to other specified factors, initial encounter; Y93.9 Activity, unspecified; Y92.9 Unspecified place or not applicable; Y99.9 Unspecified external cause status | CPT/HCPCS: 99212 ==

== ENCOUNTER 2025-01-13 07:49 | Outpatient (AMB) | payer MEDICARE, BC, SELFPAY ==
--- OUTSIDE RECORDS SUMMARY | 2025-01-13 07:54 | XMS_ITS | Clinical Summary ---
Author Organization [facility] Address [address] [place] [address] Care Team Providers Care Inside Trucker Name Role Phone Unavailable Primary Care Provider [...]
--- OUTSIDE RECORDS SUMMARY | 2025-01-13 07:54 | XMS_ITS | Clinical Summary ---
Author Organization [id number] [employer] Address [address] [place] [address] Care Team Providers Care Bulb Sorter Name Role Phone Unavailable Primary Care Provider [...] Screening 09/29/2023 09/28/2022 COVID-19 Vaccine (1 - 2024-2 6 season) 2024 Influenza Vaccine (#1) 2024 Dental [...] to Health Maintenance Insurance DENTAL - [facility] DENTAL DENTAL - [facility]
[2025-01-13 08:09] VITALS: BP 122/74; PULSE 75; TEMP 36.2; O2SAT 97; BMI 30.4
--- NOTE | 2025-01-13 08:09 | MHC.PC.OV ---
Vital Signs 01/13/25 08:09 Height 5 ft 9 in Weight 206 lb BMI 30.4 BP 122/74 Blood Pressure Location Lt brachial Position Sitting Pulse 75 Pulse Source Pulse Oximeter Temp 97.1 F Temp Source Temporal Artery Scan Pulse Oximetry (%) 97 Oxygen Delivery Method Room Air Intake Visit Reasons: trouble sleeping Box Lining Machine Feeder Required: No Accompanied by: Self / Same As Patient Allergies No Known Allergies (No Known Allergies*) Allergy (Verified 01/13/25 08:10) Medication List - Last Reconciled 01/13/25 by Silvia Tai PA-C acetaminophen ER 650 mg PO Q8H albuterol sulfate 90 mcg/actuation 2 inhalations inhalation Q6H atorvastatin 20 mg PO DAILY 90 days [AUTO PAP 6-16 mm H20 humidified AIR As directed] blood sugar diagnostic ([employer] N Test Strips) As directed blood sugar diagnostic (FreeStyle Lite Strips) USE TO CHECK BLOOD SUGAR FOUR TIMES DAILY blood-glucose meter (FreeStyle Lite Meter kit) As directed tests 4 X/day carbamide peroxide 6.5% (Debrox) 5 drps otic (ears) DAILY PRN cephalexin 500 mg PO Q6H 7 days cinnamon bark 1,000 mg PO DAILY cyclobenzaprine 10 mg (2 x 5 mg) PO Q8H PRN doxycycline hyclate 100 mg PO BID 7 days fexofenadine 180 mg PO DAILY fluticasone propionate 50 mcg/actuation (Flonase Allergy Relief) 2 sprays intranasal DAILY PRN 90 days gabapentin 300 mg PO BID lancets (FreeStyle Lancets) As directed tests 4X/day levothyroxine (Synthroid) 75 mcg PO DAILY 90 days lidocaine 5% 1 patch topical DAILY loratadine 10 mg PO DAILY losartan 100 mg PO DAILY meloxicam 15 mg PO DAILY PRN metformin 500 mg PO BID 90 days [id number]-fwsexr (Multivitamin 50 Plus tablet) 1 tab PO DAILY omega-3 acid ethyl esters PO DAILY omeprazole 20 mg PO DAILY propranolol 10 mg PO BID sennosides (Senna Laxative) 17.2 mg (2 x 8.6 mg) PO BEDTIME tadalafil 20 mg PO DAILY PRN terazosin 2 mg PO BEDTIME trolamine salicylate 10% (Aspercreme) 1 appl topical BEDTIME PRN Tobacco use date assessed: 01/13/25 Fall risk assessment: No Falls in past year Last assessed Fall Risk: 01/13/25 Dental Screening Dental Screen Date: 01/13/25 Did you have a dental visit in the last 12 months?: Yes Did you have a dental problem in the last 6 months where you did not have access to dental care?: No HPI trouble sleeping HPI Details 75-year-old male with past medical history of peripheral vascular disease, generalized anxiety disorder, insomnia, erectile dysfunction, GERD, hypothyroid, diabetes mellitus, hypertension, hypercholesterolemia, fatty liver last seen 10/2024 coming in for acute problem. Presenting with insomnia. The patient reports difficulty both falling asleep and staying asleep, characterized by turning in bed with racing thoughts. Although there is a past history of sleep issues, the patient has never taken any medication for it. The patient uses a CPAP machine for sleep apnea. [facility] Medical History Back pain Abrasion, left lower leg, initial encounter Ankle weakness Left ankle pain Left ankle sprain Family history of colon cancer Osteoarthritis Vertebral fracture Essential tremor Constipation Type 2 diabetes mellitus with hyperglycemia Diabetic neuropathy Tubular adenoma of colon Nicotine dependence, cigarettes, uncomplicated Positive PPD Obstructive sleep apnea Foot pain, left Overweight (BMI 25.0-29.9) Obesity (BMI 30-39.9) Thyroid nodule Pulmonary nodule GERD (gastroesophageal reflux disease) Erectile dysfunction Hypothyroid Hypertension Hypercholesterolemia Surgical History History of back surgery History of colonoscopy History of arthroscopy of right knee History of appendectomy History of tonsillectomy Family History Father Medical history unknown Mother Diabetes Past heart attack Brother Prostate cancer Social History Housing: House Alcohol intake: current Alcohol intake frequency: 0-2 drinks per day Alcohol type: beer Comment: QD 2 drinksstopped 12/2023 but last night ( 03/2024) 4 beers, ,3 beers a day Patient Tobacco Use Status: Former Tobacco user Tobacco use type: Cigarette Cigarette Packs Per Day: 1 Cigarettes Per Day: 15 Years Smoked: (onset 17yo, 3/4ppd x 56yrs, 40pyh) (06/2024 1/2 pack a day) e-Cigarette/Vaping Use: Never Used Second Hand Smoke Exposure: Yes service: Yes Current occupational status: disabled Cognitive needs: No Hearing needs: No Vision needs: Yes Questionnaire Thrive Questionnaire Date Thrive assessed: 09/17/24 I am a: Patient What is your living situation today?: I have a steady place to live Within the past 12 months, did the food you bought not last and you didn't have the money to get more?: Never true Within the past 12 months, did you worry whether your food would run out before you got money to buy more?: Never true Do you have trouble paying for medicines?: No Do you have trouble getting transportation to medical appointments?: No Do you have trouble paying your heating and electricity bill?: No Do you have trouble taking care of your child, family member or friend?: No Do you have trouble with day-to-day activities such as bathing, preparing meals, shopping, managing finances, etc.?: No Are you currently unemployed and looking for a job?: No Are you interested in more education?: No Please select the resources that you would like help with: None Currently or been in a relationship where the following occur: No concerns reported THRIVE Score: 0 JI-7 AMB Questionnaire JI-7 Date JI - 7 assessed: 09/19/24 Source: Developed by Drs. Remy Jacobsen, Lucita Morrissey, Jaskaran Mitchell and colleagues, with an educational maurilio from [employer]. Review of Systems Const Denies body aches, Denies chills, Denies fever(s) and Denies poor appetite Eyes Reports no additional complaints ENT Denies dizziness Card Denies chest pain, Denies lightheadedness and Denies dyspnea Resp Denies dyspnea GI Denies abdominal pain, Denies nausea and Denies vomiting Reports no additional complaints Musc Reports no additional complaints and Denies abnormal gait Skin/Breast Reports system reviewed and no additional complaints, except as documented Neuro Denies abnormal gait and Denies dizziness Psych Reports no additional complaints Physical exam (Primary Care) Vital Signs: Last Vital Signs Temp 97.1 F 01/13/25 08:09 Pulse 75 01/13/25 08:09 BP 122/74 11/25/25 08:09 Pulse Ox 97 01/13/25 08:09 Oxygen Delivery Method Room Air 01/13/25 08:09 BMI result Body Mass Index 30.4 Tobacco/Smoking Status: Tobacco use Status Tobacco use date assessed 01/13/25 01/13/25 08:11 Patient Tobacco Use Status Former Tobacco user 01/13/25 08:09 Tobacco use type Cigarette 01/13/25 08:09 e-Cigarette/Vaping Use Never Used 01/13/25 08:09 Thrive Assessment: Date of Thrive Assessment Date Thrive assessed 09/17/24 01/13/25 08:09 Currently or been in a relationship where the following occur: No concerns reported Const General: cooperative, healthy appearing, comfortable and no acute distress Orientation/consciousness: patient oriented x3 HENMT Head: Yes normocephalic Ears: hearing grossly normal bilaterally General nose exam: Normal external nose present Eyes General: appearance normal, both eyes and all related structures Conjunctivae: conjunctivae normal Neck Neck: Yes full ROM and Yes no lymphadenopathy Resp Effort & Inspection: normal respiratory effort Cardio Rate: regular rate Rhythm: regular rhythm Skin General skin exam: no rashes or lesions noted Neuro General: patient oriented x3 Gait exam (Neuro): Normal gait present Extrem General: Yes normal to inspection, Yes full ROM and No edema Psych Affect: normal affect Attitude: cooperative Insight: Good insight present (Psych) Judgement: Good judgement present (Psych) Coding Level of Care Code Est Pt Level 3 (98876) Diagnoses Essential hypertension I10 Hypertension type: essential hypertension Primary insomnia F51.01 Insomnia type: primary Mild obstructive sleep apnea G47.33 Assessment & Plan Assessment & Plan (1) Hypertension: Code(s): I10 - Essential (primary) hypertension Category: Medical Qualifiers: Hypertension type: essential hypertension Qualified Code(s): I10 - Essential (primary) hypertension Plan: Continue on current blood pressure medication. Avoid salt intake and encourage healthy diet and regular exercise. (2) Insomnia: Code(s): G47.00 - Insomnia, unspecified Category: Medical Qualifiers: Insomnia type: primary Qualified Code(s): F51.01 - Primary insomnia Plan: The patient reports difficulty both falling and staying asleep. After discussing options, the patient preferred a prescription medication. A prescription for Trazodone 50 mg was provided, with instructions to start with 25 mg (half a tablet) about 30 minutes before bedtime. The patient was advised to increase the dose to a full 50 mg tablet if the initial dose is ineffective. A three-month supply was sent. The patient was instructed to call if the medication does not help and to follow up with Dr. Mccurdy in February. (3) Mild obstructive sleep apnea: Code(s): G47.33 - Obstructive sleep apnea (adult) (pediatric) Category: Medical Plan: Uses CPAP faithfully at least 4 hours a night and benefits from this therapy. Plan This note was constructed using voice recognition software. While every effort has been made to ensure accuracy and barman, still areas may have been included sometimes these areas may affect the content or meeting of the given symptoms. Total time spent caring for the patient today was 20 minutes. This includes time spent before the visit reviewing the chart, time spent during the visit, and time spent after the visit and documentation. Patient was informed and verbally consented to the use of an ambient scribe for clinic note documentation during this visit. Medications: New trazodone 50 mg PO BEDTIME PRN 90 tabs 0RF sleep fexofenadine 180 mg PO DAILY 90 tabs 0RF
== END 2025-01-13 08:37 | disposition home or self-care (01) ==
LOC: HO.HMCH 07:50
PROVIDERS: PCP Internal Medicine
DX: I10 Essential (primary) hypertension (principal); F51.01 Primary insomnia; G47.33 Obstructive sleep apnea (adult) (pediatric)

== ENCOUNTER → 2025-01-13 07:49 | Outpatient (BNVA) | payer MEDICARE, BC, SELFPAY | PROVIDERS: PCP Internal Medicine | DX: I10 Essential (primary) hypertension (principal); F41.1 Generalized anxiety disorder; E11.51 Type 2 diabetes mellitus with diabetic peripheral angiopathy without gangrene; G47.33 Obstructive sleep apnea (adult) (pediatric); F51.01 Primary insomnia; Z99.89 Dependence on other enabling machines and devices | CPT/HCPCS: 99212 ==

== ENCOUNTER 2025-01-16 08:00 | Outpatient (RCR) | payer MEDICARE, BC, SELFPAY ==
--- NOTE | 2025-02-09 13:32 | MHC.PT.DC ---
[facility] [place] Office [place] Office [place] Office [address] Mónica Mazariegos [address] [phone] F: [phone] F: [phone] F: [phone] F: [phone] Physical Therapy Discharge Report Diagnosis: sprain of unspecified ligament of L ankle other s/s involving musculoskeletal sx pain in L ankle and joint of left foor Date of Surgery: Date of Evaluation: 12/26/24 Date of Discharge: 02/09/25 Treatments to Date: 6 Cancellations to Date: 3 No Shows to Date: 0 Discharge Status: Independent with HEP Discharge Summary: Pt did not attend final visits but at time of last attended visit, he was making progress with improved ankle stability and strength. He was I with HEp and is now d/c from PT Electronically signed by: Talisha Almanzar PT Please sign and return to therapist. Thank you for your referral.
== END 2025-02-09 13:32 | disposition home or self-care (01) ==
LOC: HO.PT 08:00
PROVIDERS: PCP Internal Medicine; Visit Provider Student in an Organized Health Care Education/Training Program
DX: S93.402D Sprain of unspecified ligament of left ankle, subsequent encounter (principal); R29.898 Other symptoms and signs involving the musculoskeletal system; M25.572 Pain in left ankle and joints of left foot; E11.40 Type 2 diabetes mellitus with diabetic neuropathy, unspecified; I73.9 Peripheral vascular disease, unspecified
CPT/HCPCS: 97110; 97112; 97161

== ENCOUNTER 2025-01-20 10:02 | Outpatient (AMB) | payer MEDICARE, BC, SELFPAY ==
--- NOTE | 2025-01-20 10:03 | A.OFFVIS_ITS ---
Intake Visit Reasons: 2 week follow up (SET NO ua) Intake Note: patient presents today for: 2 wk Hydrocele follow up seen [facility] on 01/05/25 for swollen testis urology medications:Terazosin, Tadalafil blood thinners: none Imaging: Scrotum Ultrasound 01/05/25 Vice Admiral Required: No Accompanied by: Self / Same As Patient Allergies No Known Allergies (No Known Allergies*) Allergy (Verified 01/20/25 10:11) HPI Comments Details: Noman a pleasant male. He is a patient of Dr. Mccurdy. Seen for the following urologic conditions - erectile dysfunction associated with diabetes - hypogonadism associated with diabetes - left hydrocele Prior left hydrocele aspiration 4 weeks ago Recurrent left hydrocele with discomfort Ultrasound shows hydrocele Plan left hydrocelectomy Has been on 10 mg daily tadalafil 20 mg on demand Successful testosterone mandaen and benefit Last HbA1c 6.9 on Farxiga and metformin Erectile Dysfunction in setting of diabetes He presents today for - further evaluation of erectile dysfunction associated hypo gonad hypogonadism Symptoms have been present for/since - progressive since 2019 Current treatment includes - none At initial presentation he experiences - are partial and insufficient for vaginal penetration Nocturnal erections do not occur Associated Medical Conditions include hypertension, type 2 diabetes, tobacco use, Atherosclerosis Cardiovascular Disease Risk not completed Medications include(s) statin, benzodiazepine, beta-mansi, Recent labs include 05/10 T 135 low FSH/LH, 03/13 P 1.0, 11/11 T 196 F 31 L 4.8, 05/12 T 320 PSA 1.1, 11/12 T 372 HbA1c down 0.3 Therapeutic plan includes - maximum tolerated on medication daily tadalafil with repeat labs [facility] Medical History Back pain Abrasion, left lower leg, initial encounter Ankle weakness Left ankle pain Left ankle sprain Family history of colon cancer Osteoarthritis Vertebral fracture Essential tremor Constipation Type 2 diabetes mellitus with hyperglycemia Diabetic neuropathy Tubular adenoma of colon Nicotine dependence, cigarettes, uncomplicated Positive PPD Obstructive sleep apnea Foot pain, left Overweight (BMI 25.0-29.9) Obesity (BMI 30-39.9) Thyroid nodule Pulmonary nodule GERD (gastroesophageal reflux disease) Erectile dysfunction Hypothyroid Hypertension Hypercholesterolemia Surgical History History of back surgery History of colonoscopy History of arthroscopy of right knee History of appendectomy History of tonsillectomy Family History Father Medical history unknown Mother Diabetes Past heart attack Brother Prostate cancer Social History Housing: House Alcohol intake: current Alcohol intake frequency: 0-2 drinks per day Alcohol type: beer Comment: QD 2 drinksstopped 12/2023 but last night ( 03/2024) 4 beers, ,3 beers a day Patient Tobacco Use Status: Former Tobacco user Tobacco use type: Cigarette Cigarette Packs Per Day: 1 Cigarettes Per Day: 15 Years Smoked: (onset 17yo, 3/4ppd x 56yrs, 40pyh) (06/2024 1/2 pack a day) e-Cigarette/Vaping Use: Never Used Second Hand Smoke Exposure: Yes service: Yes Current occupational status: disabled Cognitive needs: No Hearing needs: No Vision needs: Yes Review of Systems Const Denies chills and Denies fever(s) Card Reports no additional complaints and Denies syncope Resp Denies cough GI Denies abdominal pain and Denies heartburn Reports as per HPI and Denies change in libido Neuro Denies syncope Psych Denies change in libido Endo Denies change in libido Physical Exam Const General: cooperative, healthy appearing, comfortable and no acute distress Orientation/consciousness: patient oriented x3 HEENT Face and sinus: Yes normal facial exam Mouth: moist mucous membranes Neck Neck: Yes normal visual inspection, Yes full ROM and Yes trachea midline Chest Chest palpation & inspection: normal inspection of the chest Resp Effort & Inspection: normal respiratory effort, able to speak in complete sentences and no respiratory distress GI Inspection: Yes normal to inspection Back/Spine/Pelvis Cervical Spine: normal cervical lordosis Thoracic/Lumbar Spine: thoracic and lumbar spine normal to inspection Skin General skin exam: no rashes or lesions noted Neuro General: patient oriented x3, gait normal, tone normal and moves all extremities Extrem General: Yes normal to inspection and Yes capillary refill normal Assessment & Plan Assessment & Plan (1) Hydrocele in adult: Code(s): N43.3 - Hydrocele, unspecified Category: Medical Plan Risks, benefits and alternatives to therapy were discussed. These include but are not limited to infection, bleeding, damage to local organs and tissues, need for further interventions. Anesthetic risks regarding cardiac arrhythmia, blood clots, and potential mortality were discussed. The patient understands the typical recovery time and the outpatient nature of the procedure. After consideration of these risks the patient gives full informed consent and they wish to move ahead with the procedure. - left hydrocelectomy Patient Instructions: This note is constructed using voice recognition software. While every effort has been made to ensure accuracy college coach errors may have been included. Imaging studies, laboratory and physical exam results were discussed and reviewed in detail. No major barriers to patient understanding were identified. An opportunity to ask questions regarding the treatment plan was provided. All questions were answered. The patient expressed understanding and agreement with the above treatment plan. The patient is aware they should contact our office by phone for worsening of their current condition or the appearance of new urologic symptoms. Compliance is encouraged with any medications and followup testing that is ordered. It is a privilege to participate in the urologic care of your patient. If you have any questions or concerns regarding treatment for the above conditions, or other urologic issues, please do not hesitate to contact me. The office telephone contact is [phone]. Sincerely, Dr Jaydon Smart MD, [facility] - Urology Compassionate Specialist Care for the Genitourinary System Coding Level of Care Code Est Pt Level 4 (04859) Diagnoses Hydrocele in adult N43.3
--- OUTSIDE RECORDS SUMMARY | 2025-01-20 11:21 | XMS_ITS | Clinical Summary ---
Author Organization [facility] Address [address] [place] [address] Care Team Providers Care Restaurant General Manager Name Role Phone Unavailable Primary Care [...]
--- OUTSIDE RECORDS SUMMARY | 2025-01-20 11:21 | XMS_ITS | Clinical Summary ---
Author Organization [employer] Address [address] [place] [address] Care Team Providers Care Processing Associate Name Role Phone Unavailable Primary Care [...] Relevant to Health Maintenance Insurance DENTAL - [facility] D[facility] - [facility]
== END 2025-01-20 10:31 | disposition home or self-care (01) ==
LOC: HO.HUSH 10:03
PROVIDERS: PCP Internal Medicine; Visit Provider Urology
DX: N43.3 Hydrocele, unspecified (principal)
CPT/HCPCS: 99214

== ENCOUNTER → 2025-01-20 10:02 | Outpatient (BNVA) | payer MEDICARE, BC, SELFPAY | PROVIDERS: PCP Internal Medicine; Visit Provider Urology | DX: N43.3 Hydrocele, unspecified (principal) | CPT/HCPCS: 99212 ==

== ENCOUNTER 2025-02-02 09:59 | Outpatient (AMB) | payer MEDICARE, BC, SELFPAY ==
[2025-02-02 10:16] VITALS: BMI 29.2
--- NOTE | 2025-02-02 10:16 | A.OFFVIS_ITS ---
Vital Signs 02/02/25 10:16 Height 5 ft 9 in Weight 198 lb BMI 29.2 Intake Visit Reasons: Localized swelling, mass right upper limb Intake Note: Patient presents for Localized swelling, mass right upper limb. Pt c/o: right elbow mass. 01/06/2025: extremity US 01/05/2025: Scrotum US Inspector Canvas Products Required: No Accompanied by: Self / Same As Patient Allergies No Known Allergies (No Known Allergies*) Allergy (Verified 02/02/25 10:25) Medication List - Last Reconciled 02/02/25 by Mike Latham MD acetaminophen ER 650 mg PO Q8H albuterol sulfate 90 mcg/actuation 2 inhalations inhalation Q6H atorvastatin 20 mg PO DAILY 90 days [AUTO PAP 6-16 mm H20 humidified AIR As directed] blood sugar diagnostic ([employer] N Test Strips) As directed blood sugar diagnostic (FreeStyle Lite Strips) USE TO CHECK BLOOD SUGAR FOUR TIMES DAILY blood-glucose meter (FreeStyle Lite Meter kit) As directed tests 4 X/day carbamide peroxide 6.5% (Debrox) 5 drps otic (ears) DAILY PRN cephalexin 500 mg PO Q6H 7 days cinnamon bark 1,000 mg PO DAILY cyclobenzaprine 10 mg (2 x 5 mg) PO Q8H PRN doxycycline hyclate 100 mg PO BID 7 days fexofenadine 180 mg PO DAILY fluticasone propionate 50 mcg/actuation (Flonase Allergy Relief) 2 sprays intranasal DAILY PRN 90 days gabapentin 300 mg PO BID lancets (FreeStyle Lancets) As directed tests 4X/day levothyroxine (Synthroid) 75 mcg PO DAILY 90 days lidocaine 5% 1 patch topical DAILY losartan 100 mg PO DAILY meloxicam 15 mg PO DAILY PRN metformin 500 mg PO BID 90 days pquxdkncwxdk-nfxisufm-riasds (Multivitamin 50 Plus tablet) 1 tab PO DAILY omega-3 acid ethyl esters PO DAILY omeprazole 20 mg PO DAILY propranolol 10 mg PO BID sennosides (Senna Laxative) 17.2 mg (2 x 8.6 mg) PO BEDTIME tadalafil 20 mg PO DAILY PRN terazosin 2 mg PO BEDTIME trazodone 50 mg PO BEDTIME PRN trolamine salicylate 10% (Aspercreme) 1 appl topical BEDTIME PRN HPI HPI Localized swelling, mass right upper limb: Details: Qyjfwaf-gfxmv-roxk-old male referred for a mass on the right elbow. He says that he has had this for maybe about 20 years. He says that this has increased in size just a little bit He says he now wants this removed. He denies any skin changes. He denies any discharge. He has known diabetes, chronic back pain, hypertension, and thyroid disease. He also has a hydrocele and says he is waiting for surgery for this. He is a smoker. [facility] Medical History (Updated 02/02/25 @ 10:56 by Mike Latham MD) Lipoma of arm Back pain Abrasion, left lower leg, initial encounter Ankle weakness Left ankle pain Left ankle sprain Family history of colon cancer Osteoarthritis Vertebral fracture Essential tremor Constipation Type 2 diabetes mellitus with hyperglycemia Diabetic neuropathy Tubular adenoma of colon Nicotine dependence, cigarettes, uncomplicated Positive PPD Obstructive sleep apnea Foot pain, left Overweight (BMI 25.0-29.9) Obesity (BMI 30-39.9) Thyroid nodule Pulmonary nodule GERD (gastroesophageal reflux disease) Erectile dysfunction Hypothyroid Hypertension Hypercholesterolemia Surgical History History of back surgery History of colonoscopy History of arthroscopy of right knee History of appendectomy History of tonsillectomy Family History Father Medical history unknown Mother Diabetes Past heart attack Brother Prostate cancer Social History Housing: House Alcohol intake: current Alcohol intake frequency: 0-2 drinks per day Alcohol type: beer Comment: QD 2 drinksstopped 12/2023 but last night ( 03/2024) 4 beers, ,3 beers a day Patient Tobacco Use Status: Former Tobacco user Tobacco use type: Cigarette Cigarette Packs Per Day: 1 Cigarettes Per Day: 15 Years Smoked: (onset 17yo, 3/4ppd x 56yrs, 40pyh) (06/2024 1/2 pack a day) e-Cigarette/Vaping Use: Never Used Second Hand Smoke Exposure: Yes service: Yes Current occupational status: disabled Cognitive needs: No Hearing needs: No Vision needs: Yes Review of Systems Const Denies chills and Denies fever(s) Card Denies chest pain, Denies dyspnea and Denies dyspnea on exertion Resp Denies cough, Denies dyspnea and Denies dyspnea on exertion GI Denies hematochezia, Denies change in bowel habits and Reports constipation Denies hematuria and Denies difficulty urinating Musc Reports back pain and Reports limited range of motion Neuro Denies focal weakness and Denies convulsions Psych Denies depression and Denies mood swings Physical Exam Vital Signs: BMI result Body Mass Index 29.2 Const Other: Ambulates with a cane General: comfortable and no acute distress Orientation/consciousness: patient oriented x3 Neck Neck: Yes no lymphadenopathy Resp Auscultation: clear to auscultation bilaterally Cardio Rhythm: regular rhythm GI Palpation (GI): Soft to palpation, nontender and no guarding Neuro General: patient oriented x3 Extrem Other: Right elbow - note of a very mobile, well-defined, rubbery subcutaneous mass consistent with a lipoma, measuring about 4 cm in widest dimension Assessment & Plan Assessment & Plan (1) Lipoma of arm: Code(s): D17.20 - Benign lipomatous neoplasm of skin and subcutaneous tissue of unspecified limb Category: Medical Plan: He has this well-defined, mobile mass on the right elbow consistent with a lipoma. He wants this removed. I explained the technique of excision under local anesthesia. I explained the risks including but not limited to bleeding, infections, tendon injury, postop pain, as well as the benefits and alternatives. I explained to him what to expect postoperatively He understands and wants to proceed. He will be scheduled for this procedure under local anesthesia here in the office. Coding Level of Care Code New Pt Level 3 (65658) Diagnoses Lipoma of arm D17.20
== END 2025-02-02 10:55 | disposition home or self-care (01) ==
LOC: HO.HGS 10:01
PROVIDERS: PCP Internal Medicine; Visit Provider Surgery
DX: D17.20 Benign lipomatous neoplasm of skin and subcutaneous tissue of unspecified limb (principal)
CPT/HCPCS: 99203

== ENCOUNTER → 2025-02-02 09:59 | Outpatient (BNVA) | payer MEDICARE, BC, SELFPAY | PROVIDERS: PCP Internal Medicine; Visit Provider Surgery | DX: R22.31 Localized swelling, mass and lump, right upper limb (principal) | CPT/HCPCS: 99202 ==